=== PATIENT | female | born 1990 | race African-American/Black ===

== ENCOUNTER 2016-12-24 18:33 | Inpatient (IN) | payer MEDICAID ==
[2016-12-24] VITALS (10 sets, daily range): BP systolic 111–162; BP diastolic 65–99; PULSE 52–70; RESP 14–18; TEMP 100.8–101.7; O2SAT 100
[~2016-12-24] VITALS: Ht 167.6 cm; Wt 79.0 kg
[~2016-12-24 18:33] MED LIST: ALBU8I INH; PROM25SU8 PO
[2016-12-24] MEDS ORDERED: SODIUM CHLOR 0.9% 1000 ML INJ 700 ML IV ONE ×2 (19:17→21:18)
[2016-12-24] MEDS ORDERED: cefTRIAXone INJ 2,000 MG in SODIUM CHLORIDE 0.9% INJ 100 ML IV STA (19:17)
[2016-12-24] MEDS ORDERED: SODIUM CHLOR 0.9% 1000 ML INJ 1,000 ML IV ONE ×4 (19:17→21:18)
--- NOTE | 2016-12-24 19:21 | PD ---
HPI Chief Complaint: General Weakness Time Seen by Provider: 19:21 Travel History International Travel<30 days: No Contact w/Intl Traveler<30days: No Traveled to known affect area: No History of Present Illness HPI 26-year-old female with no significant medical history, presents to the emergency department by [facility] for altered mental status. Patient's mother accompanies her. She states that she went over to her house today and the patient was "not acting right." She states she was normal yesterday when she saw her, but her grandsons told her that the patient did fall down last night was holding her throat. Patient is a poor historian. She reports throat pain and a headache. She is uncooperative. Mom states she does not use any illicit drugs that she is aware of. States patient has had a relatively uneventful medical history except for asthma bronchitis and 2 vaginal deliveries. PFSH Past Medical History Asthma: Yes Diminished Hearing: No Immunizations Current: No Pneumonia: Yes (WITH LAST ) ?: Unknown : 1 Para: 2 Miscarriage: 0 : 0 Past Surgical History Section: Yes (X 2) Gynecologic Surgery: Yes ( X 2) Social History Alcohol Use: No Tobacco Use: No Substance Use: No Allergies-Medications (Allergen,Severity, Reaction): Coded Allergies: No Known Allergies (Verified , 05/10/15) Reported Meds & Prescriptions Reported Meds & Active Scripts Active Phenergan (Promethazine HCl) 25 Mg Tab 25 Mg PO Q4-6H FOR NAUSEA/VOMITING Ventolin Hfa (Albuterol Sulfate) 8 Gm Aero 1 Puff INH Q4H PRN * SHAKE WELL BEFORE USE * Review of Systems ROS Limitations: Altered Mental Status Except as stated in HPI: all other systems reviewed are Neg Physical Exam Exam Limitations: Altered Mental Status Narrative GENERAL: Well-nourished female patient, lying in the bed, not following commands or answering questions. SKIN: Focused skin assessment warm/dry. HEAD: Atraumatic. Normocephalic. EYES: Pupils equal and round. No scleral icterus. No injection or drainage. ENT: No nasal bleeding or discharge. Mucous membranes pink and moist. Unable to visualize pharynx due to patient not cooperating.Appears as though patient has bitting the right side of her tongue NECK: Trachea midline. No JVD. CARDIOVASCULAR: Regular rate and rhythm. RESPIRATORY: No accessory muscle use. Clear to auscultation. Breath sounds equal bilaterally. GASTROINTESTINAL: Abdomen soft, non-tender, nondistended. Hepatic and splenic margins not palpable. MUSCULOSKELETAL: No obvious deformities. No clubbing. No cyanosis. No edema. NEUROLOGICAL: Awake and alert. No obvious cranial nerve deficits. Motor grossly within normal limits. Normal speech. PSYCHIATRIC: Appropriate mood and affect; insight and judgment normal. Data Data Last Documented VS Vital Signs Date Time Temp Pulse Resp B/P (MAP) Pulse Ox O2 Delivery O2 Flow Rate FiO2 12/24/16 19:18 Room Air 12/24/16 19:18 101.7 62 14 111/65 (80) 100 Orders Orders Midazolam Inj (Versed Inj) (12/24/16 19:30) Electrocardiogram (12/24/16:17) Complete Blood Count With Diff (12/24/16 19:17) Comprehensive Metabolic Panel (12/24/16 19:17) Prothrombin Time / Inr (Pt) (12/24/16:17) Act Partial Throm Time (Ptt) (12/24/16 19:17) Lactic Acid Sepsis Protocol (12/24/16 19:17) Ckmb (Isoenzyme) Profile (12/24/16 19:17) Urinalysis - C+S If Indicated (12/24/16 19:17) Blood Culture (12/24/16 19:17) Chest, Single Ap (12/24/16 19:17) Blood Glucose (12/24/16 19:17) Ecg Monitoring (12/24/16 19:17) Iv Access Insert/Monitor (12/24/16 19:17) Oximetry (12/24/16 19:17) Oxygen Administration (12/24/16 19:17) Ct Brain W/O Iv Contrast(Rout) (12/24/16 19:17) Ceftriaxone Inj (Rocephin Inj) (12/24/16 19:17) Vancomycin Inj (Vancomycin Inj) (12/24/16 20:30) Acyclovir Inj (Zovirax Inj) (12/24/16 20:30) Sodium Chlor 0.9% 1000 Ml Inj (Ns 1000 M (12/24/16 19:17) Sodium Chlor 0.9% 1000 Ml Inj (Ns 1000 M (12/24/16 19:17) Sodium Chlor 0.9% 1000 Ml Inj (Ns 1000 M (12/24/16 19:17) Ct Soft Tiss Neck W Iv Cont (12/24/16 ) Midazolam Inj (Versed Inj) (12/24/16 20:15) Etomidate Inj (Amidate Inj) (12/24/16 20:18) Succinylcholine Inj (Quelicin Inj) (12/24/16 20:18) CKMB (12/24/16 19:20) CKMB% (12/24/16 19:20) Etomidate Inj (Amidate Inj) (12/24/16 20:43) Propofol 1000 Mg/100 Ml Inj (Diprivan 10 (12/24/16 20:47) Chest, Single Ap (12/24/16 ) Admit Order (Ed Use Only) (12/24/16 21:05) Labs Laboratory Tests Test 12/24/16 19:20 White Blood Count 16.1 TH/MM3 Red Blood Count 4.40 MIL/MM3 Hemoglobin 13.2 GM/DL Hematocrit 41.1 % Mean Corpuscular Volume 93.4 FL Mean Corpuscular Hemoglobin 30.0 PG Mean Corpuscular Hemoglobin Concent 32.1 % Red Cell Distribution Width 14.1 % Platelet Count 237 TH/MM3 Mean Platelet Volume 9.5 FL Neutrophils (%) (Auto) 86.6 % Lymphocytes (%) (Auto) 7.8 % Monocytes (%) (Auto) 5.5 % Eosinophils (%) (Auto) 0.0 % Basophils (%) (Auto) 0.1 % Neutrophils # (Auto) 14.0 TH/MM3 Lymphocytes # (Auto) 1.3 TH/MM3 Monocytes # (Auto) 0.9 TH/MM3 Eosinophils # (Auto) 0.0 TH/MM3 Basophils # (Auto) 0.0 TH/MM3 CBC Comment DIFF FINAL Differential Comment Prothrombin Time 10.9 SEC Prothromb Time International Ratio 1.0 RATIO Activated Partial Thromboplast Time 27.3 SEC Blood Urea Nitrogen 11 MG/DL Creatinine 0.99 MG/DL Random Glucose 88 MG/DL Total Protein 8.4 GM/DL Albumin 4.0 GM/DL Calcium Level 9.3 MG/DL Alkaline Phosphatase 57 U/L Aspartate Amino Transf (AST/SGOT) 19 U/L Alanine Aminotransferase (ALT/SGPT) 15 U/L Total Bilirubin 0.5 MG/DL Sodium Level 137 MEQ/L Potassium Level 3.3 MEQ/L Chloride Level 105 MEQ/L Carbon Dioxide Level 22.3 MEQ/L Anion Gap 10 MEQ/L Estimat Glomerular Filtration Rate 81 ML/MIN Lactic Acid Level 1.0 mmol/L Total Creatine Kinase 976 U/L Creatine Kinase MB 6.8 NG/ML Creatine Kinase MB % 0.7 % MDM Medical Decision Making Medical Screen Exam Complete: Yes Emergency Medical Condition: Yes Medical Record Reviewed: Yes Differential Diagnosis Meningitis versus sepsis versus electrolyte abnormality Narrative Course 26 year-old female presents to emergency department for evaluation of mental status. Patient has fever. She is uncooperative and unable answer questions or provide medical history. Her mother's mother states she was last seen normal yesterday. Patient is febrile. Discussed the patient with my attending physician Dr. Holland who also assessed the patient. Sepsis protocol is initiated. With high concern for meningitis due to patient's altered mental status associated fever, vancomycin, Rocephin, and acyclovir are all ordered in addition to labs and IV normal saline. 1952 CT has not yet been complete. I contacted CT and am told patient is "next. " Patient does return from CT with the exam unable to be completed due to her not holding still. Dr. Holland has discussed in depth alternative options to sedation to best evaluate the patient with the family. Please refer to his documentation. CT is able to be completed, Dr. Holland has discussed patient with motor vehicle or caravan salesperson. Patient is admitted at this time. LP to follow. Please refer to Dr. Holland documentation for further details Sepsis Criteria SIRS Criteria (2 or more): Temp > 100.9 or < 96.8 Diagnosis Primary Impression: Sepsis Qualified Codes: A41.9 - Sepsis, unspecified organism Additional Impression: Altered mental status Qualified Codes: R41.82 - Altered mental status, unspecified Admitting Information Admitting Physician Requests: Admit Condition: Stable Brianna Campbell NATALIA Dec 24, 2016 19:21
[2016-12-24] MEDS ORDERED: MIDAZOLAM HCL 5 MG/5 ML VIAL IV PUSH ONE ×2 (19:30→22:45)
[2016-12-24] MEDS ORDERED: MIDAZOLAM HCL 5 MG/ML VIAL (1 ML) IV ONE (20:15)
[2016-12-24 20:18] LABS: BASOPHIL % 0.1 % (0.0-2.0); HEMATOCRIT 41.1 % (35.0-46.0); HEMO FLAGS DIFF FINAL; LYMPH % 7.8 % (9.0-44.0); LYMPHOCYTE # 1.3 TH/MM3 (1.0-4.8); MEAN CELL VOLUME 93.4 FL (80.0-100.0); MEAN CORPUSCULAR HGB CONC 32.1 % (32.0-36.0); MONO % 5.5 % (0.0-8.0); NEUT % 86.6 % (16.0-70.0); PLATELET COUNT 237 TH/MM3 (150-450); RED CELL DISTRIBUTION WIDTH 14.1 % (11.6-17.2); WHITE BLOOD COUNT 16.1 TH/MM3 (4.0-11.0)
[2016-12-24] MEDS ORDERED: SUCCINYLCHOLINE CHLORIDE 200 MG/10 ML VIAL ONE (20:18)
[2016-12-24] MEDS ORDERED: ETOMIDATE 20 MG/10 ML VIAL ONE ×2 (20:18→20:43)
--- NOTE | 2016-12-24 20:23 | PD ---
Physical Exam Date Seen by Provider: Dec 24, 2016 Time Seen by Provider: 20:20 Narrative The patient is a 26-year-old [place] female who presents to the emergency department with her mother for altered mental status and fever. The patient was initially evaluated by the nurse practitioner, Brianna Uribe. Please refer to initial history, physical, diagnostic evaluation, and treatment modality plan. Data Data Last Documented VS Vital Signs Date Time Temp Pulse Resp B/P (MAP) Pulse Ox O2 Delivery O2 Flow Rate FiO2 12/24/16 19:18 Room Air 12/24/16 19:18 101.7 62 14 111/65 (80) 100 Orders Orders Midazolam Inj (Versed Inj) (12/24/16 19:30) Electrocardiogram (12/24/16:17) Complete Blood Count With Diff (12/24/16:) Comprehensive Metabolic Panel (12/24/16 19:17) Prothrombin Time / Inr (Pt) (12/24/16 19:17) Act Partial Throm Time (Ptt) (12/24/16 19:17) Lactic Acid Sepsis Protocol (12/24/16 19:17) Ckmb (Isoenzyme) Profile (12/24/16 19:17) Urinalysis - C+S If Indicated (12/24/16 19:17) Blood Culture (12/24/16 19:17) Chest, Single Ap (12/24/16 19:17) Blood Glucose (12/24/16 19:17) Ecg Monitoring (12/24/16 19:17) Iv Access Insert/Monitor (12/24/16 19:17) Oximetry (12/24/16 19:17) Oxygen Administration (12/24/16 19:17) Ct Brain W/O Iv Contrast(Rout) (12/24/16 19:17) Ceftriaxone Inj (Rocephin Inj) (12/24/16 19:17) Vancomycin Inj (Vancomycin Inj) (12/24/16 20:30) Acyclovir Inj (Zovirax Inj) (12/24/16 20:30) Sodium Chlor 0.9% 1000 Ml Inj (Ns 1000 M (12/24/16 19:17) Sodium Chlor 0.9% 1000 Ml Inj (Ns 1000 M (12/24/16 19:17) Sodium Chlor 0.9% 1000 Ml Inj (Ns 1000 M (12/24/16 19:17) Ct Soft Tiss Neck W Iv Cont (12/24/16 ) Midazolam Inj (Versed Inj) (12/24/16 20:15) Etomidate Inj (Amidate Inj) (12/24/16 20:18) Succinylcholine Inj (Quelicin Inj) (12/24/16 20:18) CKMB (12/24/16 19:20) CKMB% (12/24/16 19:20) Etomidate Inj (Amidate Inj) (12/24/16 20:43) Propofol 1000 Mg/100 Ml Inj (Diprivan 10 (12/24/16 20:47) Chest, Single Ap (12/24/16 ) Admit Order (Ed Use Only) (12/24/16 21:05) Labs Laboratory Tests Test 12/24/16 19:20 White Blood Count 16.1 TH/MM3 Red Blood Count 4.40 MIL/MM3 Hemoglobin 13.2 GM/DL Hematocrit 41.1 % Mean Corpuscular Volume 93.4 FL Mean Corpuscular Hemoglobin 30.0 PG Mean Corpuscular Hemoglobin Concent 32.1 % Red Cell Distribution Width 14.1 % Platelet Count 237 TH/MM3 Mean Platelet Volume 9.5 FL Neutrophils (%) (Auto) 86.6 % Lymphocytes (%) (Auto) 7.8 % Monocytes (%) (Auto) 5.5 % Eosinophils (%) (Auto) 0.0 % Basophils (%) (Auto) 0.1 % Neutrophils # (Auto) 14.0 TH/MM3 Lymphocytes # (Auto) 1.3 TH/MM3 Monocytes # (Auto) 0.9 TH/MM3 Eosinophils # (Auto) 0.0 TH/MM3 Basophils # (Auto) 0.0 TH/MM3 CBC Comment DIFF FINAL Differential Comment Prothrombin Time 10.9 SEC Prothromb Time International Ratio 1.0 RATIO Activated Partial Thromboplast Time 27.3 SEC Blood Urea Nitrogen 11 MG/DL Creatinine 0.99 MG/DL Random Glucose 88 MG/DL Total Protein 8.4 GM/DL Albumin 4.0 GM/DL Calcium Level 9.3 MG/DL Alkaline Phosphatase 57 U/L Aspartate Amino Transf (AST/SGOT) 19 U/L Alanine Aminotransferase (ALT/SGPT) 15 U/L Total Bilirubin 0.5 MG/DL Sodium Level 137 MEQ/L Potassium Level 3.3 MEQ/L Chloride Level 105 MEQ/L Carbon Dioxide Level 22.3 MEQ/L Anion Gap 10 MEQ/L Estimat Glomerular Filtration Rate 81 ML/MIN Lactic Acid Level 1.0 mmol/L Total Creatine Kinase 976 U/L Creatine Kinase MB 6.8 NG/ML Creatine Kinase MB % 0.7 % [facility] Medical Record Reviewed: Yes Supervised Visit with MEMO: Yes Interpretation(s) CT of the brain reveals questionable bilateral white matter changes Chest x-ray #1 reveals motion artifact Chest x-ray #2 reveals endotracheal tube in place 4.7 cm above boogie, nasogastric tube needs to be advance, mild left midlung consolidation Laboratory Tests Test 12/24/16 19:20 White Blood Count 16.1 TH/MM3 Red Blood Count 4.40 MIL/MM3 Hemoglobin 13.2 GM/DL Hematocrit 41.1 % Mean Corpuscular Volume 93.4 FL Mean Corpuscular Hemoglobin 30.0 PG Mean Corpuscular Hemoglobin Concent 32.1 % Red Cell Distribution Width 14.1 % Platelet Count 237 TH/MM3 Mean Platelet Volume 9.5 FL Neutrophils (%) (Auto) 86.6 % Lymphocytes (%) (Auto) 7.8 % Monocytes (%) (Auto) 5.5 % Eosinophils (%) (Auto) 0.0 % Basophils (%) (Auto) 0.1 % Neutrophils # (Auto) 14.0 TH/MM3 Lymphocytes # (Auto) 1.3 TH/MM3 Monocytes # (Auto) 0.9 TH/MM3 Eosinophils # (Auto) 0.0 TH/MM3 Basophils # (Auto) 0.0 TH/MM3 CBC Comment DIFF FINAL Differential Comment Prothrombin Time 10.9 SEC Prothromb Time International Ratio 1.0 RATIO Activated Partial Thromboplast Time 27.3 SEC Blood Urea Nitrogen 11 MG/DL Creatinine 0.99 MG/DL Random Glucose 88 MG/DL Total Protein 8.4 GM/DL Albumin 4.0 GM/DL Calcium Level 9.3 MG/DL Alkaline Phosphatase 57 U/L Aspartate Amino Transf (AST/SGOT) 19 U/L Alanine Aminotransferase (ALT/SGPT) 15 U/L Total Bilirubin 0.5 MG/DL Sodium Level 137 MEQ/L Potassium Level 3.3 MEQ/L Chloride Level 105 MEQ/L Carbon Dioxide Level 22.3 MEQ/L Anion Gap 10 MEQ/L Estimat Glomerular Filtration Rate 81 ML/MIN Lactic Acid Level 1.0 mmol/L Total Creatine Kinase 976 U/L Creatine Kinase MB 6.8 NG/ML Creatine Kinase MB % 0.7 % Differential Diagnosis Differential diagnoses includes meningitis, encephalitis, subarachnoid hemorrhage, retropharyngeal abscess, sepsis, intracranial hemorrhage, subarachnoid hemorrhage, delirium, drug ingestion. Narrative Course I, Dr. Holland, have reviewed the advance practice practitioner's documentation and am in agreement, met with the patient face to face, made the diagnosis, and the medical decision making was done by me. *My assessment and Findings: The patient is a 26-year-old [place] female who was initially evaluated by the mid-level provider. Please refer to the initial history, physical, diagnostic evaluation, and treatment modality plan. The patient had an altered mental status, was unable to follow commands, but not answer questions in regards to person, place, or time. The patient would not follow commands, would move during physical examination and would pushes away during physical examination. Mother states the patient is normally alert and oriented and following commands without difficulty. Meningitis/ encephalitis was thought to be a possibility as patient has fever with altered mental status. It was noted the patient had a hematoma on the right aspect of the tongue and was also noted to be incontinent of urine, seizure is a possibility, possibly HSV encephalitis/meningitis. We attempted to obtain CT the brain and CT soft tissue of the neck with IV contrast with Versed as sedation, however, the patient would not hold still in the CT suite, we're unable to obtain images. I had a discussion with mother regarding intubation to protect the patient's airway for sedation and paralysis to obtain CT and lumbar puncture. The patient immediately had Rocephin, vancomycin, and acyclovir order for possible meningitis/encephalitis. The patient was intubated by anesthesia as the patient had a difficult airway and was anterior. The patient then went immediately to CT for CT the soft tissue neck with IV contrast. The on-call medicaid analyst was paged for admission. I discussed the patient with Dr. Samuels who agrees with admission. The lumbar puncture was performed bedside by Dr. Samuels and cultures were sent to lab. The patient will be minute to the intensive care unit. Family was updated. Critical Care Narrative Aggregate critical care time was 45 minutes. Time to perform other separately billable procedures was not included in the critical care time. My time did not include minutes spent treating any other patients simultaneously or on activities that did not directly contribute to the patient's treatment. The services I provided to this patient were to treat and/or prevent clinically significant deterioration that could result in: Anoxia, hypoxia, aspiration, sepsis, . I provided critical care services requiring my management, as noted below: Chart data review, documentation time, medication orders and management, vital sign assessments/reviewing monitor data, ordering and reviewing lab tests, ordering and interpreting/reviewing x-rays and diagnostic studies, care of the patient and discussion of the patient with the admitting physicians. Sepsis Criteria SIRS Criteria (2 or more): Temp > 100.9 or < 96.8, Heart rate over 90, WBC > 00890, < 4000 or > 10% bands Criteria Outcome: Meets sepsis criteria Physician Communication Physician Communication The on-call medicaid analyst was paged for admission. I discussed the patient with Dr. Samuels who agrees with admission. Diagnosis Primary Impression: Sepsis Qualified Codes: A41.9 - Sepsis, unspecified organism Additional Impressions: Altered mental status Qualified Codes: R41.82 - Altered mental status, unspecified Leukocytosis Qualified Codes: D72.829 - Elevated white blood cell count, unspecified Admitting Information Admitting Physician Requests: Admit Condition: Serious Luis E Holland MD Dec 24, 2016 20:23
[2016-12-24] MEDS ORDERED: ACYCLOVIR IV ONE (20:30)
[2016-12-24] MEDS ORDERED: SODIUM CHLORIDE 0.9% IV ONE (20:30)
[2016-12-24] MEDS ORDERED: VANCOMYCIN INJ 2,100 MG in SODIUM CHLORID 0.9% 500 ML INJ 500 ML IV ONE (20:30)
--- NOTE | 2016-12-24 20:33 | RADRPT ---
EXAM DATE/TIME: 12/24/2016 19:45 [facility] COMPARISON: CHEST SINGLE AP, May 02, 2014, 15:08. INDICATIONS : Evaluate lung status. Fever for 2 days. MEDICAL HISTORY : None. SURGICAL HISTORY : None. ENCOUNTER: Initial ACUITY: 2 days PAIN SCORE: Non-responsive. LOCATION: Bilateral chest FINDINGS: Portable AP view of the chest is severely degraded secondary to motion artifact. Cardiac silhouette s ize is normal. Lungs demonstrate no definite abnormality. Bones and soft tissues demonstrate no acute finding. Linear metallic densities overlie the breast presumably representing nipple piercings. EKG lines also overlie the patient. CONCLUSION: Examination is severely degraded by motion. No acute finding is identified given this limitation. If clinical symptoms persist consider followup examination when patient is able to cooperate with the [facility]. Jamil Gibson MD on December 24, 2016 at 20:30 Board Certified Radiologist. This report was verified electronically.
[2016-12-24 20:35] LABS: ALT (GPT) 15 U/L (10-53); ANION GAP 10 MEQ/L (5-15); AST (GOT) 19 U/L (15-37); BICARBONATE 22.3 MEQ/L (21.0-32.0); BLOOD UREA NITROGEN 11 MG/DL (7-18); CHLORIDE 105 MEQ/L (98-107); GLOMERULAR FILTRATION RATE 81 ML/MIN (>89); POTASSIUM 3.3 MEQ/L (3.5-5.1); SODIUM (NA) 137 MEQ/L (136-145)
--- NOTE | 2016-12-24 20:37 | RADRPT ---
EXAM DATE/TIME: 12/24/2016 20:06 [facility] COMPARISON: No previous studies available for comparison. INDICATIONS : Altered mental status. RADIATION DOSE: 56.75 CTDIvol (mGy) MEDICAL HISTORY : Non-responsive. SURGICAL HISTORY : Non-responsive. ENCOUNTER: Initial ACUITY: 1 day PAIN SCALE: Non-responsive LOCATION: TECHNIQUE: Multiple contiguous axial images were obtained of the head. Using automated exposure control and adj ustment of the mA and/or kV according to patient size, radiation dose was kept as low as reasonably a chievable to obtain optimal diagnostic quality images. DICOM format image data is available electro nically for review and comparison. FINDINGS: CEREBRUM: The ventricles are normal. The white matter bilaterally appears slightly lower in density than typica lly appreciated. No midline shift, mass lesion, hemorrhage or acute infarction. No extra-axial flui d collections are seen. POSTERIOR FOSSA: The cerebellum and brainstem demonstrate no acute finding. The 4th ventricle is midline. The cerebe llopontine angle is unremarkable. EXTRACRANIAL: Visualized sinuses are clear. SKULL: The calvaria is intact. No evidence of skull fracture. CONCLUSION: 1. Questionable bilateral relatively diffuse white matter low density. This may be related to techniq ue. However, given the clinical history consider followup CT to assess for change or alternatively fu rther evaluate with brain MRI to determine if a true abnormality is present 2. Otherwise, no acute finding is identified. Jamil Gibson MD on December 24, 2016 at 20:32 Board Certified Radiologist. This report was verified electronically.
[2016-12-24 20:38] LABS: ALKALINE PHOSPHATASE 57 U/L (45-117); CREATINE KINASE 976 U/L (26-192); TOTAL BILIRUBIN ADULT 0.5 MG/DL (0.2-1.0)
[2016-12-24 20:44] LABS: APTT (PATIENT) 27.3 SEC (24.3-30.1); PROTHROMBIN TIME - PATIENT 10.9 SEC (9.8-11.6)
[2016-12-24] MEDS ORDERED: PROPOFOL 1000 MG/100 ML INJ 100 ML ONE (20:47)
[2016-12-24 20:55] LABS: CKMB 6.8 NG/ML (0.5-3.6)
[2016-12-24] MEDS: SODIUM CHLOR 0.9% 1000 ML INJ 1,000 ML IV SCH (21:18)
--- NOTE | 2016-12-24 21:23 | RADRPT ---
EXAM DATE/TIME: 12/24/2016 21:06 [facility] COMPARISON: CHEST SINGLE AP, December 24, 2016, 19:45. INDICATIONS : Post intubation. MEDICAL HISTORY : Non-responsive. SURGICAL HISTORY : Non-responsive. ENCOUNTER: Initial ACUITY: 1 day PAIN SCORE: Non-responsive. LOCATION: Bilateral chest FINDINGS: Portable AP view of the chest demonstrates a normal-sized cardiac silhouette. Multiple lines overlie the patient. Endotracheal tube is present with distal tip measuring 4.7 cm from the boogie. Nasogastr ic tube is present and distal tip barely extends beyond the GE junction with sentinel hole in the dis gabby esophagus. There is mild airspace opacity with air bronchograms in the left midlung zone. No pleu ral effusion or pneumothorax is visualized. Bones and soft tissues demonstrate no acute finding. CONCLUSION: 1. Endotracheal tube in appropriate position with tip measuring 4.7 cm from the boogie. 2. Nasogastric tube should be advanced. 3. Mild airspace consolidation in the left midlung zone. Jamil Gibson MD on December 24, 2016 at 21:20 Board Certified Radiologist. This report was verified electronically.
--- NOTE | 2016-12-24 21:25 | HHI.HP ---
[facility] Service Critical Care Medicine Primary Care Physician Jamil Davies MD Admission Diagnosis sepsis with altered mental status rule out meningitis/encephalitis Diagnosis: Travel History International Travel<30 Days: No Contact w/Intl Traveler <30 Da: No Traveled to Known Affected Are: No History of Present Illness 26-year-old female with no significant medical history, presents by [facility] for altered mental status and fevers. Patient's mother states that she went over to her house today and the patient was "not acting right." She states she was normal yesterday when she saw her, but her grandsons told her that the patient did fall down last night was holding her throat. The patient did report throat pain and a headache. She was uncooperative agitated and lethargic and was intubated by ED attending for an airway protection. Review of Systems ROS Unobtainable Past Family Social History Allergies: Coded Allergies: No Known Allergies (Verified , 05/10/15) Past Medical History Bronchial asthma Pneumonia Past Surgical History None Reported Medications Reported Meds & Active Scripts Active Phenergan (Promethazine HCl) 25 Mg Tab 25 Mg PO Q4-6H FOR NAUSEA/VOMITING Ventolin Hfa (Albuterol Sulfate) 8 Gm Aero 1 Puff INH Q4H PRN * SHAKE WELL BEFORE USE * Active Ordered Medications Current Medications Medications (Trade) Dose Ordered Sig/Vanessa Route PRN Reason Start Time Stop Time Status Last Admin Dose Admin Sodium Chloride 1,000 ml @ 75 mls/hr [id number] IV 12/24/16 21:18 12/24/16 21:18 Sodium Chloride (NS Flush) 2 ml UNSCH PRN IV FLUSH FLUSH AFTER USING IV ACCESS 12/24/16 21:30 Sodium Chloride (NS Flush) 2 ml BID IV FLUSH 12/25/16 09:00 Famotidine (Pepcid Inj) 20 mg Q12HR IV PUSH 12/25/16 09:00 Albuterol/ Ipratropium (Duoneb Neb) 1 ampule Q6HR NEB INH 12/24/16 22:00 12/25/16 03:23 Albuterol/ Ipratropium (Duoneb Neb) 1 ampule Q2HR NEB PRN INH WHEEZING 12/24/16 21:30 Heparin Sodium (Porcine) (Heparin Inj) 5,000 units Q8HR SQ 12/24/16 22:00 Ceftriaxone Sodium 2000 mg/ Sodium Chloride 100 ml @ 200 mls/hr Q12H IV 12/25/16 08:00 Pharmacy Profile Note 0 ml @ 0 mls/hr UNSCH OTHER 12/24/16 21:30 Miscellaneous Information 1 [id number] XX 12/24/16 21:30 Chlorhexidine Gluconate (Chlorhexidine 2% Cloth) 3 pack Taper DAILY@04 TOP 12/25/16 04:00 12/21/17 03:59 Chlorhexidine Gluconate (Chlorhexidine 2% Cloth) 3 pack UNSCH PRN TOP HYGIENIC CARE 12/24/16 21:30 Propofol 100 ml @ 2.52 mls/hr TITRATE PRN IV Ordered RASS 12/24/16 21:45 12/24/16 20:55 Vancomycin HCl 1250 mg/Sodium Chloride 262.5 ml @ 250 mls/hr Q12H IV 12/25/16 11:00 Miscellaneous Information SPECIFIC LAB TO BE HEATHER... ONCE ONCE .XX 12/26/16 10:45 12/26/16 10:46 Propofol 100 ml @ 2.52 mls/hr TITRATE PRN IV Ordered RASS 12/25/16 00:00 Fentanyl Citrate 250 ml @ 5 mls/hr TITRATE PRN IV Sedation 12/25/16 00:30 12/25/16 01:03 Midazolam HCl 100 ml @ 2 mls/hr TITRATE PRN IV SEDATION 12/25/16 00:30 12/25/16 01:02 Family History No family history of early coronary artery disease or malignancy Social History No illicit drug abuse smokes medical marijuana occasionally, no tobacco or alcohol abuse Physical Exam Vital Signs Vital Signs Date Time Temp Pulse Resp B/P (MAP) Pulse Ox O2 Delivery O2 Flow Rate FiO2 12/24/16 19:18 Room Air 12/24/16 19:18 101.7 62 14 111/65 (80) 100 Room Air 12/24/16 19:01 101.7 70 18 111/65 (80) 100 Physical Exam GENERAL: Well-nourished, well-developed patient young female sedated and intubated SKIN: Warm and dry. HEAD: Normocephalic. EYES: No scleral icterus. No injection or drainage. NECK: Supple, trachea midline. No JVD or lymphadenopathy. CARDIOVASCULAR: Regular rate and rhythm without murmurs, gallops, or rubs. RESPIRATORY: Breath sounds equal bilaterally. No accessory muscle use. GASTROINTESTINAL: Abdomen soft, non-tender, nondistended. MUSCULOSKELETAL: No cyanosis, or edema. BACK: Nontender without obvious deformity. NEURO EXAM: GCS: M5 Vt E3 Mental Status: The patient is sedated and intubated Cranial Nerves: Pupils are round, reactive to light. Reflexes: Biceps, patellar, and Achilles are 2/4 bilaterally. No clonus. Laboratory Laboratory Tests Test 12/24/16 19:20 White Blood Count 16.1 Red Blood Count 4.40 Hemoglobin 13.2 Hematocrit 41.1 Mean Corpuscular Volume 93.4 Mean Corpuscular Hemoglobin 30.0 Mean Corpuscular Hemoglobin Concent 32.1 Red Cell Distribution Width 14.1 Platelet Count 237 Mean Platelet Volume 9.5 Neutrophils (%) (Auto) 86.6 Lymphocytes (%) (Auto) 7.8 Monocytes (%) (Auto) 5.5 Eosinophils (%) (Auto) 0.0 Basophils (%) (Auto) 0.1 Neutrophils # (Auto) 14.0 Lymphocytes # (Auto) 1.3 Monocytes # (Auto) 0.9 Eosinophils # (Auto) 0.0 Basophils # (Auto) 0.0 CBC Comment DIFF FINAL Differential Comment Prothrombin Time 10.9 Prothromb Time International Ratio 1.0 Activated Partial Thromboplast Time 27.3 Blood Urea Nitrogen 11 Creatinine 0.99 Random Glucose 88 Total Protein 8.4 Albumin 4.0 Calcium Level 9.3 Alkaline Phosphatase 57 Aspartate Amino Transf (AST/SGOT) 19 Alanine Aminotransferase (ALT/SGPT) 15 Total Bilirubin 0.5 Sodium Level 137 Potassium Level 3.3 Chloride Level 105 Carbon Dioxide Level 22.3 Anion Gap 10 Estimat Glomerular Filtration Rate 81 Lactic Acid Level 1.0 Total Creatine Kinase 976 Creatine Kinase MB 6.8 Creatine Kinase MB % 0.7 Date/Time Source Procedure Growth Status 12/24/16 19:25 Blood Peripheral Aerobic Blood Culture Pending Received 12/24/16 19:25 Blood Peripheral Anaerobic Blood Culture Pending Received Result Diagram: 12/24/16191912/24/161919 Imaging Last [address] 12/24/161916 Draft Impressions: Service Date/Time: Saturday, December 24, 2016 20:06 - CONCLUSION: 1. Questionable bilateral relatively diffuse white matter low density. This may be related to technique. However, given the clinical history consider followup CT to assess for change or alternatively further evaluate with brain MRI to determine if a true abnormality is present 2. Otherwise, no acute finding is identified. Jamil Gibson MD Chest X-Ray 12/24/161916 Signed Impressions: Service Date/Time: Saturday, December 24, 2016 19:45 - CONCLUSION: Examination is severely degraded by motion. No acute finding is identified given this limitation. If clinical symptoms persist consider followup examination when patient is able to cooperate with the study. MD Rachna Servin VTE Risk Assessment Rachna VTE Risk Assessment: Mod/High Risk (score >= 2) Caprini Risk Assessment Model Point Value = 1 Point Value = 2 Point Value = 3 Point Value = 5 Age 41-60 Minor surgery BMI > 25 kg/m2 Swollen legs Varicose veins or History of unexplained or recurrent spontaneous Oral contraceptives or hormone replacement Sepsis (< 1 month) Serious lung disease, including pneumonia (< 1 month) Abnormal pulmonary function Acute myocardial infarction Congestive heart failure (< 1 month) History of inflammatory bowel disease Medical patient at bed rest Age 61-74 Arthroscopic surgery Major open surgery (> 45 min) Laparoscopic surgery (> 45 min) Malignancy Confined to bed (> 72 hours) Immobilizing plaster cast Central venous access Age >= 75 History of VTE Family history of VTE Factor V Leiden Prothrombin [id number] Lupus anticoagulant Anticardiolipin antibodies Elevated serum homocysteine Heparin-induced thrombocytopenia Other congenital or acquired thrombophilia Stroke (< 1 month) Elective arthroplasty Hip, pelvis, or leg fracture Acute spinal cord injury (< 1 month) Prophylaxis Regimen Total Risk Factor Score Risk Level Prophylaxis Regimen 0-1 Low Early ambulation 2 Moderate Order ONE of the following: *Sequential Compression Device (SCD) *Heparin 5000 units SQ BID 3-4 Higher Order ONE of the following medications: *Heparin 5000 units SQ TID *Enoxaparin/Lovenox 40 mg SQ daily (WT < 150 kg, CrCl > 30 mL/min) *Enoxaparin/Lovenox 30 mg SQ daily (WT < 150 kg, CrCl > 10-29 mL/min) *Enoxaparin/Lovenox 30 mg SQ BID (WT < 150 kg, CrCl > 30 mL/min) AND/OR *Sequential Compression Device (SCD) 5 or more Highest Order ONE of the following medications: *Heparin 5000 units SQ TID (Preferred with Epidurals) *Enoxaparin/Lovenox 40 mg SQ daily (WT < 150 kg, CrCl > 30 mL/min) *Enoxaparin/Lovenox 30 mg SQ daily (WT < 150 kg, CrCl > 10-29 mL/min) *Enoxaparin/Lovenox 30 mg SQ BID (WT < 150 kg, CrCl > 30 mL/min) AND *Sequential Compression Device (SCD) Assessment and Plan Assessment and Plan Respiratory failure - Intubated for an airway protection - No weaning until neurologically improved - Continue mechanical ventilation - CXR and ABG daily Altered mental status - SIRS - Toxic encephalopathy - Marijuana - LP negative - CT head negative - Neuro checks - Supportive care Sepsis - Unclear source - Broad-spectrum antibiotics - Follow-up cultures and de-escalate per sensitivity - Infectious disease consultation DVT GI prophylaxis - Subcutaneous heparin and Pepcid Critical Care: The total critical care time was 35 minutes. Time to perform other separately billable procedures was not included in the critical care time. Nic Samuels MD Dec 24, 2016 9:24 pm
[2016-12-24] MEDS ORDERED: SODIUM CHLORIDE 0.9% FLUSH 10 ML FLUSH IV FLUSH PRN (21:30)
[2016-12-24] MEDS ORDERED: RESP: ALBUTEROL 2.5 MG/IPRATROPIUM 0.5 MG NEB (PRN) INH (21:30)
[2016-12-24] MEDS ORDERED: MISCELLANEOUS NURSING INFORMATION XX SCH (21:30)
[2016-12-24] MEDS ORDERED: CHLORHEXIDINE GLUCONATE 2 % 1 PACK (2 CLOTHS) TOP PRN (21:30)
[2016-12-24] MEDS ORDERED: Vancomycin Consult Pharmacy 1 EA OTHER SCH (21:30)
[2016-12-24] MEDS ORDERED: IOHEXOL 350 MG/ML 10 ML VIAL (for RAD DIAG) IVCONTRAST ONE (21:31)
--- NOTE | 2016-12-24 21:42 | RADRPT ---
EXAM DATE/TIME: 12/24/2016 20:09 [facility] COMPARISON: No previous studies available for comparison. INDICATIONS : Swollen throat. IV CONTRAST: 70 cc Omnipaque 350 (iohexol) IV RADIATION DOSE: 14.64 CTDIvol (mGy) MEDICAL HISTORY : Non-responsive. SURGICAL HISTORY : Non-responsive. ENCOUNTER: Initial ACUITY: 1 day PAIN SCALE: Non-responsive LOCATION: throat TECHNIQUE: Volumetric scanning of the neck was performed. Using automated exposure control and adjustment of th e mA and/or kV according to patient size, radiation dose was kept as low as reasonably achievable to obtain optimal diagnostic quality images. DICOM format image data is available electronically for r eview and comparison. FINDINGS: NASOPHARYNX: There is fluid filling the nasopharynx. Mucosal services demonstrate no definite abnormality. OROPHARYNX: Patient is intubated nasogastric tube is present. No definite abnormality is present. There is fluid. LARYNX: Endotracheal tube is present along with fluid. No definite abnormality is seen. SALIVARY GLANDS: The parotid and submandibular glands are within normal limits. LYMPH NODES: No enlarged or necrotic-appearing nodes. THYROID: Homogeneous enhancement without evidence of nodule. BONES: No acute osseous abnormality is identified. The visualized surrounding structures demonstrate no acute finding. CONCLUSION: There is fluid in the nasopharynx and oropharynx likely related to the nasogastric tube and endotrach eal tube that is present. Otherwise, no acute finding is appreciated. Jamil Gibson MD on December 24, 2016 at 21:37 Board Certified Radiologist. This report was verified electronically.
[2016-12-24] MEDS ORDERED: VECURONIUM BROMIDE 10 MG VIAL IV PUSH ONE (21:45)
[2016-12-24] MEDS ORDERED: PROPOFOL 1000 MG/100 ML INJ 100 ML IV PRN (21:45)
[2016-12-24] MEDS ORDERED: DEXAMETHASONE SOD PHOS 20 MG/5 ML VIAL IV SCH (22:00)
[2016-12-24] MEDS: RESP: ALBUTEROL 2.5 MG/IPRATROPIUM 0.5 MG NEB (SCH) INH (22:03)
--- NOTE | 2016-12-24 22:43 | PD.PROCEDR ---
Procedure Note Procedure Lumbar puncture A time-out was completed verifying correct patient, procedure, site, positioning , and special equipment if applicable. The patient was placed in the <LEFT/RIGHT > lateral decubitus position in a semi- position with help from the nursing staff. The area was cleansed and draped in usual sterile fashion. 1% lidocaine was used anesthetize the surrounding skin area. A <20-gauge 3.5-inch> spinal needle was placed in the <L3-L4/L4-L5> interspace. Clear cerebral spinal fluid was obtained and the opening pressure was noted to be 22. Four tubes were filled with 4 mL of CSF. These were sent for the usual tests, including 1 tube to be held for further analysis if needed. <Attending/Resident> was present for the entire procedure Estimated Blood Loss: 0ml The patient tolerated the procedure well and there were no complications. Nic Samuels MD Dec 24, 2016 22:43
[2016-12-24 23:30] LABS: LACTIC ACID,CSF 2.3 MMOL/L (0.0-3.0)
[2016-12-24] MEDS ORDERED: ACETAMINOPHEN 650 MG/20.3 ML UDC PO ONE (23:30)
[2016-12-24 23:58] LABS: GROSS BLOOD TUBE #1 1+ (0); GROSS BLOOD TUBE #2 TRACE (0); SUPERNATE COLOR TUBE #1 CLEAR (CLEAR); SUPERNATE COLOR TUBE #2 CLEAR (CLEAR); VOLUME TUBE # 2 2.8 ML; VOLUME TUBE # 3 2.5 ML
[2016-12-24 23:59] LABS: GROSS BLOOD TUBE #3 TRACE (0); GROSS BLOOD TUBE #4 0 (0); SUPERNATE COLOR TUBE #3 CLEAR (CLEAR); SUPERNATE COLOR TUBE #4 CLEAR (CLEAR); VOLUME TUBE # 4 2.8 ML
[2016-12-25] VITALS (43 sets, daily range): BP systolic 110–152; BP diastolic 60–92; PULSE 57–111; RESP 10–36; TEMP 98.7–100.3; O2SAT 77–100
[2016-12-25] LABS: WBC TUBE #4 17 /MM3 (0-10)
[2016-12-25] MEDS ORDERED: ETOMIDATE 20 MG/10 ML VIAL IV PUSH ONE ×2
[2016-12-25] MEDS ORDERED: SUCCINYLCHOLINE CHLORIDE 200 MG/10 ML VIAL IV PUSH ONE ×2
[2016-12-25 00:03] LABS: BACTERIA, URINE RARE /hpf; BLOOD, URINE NEG (NEG); GLUCOSE,URINE NEG (NEG); KETONE, URINE 40 mg/dL (NEG); MUCUS URINE FEW /lpf (OCC); NITRITE,URINE NEG (NEG); URINE COLOR YELLOW (YELLW/STRAW)
[2016-12-25 00:04] LABS: COMMENT (UR) CATH-CULTURE IND; CULTURE IF INDICATED CATH CULTURE IND
[2016-12-25 00:11] LABS: GROSS BLOOD TUBE #1 1+ (0); SUPERNATE COLOR TUBE #1 CLEAR (CLEAR); WBC TUBE #1 14 /MM3 (0-10)
[2016-12-25] MEDS: MIDAZOLAM 100 MG/NS 100 ML DRIP Premix IV PRN ×2 (01:02→10:26)
[2016-12-25] MEDS: fentaNYL 2,500 MCG/NS 250 ML IV PRN ×2 (01:03→15:18)
[2016-12-25 01:20] LABS: CSF LYMPHOCYTES 11 %; CSF NEUTROPHILS 89 %
[2016-12-25 01:23] LABS: CSF LYMPHOCYTES 6 %; CSF MONOCYTES 2 %; CSF NEUTROPHILS 92 %
[2016-12-25] MEDS: RESP: ALBUTEROL 2.5 MG/IPRATROPIUM 0.5 MG NEB (SCH) INH ×4 (03:23→20:14)
[2016-12-25] MEDS: CHLORHEXIDINE GLUCONATE 2 % 1 PACK (2 CLOTHS) TOP SCH (04:28)
[2016-12-25] MEDS: HEPARIN SODIUM - SQ 10,000 UNITS/ML VIAL SQ SCH ×3 (05:10→19:59)
[2016-12-25] MEDS ORDERED: RESP: ALBUTEROL 2.5 MG/3 ML NEB (PRN) NEB (09:00)
[2016-12-25] MEDS ORDERED: POTASSIUM CHLORIDE 20 MEQ PWD PACKET PO ONE (09:00)
[2016-12-25] MEDS: ARTIFICIAL TEARS OPTH SOLN 15 ML BTL EACH EYE SCH ×2 (09:00→17:00)
[2016-12-25] MEDS: SENNOSIDES SYRUP 8.8 MG/5 ML CUP PO SCH (09:00)
--- NOTE | 2016-12-25 09:06 | HHI.CCPN ---
Subjective Remarks/Hospital Course 26-year-old female with no significant medical history, presents by [facility] for altered mental status and fevers. Patient's mother states that she went over to her house today and the patient was "not acting right." She states she was normal yesterday when she saw her, but her grandsons told her that the patient did fall down last night was holding her throat. The patient did report throat pain and a headache. She was uncooperative agitated and lethargic and was intubated by ED attending for an airway protection. Subjective 12/25: Tmax 101.1. Currently 98.3. Arousable on the ventilator on 10 mg an hour of midazolam drip and 200 an hour fentanyl drip. Not falling commands. Positive gag and corneal reflex. Moves all 4 extremities spontaneously. MRI brain pending. Objective Vital Signs Date Time Temp Pulse Resp B/P (MAP) Pulse Ox O2 Delivery O2 Flow Rate FiO2 12/25/16 08:11 100 35 12/25/16 06:00 59 12/25/16 04:00 98.7 17 126/78 (94) 12/25/16 00:06 Ventilator 12/24/16 20:45 15.00 Intake and Output 12/25/16 12/25/16 12/26/16 08:00 16:00 00:00 Intake Total 4073.0 ml Output Total 475 ml Balance 3598.0 ml Result Diagram: 12/24/16191912/24/161919 Other Results Microbiology Date/Time Source Procedure Growth Status 12/24/16 19:25 Blood Peripheral Aerobic Blood Culture Pending Received 12/24/16 19:25 Blood Peripheral Anaerobic Blood Culture Pending Received 12/24/16 22:00 Cerebral Spinal Fluid Lumbar Puncture Gram Stain - Final Resulted 12/24/16 22:00 Cerebral Spinal Fluid Lumbar Puncture CSF Culture Pending Resulted 12/24/16 23:30 Urine Catheterized Urine Urine Culture Pending Received Imaging Last Impressions Head CT 12/24/161916 Signed Impressions: Service Date/Time: Saturday, December 24, 2016 20:06 - CONCLUSION: 1. Questionable bilateral relatively diffuse white matter low density. This may be related to technique. However, given the clinical history consider followup CT to assess for change or alternatively further evaluate with brain MRI to determine if a true abnormality is present 2. Otherwise, no acute finding is identified. Jamil Gibson MD Chest X-Ray 12/24/16 1917 Signed Impressions: Service Date/Time: Saturday, December 24, 2016 19:45 - CONCLUSION: Examination is severely degraded by motion. No acute finding is identified given this limitation. If clinical symptoms persist consider followup examination when patient is able to cooperate with the study. Jamil Gibson MD Neck CT 12/24/16 0000 Signed Impressions: Service Date/Time: Saturday, December 24, 2016 20:09 - CONCLUSION: There is fluid in the nasopharynx and oropharynx likely related to the nasogastric tube and endotracheal tube that is present. Otherwise, no acute finding is appreciated. Jamil Gibson MD Objective Remarks GENERAL: 26-year-old AA female currently orotracheally intubated SKIN: Warm and dry. No rash HEAD: Normocephalic. EYES: Pupils are equally round and react about 3 mm bilaterally. No scleral icterus. No injection or drainage. NECK: Supple, trachea midline. No JVD or lymphadenopathy. CARDIOVASCULAR: Regular rate and rhythm S1, S2 no S4. Without murmurs, gallops , or rubs. RESPIRATORY: Breath sounds equal bilaterally. No accessory muscle use. GASTROINTESTINAL: Abdomen soft, non-tender, nondistended. MUSCULOSKELETAL: No neck and peripheral edema. NEURO EXAM: Cranial nerves II through XII appear grossly intact. Patient moves all 4 extremity spontaneously but not to command. Positive gag. Positive corneal reflex. A/P Assessment and Plan Neuro/Psych: Altered mental status - rule out meningioencephalitis THC use Patient is currently on midazolam drip at 10 mg an hour/fentanyl drip at 200 g for sedation/analgesia while intubated Goal of RASS -[address] brain 12/24 revealed diffuse white matter changes. Recommended MRI follow- up. CT neck shows no occlusive disease. EEG/MRI brain pending Neurology consultation Toxicology screen positive for THC/benzodiazepines CV: Patient is currently normal saline at 75 cc an hour. Currently not requiring vasopressors and/or anti-hypertensives Resp: Acute respiratory failure ACV 15/500/5/35 Ventilator bundle Albuterol/Atrovent aerosols every 6 hours aerosols every 2 hours. Dyspnea Spontaneous breathing trials daily GI: Start on tube feeding with Jevity 1.5 goal 65 cc an hour Famotidine 20 mg IV twice a day for GI prophylaxis Docusate sodium liquid 100 mg twice a day, Senokot liquid 8.6 mg daily for GI bowel regimen : Dior catheter for accurate I's and O's in a critically ill patient Endo: Sliding-scale insulin if indicated. Renal: Monitor urine output Accurate I's and O's Heme: Leukocytosis Monitor CBC daily. Follow trends ID: Currently on acyclovir, vancomycin and Rocephin day #2 Blood cultures 2, UA all pending LP 14 WBC. Neutrophil predominant. Protein 27. Glucose 72. FEN: Hypokalemia Received 30 mEq IV and 40 mEq by tube. Recheck in a.m. MSK: Range of motion PT evaluate and treat Access - Utilize peripheral IV. Central line if indicated Prophylaxis - GI - famotidine - DVT - SCD/heparin subcutaneous Level III follow-up Ten Bagley MD Dec 25, 2016 09:06
[2016-12-25 09:11] LABS: BLOOD GAS BASE EXCESS -5.9 mmol/L (-2-2); BLOOD GAS CARBOXYHEMOGLOBIN 1.1 % (0-4); BLOOD GAS HCO3 18 mmol/L (22-26); BLOOD GAS METHEMOGLOBIN 1.2 % (0-2); BLOOD GAS O2 HGB SATURATION 97 % (90-100); BLOOD GAS OXYGEN CONTENT 15.6 Vol % (12.0-20.0); BLOOD GAS PCO2 26 mmHg (38-42); BLOOD GAS PO2 165 mmHg (61-120); BLOOD GAS TOTAL HGB 11.1 G/DL (12.0-16.0); CRITICAL VALUE NO; OXYGEN DEVICE VENTILATOR; TEMP CORR TO 98.6
[2016-12-25 09:12] LABS: DRAW SITE RT RADIAL; FIO2 35 %; NUMBER OF ARTERIAL PUNCTURES 1; STAT NO; ULNAR PULSE PRESENT; VENT SETTINGS AC/RR15/VT500/PEEP5
--- NOTE | 2016-12-25 09:38 | PD.CONS ---
History of Present Illness Service Infectious disease Consult Requested By Dr Samuels Reason for Consult Evaluate patient with sepsis, unclear source Primary Care Physician Jamil Davies MD Diagnoses: History of Present Illness Patient seen and examined. Records reviewed. Patient is a 26-year-old female, brought into the hospital for altered mental status. Most of the history was obtained from the patient's mother. Patient apparently recently from the partner about 6 months ago, and she has 2 children, ages 6 and 8. Patient was last seen by the mother the day prior to admission, and at that time she was not really complaining of any problem. The following day, the mother tried calling her, and was not getting any answer. She went to her house after she got off work around 5:00, and she found the patient in bed. The grandkid said that the mom had a fall the night prior to admission, and she called into bed. The kids were apparently taken to school by the neighbor. When the mom found the patient, she was somewhat confused, and seemed to have a difficult time speaking. She called 911, and the patient was taken to the hospital for further evaluation and treatment. The mom did not see any vomitus or any fluid on the bed or on the floor. The 2 kids have not been sick. There is no pets in the house. Patient works at [employer]. On presentation, patient has been febrile. She ended up getting intubated. Patient underwent lumbar puncture, and it showed some mild CSF pleocytosis, mostly neutrophils, with normal glucose and protein. CT of the neck did not show any abnormality in the soft tissue, no lymphadenopathy, the salivary glands were normal. She is currently on Vancomycin and Rocephin. Infectious disease consultation has been requested to evaluate the patient. Review of Systems ROS Limitations: Clinical Condition, Intubated (according to mother, she has not been complaining of anything) Past Family Social History Allergies: Coded Allergies: No Known Allergies (Verified , 05/10/15) Past Medical History Bronchitis 2 pregnancies and normal delivery Past Surgical History None Active Ordered Medications Albuterol Rocephin Vancomycin Colace Pepcid Fentanyl Heparin Versed Potassium Diprivan Senna Family History Unremarkable Social History Nonsmoker No alcohol abuse Occasionally smokes weed Has 2 children Works at [email or web address], recently about 6 months ago Physical Exam Vital Signs Vital Signs Date Time Temp Pulse Resp B/P (MAP) Pulse Ox O2 Delivery O2 Flow Rate FiO2 12/25/16 08:11 100 35 12/25/16 06:00 59 12/25/16 04:10 100 35 12/25/16 04:00 35 12/25/16 04:00 67 12/25/16 04:00 98.7 67 17 126/78 (94) 100 12/25/16 02:00 58 12/25/16 01:20 100 35 12/25/16 01:03 68 12/25/16 00:15 69 25 132/76 (94) 100 12/25/16 00:15 69 12/25/16 00:11 75 25 125/70 (88) 100 12/25/16 00:11 75 12/25/16 00:06 100.3 152/90 (110) 100 Ventilator 12/25/16 00:05 100 35 12/24/16 23:50 100 100 12/24/16 22:50 58 18 122/67 (85) 100 Ventilator 12/24/16 22:15 100.8 56 18 162/99 (120) 100 Ventilator 12/24/16 22:03 100 35 12/24/16 21:26 100 35 12/24/16 21:25 100 100 12/24/16 21:00 100 100 12/24/16 20:45 52 18 159/97 (117) 100 15.00 12/24/16 19:18 Room Air 12/24/16 19:18 101.7 62 14 111/65 (80) 100 Room Air 12/24/16 19:01 101.7 70 18 111/65 (80) 100 Physical Exam GENERAL: Patient is a well-nourished, well-developed femal, sedated on the vent, not in respiratory distress. SKIN: Warm and dry. No generalized rash, no ecchymoses and no evidence of embolic lesions. HEAD: Atraumatic. Normocephalic. No temporal wasting, or tenderness. EYES: Hutchinson conjunctiva. No petechia or hemorrhage. Pupils equal, round and reactive to light. No scleral icterus. No injection or drainage. EARS, NOSE AND THROAT: Nose without bleeding or purulent nasal discharge. She is orally intubated. NECK: Trachea midline. Supple and not tender, no meningeal signs CARDIOVASCULAR: Regular rate and rhythm. No murmurs, rubs or gallops heard RESPIRATORY: Clear to auscultation. Breath sounds equal bilaterally. No rales , wheezing or rhonchi ABDOMEN: Soft, nondistended, no reaction to palpation. Bowel sounds present and normoactive. No guarding. No rebound. No organomegaly. EXTREMITIES: No clubbing, cyanosis, or edema. No joint effusion. Well perfused and warm. NEUROLOGICAL: Sedated on the vent. No Babinski, no ankle clonus PSYCHIATRIC: Unable to assess. LINE: No evidence of infection : Dior in place, urine clear Laboratory Laboratory Tests Test 12/24/16 19:20 12/24/16 22:00 12/24/16 23:30 12/24/16 23:33 White Blood Count 16.1 Red Blood Count 4.40 Hemoglobin 13.2 Hematocrit 41.1 Mean Corpuscular Volume 93.4 Mean Corpuscular Hemoglobin 30.0 Mean Corpuscular Hemoglobin Concent 32.1 Red Cell Distribution Width 14.1 Platelet Count 237 Mean Platelet Volume 9.5 Neutrophils (%) (Auto) 86.6 Lymphocytes (%) (Auto) 7.8 Monocytes (%) (Auto) 5.5 Eosinophils (%) (Auto) 0.0 Basophils (%) (Auto) 0.1 Neutrophils # (Auto) 14.0 Lymphocytes # (Auto) 1.3 Monocytes # (Auto) 0.9 Eosinophils # (Auto) 0.0 Basophils # (Auto) 0.0 CBC Comment DIFF FINAL Differential Comment Prothrombin Time 10.9 Prothromb Time International Ratio 1.0 Activated Partial Thromboplast Time 27.3 Blood Urea Nitrogen 11 Creatinine 0.99 Random Glucose 88 Total Protein 8.4 Albumin 4.0 Calcium Level 9.3 Alkaline Phosphatase 57 Aspartate Amino Transf (AST/SGOT) 19 Alanine Aminotransferase (ALT/SGPT) 15 Total Bilirubin 0.5 Sodium Level 137 Potassium Level 3.3 Chloride Level 105 Carbon Dioxide Level 22.3 Anion Gap 10 Estimat Glomerular Filtration Rate 81 Lactic Acid Level 1.0 Total Creatine Kinase 976 Creatine Kinase MB 6.8 Creatine Kinase MB % 0.7 C-Reactive Protein 2.19 CSF Volume (Tube 1) 6.0 CSF Supernatant Color (tube 1) CLEAR CSF Gross Blood (Tube 1) 1+ CSF WBC (Tube 1) 14 CSF RBC (Tube 1) 465 CSF Volume (Tube 2) 2.8 CSF Supernatant Color (tube 2) CLEAR CSF Gross Blood (Tube 2) TRACE CSF Volume (Tube 3) 2.5 CSF Supernatant Color (tube 3) CLEAR CSF Gross Blood (Tube 3) TRACE CSF Volume (Tube 4) 2.8 CSF Supernatant Color (tube 4) CLEAR CSF Gross Blood (Tube 4) 0 CSF WBC (Tube 4) 17 CSF RBC (Tube 4) 69 CSF Neutrophils 89 CSF Lymphocytes 11 CSF Monocytes 2 CSF Glucose 72 CSF Lactate Dehydrogenase 21 CSF Lactic Acid 2.3 CSF Total Protein 27.4 Urine Color YELLOW Urine Turbidity CLEAR Urine pH 6.0 Urine Specific [place] GREATER THAN 1.050 Urine Protein TRACE Urine Glucose (UA) NEG Urine Ketones 40 Urine Occult Blood NEG Urine Nitrite NEG Urine Bilirubin NEG Urine Urobilinogen LESS THAN 2.0 Urine Leukocyte Esterase NEG Urine RBC 1 Urine WBC 1 Urine Bacteria RARE Urine Mucus FEW Microscopic Urinalysis Comment CATH-CULTURE IND Urine Opiates Screen NEG Urine Barbiturates Screen NEG Urine Amphetamines Screen NEG Urine Benzodiazepines Screen POS Urine Cocaine Screen NEG Urine Cannabinoids Screen POS Test 12/25/16 01:03 12/25/16 08:56 Nasal Screen MRSA (PCR) MRSA NOT DETECTED Blood Gas Puncture Site RT RADIAL Blood Gas Patient Temperature 98.6 Blood Gas HCO3 18 Blood Gas Base Excess -5.9 Blood Gas Oxygen Saturation 97 Arterial Blood pH 7.44 Arterial Blood Partial Pressure CO2 26 Arterial Blood Partial Pressure O2 165 Arterial Blood Oxygen Content 15.6 Arterial Blood Carboxyhemoglobin 1.1 Arterial Blood Methemoglobin 1.2 Blood Gas Hemoglobin 11.1 Oxygen Delivery Device VENTILATOR Blood Gas Ventilator Setting AC/RR15/VT500/PEEP5 Blood Gas Inspired Oxygen 35 Date/Time Source Procedure Growth Status 12/24/16 19:25 Blood Peripheral Aerobic Blood Culture Pending Received 12/24/16 19:25 Blood Peripheral Anaerobic Blood Culture Pending Received 12/24/16 22:00 Cerebral Spinal Fluid Lumbar Puncture Gram Stain - Final Resulted 12/24/16 22:00 Cerebral Spinal Fluid Lumbar Puncture CSF Culture - Preliminary NO GROWTH IN 24 HOURS. Resulted 12/24/16 23:30 Urine Catheterized Urine Urine Culture Pending Received Result Diagram: 12/24/16191912/24/161919 Imaging RADIOLOGY STUDIES/FILMS REVIEWED Head CT 12/24/161916 Signed Impressions: Service Date/Time: Saturday, December 24, 2016 20:06 - CONCLUSION: 1. Questionable bilateral relatively diffuse white matter low density. This may be related to technique. However, given the clinical history consider followup CT to assess for change or alternatively further evaluate with brain MRI to determine if a true abnormality is present 2. Otherwise, no acute finding is identified. Jamil Gibson MD Chest X-Ray 12/24/16 1917 Signed Impressions: Service Date/Time: Saturday, December 24, 2016 19:45 - CONCLUSION: Examination is severely degraded by motion. No acute finding is identified given this limitation. If clinical symptoms persist consider followup examination when patient is able to cooperate with the study. Jamil Gibson MD Neck CT 12/24/16 0000 Signed Impressions: Service Date/Time: Saturday, December 24, 2016 20:09 - CONCLUSION: There is fluid in the nasopharynx and oropharynx likely related to the nasogastric tube and endotracheal tube that is present. Otherwise, no acute finding is appreciated. Jamil Gibson MD Assessment and Plan Assessment and Plan IMPRESSION Sepsis on admission, source? - neck CT negative - LP only 45 WBC, mostly neutrophils, glucose/protein normal - salivary glands and LN ok on neck CT - no pulmonary complaints - UA ok - ?seizure Respiratory failure Hx bronchitis RECOMMENDATION Brain MRI has been ordered Continue Vanco Continue Rocephin Follow C/S Check sputum C/S also Monitor progress I will follow along with you Thank you for this consultation Discussed Condition With D/W RN Spoke with mother Charity Cooper MD Dec 25, 2016 09:38
[2016-12-25] MEDS: FAMOTIDINE 20 MG/2 ML VIAL IV PUSH SCH ×2 (10:22→19:57)
[2016-12-25] MEDS: cefTRIAXone INJ 2,000 MG in SODIUM CHLORIDE 0.9% INJ 100 ML IV SCH ×2 (10:22→19:54)
[2016-12-25] MEDS: DOCUSATE SODIUM 100 MG/10 ML UDC PO SCH ×2 (10:22→19:58)
[2016-12-25] MEDS: POTASSIUM CHLOR 10 MEQ PREMIX 100 ML IV SCH ×3 (10:23→15:17)
[2016-12-25] MEDS: SODIUM CHLORIDE 0.9% FLUSH 10 ML FLUSH IV FLUSH SCH ×2 (10:23→19:57)
[2016-12-25] MEDS: PROPOFOL 1000 MG/100 ML INJ 100 ML IV PRN ×3 (10:24→17:47)
[2016-12-25] MEDS: VANCOMYCIN INJ 1,250 MG in SODIUM CHLOR 0.9% 250 ML INJ 250 ML IV SCH (12:08)
[2016-12-25 12:43] LABS: AUTOMATED NEUTROPHIL # 9.6 TH/MM3 (1.8-7.7); BASOPHIL # 0.1 TH/MM3 (0-0.2); BASOPHIL % 0.9 % (0.0-2.0); EOSINOPHIL # 0.1 TH/MM3 (0-0.4); EOSINOPHIL % 0.5 % (0.0-4.0); HEMATOCRIT 36.6 % (35.0-46.0); LYMPH % 19.6 % (9.0-44.0); LYMPHOCYTE # 2.8 TH/MM3 (1.0-4.8); MEAN CORPUSCULAR HEMOGLOBIN 31.3 PG (27.0-34.0); MEAN CORPUSCULAR HGB CONC 33.3 % (32.0-36.0); MONO % 12.2 % (0.0-8.0); NEUT % 66.8 % (16.0-70.0); PLATELET COUNT 188 TH/MM3 (150-450); RED CELL DISTRIBUTION WIDTH 14.2 % (11.6-17.2); WHITE BLOOD COUNT 14.3 TH/MM3 (4.0-11.0)
[2016-12-25 12:46] LABS: HEMO FLAGS AUTO DIFF
[2016-12-25 13:10] LABS: SCAN/DIFF AUTO DIFF CONFIRMED
[2016-12-25] MEDS ORDERED: GADODIAMIDE PF 287 MG/ML 20 ML VIAL (for RAD MRI) IV PUSH ONE (13:35)
--- NOTE | 2016-12-25 14:53 | RADRPT ---
EXAM DATE/TIME: 12/25/2016 13:04 [facility] COMPARISON: CT BRAIN W/O CONTRAST, December 24, 2016, 20:06. INDICATIONS : Altered mental status. CONTRAST: 16 cc Omniscan (gadodiamide) IV MEDICAL HISTORY : None. SURGICAL HISTORY : section. ENCOUNTER: Initial ACUITY: 2 day PAIN SCORE: Nonresponsive. LOCATION: head TECHNIQUE: Multiplanar, multisequence MRI of the brain was performed both prior to and following the administrat ion of paramagnetic contrast. FINDINGS: The ventricles and cisterns are of normal size and configuration. No evidence of acute infarction on diffusion weighted imaging. There are air-fluid levels in the sinuses and mild ethmoid air cell mucos al thickening. No hemorrhage, infarct, or mass. No abnormal enhancing lesions are seen. CONCLUSION: 1. Normal appearance of the brain. 2. Sinus air-fluid levels and mucosal thickening. Javier Arvizu MD on December 25, 2016 at 14:50 Board Certified Radiologist. This report was verified electronically.
[2016-12-25 15:55] LABS: ANION GAP 11 MEQ/L (5-15); AST (GOT) 22 U/L (15-37); BICARBONATE 17.9 MEQ/L (21.0-32.0); BLOOD UREA NITROGEN 7 MG/DL (7-18); CHLORIDE 113 MEQ/L (98-107); GLOMERULAR FILTRATION RATE 98 ML/MIN (>89); MAGNESIUM 2.2 MG/DL (1.5-2.5); POTASSIUM 4.2 MEQ/L (3.5-5.1); SODIUM (NA) 142 MEQ/L (136-145)
[2016-12-25 15:58] LABS: ALKALINE PHOSPHATASE LESS THAN 10 U/L (45-117); ALT (GPT) 14 U/L (10-53); BETA HCG QUANT LESS THAN 1 MIU/ML (0-5); TOTAL BILIRUBIN ADULT 0.5 MG/DL (0.2-1.0)
[2016-12-25] MEDS ORDERED: GLUCAGON 1 MG/ML VIAL OTHER PRN (16:45)
[2016-12-25] MEDS ORDERED: SODIUM PHOSPHATE INJ 30 MMOL in SODIUM CHLOR 0.9% 250 ML INJ 250 ML IV ONE (16:45)
[2016-12-25] MEDS ORDERED: DEXTROSE 50% IN WATER 50 ML VIAL(D50) IV PRN (16:45)
[2016-12-25] MEDS ORDERED: GLUCAGON 1 MG/ML VIAL IM PRN (16:45)
[2016-12-25] MEDS ORDERED: DEXTROSE 50% IN WATER 50 ML SYRINGE ONE (17:13)
[2016-12-25] MEDS: SODIUM CHLOR 0.9% 1000 ML INJ 1,000 ML IV SCH ×2 (17:24→23:58)
--- NOTE | 2016-12-25 19:44 | EKG ---
Date Performed: 12/24/2016 Time Performed: 21:34:31 PTAGE: 26 years EKG: Sinus rhythm WITH SINUS ARRHYTHMIA NORMAL ECG NO PREVIOUS TRACING DOCTOR: Addi Mejia Interpretating Date/Time 12/25/2016 19:43:36
[2016-12-25] MEDS: INSULIN NovoLIN REGULAR SUPPLEMENTAL SCALE SQ SCH (19:55)
[2016-12-25] MEDS: ACETAMINOPHEN 650 MG/20.3 ML UDC NG PRN (20:35)
--- NOTE | 2016-12-25 22:06 | MG ---
cc: TONYA VAIL MD Lab No: Date: 12/25/16 Age: 26 Sex: F Race: DATE OF [address] Bagley MEDICAL HISTORY Asthma, pneumonia, , marijuana use. MEDICATIONS Fentanyl. She was on Versed and Heparin. Intubated. DESCRIPTION There is generalized slowing and a low voltage EEG recording. The background activity is superimposed by excess beta. There is excess muscle artifact during the recording. There is what looks like sharp like activity mainly at C4 and T4 regions intermittently. Hyperventilation was not done. Photic stimulation did not elicit a driving response. There were no electrographic seizures. INTERPRETATION This is an abnormal EEG. The generalized low voltage slow EEG may indicate an encephalopathic pattern. There were sharp like waves that may indicate epileptogenicity emanating mainly from the right hemisphere intermittently. No electrographic seizures were noted. Clinical recommendation is recommended. Tonya Vail MD RGO/EO /4:42 PM /9:54 PM [facility]
--- NOTE | 2016-12-25 22:20 | RADRPT ---
EXAM DATE/TIME: 12/25/2016 21:37 [facility] COMPARISON: CT SOFT TISSUE NECK W CONTRAST, December 24, 2016, 20:09. INDICATIONS : Edema and fever. RADIATION DOSE: 20.94 CTDIvol (mGy) MEDICAL HISTORY : None SURGICAL HISTORY : None. ENCOUNTER: Subsequent ACUITY: 2 days PAIN SCORE: Non-responsive LOCATION: neck TECHNIQUE: Volumetric scanning of the neck was performed. Using automated exposure control and adjustment of th e mA and/or kV according to patient size, radiation dose was kept as low as reasonably achievable to obtain optimal diagnostic quality images. DICOM format image data is available electronically for re view and comparison. FINDINGS: Comparison is December 24. Since the prior exam air fluid levels have developed the sphenoid sinus and there is loculated air and fluid in the posterior nasopharynx. This is probably related to intubation . Endotracheal tube tip is in satisfactory position of the boogie. Oral gastric tube is also present. No other new fluid collections are seen in the neck. No acute bony abnormalities. CONCLUSION: Development of air-fluid levels in the sphenoid sinus since December 24 CT neck. Loculated air and fluid in the posterior nasopharynx probably related to intubation. Simone Quijano MD on December 25, 2016 at 22:11 Board Certified Radiologist. This report was verified electronically.
--- NOTE | 2016-12-25 22:54 | MB ---
cc: KAMILA LIN M.D. DATE OF CONSULTATION 12/25/16 DATE OF 1990 AGE [id number]. REASON FOR CONSULTATION Altered mental status. HISTORY OF PRESENT ILLNESS This is a 26-year-old woman without any significant medical history except for some mild asthma, brought in via [facility] with change in mental status and fever. The mother states that she went over to the house the morning she was brought in. The patient was found on the bed, not acting appropriate, very confused, when she touched her she actually jumped. She has two children that said the night before the mother had fallen down and went to the room. Another family member in the room said that Friday she said she had a headache. She became very uncooperative and lethargic in the ED and was intubated for airway protection. ALLERGIES None reported. PAST MEDICAL HISTORY Asthma. PAST SURGICAL HISTORY None. MEDICATIONS Home medications, she uses an inhaler as needed, Ventolin probably. FAMILY HISTORY Noncontributory. SOCIAL HISTORY No illicit drug abuse. Smokes marijuana occasionally. No tobacco or alcohol. PHYSICAL EXAMINATION VITAL SIGNS: Temperature is 98.7, pulse 59, respiratory rate 17, blood pressure 126/78. NEURO: She is lying in bed, a 26-year-old woman no distress. Intubated, sedated. Pupils are pinpoint. No gaze deviation, does not follow commands. Has basically sedated exam. No withdrawal to pain. LABORATORY DATA Labs are reviewed. Her potassium on admission was 3.3. Her glucose is 52 this afternoon. Calcium 7.5, phosphorus 1.2, albumin 2.9. HCG less than 1. CBC yesterday was 16.1, white count today is 14.3. Coag panel is unremarkable. Toxicology positive for cannabinoids and benzos. Urine grater than 1050 specific gravity, culture was not indicated. LP 1+ gross blood, 14 WBCs, 465 RBCs, 89 neutrophils, 11 lymphocytes, glucose was 72, lactic acid 2.3. Lyme and VD are all pending. MRSA screen was negative. HSV, PCR pending. ___ pending. Microbiology urine is pending. Gram stain no culture, no growth. Blood cultures no growth in 1 day. IMAGING STUDIES MRI of the brain shows normal appearance of the brain, sinus air fluid levels and mucosal thickening. Chest x-ray degraded but no acute findings. IMPRESSION A 26-year-old woman that came in with altered mental status and febrile. She had a temperature of 101.7 when she came in with ongoing change in mental status but now is intubated and sedated. Possible sepsis, source at this point we do not know. Certainly seizure in the differential. MRI fortunately is unremarkable. She is on vanco and rocephin. EEG has been done and will get the results of that. We will follow her cultures. Follow her neuro status. Hopefully, she can be extubated in the next 24 hours. She is currently on vancomycin, ceftriaxone. Further recommendations will be made depending on findings. MD ANAI German/DELVIN /4:00 PM /10:35 PM
[2016-12-26] VITALS (42 sets, daily range): BP systolic 102–162; BP diastolic 58–100; PULSE 56–108; RESP 11–36; TEMP 97.4–99.3; O2SAT 88–100
[2016-12-26] MEDS: VANCOMYCIN INJ 1,250 MG in SODIUM CHLOR 0.9% 250 ML INJ 250 ML IV SCH ×3 (00:10→20:54)
[2016-12-26] MEDS: PROPOFOL 1000 MG/100 ML INJ 100 ML IV PRN ×2 (00:11→06:44)
[2016-12-26] MEDS: ARTIFICIAL TEARS OPTH SOLN 15 ML BTL EACH EYE SCH ×3 (00:11→17:00)
[2016-12-26] MEDS: CHLORHEXIDINE GLUCONATE 2 % 1 PACK (2 CLOTHS) TOP SCH (04:00)
[2016-12-26] MEDS: RESP: ALBUTEROL 2.5 MG/IPRATROPIUM 0.5 MG NEB (SCH) INH ×4 (04:17→20:34)
[2016-12-26 05:22] LABS: AUTOMATED NEUTROPHIL # 6.7 TH/MM3 (1.8-7.7); BASOPHIL % 0.5 % (0.0-2.0); EOSINOPHIL # 0.1 TH/MM3 (0-0.4); EOSINOPHIL % 1.2 % (0.0-4.0); HEMATOCRIT 33.1 % (35.0-46.0); HEMO FLAGS DIFF FINAL; LYMPH % 24.1 % (9.0-44.0); LYMPHOCYTE # 2.5 TH/MM3 (1.0-4.8); MEAN CORPUSCULAR HEMOGLOBIN 31.2 PG (27.0-34.0); MEAN CORPUSCULAR HGB CONC 33.3 % (32.0-36.0); NEUT % 65.2 % (16.0-70.0); PLATELET COUNT 156 TH/MM3 (150-450); RED BLOOD COUNT 3.52 MIL/MM3 (4.00-5.30); RED CELL DISTRIBUTION WIDTH 14.5 % (11.6-17.2); WHITE BLOOD COUNT 10.3 TH/MM3 (4.0-11.0)
[2016-12-26 05:45] LABS: BICARBONATE 21.6 MEQ/L (21.0-32.0); MAGNESIUM 1.9 MG/DL (1.5-2.5)
[2016-12-26 06:00] LABS: POTASSIUM 2.7 MEQ/L (3.5-5.1)
[2016-12-26] MEDS: INSULIN NovoLIN REGULAR SUPPLEMENTAL SCALE SQ SCH ×3 (06:00→18:00)
[2016-12-26 06:12] LABS: CALCIUM-PROTEIN CORRECTED 7.9 MG/DL (8.5-10.1)
[2016-12-26] MEDS: HEPARIN SODIUM - SQ 10,000 UNITS/ML VIAL SQ SCH ×3 (06:31→20:37)
[2016-12-26] MEDS: fentaNYL 2,500 MCG/NS 250 ML IV PRN (06:45)
[2016-12-26] MEDS ORDERED: POTASSIUM CHLORIDE 20 MEQ PWD PACKET NG ONE (07:30)
--- NOTE | 2016-12-26 07:40 | HHI.CCPN ---
Subjective Remarks/Hospital Course 26-year-old female with no significant medical history, presents by [facility] for altered mental status and fevers. Patient's mother states that she went over to her house today and the patient was "not acting right." She states she was normal yesterday when she saw her, but her grandsons told her that the patient did fall down last night was holding her throat. The patient did report throat pain and a headache. She was uncooperative agitated and lethargic and was intubated by ED attending for an airway protection. 12/25: Tmax 101.1. Currently 98.3. Arousable on the ventilator on 10 mg an hour of midazolam drip and 200 an hour fentanyl drip. Not falling commands. Positive gag and corneal reflex. Moves all 4 extremities spontaneously. MRI brain pending. Subjective 12/26: Tmax 99.7. No bowel movement since admission. Patient was awake and was following commands this a.m. on 30 mcG/kg per minute propofol and 200 mcg per hour of fentanyl. MRI brain no acute intracranial findings. EEG revealed encephalopathic features. Possible right hemispheric epileptic activity with clinical correlation recommended. Objective Vital Signs Date Time Temp Pulse Resp B/P (MAP) Pulse Ox O2 Delivery O2 Flow Rate FiO2 12/26/16 06:30 64 16 106/67 (80) 100 12/26/16 04:18 35 12/26/16 04:00 99.0 12/25/16 00:06 Ventilator 12/24/16 20:45 15.00 Intake and Output 12/26/16 12/26/16 12/27/16 08:00 16:00 00:00 Intake Total 1378 ml Output Total 710 ml Balance 668 ml Result Diagram: 12/26/16 0446 12/26/16 0446 Other Results Microbiology Date/Time Source Procedure Growth Status 12/24/16 19:25 Blood Peripheral Aerobic Blood Culture - Preliminary NO GROWTH IN 1 DAY Resulted 12/24/16 19:25 Blood Peripheral Anaerobic Blood Culture - Preliminary NO GROWTH IN 1 DAY Resulted 12/24/16 22:00 Cerebral Spinal Fluid Lumbar Puncture Gram Stain - Final Resulted 12/24/16 22:00 Cerebral Spinal Fluid Lumbar Puncture CSF Culture - Preliminary NO GROWTH IN 24 HOURS. Resulted 12/24/16 23:30 Urine Catheterized Urine Urine Culture - Preliminary RESULTS PENDING Resulted Imaging Last Impressions Neck CT 12/25/16 0000 Signed Impressions: Service Date/Time: Sunday, December 25, 2016 21:37 - CONCLUSION: Development of air-fluid levels in the sphenoid sinus since December 24 CT neck. Loculated air and fluid in the posterior nasopharynx probably related to intubation. Simone Quijano MD Brain MRI 12/25/16 0000 Signed Impressions: Service Date/Time: Sunday, December 25, 2016 13:04 - CONCLUSION: 1. Normal appearance of the brain. 2. Sinus air-fluid levels and mucosal thickening. Javier Arvizu MD Head CT 12/24/161916 Signed Impressions: Service Date/Time: Saturday, December 24, 2016 20:06 - CONCLUSION: 1. Questionable bilateral relatively diffuse white matter low density. This may be related to technique. However, given the clinical history consider followup CT to assess for change or alternatively further evaluate with brain MRI to determine if a true abnormality is present 2. Otherwise, no acute finding is identified. Jamil Gibson MD Chest X-Ray 12/24/161916 Signed Impressions: Service Date/Time: Saturday, December 24, 2016 19:45 - CONCLUSION: Examination is severely degraded by motion. No acute finding is identified given this limitation. If clinical symptoms persist consider followup examination when patient is able to cooperate with the study. Jamil Gibson MD Objective Remarks GENERAL: 26-year-old AA female currently orotracheally intubated SKIN: Warm and dry. No rash HEAD: Normocephalic. EYES: Pupils are equally round and react about 3 mm bilaterally. No scleral icterus. No injection or drainage. NECK: Supple, trachea midline. No JVD or lymphadenopathy. CARDIOVASCULAR: Regular rate and rhythm S1, S2 no S4. Without murmurs, gallops , or rubs. RESPIRATORY: Breath sounds equal bilaterally. No accessory muscle use. GASTROINTESTINAL: Abdomen soft, non-tender, nondistended. MUSCULOSKELETAL: No neck and peripheral edema. NEURO EXAM: Cranial nerves II through XII appear grossly intact. Patient moves all 4 extremity spontaneously but not to command. Positive gag. Positive corneal reflex. A/P Assessment and Plan Neuro/Psych: Altered mental status - rule out meningioencephalitis THC use Patient is currently on propofol drip at 30 mics grams per kilogram per minute/ fentanyl drip at 200 g for sedation/analgesia while intubated Goal of RASS -[address] brain 12/24 revealed diffuse white matter changes. MRI brain intracranial findings.. CT neck shows no signs of airway obstruction EEG revealed encephalopathy. Right hemispheric possible shock place could be seizure activity and Neurology consultation previously with Dr. Shankar Toxicology screen positive for THC/benzodiazepines CV: Patient is currently normal saline at 75 cc an hour. Currently not requiring vasopressors and/or anti-hypertensives Resp: Acute respiratory failure ACV 15/500/5/35 Ventilator bundle Albuterol/Atrovent aerosols every 6 hours aerosols every 2 hours. Dyspnea Spontaneous breathing trials daily GI: Continue tube feeding with Jevity 1.5 goal 65 cc an hour Famotidine 20 mg IV twice a day for GI prophylaxis Docusate sodium liquid 100 mg twice a day, Senokot liquid 8.6 mg daily for GI bowel regimen : Dior catheter for accurate I's and O's in a critically ill patient Endo: Sliding-scale insulin if indicated. Renal: Monitor urine output Accurate I's and O's Heme: Normocytic anemia Monitor CBC daily. Follow trends ID: Currently on vancomycin and Rocephin day #3. Acyclovir discontinued Blood cultures 2, UA no growth to date LP 14 WBC. Neutrophil predominant. Protein 27. Glucose 72. FEN: Hypokalemia Received 60 mEq IV and 60 mEq by tube. Recheck this evening MSK: Range of motion PT evaluate and treat Access - Utilize peripheral IV. Central line if indicated Prophylaxis - GI - famotidine - DVT - SCD/heparin subcutaneous Level III follow-up Ten Bagley MD Dec 26, 2016 07:40
[2016-12-26] MEDS: SENNOSIDES SYRUP 8.8 MG/5 ML CUP PO SCH (08:11)
[2016-12-26] MEDS: DOCUSATE SODIUM 100 MG/10 ML UDC PO SCH ×2 (08:11→20:37)
[2016-12-26] MEDS: FAMOTIDINE 20 MG/2 ML VIAL IV PUSH SCH ×2 (08:12→20:37)
[2016-12-26] MEDS: SODIUM CHLORIDE 0.9% FLUSH 10 ML FLUSH IV FLUSH SCH ×2 (08:12→20:37)
[2016-12-26 10:05] LABS: HSV 1,PCR Negative (Negative)
[2016-12-26] MEDS: MAGNESIUM SULFATE 1 GM PREMIX 100 ML IV SCH ×2 (10:24→11:10)
[2016-12-26] MEDS: POTASSIUM CHLOR 10 MEQ PREMIX 100 ML IV SCH ×6 (10:24→15:58)
[2016-12-26] MEDS: cefTRIAXone INJ 2,000 MG in SODIUM CHLORIDE 0.9% INJ 100 ML IV SCH ×2 (10:25→20:36)
[2016-12-26] MEDS ORDERED: PHARMACY ORDERED LAB ONE (10:45)
[2016-12-26] MEDS: SODIUM CHLOR 0.9% 1000 ML INJ 1,000 ML IV SCH (13:18)
--- NOTE | 2016-12-26 14:47 | HHI.IDPN ---
Subjective Subjective Remarks 26 year old female admitted with altered mental status. Intubated for airway protection. Extubated this morning and doing well. She does not remember events preceding hospitalization Notes reviewed Temps ok Not SOB No SUTTON, no neck pain No abdominal pain EEG report noted C/S negative WBC down to normal Antibiotics Vancomycin Rocephin Past Medical History Bronchitis 2 pregnancies and Allergies: Coded Allergies: No Known Allergies (Verified , 05/10/15) Objective . Vital Signs Date Time Temp Pulse Resp B/P (MAP) Pulse Ox O2 Delivery O2 Flow Rate FiO2 12/26/16 08:55 98 Nasal Cannula 3.00 12/26/16 08:55 98 Nasal Cannula 3 12/26/16 08:01 35 12/26/16 08:01 100 35 12/26/16 08:00 35 12/26/16 07:00 35 12/26/16 06:30 64 16 106/67 (80) 100 12/26/16 06:00 65 17 110/67 (81) 100 12/26/16 06:00 65 12/26/16 05:30 61 16 108/71 (83) 100 12/26/16 05:00 71 16 106/63 (77) 100 12/26/16 04:30 68 16 108/64 (79) 100 12/26/16 04:18 100 35 12/26/16 04:00 35 12/26/16 04:00 99.0 63 15 114/73 (87) 100 12/26/16 04:00 63 12/26/16 03:30 78 17 120/74 (89) 100 12/26/16 03:00 56 15 126/80 (95) 100 12/26/16 02:30 62 15 119/78 (92) 100 12/26/16 02:00 59 12/26/16 02:00 59 15 123/75 (91) 100 12/26/16 01:00 64 15 115/79 (91) 100 12/26/16 00:30 57 15 117/74 (88) 100 12/26/16 00:15 100 35 12/26/16 00:00 64 12/26/16 00:00 35 12/26/16 00:00 99.2 64 15 109/68 (82) 100 12/25/16 23:32 15 12/25/16 23:30 57 15 115/74 (88) 100 12/25/16 23:00 62 15 110/73 (85) 100 12/25/16 22:30 64 15 114/71 (85) 100 12/25/16 22:00 61 12/25/16 22:00 61 15 111/68 (82) 100 12/25/16 21:53 63 16 111/70 (84) 100 12/25/16 21:30 81 14 113/60 (77) 100 12/25/16 21:20 100 100 12/25/16 21:00 73 16 115/72 (86) 100 12/25/16 20:30 69 15 120/75 (90) 100 12/25/16 20:15 100 35 12/25/16 20:00 35 12/25/16 20:00 35 12/25/16 20:00 100.0 65 17 127/79 (95) 100 12/25/16 20:00 65 12/25/16 19:00 75 19 100 12/25/16 18:00 86 17 100 12/25/16 17:31 111 36 149/92 (111) 77 12/25/16 17:00 74 18 100 12/25/16 16:29 100 35 12/25/16 16:00 99.9 74 17 100 12/25/16 16:00 35 12/25/16 16:00 35 12/25/16 15:00 77 19 100 12/26/16 12/26/16 12/27/16 14:59 22:59 06:59 Intake Total 585 ml Balance 585 ml Intake IV Total 585 ml . Laboratory Tests Test 12/24/16 19:20 12/25/16 10:49 12/26/16 04:46 White Blood Count 16.1 TH/MM3 14.3 TH/MM3 10.3 TH/MM3 Red Blood Count 4.40 MIL/MM3 3.90 MIL/MM3 3.52 MIL/MM3 Hemoglobin 13.2 GM/DL 12.2 GM/DL 11.0 GM/DL Hematocrit 41.1 % 36.6 % 33.1 % Mean Corpuscular Volume 93.4 FL 94.0 FL 94.0 FL Mean Corpuscular Hemoglobin 30.0 PG 31.3 PG 31.2 PG Mean Corpuscular Hemoglobin Concent 32.1 % 33.3 % 33.3 % Red Cell Distribution Width 14.1 % 14.2 % 14.5 % Platelet Count 237 TH/MM3 188 TH/MM3 156 TH/MM3 Mean Platelet Volume 9.5 FL 10.7 FL 10.0 FL Neutrophils (%) (Auto) 86.6 % 66.8 % 65.2 % Lymphocytes (%) (Auto) 7.8 % 19.6 % 24.1 % Monocytes (%) (Auto) 5.5 % 12.2 % 9.0 % Eosinophils (%) (Auto) 0.0 % 0.5 % 1.2 % Basophils (%) (Auto) 0.1 % 0.9 % 0.5 % Neutrophils # (Auto) 14.0 TH/MM3 9.6 TH/MM3 6.7 TH/MM3 Lymphocytes # (Auto) 1.3 TH/MM3 2.8 TH/MM3 2.5 TH/MM3 Monocytes # (Auto) 0.9 TH/MM3 1.8 TH/MM3 0.9 TH/MM3 Eosinophils # (Auto) 0.0 TH/MM3 0.1 TH/MM3 0.1 TH/MM3 Basophils # (Auto) 0.0 TH/MM3 0.1 TH/MM3 0.0 TH/MM3 CBC Comment DIFF FINAL AUTO DIFF DIFF FINAL Differential Comment AUTO DIFF CONFIRMED Hematology Comments Laboratory Tests Test 12/24/16 19:20 12/25/16 14:08 12/25/16 17:09 12/26/16 04:46 Blood Urea Nitrogen 11 MG/DL 7 MG/DL 3 MG/DL Creatinine 0.99 MG/DL 0.84 MG/DL 0.85 MG/DL Random Glucose 88 MG/DL 52 MG/DL 60 MG/DL 106 MG/DL Total Protein 8.4 GM/DL 6.2 GM/DL 6.2 GM/DL Albumin 4.0 GM/DL 2.9 GM/DL Calcium Level 9.3 MG/DL 7.5 MG/DL 7.4 MG/DL Alkaline Phosphatase 57 U/L LESS THAN 10 U/L Aspartate Amino Transf (AST/SGOT) 19 U/L 22 U/L Alanine Aminotransferase (ALT/SGPT) 15 U/L 14 U/L Total Bilirubin 0.5 MG/DL 0.5 MG/DL Sodium Level 137 MEQ/L 142 MEQ/L 140 MEQ/L Potassium Level 3.3 MEQ/L 4.2 MEQ/L 2.7 MEQ/L Chloride Level 105 MEQ/L 113 MEQ/L 109 MEQ/L Carbon Dioxide Level 22.3 MEQ/L 17.9 MEQ/L 21.6 MEQ/L Anion Gap 10 MEQ/L 11 MEQ/L 9 MEQ/L Estimat Glomerular Filtration Rate 81 ML/MIN 98 ML/MIN 97 ML/MIN Lactic Acid Level 1.0 mmol/L Total Creatine Kinase 976 U/L Creatine Kinase MB 6.8 NG/ML Creatine Kinase MB % 0.7 % C-Reactive Protein 2.19 MG/DL Phosphorus Level 1.2 MG/DL 2.7 MG/DL Magnesium Level 2.2 MG/DL 1.9 MG/DL Human Chorionic Gonadotropin, Quant LESS THAN 1 MIU/ML Protein Corrected Calcium 7.9 MG/DL Microbiology Date/Time Source Procedure Growth Status 12/24/16 19:25 Blood Peripheral Aerobic Blood Culture - Preliminary NO GROWTH IN 2 DAYS Resulted 12/24/16 19:25 Blood Peripheral Anaerobic Blood Culture - Preliminary NO GROWTH IN 2 DAYS Resulted 12/24/16 19:20 Blood Peripheral Aerobic Blood Culture - Preliminary NO GROWTH IN 2 DAYS Resulted 12/24/16 19:20 Blood Peripheral Anaerobic Blood Culture - Preliminary NO GROWTH IN 2 DAYS Resulted 12/24/16 22:00 Cerebral Spinal Fluid Lumbar Puncture Gram Stain - Final Resulted 12/24/16 22:00 Cerebral Spinal Fluid Lumbar Puncture CSF Culture - Preliminary NO GROWTH IN 48 HOURS. Resulted 12/24/16 23:30 Urine Catheterized Urine Urine Culture - Final NO GROWTH IN 48 HOURS. Complete Imaging Last Impressions Neck CT 12/25/16 0000 Signed Impressions: Service Date/Time: Sunday, December 25, 2016 21:37 - CONCLUSION: Development of air-fluid levels in the sphenoid sinus since December 24 CT neck. Loculated air and fluid in the posterior nasopharynx probably related to intubation. Simone Quijano MD Brain MRI 12/25/16 0000 Signed Impressions: Service Date/Time: Sunday, December 25, 2016 13:04 - CONCLUSION: 1. Normal appearance of the brain. 2. Sinus air-fluid levels and mucosal thickening. Javier Arvizu MD Head CT 12/24/16 1917 Signed Impressions: Service Date/Time: Saturday, December 24, 2016 20:06 - CONCLUSION: 1. Questionable bilateral relatively diffuse white matter low density. This may be related to technique. However, given the clinical history consider followup CT to assess for change or alternatively further evaluate with brain MRI to determine if a true abnormality is present 2. Otherwise, no acute finding is identified. Jamil Gibson MD Chest X-Ray 12/24/161916 Signed Impressions: Service Date/Time: Saturday, December 24, 2016 19:45 - CONCLUSION: Examination is severely degraded by motion. No acute finding is identified given this limitation. If clinical symptoms persist consider followup examination when patient is able to cooperate with the study. Jamil Gibson MD Physical Exam GENERAL: awake and alert, not in respiratory distress. SKIN: Warm and dry. No generalized rash, no ecchymoses and no evidence of embolic lesions. HEAD: Atraumatic. Normocephalic. No temporal wasting, or tenderness. EYES: Sheldon conjunctiva. No petechia or hemorrhage. Pupils equal, round and reactive to light. Extraocular movements full and intact. No scleral icterus. No injection or drainage. EARS, NOSE AND THROAT: Nose without bleeding or purulent nasal discharge. No sinus tenderness. Mucous membranes pink and moist. No oral lesions noted. No exudate. No oral thrush. NECK: Trachea midline. Supple and not tender, no meningeal signs CARDIOVASCULAR: Regular rate and rhythm. No murmurs, rubs or gallops heard RESPIRATORY: Clear to auscultation. Breath sounds equal bilaterally. No rales , wheezing or rhonchi ABDOMEN: Soft, non-tender, nondistended. Bowel sounds present and normoactive. No guarding. No rebound. No organomegaly. EXTREMITIES: No clubbing, cyanosis, or edema.No joint effusion, has good ROM. No calf tenderness. Well perfused and warm. NEUROLOGICAL: Awake and alert. Cranial nerves grossly intact. Motor grossly within normal limits. PSYCHIATRIC: Normal affect, calm and cooperative. LINE: No evidence of infection Assessment & Plan Remarks IMPRESSION Sepsis on admission, source? - neck CT negative - LP only 45 WBC, mostly neutrophils, glucose/protein normal - salivary glands and LN ok on neck CT - no pulmonary complaints - UA ok - ?seizure Respiratory failure, extubated Hx bronchitis RECOMMENDATION Continue Vanco Continue Rocephin Follow C/S - if negative will deescalate Abx Monitor progress Monitor respiratory status Neuro work-up in progress Dr Duong Werner covering 12/27-12/29 Charity Cooper MD Dec 26, 2016 14:47
[2016-12-26] MEDS ORDERED: ONDANSETRON HCL 4 MG/2 ML VIAL IV PUSH PRN (15:30)
[2016-12-26 16:33] LABS: LYME IGG IMMUNOBLOT CSF None Detected bands (None Detected); LYME IGM IMMUNOBLOT CSF None Detected bands (None Detected)
--- NOTE | 2016-12-26 19:46 | HHI.PR ---
Subjective Remarks extubated/better wbc lower,no sz's seen. Objective Vital Signs Date Time Temp Pulse Resp B/P (MAP) Pulse Ox O2 Delivery O2 Flow Rate FiO2 12/26/16 18:00 84 12/26/16 16:01 99.1 65 18 106/67 (80) 12/26/16 16:00 65 19 12/26/16 16:00 65 12/26/16 15:01 81 28 125/60 (81) 12/26/16 15:00 76 22 12/26/16 14:31 68 22 131/83 (99) 12/26/16 14:00 87 12/26/16 14:00 87 33 12/26/16 13:30 68 17 114/75 (88) 12/26/16 13:00 87 19 125/77 (93) 12/26/16 12:00 85 12/26/16 12:00 98.9 85 34 12/26/16 11:38 93 30 135/97 (110) 12/26/16 11:35 84 23 137/100 (112) 12/26/16 11:03 78 21 137/85 (102) 12/26/16 11:00 88 26 88 12/26/16 10:30 69 18 118/73 (88) 96 12/26/16 10:01 84 18 149/76 (100) 12/26/16 10:00 86 12/26/16 10:00 86 31 12/26/16 09:30 78 14 123/74 (90) 100 12/26/16 09:00 108 36 162/98 (119) 100 12/26/16 08:55 98 Nasal Cannula 3.00 12/26/16 08:55 98 Nasal Cannula 3 12/26/16 08:30 79 11 119/72 (88) 100 12/26/16 08:01 35 12/26/16 08:01 100 35 12/26/16 08:00 99.3 74 12 126/79 (95) 100 12/26/16 08:00 74 12/26/16 08:00 35 12/26/16 07:30 63 16 111/74 (86) 100 12/26/16 07:00 63 16 109/70 (83) 100 12/26/16 07:00 35 12/26/16 06:30 64 16 106/67 (80) 100 12/26/16 06:00 65 17 110/67 (81) 100 12/26/16 06:00 65 12/26/16 05:30 61 16 108/71 (83) 100 12/26/16 05:00 71 16 106/63 (77) 100 12/26/16 04:30 68 16 108/64 (79) 100 12/26/16 04:18 100 35 12/26/16 04:00 35 12/26/16 04:00 99.0 63 15 114/73 (87) 100 12/26/16 04:00 63 12/26/16 03:30 78 17 120/74 (89) 100 12/26/16 03:00 56 15 126/80 (95) 100 12/26/16 02:30 62 15 119/78 (92) 100 12/26/16 02:00 59 12/26/16 02:00 59 15 123/75 (91) 100 12/26/16 01:00 64 15 115/79 (91) 100 12/26/16 00:30 57 15 117/74 (88) 100 12/26/16 00:15 100 35 12/26/16 00:00 64 12/26/16 00:00 35 12/26/16 00:00 99.2 64 15 109/68 (82) 100 12/25/16 23:32 15 12/25/16 23:30 57 15 115/74 (88) 100 12/25/16 23:00 62 15 110/73 (85) 100 12/25/16 22:30 64 15 114/71 (85) 100 12/25/16 22:00 61 12/25/16 22:00 61 15 111/68 (82) 100 12/25/16 21:53 63 16 111/70 (84) 100 12/25/16 21:30 81 14 113/60 (77) 100 12/25/16 21:20 100 100 12/25/16 21:00 73 16 115/72 (86) 100 12/25/16 20:30 69 15 120/75 (90) 100 12/25/16 20:15 100 35 12/25/16 20:00 35 12/25/16 20:00 35 12/25/16 20:00 100.0 65 17 127/79 (95) 100 12/25/16 20:00 65 I/O 12/25/16 12/25/16 12/25/16 12/26/16 12/26/16 12/26/16 06:59 14:59 22:59 06:59 14:59 22:59 Intake Total 4073.0 ml 1340 ml 450 ml 1378 ml 935 ml 1872 ml Output Total 475 ml 1050 ml 710 ml 2900 ml Balance 3598.0 ml 290 ml 450 ml 668 ml 935 ml -1028 ml Intake IV Total 4073.0 ml 1340 ml 450 ml 890 ml 935 ml 1800 ml Tube Feeding 488 ml 72 ml Output Urine Total 475 ml 1050 ml 710 ml 2900 ml # Bowel Movements 0 0 0 Result Diagram: 12/26/1644512/26/16445 Objective Remarks sleepy awakens follows commands normal speech oriented moves all 4 extremities Assessment and Plan Assessment and Plan sepsis ?sz -eeg sharps noted on the right -repeat eeg in am if still sharps will add AED rx -?benzo + on uds may be due to chronic use or w/d-pt denies using any meds daily /chronically?? -cont abx -oob ,PT -d/c planning. Chana Shankar MD Dec 26, 2016 19:46
[2016-12-26] MEDS: ACETAMINOPHEN 650 MG/20.3 ML UDC NG PRN (20:52)
[2016-12-27] VITALS (19 sets, daily range): BP systolic 114–167; BP diastolic 62–101; PULSE 53–91; RESP 18–65; TEMP 97.1–99.5; O2SAT 95–100
[2016-12-27] MEDS: ARTIFICIAL TEARS OPTH SOLN 15 ML BTL EACH EYE SCH ×3 (01:00→17:00)
[2016-12-27] MEDS: RESP: ALBUTEROL 2.5 MG/IPRATROPIUM 0.5 MG NEB (SCH) INH ×4 (02:51→19:51)
[2016-12-27] MEDS: CHLORHEXIDINE GLUCONATE 2 % 1 PACK (2 CLOTHS) TOP SCH (03:48)
[2016-12-27] MEDS: SODIUM CHLOR 0.9% 1000 ML INJ 1,000 ML IV SCH (03:48)
[2016-12-27] MEDS: VANCOMYCIN INJ 1,250 MG in SODIUM CHLOR 0.9% 250 ML INJ 250 ML IV SCH (03:51)
[2016-12-27] MEDS: INSULIN NovoLIN REGULAR SUPPLEMENTAL SCALE SQ SCH ×4 (05:47→18:00)
[2016-12-27] MEDS: HEPARIN SODIUM - SQ 10,000 UNITS/ML VIAL SQ SCH ×3 (06:12→21:51)
[2016-12-27 07:04] LABS: AUTOMATED NEUTROPHIL # 6.7 TH/MM3 (1.8-7.7); BASOPHIL # 0.1 TH/MM3 (0-0.2); BASOPHIL % 0.6 % (0.0-2.0); EOSINOPHIL # 0.1 TH/MM3 (0-0.4); EOSINOPHIL % 1.4 % (0.0-4.0); HEMATOCRIT 34.8 % (35.0-46.0); HEMO FLAGS DIFF FINAL; LYMPH % 20.9 % (9.0-44.0); MEAN CELL VOLUME 93.5 FL (80.0-100.0); MEAN CORPUSCULAR HEMOGLOBIN 31.2 PG (27.0-34.0); MEAN CORPUSCULAR HGB CONC 33.4 % (32.0-36.0); NEUT % 69.1 % (16.0-70.0); PLATELET COUNT 194 TH/MM3 (150-450); RED BLOOD COUNT 3.73 MIL/MM3 (4.00-5.30); RED CELL DISTRIBUTION WIDTH 14.2 % (11.6-17.2); WHITE BLOOD COUNT 9.7 TH/MM3 (4.0-11.0)
[2016-12-27 07:18] LABS: MAGNESIUM 2.4 MG/DL (1.5-2.5); POTASSIUM 3.6 MEQ/L (3.5-5.1)
--- NOTE | 2016-12-27 07:18 | HHI.CCPN ---
Subjective Remarks/Hospital Course 26-year-old female with no significant medical history, presents by [facility] for altered mental status and fevers. Patient's mother states that she went over to her house today and the patient was "not acting right." She states she was normal yesterday when she saw her, but her grandsons told her that the patient did fall down last night was holding her throat. The patient did report throat pain and a headache. She was uncooperative agitated and lethargic and was intubated by ED attending for an airway protection. 12/25: Tmax 101.1. Currently 98.3. Arousable on the ventilator on 10 mg an hour of midazolam drip and 200 an hour fentanyl drip. Not falling commands. Positive gag and corneal reflex. Moves all 4 extremities spontaneously. MRI brain pending. Subjective 12/26: Tmax 99.7. No bowel movement since admission. Patient was awake and was following commands this a.m. on 30 mcG/kg per minute propofol and 200 mcg per hour of fentanyl. MRI brain no acute intracranial findings. EEG revealed encephalopathic features. Possible right hemispheric epileptic activity with clinical correlation recommended. 12/27 No events overnight. s/p extubation yesterday. For EEG today. Afebrile. Objective Vital Signs Date Time Temp Pulse Resp B/P (MAP) Pulse Ox O2 Delivery O2 Flow Rate FiO2 12/27/16 06:00 91 12/27/16 04:00 23 138/94 (109) 12/27/16 00:00 97.1 12/26/16 20:34 21 12/26/16 11:00 88 12/26/16 08:55 Nasal Cannula 3.00 Intake and Output 12/27/16 12/27/16 12/28/16 08:00 16:00 00:00 Intake Total 1386 ml Output Total 1200 ml Balance 186 ml Result Diagram: 12/27/16 0600 12/26/16 0446 Other Results Laboratory Tests Test 12/26/16 11:00 12/27/16 06:00 Vancomycin Level Trough 4.8 MCG/ML White Blood Count 9.7 TH/MM3 Red Blood Count 3.73 MIL/MM3 Hemoglobin 11.6 GM/DL Hematocrit 34.8 % Mean Corpuscular Volume 93.5 FL Mean Corpuscular Hemoglobin 31.2 PG Mean Corpuscular Hemoglobin Concent 33.4 % Red Cell Distribution Width 14.2 % Platelet Count 194 TH/MM3 Mean Platelet Volume 9.6 FL Neutrophils (%) (Auto) 69.1 % Lymphocytes (%) (Auto) 20.9 % Monocytes (%) (Auto) 8.0 % Eosinophils (%) (Auto) 1.4 % Basophils (%) (Auto) 0.6 % Neutrophils # (Auto) 6.7 TH/MM3 Lymphocytes # (Auto) 2.0 TH/MM3 Monocytes # (Auto) 0.8 TH/MM3 Eosinophils # (Auto) 0.1 TH/MM3 Basophils # (Auto) 0.1 TH/MM3 CBC Comment DIFF FINAL Differential Comment Imaging Last Impressions Neck CT 12/25/16 0000 Signed Impressions: Service Date/Time: Sunday, December 25, 2016 21:37 - CONCLUSION: Development of air-fluid levels in the sphenoid sinus since December 24 CT neck. Loculated air and fluid in the posterior nasopharynx probably related to intubation. Simone Quijano MD Brain MRI 12/25/16 0000 Signed Impressions: Service Date/Time: Sunday, December 25, 2016 13:04 - CONCLUSION: 1. Normal appearance of the brain. 2. Sinus air-fluid levels and mucosal thickening. Javier Arvizu MD Head CT 12/24/161916 Signed Impressions: Service Date/Time: Saturday, December 24, 2016 20:06 - CONCLUSION: 1. Questionable bilateral relatively diffuse white matter low density. This may be related to technique. However, given the clinical history consider followup CT to assess for change or alternatively further evaluate with brain MRI to determine if a true abnormality is present 2. Otherwise, no acute finding is identified. Jamil Gibson MD Chest X-Ray 12/24/161916 Signed Impressions: Service Date/Time: Saturday, December 24, 2016 19:45 - CONCLUSION: Examination is severely degraded by motion. No acute finding is identified given this limitation. If clinical symptoms persist consider followup examination when patient is able to cooperate with the study. Jamil Gibson MD Objective Remarks GENERAL: 26-year-old AA female lying in bed in NAD SKIN: Warm and dry. No rash HEAD: Normocephalic. EYES: Pupils are equally round and react about 3 mm bilaterally. No scleral icterus. No injection or drainage. NECK: Supple, trachea midline. No JVD or lymphadenopathy. CARDIOVASCULAR: Regular rate and rhythm S1, S2 no S4. Without murmurs, gallops , or rubs. RESPIRATORY: Breath sounds equal bilaterally. No accessory muscle use. GASTROINTESTINAL: Abdomen soft, non-tender, nondistended. MUSCULOSKELETAL: No neck and peripheral edema. NEURO EXAM: Cranial nerves II through XII appear grossly intact. A/P Assessment and Plan Neuro/Psych: Altered mental status - rule out meningioencephalitis THC use Monitor neuro status and avoid sedatives CT brain 12/24 revealed diffuse white matter changes. MRI brain intracranial findings.. CT neck shows no signs of airway obstruction EEG 12/25 revealed encephalopathy. Right hemispheric possible shock place could be seizure activity For repeat EEG today Neurology is following - Dr. Shankar Toxicology screen positive for THC/benzodiazepines CV: Monitor HR and BP keep MAP>65mmHg Resp: Acute respiratory failure- Extubated 12/26 Continue with oxygen keep sat >92% Albuterol/Atrovent aerosols every 6 hours aerosols every 2 hours. GI: Speech eval, diet per speech Famotidine 20 mg IV twice a day for GI prophylaxis Docusate sodium liquid 100 mg twice a day, Senokot liquid 8.6 mg daily for GI bowel regimen : Monitor renal function, I/O's, electrolytes replacement per protocol. d/c IVF Endo: Sliding-scale insulin if indicated. Heme: Normocytic anemia Monitor CBC daily. Follow trends ID: Currently on vancomycin and Rocephin day #3. Acyclovir discontinued. ID is following Blood cultures 2, Urine and CSF cultures 12/24: NGTD LP 12/24 14 WBC. Neutrophil predominant. Protein 27. Glucose 72. MSK: Range of motion PT evaluate and treat Access - Utilize peripheral IV. Prophylaxis - GI - famotidine - DVT - SCD/heparin subcutaneous Will sign off and transfer care to [facility] Level II Mikki Sheth MD Dec 27, 2016 07:18
[2016-12-27] MEDS: SENNOSIDES SYRUP 8.8 MG/5 ML CUP PO SCH (08:29)
[2016-12-27] MEDS: cefTRIAXone INJ 2,000 MG in SODIUM CHLORIDE 0.9% INJ 100 ML IV SCH (08:29)
[2016-12-27] MEDS: SODIUM CHLORIDE 0.9% FLUSH 10 ML FLUSH IV FLUSH SCH ×2 (08:29→21:50)
[2016-12-27] MEDS: DOCUSATE SODIUM 100 MG/10 ML UDC PO SCH ×2 (08:29→21:00)
[2016-12-27] MEDS: FAMOTIDINE 20 MG/2 ML VIAL IV PUSH SCH ×2 (08:29→21:50)
--- NOTE | 2016-12-27 10:42 | HHI.IDPN ---
Subjective Subjective Remarks ID Xcover for . Chart reviewed. History was reviewed with patient and family. is a 26 y.o CF admitted with altered mental status, ? h/o falls. Intubated for airway protection. Extubated this morning and doing well. She does not remember events preceding hospitalization. She reports h/o recurrent episodes of passing out and falling spontaneously. She denies any IVDA. She is ok with being tested for HIV. She is sexually active. She reports recurrent sinus issues. Afebrile. Not SOB No SUTTON, no neck pain No abdominal pain Alert and responsive. Mom reports back to baseline. EEG report noted, repeat EEG today report pending. C/S negative WBC down to normal CSF results noted with normal protein, glucose and few PMNs. CSF HSV negative 05/06. CSF cultures negative at 72 hours. Antibiotics Vancomycin Rocephin q12hrs Lines Line sites with no e.o infection. Past Medical History Bronchitis 2 pregnancies and Allergies: Coded Allergies: No Known Allergies (Verified , 05/10/15) Objective . Vital Signs Date Time Temp Pulse Resp B/P (MAP) Pulse Ox O2 Delivery O2 Flow Rate FiO2 12/27/16 06:00 91 12/27/16 04:00 63 23 138/94 (109) 12/27/16 04:00 63 12/27/16 02:00 65 12/27/16 00:00 62 12/27/16 00:00 97.1 62 18 121/70 (87) 12/26/16 22:00 76 12/26/16 21:52 25 12/26/16 20:34 21 12/26/16 20:00 97.4 71 23 102/58 (73) 12/26/16 20:00 71 12/26/16 18:00 84 12/26/16 16:01 99.1 65 18 106/67 (80) 12/26/16 16:00 65 19 12/26/16 16:00 65 12/26/16 15:01 81 28 125/60 (81) 12/26/16 15:00 76 22 12/26/16 14:31 68 22 131/83 (99) 12/26/16 14:00 87 12/26/16 14:00 87 33 12/26/16 13:30 68 17 114/75 (88) 12/26/16 13:00 87 19 125/77 (93) 12/26/16 12:00 85 12/26/16 12:00 98.9 85 34 12/26/16 11:38 93 30 135/97 (110) 12/26/16 11:35 84 23 137/100 (112) 12/26/16 11:03 78 21 137/85 (102) 12/26/16 11:00 88 26 88 12/27/16 12/27/16 12/28/16 15:00 23:00 07:00 Intake Total 145 ml Balance 145 ml IV Total 145 ml . Laboratory Tests Test 12/25/16 10:49 12/26/16 04:46 12/27/16 06:00 White Blood Count 14.3 TH/MM3 10.3 TH/MM3 9.7 TH/MM3 Red Blood Count 3.90 MIL/MM3 3.52 MIL/MM3 3.73 MIL/MM3 Hemoglobin 12.2 GM/DL 11.0 GM/DL 11.6 GM/DL Hematocrit 36.6 % 33.1 % 34.8 % Mean Corpuscular Volume 94.0 FL 94.0 FL 93.5 FL Mean Corpuscular Hemoglobin 31.3 PG 31.2 PG 31.2 PG Mean Corpuscular Hemoglobin Concent 33.3 % 33.3 % 33.4 % Red Cell Distribution Width 14.2 % 14.5 % 14.2 % Platelet Count 188 TH/MM3 156 TH/MM3 194 TH/MM3 Mean Platelet Volume 10.7 FL 10.0 FL 9.6 FL Neutrophils (%) (Auto) 66.8 % 65.2 % 69.1 % Lymphocytes (%) (Auto) 19.6 % 24.1 % 20.9 % Monocytes (%) (Auto) 12.2 % 9.0 % 8.0 % Eosinophils (%) (Auto) 0.5 % 1.2 % 1.4 % Basophils (%) (Auto) 0.9 % 0.5 % 0.6 % Neutrophils # (Auto) 9.6 TH/MM3 6.7 TH/MM3 6.7 TH/MM3 Lymphocytes # (Auto) 2.8 TH/MM3 2.5 TH/MM3 2.0 TH/MM3 Monocytes # (Auto) 1.8 TH/MM3 0.9 TH/MM3 0.8 TH/MM3 Eosinophils # (Auto) 0.1 TH/MM3 0.1 TH/MM3 0.1 TH/MM3 Basophils # (Auto) 0.1 TH/MM3 0.0 TH/MM3 0.1 TH/MM3 CBC Comment AUTO DIFF DIFF FINAL DIFF FINAL Differential Comment AUTO DIFF CONFIRMED Hematology Comments Laboratory Tests Test 12/25/16 14:08 12/25/16 17:09 12/26/16 04:46 12/27/16 06:00 Blood Urea Nitrogen 7 MG/DL 3 MG/DL 2 MG/DL Creatinine 0.84 MG/DL 0.85 MG/DL 0.65 MG/DL Random Glucose 52 MG/DL 60 MG/DL 106 MG/DL 88 MG/DL Total Protein 6.2 GM/DL 6.2 GM/DL Albumin 2.9 GM/DL Calcium Level 7.5 MG/DL 7.4 MG/DL 8.6 MG/DL Phosphorus Level 1.2 MG/DL 2.7 MG/DL 2.9 MG/DL Magnesium Level 2.2 MG/DL 1.9 MG/DL 2.4 MG/DL Alkaline Phosphatase LESS THAN 10 U/L Aspartate Amino Transf (AST/SGOT) 22 U/L Alanine Aminotransferase (ALT/SGPT) 14 U/L Total Bilirubin 0.5 MG/DL Sodium Level 142 MEQ/L 140 MEQ/L 140 MEQ/L Potassium Level 4.2 MEQ/L 2.7 MEQ/L 3.6 MEQ/L Chloride Level 113 MEQ/L 109 MEQ/L 106 MEQ/L Carbon Dioxide Level 17.9 MEQ/L 21.6 MEQ/L 26.0 MEQ/L Anion Gap 11 MEQ/L 9 MEQ/L 8 MEQ/L Estimat Glomerular Filtration Rate 98 ML/MIN 97 ML/MIN 132 ML/MIN Human Chorionic Gonadotropin, Quant LESS THAN 1 MIU/ML Protein Corrected Calcium 7.9 MG/DL Microbiology Date/Time Source Procedure Growth Status 12/24/16 19:25 Blood Peripheral Aerobic Blood Culture - Preliminary NO GROWTH IN 2 DAYS Resulted 12/24/16 19:25 Blood Peripheral Anaerobic Blood Culture - Preliminary NO GROWTH IN 2 DAYS Resulted 12/24/16 19:20 Blood Peripheral Aerobic Blood Culture - Preliminary NO GROWTH IN 2 DAYS Resulted 12/24/16 19:20 Blood Peripheral Anaerobic Blood Culture - Preliminary NO GROWTH IN 2 DAYS Resulted 12/24/16 22:00 Cerebral Spinal Fluid Lumbar Puncture Gram Stain - Final Complete 12/24/16 22:00 Cerebral Spinal Fluid Lumbar Puncture CSF Culture - Final NO GROWTH IN 72 HOURS Complete 12/24/16 23:30 Urine Catheterized Urine Urine Culture - Final NO GROWTH IN 48 HOURS. Complete Imaging Last Impressions Neck CT 12/25/16 0000 Signed Impressions: Service Date/Time: Sunday, December 25, 2016 21:37 - CONCLUSION: Development of air-fluid levels in the sphenoid sinus since December 24 CT neck. Loculated air and fluid in the posterior nasopharynx probably related to intubation. Simone Quijano MD Brain MRI 12/25/16 0000 Signed Impressions: Service Date/Time: Sunday, December 25, 2016 13:04 - CONCLUSION: 1. Normal appearance of the brain. 2. Sinus air-fluid levels and mucosal thickening. Javier Arvizu MD Head CT 12/24/161916 Signed Impressions: Service Date/Time: Saturday, December 24, 2016 20:06 - CONCLUSION: 1. Questionable bilateral relatively diffuse white matter low density. This may be related to technique. However, given the clinical history consider followup CT to assess for change or alternatively further evaluate with brain MRI to determine if a true abnormality is present 2. Otherwise, no acute finding is identified. Jamil Gibson MD Chest X-Ray 12/24/161916 Signed Impressions: Service Date/Time: Saturday, December 24, 2016 19:45 - CONCLUSION: Examination is severely degraded by motion. No acute finding is identified given this limitation. If clinical symptoms persist consider followup examination when patient is able to cooperate with the study. Jamil Gibson MD Physical Exam GENERAL: awake and alert, not in respiratory distress. SKIN: Warm and dry. No generalized rash, no ecchymoses and no evidence of embolic lesions. HEAD: Atraumatic. Normocephalic. No temporal wasting, or tenderness. EYES: [place] conjunctiva. No petechia or hemorrhage. Pupils equal, round and reactive to light. Extraocular movements full and intact. No scleral icterus. No injection or drainage. EARS, NOSE AND THROAT: Nose without bleeding or purulent nasal discharge. No sinus tenderness. Mucous membranes pink and moist. No oral lesions noted. No exudate. No oral thrush. NECK: Trachea midline. Supple and not tender, no meningeal signs CARDIOVASCULAR: Regular rate and rhythm. No murmurs, rubs or gallops heard RESPIRATORY: Clear to auscultation. Breath sounds equal bilaterally. No rales , wheezing or rhonchi ABDOMEN: Soft, non-tender, nondistended. Bowel sounds present and normoactive. No guarding. No rebound. No organomegaly. EXTREMITIES: No clubbing, cyanosis, or edema.No joint effusion, has good ROM. No calf tenderness. Well perfused and warm. NEUROLOGICAL: Awake and alert. Cranial nerves grossly intact. Motor grossly within normal limits. PSYCHIATRIC: Normal affect, calm and cooperative. LINE: No evidence of infection Assessment & Plan Remarks IMPRESSION Sepsis on admission, source? - neck CT negative - LP only 45 WBC, mostly neutrophils, glucose/protein normal - salivary glands and LN ok on neck CT - no pulmonary complaints - UA ok - ?seizure Respiratory failure, extubated Sinusitis on Imaging. History c/w sinusitis with recurrent stuffy nose, deviated nasal septum(DNS) and recurrent headaches. History of syncope with falls and passing out: needs evaluation. Eval per Neuro and primary. Hx bronchitis RECOMMENDATION DC Vanco IV DC Rocephin Start Unasyn IV (Re: Possible sinusitis) Follow C/S - if negative will deescalate Abx Monitor progress Monitor respiratory status Neuro work-up in progress I will follow prn over the weekend. If any change in clinical condition or questions please call sooner. to resume care on Friday12/30/16. Margaux Werner MD Dec 27, 2016 10:42
[2016-12-27] MEDS: AMPICILLIN-SULBACTAM INJ 1,500 MG in SODIUM CHLORIDE 0.9% INJ 100 ML IV SCH ×3 (11:53→21:51)
[2016-12-27] MEDS: ACETAMINOPHEN 650 MG/20.3 ML UDC NG PRN (13:04)
--- NOTE | 2016-12-27 16:01 | MG ---
cc: TONYA VAIL MD Lab No: Date: Age: Sex: F Race: REFERRING PHYSICIAN: Dr. Shankar. HISTORY: History of asthma, pneumonia, , marijuana, altered mental status and not acting right. MEDICATIONS: 1. Vancomycin. 2. Senna. 3. Ceftriaxone. DESCRIPTION OF THE RECORDING: At the beginning of the EEG, the patient was asleep with K complexes and slowing of the background. In the brief time where the patient was awake, the background rhythm was 8-9 Hz alpha superimposed by beta activity. The EEG is contaminated by movement artifact. There were no electrographic seizures or epileptiform discharges seen during the recording. INTERPRETATION: This is a normal awake and mostly sleep EEG. There was no ictal activity or epileptiform discharges seen during the recording. Clinical correlation is recommended. Tonya Vail MD [facility] /2:21 PM /3:55 PM [facility]
[2016-12-27 23:55] LABS: VDRL CSF NON-REACTIVE (NON-REACTVE)
[2016-12-28] VITALS (12 sets, daily range): BP systolic 124–139; BP diastolic 73–90; PULSE 51–66; RESP 12–28; TEMP 97.4–99.8; O2SAT 98–100
[2016-12-28] MEDS: ARTIFICIAL TEARS OPTH SOLN 15 ML BTL EACH EYE SCH ×2 (01:00→09:00)
[2016-12-28] MEDS: RESP: ALBUTEROL 2.5 MG/IPRATROPIUM 0.5 MG NEB (SCH) INH ×4 (02:53→20:30)
[2016-12-28] MEDS: CHLORHEXIDINE GLUCONATE 2 % 1 PACK (2 CLOTHS) TOP SCH ×2 (04:00→22:10)
[2016-12-28] MEDS ORDERED: PHARMACY ORDERED LAB ONE (05:45)
[2016-12-28 05:52] LABS: BASOPHIL % 0.7 % (0.0-2.0); EOSINOPHIL # 0.1 TH/MM3 (0-0.4); EOSINOPHIL % 2.2 % (0.0-4.0); HEMATOCRIT 34.9 % (35.0-46.0); HEMO FLAGS DIFF FINAL; LYMPH % 30.3 % (9.0-44.0); LYMPHOCYTE # 2.1 TH/MM3 (1.0-4.8); MEAN CELL VOLUME 92.6 FL (80.0-100.0); MEAN CORPUSCULAR HEMOGLOBIN 31.3 PG (27.0-34.0); MEAN CORPUSCULAR HGB CONC 33.8 % (32.0-36.0); MONO % 8.5 % (0.0-8.0); NEUT % 58.3 % (16.0-70.0); PLATELET COUNT 204 TH/MM3 (150-450); RED BLOOD COUNT 3.77 MIL/MM3 (4.00-5.30); WHITE BLOOD COUNT 6.8 TH/MM3 (4.0-11.0)
[2016-12-28 05:57] LABS: MAGNESIUM 2.2 MG/DL (1.5-2.5); POTASSIUM 3.6 MEQ/L (3.5-5.1)
[2016-12-28] MEDS: INSULIN NovoLIN REGULAR SUPPLEMENTAL SCALE SQ SCH ×5 (06:00→20:09)
[2016-12-28] MEDS: AMPICILLIN-SULBACTAM INJ 1,500 MG in SODIUM CHLORIDE 0.9% INJ 100 ML IV SCH ×4 (06:16→22:49)
[2016-12-28] MEDS: HEPARIN SODIUM - SQ 10,000 UNITS/ML VIAL SQ SCH ×3 (06:16→21:02)
--- NOTE | 2016-12-28 08:31 | HHI.PR ---
Subjective Remarks Follow up altered mental status, respiratory failure, sinusitis. Patient has no complaints at this time. Denies chest pain, dyspnea, cough. Objective Vitals Vital Signs Date Time Temp Pulse Resp B/P (MAP) Pulse Ox O2 Delivery O2 Flow Rate FiO2 12/28/16 06:00 51 12/28/16 04:00 54 12/28/16 04:00 97.4 54 28 139/84 (102) 100 12/28/16 02:00 56 12/28/16 00:00 58 12/28/16 00:00 99.1 58 12 138/77 (97) 12/27/16 22:00 63 12/27/16 20:00 60 12/27/16 20:00 97.4 60 18 114/62 (79) 100 12/27/16 19:40 95 21 12/27/16 18:00 71 12/27/16 18:00 71 40 133/75 (94) 12/27/16 17:00 64 24 133/87 (102) 12/27/16 17:00 64 12/27/16 16:00 68 12/27/16 16:00 99.5 68 34 136/78 (97) 12/27/16 15:00 53 12/27/16 14:00 60 20 118/81 (93) 12/27/16 14:00 60 12/27/16 13:00 63 12/27/16 13:00 63 34 12/27/16 12:00 67 12/27/16 12:00 97.8 69 31 138/81 (100) 12/27/16 11:41 97 12/27/16 11:00 72 65 167/101 (123) 12/27/16 11:00 76 12/27/16 10:00 63 12/27/16 10:00 63 37 158/85 (109) 12/27/16 09:00 68 12/27/16 09:00 67 25 155/96 (115) I/O 12/27/16 12/27/16 12/27/16 12/28/16 12/28/16 12/28/16 06:59 14:59 22:59 06:59 14:59 22:59 Intake Total 1386 ml 345 ml 903 ml 307 ml Output Total 1200 ml 900 ml 400 ml Balance 186 ml 345 ml 3 ml -93 ml Intake Oral 240 ml 480 ml 0 ml IV Total 1146 ml 345 ml 423 ml 307 ml Output Urine Total 1200 ml 900 ml 400 ml # Voids 2 # Bowel Movements 0 0 0 Result Diagram: 12/28/16 0533 12/28/1633 Imaging Last Impressions Neck CT 12/25/16 0000 Signed Impressions: Service Date/Time: Sunday, December 25, 2016 21:37 - CONCLUSION: Development of air-fluid levels in the sphenoid sinus since December 24 CT neck. Loculated air and fluid in the posterior nasopharynx probably related to intubation. Simone Quijano MD Brain MRI 12/25/16 0000 Signed Impressions: Service Date/Time: Sunday, December 25, 2016 13:04 - CONCLUSION: 1. Normal appearance of the brain. 2. Sinus air-fluid levels and mucosal thickening. Javier Arvizu MD Head CT 12/24/161916 Signed Impressions: Service Date/Time: Saturday, December 24, 2016 20:06 - CONCLUSION: 1. Questionable bilateral relatively diffuse white matter low density. This may be related to technique. However, given the clinical history consider followup CT to assess for change or alternatively further evaluate with brain MRI to determine if a true abnormality is present 2. Otherwise, no acute finding is identified. Jamil Gibson MD Chest X-Ray 12/24/161916 Signed Impressions: Service Date/Time: Saturday, December 24, 2016 19:45 - CONCLUSION: Examination is severely degraded by motion. No acute finding is identified given this limitation. If clinical symptoms persist consider followup examination when patient is able to cooperate with the study. Jamil Gibson MD Objective Remarks Patient examined in the presence of the nurse. General: No acute distress. Heart: Regular rate and rhythm. No murmur. Lungs: Clear to auscultation bilaterally. No wheezes, rales, or rhonchi. Breathing is nonlabored. Abdomen: Soft, nontender, nondistended. Extremities: No lower extremity edema. Psych: Alert and oriented. Procedures 12/24/16 Intubation 12/24/16 lumbar puncture Urinary Catheter: No Vascular Central Line Catheter: No A/P Problem List: (1) Encephalopathy ICD Code: G93.40 - Encephalopathy, unspecified (2) Hypokalemia ICD Code: E87.6 - Hypokalemia (3) Sinusitis ICD Code: J32.9 - Chronic sinusitis, unspecified (4) Sepsis ICD Code: A41.9 - Sepsis, unspecified organism Status: Acute (5) Leukocytosis ICD Code: D72.829 - Elevated white blood cell count, unspecified Status: Acute Assessment and Plan 1. Encephalopathy: Patient presented with altered mental status. Likely secondary to infection. Appreciate neurology recommendations. Mental status is improved. S/P lumbar puncture. 2. Acute respiratory failure: Required intubation. Extubated on 12/26/16. Supplemental oxygen as needed. Bronchodilators. 3. Anemia: Monitor H/H. 4. Sepsis on admission: Source likely respiratory/sinusitis. Appreciate infectious disease recommendations. Continue Unasyn. Vancomycin and Rocephin discontinued. Follow cultures. 5. DVT prophylaxis: SCDs, heparin. 6. ?seizures: Repeat EEG is normal. Appreciate neurology recommendations. Discharge Planning Transfer to med/surg floor. Possible discharge home next 1-2 days. Problem Qualifiers (1) Sepsis: Qualified Codes: A41.9 - Sepsis, unspecified organism (2) Leukocytosis: Qualified Codes: D72.829 - Elevated white blood cell count, unspecified Harjit Bai MD Dec 28, 2016 08:31
[2016-12-28] MEDS: DOCUSATE SODIUM 100 MG/10 ML UDC PO SCH (10:00)
[2016-12-28] MEDS: SENNOSIDES SYRUP 8.8 MG/5 ML CUP PO SCH (10:00)
[2016-12-28] MEDS: FAMOTIDINE 20 MG/2 ML VIAL IV PUSH SCH (10:01)
[2016-12-28] MEDS: SODIUM CHLORIDE 0.9% FLUSH 10 ML FLUSH IV FLUSH SCH ×2 (10:01→20:08)
[2016-12-28] MEDS: NYSTATIN SUSP 500,000 U/5 ML CUP SWISH-SWAL SCH ×3 (13:04→20:08)
[2016-12-28] MEDS: ACETAMINOPHEN 325 MG TAB PO PRN (17:06)
[2016-12-28] MEDS ORDERED: IBUPROFEN 600 MG TAB PO ONE (19:30)
[2016-12-28] MEDS: DOCUSATE SODIUM 100 MG CAP PO SCH (20:08)
[2016-12-28] MEDS: FAMOTIDINE 20 MG TAB PO SCH (20:08)
[2016-12-29 04:45] VITALS: BP 146/83; PULSE 58; RESP 16; TEMP 97.5; O2SAT 100
[2016-12-29] MEDS: AMPICILLIN-SULBACTAM INJ 1,500 MG in SODIUM CHLORIDE 0.9% INJ 100 ML IV SCH ×2 (05:14→11:16)
[2016-12-29] MEDS: INSULIN NovoLIN REGULAR SUPPLEMENTAL SCALE SQ SCH ×2 (06:14→11:00)
[2016-12-29] MEDS: HEPARIN SODIUM - SQ 10,000 UNITS/ML VIAL SQ SCH (06:14)
[2016-12-29 07:38] VITALS: BP 143/80; PULSE 57; RESP 18; TEMP 97.8; O2SAT 100
[2016-12-29] MEDS: NYSTATIN SUSP 500,000 U/5 ML CUP SWISH-SWAL SCH ×2 (08:33→12:18)
[2016-12-29] MEDS: SODIUM CHLORIDE 0.9% FLUSH 10 ML FLUSH IV FLUSH SCH (08:33)
[2016-12-29] MEDS: FAMOTIDINE 20 MG TAB PO SCH (08:33)
[2016-12-29] MEDS: DOCUSATE SODIUM 100 MG CAP PO SCH (08:37)
[2016-12-29] MEDS ORDERED: SENNOSIDES 8.6 MG TAB PO SCH (09:00)
[2016-12-29 11:36] VITALS: BP 142/83; PULSE 58; RESP 18; TEMP 98.6; O2SAT 100
[2016-12-29] MEDS: ACETAMINOPHEN 325 MG TAB PO PRN (12:21)
[2016-12-29 13:21] VITALS: RESP 18
[2016-12-29] MEDS ORDERED: ALBU0.08 NEB (14:00)
[2016-12-29] MEDS ORDERED: AMOX875T2 PO (14:00)
--- NOTE | 2016-12-29 14:01 | HHI.DCPOC ---
Discharge Care Plan Diagnosis: (1) Leukocytosis (2) Sepsis (3) Altered mental status (4) Hypokalemia (5) Sinusitis (6) Encephalopathy Goals to Promote Your Health * To prevent worsening of your condition and complications * To maintain your health at the optimal level Directions to Meet Your Goals Take your medications as prescribed Follow your dietary instruction Follow activity as directed Keep your appointments as scheduled Take your immunizations and boosters as scheduled If your symptoms worsen call your PCP, if no PCP go to Urgent Care Center or Emergency Room Smoking is Dangerous to Your Health. Avoid second hand smoke Call the 24-hour hour crisis hotline for domestic abuse at Harjit Bai MD Dec 29, 2016 14:01
--- NOTE | 2016-12-29 14:08 | HHI.DS ---
Discharge Summary Admission Date Dec 24, 2016 at 21:06 Discharge Date: Dec 29, 2016 Admitting Diagnosis sepsis with altered mental status rule out meningitis/encephalitis (1) Encephalopathy ICD Code: G93.40 - Encephalopathy, unspecified (2) Hypokalemia ICD Code: E87.6 - Hypokalemia (3) Sinusitis ICD Code: J32.9 - Chronic sinusitis, unspecified (4) Sepsis ICD Code: A41.9 - Sepsis, unspecified organism Status: Acute (5) Leukocytosis ICD Code: D72.829 - Elevated white blood cell count, unspecified Status: Acute Procedures 12/24/16 Intubation 12/24/16 lumbar puncture Brief History - From Admission 26-year-old female with no significant medical history, presents by [facility] for altered mental status and fevers. Patient's mother states that she went over to her house today and the patient was "not acting right." She states she was normal yesterday when she saw her, but her grandsons told her that the patient did fall down last night was holding her throat. The patient did report throat pain and a headache. She was uncooperative agitated and lethargic and was intubated by ED attending for an airway protection. CBC/BMP: 12/28/16 0533 12/28/16 0533 Significant Findings Laboratory Tests Test 12/27/16 06:00 12/28/16 05:33 Red Blood Count 3.73 MIL/MM3 (4.00-5.30) 3.77 MIL/MM3 (4.00-5.30) Hematocrit 34.8 % (35.0-46.0) 34.9 % (35.0-46.0) Blood Urea Nitrogen 2 MG/DL (7-18) 3 MG/DL (7-18) Monocytes (%) (Auto) 8.5 % (0.0-8.0) Calcium Level 8.4 MG/DL (8.5-10.1) Imaging Last Impressions Neck CT 12/25/16 0000 Signed Impressions: Service Date/Time: Sunday, December 25, 2016 21:37 - CONCLUSION: Development of air-fluid levels in the sphenoid sinus since December 24 CT neck. Loculated air and fluid in the posterior nasopharynx probably related to intubation. Simone Quijano MD Brain MRI 12/25/16 0000 Signed Impressions: Service Date/Time: Sunday, December 25, 2016 13:04 - CONCLUSION: 1. Normal appearance of the brain. 2. Sinus air-fluid levels and mucosal thickening. Javier Arvizu MD Head CT 12/24/161916 Signed Impressions: Service Date/Time: Saturday, December 24, 2016 20:06 - CONCLUSION: 1. Questionable bilateral relatively diffuse white matter low density. This may be related to technique. However, given the clinical history consider followup CT to assess for change or alternatively further evaluate with brain MRI to determine if a true abnormality is present 2. Otherwise, no acute finding is identified. Jamil Gibson MD Chest X-Ray 12/24/161916 Signed Impressions: Service Date/Time: Saturday, December 24, 2016 19:45 - CONCLUSION: Examination is severely degraded by motion. No acute finding is identified given this limitation. If clinical symptoms persist consider followup examination when patient is able to cooperate with the study. Jamil Gibson MD PE at Discharge Patient examined in the presence of the nurse. General: No acute distress. Heart: Regular rate and rhythm. No murmur. Lungs: Clear to auscultation bilaterally. No wheezes, rales, or rhonchi. Breathing is nonlabored. Abdomen: Soft, nontender, nondistended. Extremities: No lower extremity edema. Psych: Alert and oriented. Pt update on day of discharge The patient has no complaints at this time. She wants to go home. She has been ambulating in the halls without dizziness, lightheadedness, chest pain. She does have headache, but it responds to Tylenol. Occasional dyspnea, which improves with bronchodilator. Discussed with infectious disease; will change to Augmentin and discharge home. Hospital Course The patient was admitted for further management of respiratory failure. She was intubated for airway protection. She is weaned off of mechanical ventilation and extubated. Infectious disease was consulted. Workup showed only sinusitis. Lumbar puncture was unremarkable. CSF cultures were negative. The patient's antibiotics were adjusted. EEG was abnormal. Repeat EEG was within normal limits and showed no evidence of seizure activity. Patient was cleared for discharge by infectious disease. Her symptoms continued to improve throughout the hospitalization. She requested discharge home and was having no difficulty ambulating in the hallways. She was advised to follow-up with her PCP and ENT regarding the sinusitis. She was advised to follow-up with neurology and cardiology regarding possible syncopal episodes that reportedly occurred prior to this hospitalization. Pt Condition on Discharge: Stable Discharge Disposition: Discharge Home Discharge Time: > 30 minutes Discharge Instructions DIET: Follow Instructions for: As Tolerated, No Restrictions Activities you can perform: Regular-No Restrictions Activities to Avoid: Driving Follow up Referrals: Cardiology - 1 Week Ear Nose Throat - 1 Week Neurology - 1 Week with Chana Shankar MD PCP Follow-up - 1 Week New Medications: Amoxicillin-Clavulanate (Amoxicillin-Clavulanate) 875-125 mg Tab 875 MG PO BID for Infection, #20 TAB 0 Refills not for use in CrCl <30 mL/minute Albuterol Neb (Albuterol Neb) 2.5 Mg/3 Ml Neb 2.5 MG NEB Q2HR NEB PRN for DYSPNEA, #30 NEBULE 0 Refills Continued Medications: Albuterol Sulfate 8 GM Inhaler (Ventolin Hfa) 8 Gm Aero 1 PUFF INH Q4H PRN for WHEEZING, #1 BOX * SHAKE WELL BEFORE USE * Promethazine Hcl (Promethazine Hcl) 25 Mg Tab 25 MG PO Q4-6H, #12 TAB FOR NAUSEA/VOMITING Harjit Bai MD Dec 29, 2016 14:07
== END 2016-12-29 15:03 | disposition home or self-care (01) | DRG 871 ==
LOC: NEPE 18:33 → NEDA 21:06 → HIMW 12-25 → N06A 12-28 21:51
PROVIDERS: ADMIT Family Medicine; ATTEND Family Medicine
PROC: 5A1945Z Respiratory Ventilation, 24-96 Consecutive Hours (ICD-10-PCS; principal; 2016-12-24)
PROC: 0BH17EZ Insertion of Endotracheal Airway into Trachea, Via Natural or Artificial Opening (ICD-10-PCS; 2016-12-24)
PROC: 009U3ZX Drainage of Spinal Canal, Percutaneous Approach, Diagnostic (ICD-10-PCS; 2016-12-24)
DX: A41.9 Sepsis, unspecified organism (principal); J96.00 Acute respiratory failure, unspecified whether with hypoxia or hypercapnia; G92 Toxic encephalopathy; E87.6 Hypokalemia; J32.9 Chronic sinusitis, unspecified; J45.909 Unspecified asthma, uncomplicated; F12.90 Cannabis use, unspecified, uncomplicated; D64.9 Anemia, unspecified
CPT/HCPCS: 31500; 36600; 70450; 70490; 70491; 70553; 71010; 76937; 80048; 80053; 80202; 80307; 81001; 82550; 82552; 82805; 82945; 82947; 82948; 83605; 83615; 83735; 84100; 84155; 84157; 84702; 85025; 85610; 85730; 86140; 86403; 86592; 86618; 87040; 87070; 87086; 87205; 87529; 87641; 89051; 93005; 94002; 94003; 94150; 94640; 94664; 95819; 96365; 96375; A9579; J0133; J0295; J0330; J0696; J1644; J2250; J3010; J3370; J3475; J3480; J7030; J7040; J7050; J7613; Q9967

== ENCOUNTER 2017-03-11 07:23 | Emergency (ER) | payer MEDICAID ==
[~2017-03-11] VITALS: Ht 165.1 cm; Wt 89.0 kg
[~2017-03-11 07:23] MED LIST changes: +ALBU0.08 NEB; +AMOX875T2 PO
[2017-03-11 07:40] VITALS: BP 138/87; PULSE 86; RESP 18; TEMP 98.2; O2SAT 98
[2017-03-11] MEDS ORDERED: TETRACAINE 0.5% OPTH SOLN 4 ML BTL LEFT EYE ONE (08:00)
[2017-03-11] MEDS ORDERED: FLUORESCEIN SOD 1 MG STRIP LEFT EYE ONE (08:00)
--- NOTE | 2017-03-11 08:03 | PD ---
HPI . Foreign body Chief Complaint: Altered Mental Status Time Seen by Provider: 07:57 Travel History International Travel<30 days: No Contact w/Intl Traveler<30days: No Traveled to known affect area: No History of Present Illness HPI This patient presented to us via [facility] because of an apparent altered mental status. [facility] was called by her boyfriend because she wasn't acting right this morning. The patient eventually told us that she feels like she has something in her left eye. Her eye felt fine when she went to bed tonight that she awakened with a foreign body sensation. She states that it feels like there is something scratching her eye. Her eye is tearing. She has photophobia. No modifying factors. PFSH Past Medical History Asthma: Yes Diminished Hearing: No Psychiatric: No Respiratory: Yes (ASTHMA) Immunizations Current: No Pneumonia: Yes (WITH LAST ) Tetanus Vaccination: > 5 Years Influenza Vaccination: No ?: Not : 1 Para: 2 Miscarriage: 0 : 0 Past Surgical History Section: Yes (X 2) Gynecologic Surgery: Yes ( X 2) Social History Alcohol Use: No Tobacco Use: No Substance Use: Yes (marijuana) Allergies-Medications (Allergen,Severity, Reaction): Coded Allergies: No Known Allergies (Verified Adverse Reaction, Unknown, 03/11/17) Reported Meds & Prescriptions Reported Meds & Active Scripts Active Albuterol Neb (Albuterol Sulfate) 2.5 Mg/3 Ml Neb 2.5 Mg NEB Q2HR NEB PRN Review of Systems Except as stated in HPI: all other systems reviewed are Neg Eyes: Positive: Photophobia, Foreign Body Sensation, Pain, Tearing Physical Exam Narrative GENERAL: The patient is lying on the stretcher with her arm across her eyes. Her right leg is voluntarily shaking. She was initially reluctant to answer questions. SKIN: Warm and dry with no rash or lesions. HEAD: Normocephalic/atraumatic. EYES: Pupils are equal. Extraocular movements are intact. The left eye is injected and is tearing. NECK: Supple. CARDIOVASCULAR: RESPIRATORY: Nonlabored respirations. MUSCULOSKELETAL: Atraumatic. NEUROLOGICAL: She walks with a normal gait. PSYCHIATRIC: Appropriate mood and affect. Data Data Last Documented VS Vital Signs Date Time Temp Pulse Resp B/P (MAP) Pulse Ox O2 Delivery O2 Flow Rate FiO2 03/11/17 07:40 98.2 86 18 138/87 (104) 98 Orders Orders Tetracaine 0.5% Opth Soln (Tetracaine 0. (03/11/17 08:00) Fluorescein Strip (Tgvod-D-Eefbaf A.T.) (03/11/17 08:00) Drug Screen, Random Urine (03/11/17 07:57) MDM Medical Decision Making Medical Screen Exam Complete: Yes Emergency Medical Condition: Yes Differential Diagnosis Differential diagnosis of eye pain includes but is not limited to conjunctivitis , chemical irritation, corneal abrasion, acute angle-closure glaucoma. Narrative Course This patient presents to us by [facility] for altered mental status. However, she is not really altered. She is just uncooperative with her initial H&P. She is now awake and alert and is stating that she has something in her left eye. The eye was anesthetized with tetracaine with marked relief of her symptoms. I was sustained. I do not see any uptake. Diagnosis Primary Impression: Irritation of left eye Patient Instructions: General Instructions Additional Instructions: Use the erythromycin ointment 3 times a day for the next 5 days. Acular 4 times a day for pain. Med/Other Pt SpecificInfo: Prescription(s) given Scripts Ketorolac Opth Drops (Acular Opth Drops) 0.5% Drops 1 DROP LEFT EYE QID for Pain/Inflammation, #5 ML 0 Refills Prov: Flory Santoyo MD 03/11/17 Erythromycin Opth Oint (Erythromycin Opth Oint) 5 Mg/Gm Oint 1 APPLIC LEFT EYE QID for Infection, #1 TUBE 0 Refills Prov: Flory Santoyo MD 03/11/17 Disposition: 01 DISCHARGE HOME Condition: Stable Flory Santoyo MD Mar 11, 2017 08:03
[2017-03-11] MEDS ORDERED: KETO1SOL3 LEFT EYE (08:42)
[2017-03-11] MEDS ORDERED: ERYTOIN10 LEFT EYE (08:42)
[2017-03-13] MEDS ORDERED: ERYTOIN10 LEFT EYE (10:15)
[2017-03-13] MEDS ORDERED: LEVE500 PO (10:15)
[2017-03-13] MEDS ORDERED: ALBU0.08 NEB (10:15)
[2017-03-13] MEDS ORDERED: KETO1SOL3 LEFT EYE (10:15)
== END 2017-03-11 08:57 | disposition home or self-care (01) ==
LOC: NEDAMB 07:23 → NEPE 08:57
DX: H57.12 Ocular pain, left eye (principal); R41.82 Altered mental status, unspecified; J45.909 Unspecified asthma, uncomplicated
CPT/HCPCS: 99284

== ENCOUNTER 2017-04-29 10:09 | Emergency (ER) | payer MEDICAID ==
[~2017-04-29] VITALS: Ht 160 cm; Wt 80.0 kg
[~2017-04-29 10:09] MED LIST changes: -ALBU8I INH; -AMOX875T2 PO; +ERYTOIN10 LEFT EYE; +KETO1SOL3 LEFT EYE; +LEVE500 PO; -PROM25SU8 PO
[2017-04-29 10:19] VITALS: BP 114/76; PULSE 81; RESP 18; TEMP 98.3; O2SAT 99
[2017-04-29] MEDS ORDERED: MORPHINE SULFATE 4 MG/ML INJ IV PUSH ONE (11:00)
[2017-04-29] MEDS ORDERED: levETIRAcetam INJ 100 ML IV ONE (11:00)
[2017-04-29] MEDS ORDERED: ONDANSETRON HCL 4 MG/2 ML VIAL IV ONE (11:00)
--- NOTE | 2017-04-29 11:12 | PD ---
HPI Chief Complaint: Seizure Time Seen by Provider: 10:33 Travel History International Travel<30 days: No Contact w/Intl Traveler<30days: No Traveled to known affect area: No History of Present Illness HPI This patient reports that she had a seizure. It caused her to fall and she struck her forehead. She complains of frontal headache. Denies any neck pain. Symptoms severity is moderate. Duration 1 hour. No alleviating factors. Symptoms are exacerbated by her noncompliance of Keppra. She says he took a dose this morning but has missed several over the last few days. PFSH Past Medical History Asthma: Yes Cancer: No Cardiovascular Problems: No Diabetes: No Diminished Hearing: No Endocrine: No Genitourinary: No Immune Disorder: No Psychiatric: No Reproductive: No Respiratory: Yes (ASTHMA) Immunizations Current: No Pneumonia: Yes (WITH LAST ) Seizures: Yes Tetanus Vaccination: > 5 Years Influenza Vaccination: No ?: Not LMP: 04/13/17 : 1 Para: 2 Miscarriage: 0 : 0 Past Surgical History Section: Yes (X 2) Gynecologic Surgery: Yes ( X 2) Social History Alcohol Use: Yes (OCCAS) Tobacco Use: No Substance Use: Yes (marijuana daily) Allergies-Medications (Allergen,Severity, Reaction): Coded Allergies: No Known Allergies (Verified Adverse Reaction, Unknown, 04/29/17) Reported Meds & Prescriptions Reported Meds & Active Scripts Active Keppra (Levetiracetam) 500 Mg Tab 500 Mg PO Q12HR 30 Days Take one pill every 12 hours. Albuterol Neb (Albuterol Sulfate) 2.5 Mg/3 Ml Neb 2.5 Mg NEB Q2HR NEB PRN Review of Systems General / Constitutional: No: Fever Eyes: No: Visual changes HENT: Positive: Headaches Cardiovascular: No: Chest Pain or Discomfort Respiratory: No: Shortness of Breath Gastrointestinal: No: Abdominal Pain Genitourinary: No: Dysuria Musculoskeletal: No: Pain Skin: No Rash Neurologic: Positive: Headache, Seizures, No: Weakness Psychiatric: No: Depression Endocrine: No: Polydipsia Hematologic/Lymphatic: No: Easy Bruising Physical Exam Narrative GENERAL: Well-nourished, well-developed patient with headache . SKIN: Focused skin assessment reveals no rash and nodules. Skin is Warm and dry. HEAD: Atraumatic. Normocephalic. EYES: Pupils equal and round. No scleral icterus. No injection or drainage. ENT: No nasal bleeding or discharge. Mucous membranes pink and moist. No tongue injury NECK: Trachea midline. No JVD. No midline tenderness CARDIOVASCULAR: Regular rate and rhythm. No murmur appreciated. RESPIRATORY: No accessory muscle use. Clear to auscultation. Breath sounds equal bilaterally. GASTROINTESTINAL: Abdomen soft, non-tender, nondistended. Hepatic and splenic margins not palpable. MUSCULOSKELETAL: No obvious deformities. No clubbing. No cyanosis. No edema. NEUROLOGICAL: Awake and alert. No obvious cranial nerve deficits. Motor grossly within normal limits. Normal speech. PSYCHIATRIC: Appropriate mood and affect; insight and judgment seems a bit weak given her noncompliance Data Data Last Documented VS Vital Signs Date Time Temp Pulse Resp B/P (MAP) Pulse Ox O2 Delivery O2 Flow Rate FiO2 04/29/17 10:23 80 16 99 Room Air 04/29/17 10:19 98.3 114/76 (89) Orders Orders Ct Brain W/O Iv Contrast(Rout) (04/29/17 ) Iv Access Insert/Monitor (04/29/17 10:55) Complete Blood Count With Diff (04/29/17 10:55) Basic Metabolic Panel (Bmp) (04/29/17 10:55) Ondansetron Inj (Zofran Inj) (04/29/17 11:00) Morphine Inj (Morphine Inj) (04/29/17 11:00) Levetiracetam Inj (Keppra Inj) (04/29/17 11:00) Morphine Inj (Morphine Inj) (04/29/17 12:00) Morphine Inj (Morphine Inj) (04/29/17 12:00) Labs Laboratory Tests Test 04/29/17 10:30 White Blood Count 5.2 TH/MM3 Red Blood Count 3.99 MIL/MM3 Hemoglobin 12.5 GM/DL Hematocrit 37.3 % Mean Corpuscular Volume 93.4 FL Mean Corpuscular Hemoglobin 31.3 PG Mean Corpuscular Hemoglobin Concent 33.5 % Red Cell Distribution Width 13.8 % Platelet Count 198 TH/MM3 Mean Platelet Volume 9.5 FL Neutrophils (%) (Auto) 63.3 % Lymphocytes (%) (Auto) 27.5 % Monocytes (%) (Auto) 7.1 % Eosinophils (%) (Auto) 1.4 % Basophils (%) (Auto) 0.7 % Neutrophils # (Auto) 3.3 TH/MM3 Lymphocytes # (Auto) 1.4 TH/MM3 Monocytes # (Auto) 0.4 TH/MM3 Eosinophils # (Auto) 0.1 TH/MM3 Basophils # (Auto) 0.0 TH/MM3 CBC Comment DIFF FINAL Differential Comment Blood Urea Nitrogen 15 MG/DL Creatinine 0.87 MG/DL Random Glucose 88 MG/DL Calcium Level 8.8 MG/DL Sodium Level 141 MEQ/L Potassium Level 4.0 MEQ/L Chloride Level 110 MEQ/L Carbon Dioxide Level 24.5 MEQ/L Anion Gap 7 MEQ/L Estimat Glomerular Filtration Rate 95 ML/MIN MDM Medical Decision Making Medical Screen Exam Complete: Yes Emergency Medical Condition: Yes Medical Record Reviewed: Yes Differential Diagnosis Break through seizure, noncompliance, anxiety, pseudoseizure Narrative Course I have reviewed the patient's electronic medical record. Patient is neurologically intact. Unclear if she had a true seizure. There is no eyewitnesses to her event available. She did not have urinary incontinence or tongue injury. She complains of headache from striking her head but I don't see any evidence of bruising or swelling etc. I gave her injection of pain and nausea medication for symptom relief Gave her dose of IV Keppra Brain CT is normal CBC is normal Metabolic profile is normal I observe the patient for almost 3 hours with no seizure activity. She is stable for outpatient follow-up and we discussed her noncompliance. There is no evidence that she actually had a true seizure. Diagnosis Primary Impression: Seizure Additional Impression: Head injury Qualified Codes: S09.90XA - Unspecified injury of head, initial encounter Additional Instructions: Follow-up with neurologist Med/Other Pt SpecificInfo: Other Disposition: 01 DISCHARGE HOME Condition: Stable Harjit Castillo MD Apr 29, 2017 11:12
[2017-04-29 11:46] LABS: AUTOMATED NEUTROPHIL # 3.3 TH/MM3 (1.8-7.7); BASOPHIL % 0.7 % (0.0-2.0); EOSINOPHIL # 0.1 TH/MM3 (0-0.4); EOSINOPHIL % 1.4 % (0.0-4.0); HEMATOCRIT 37.3 % (35.0-46.0); HEMOGLOBIN 12.5 GM/DL (11.6-15.3); LYMPH % 27.5 % (9.0-44.0); LYMPHOCYTE # 1.4 TH/MM3 (1.0-4.8); MEAN CELL VOLUME 93.4 FL (80.0-100.0); MEAN CORPUSCULAR HEMOGLOBIN 31.3 PG (27.0-34.0); MEAN CORPUSCULAR HGB CONC 33.5 % (32.0-36.0); MEAN PLATELET VOLUME 9.5 FL (7.0-11.0); MONO % 7.1 % (0.0-8.0); MONOCYTE # 0.4 TH/MM3 (0-0.9); NEUT % 63.3 % (16.0-70.0); PLATELET COUNT 198 TH/MM3 (150-450); RED BLOOD COUNT 3.99 MIL/MM3 (4.00-5.30); RED CELL DISTRIBUTION WIDTH 13.8 % (11.6-17.2); WHITE BLOOD COUNT 5.2 TH/MM3 (4.0-11.0)
[2017-04-29] MEDS ORDERED: MORPHINE SULFATE 2 MG/ML INJ IV PUSH ONE ×2 (12:00)
[2017-04-29 12:01] LABS: BICARBONATE 24.5 MEQ/L (21.0-32.0); CALCIUM 8.8 MG/DL (8.5-10.1); CREATININE 0.87 MG/DL (0.50-1.00)
--- NOTE | 2017-04-29 12:35 | RADRPT ---
EXAM DATE/TIME: 04/29/2017 12:21 [facility] COMPARISON: CT BRAIN W/O CONTRAST, March 11, 2017, 16:54. INDICATIONS : Seizure today RADIATION DOSE: 32.63 CTDIvol (mGy) MEDICAL HISTORY : Seizures. Asthma SURGICAL HISTORY : None. ENCOUNTER: Initial ACUITY: 1 day PAIN SCALE: 10/10 LOCATION: cranial TECHNIQUE: Multiple contiguous axial images were obtained of the head. Using automated exposure control and adj ustment of the mA and/or kV according to patient size, radiation dose was kept as low as reasonably a chievable to obtain optimal diagnostic quality images. DICOM format image data is available electro nically for review and comparison. FINDINGS: CEREBRUM: The ventricles are normal for age. No evidence of midline shift, mass lesion, hemorrhage or acute in farction. No extra-axial fluid collections are seen. POSTERIOR FOSSA: The cerebellum and brainstem are intact. The 4th ventricle is midline. The cerebellopontine angle i s unremarkable. EXTRACRANIAL: The visualized portion of the orbits is intact. SKULL: The calvaria is intact. No evidence of skull fracture. CONCLUSION: Normal examination for a patient of this age. No significant change has occurred. Que Parker MD on April 29, 2017 at 12:32 Board Certified Radiologist. This report was verified electronically.
[2017-04-29 13:00] VITALS: BP 118/69; PULSE 76; RESP 18; O2SAT 100
== END 2017-04-29 13:24 | disposition home or self-care (01) ==
LOC: NEPD 10:09
DX: R56.9 Unspecified convulsions (principal); J45.909 Unspecified asthma, uncomplicated; T42.6X6A Underdosing of other antiepileptic and sedative-hypnotic drugs, initial encounter; S09.90XA Unspecified injury of head, initial encounter; W19.XXXA Unspecified fall, initial encounter
CPT/HCPCS: 70450; 80048; 85025; 96365; 96375; 99285; J1953; J2270; J2405

== ENCOUNTER 2017-06-11 12:12 | Emergency (ER) | payer MEDICAID ==
[~2017-06-11] VITALS: Ht 167.6 cm; Wt 81.5 kg
[2017-06-11 12:12] VITALS: BP 144/71; PULSE 62; RESP 18; TEMP 98.5; O2SAT 100
[~2017-06-11 12:12] MED LIST changes: -ERYTOIN10 LEFT EYE; -KETO1SOL3 LEFT EYE
--- NOTE | 2017-06-11 14:09 | PD ---
HPI Chief Complaint: Eye Problems/Injury Time Seen by Provider: 13:57 Travel History International Travel<30 days: No Contact w/Intl Traveler<30days: No Traveled to known affect area: No History of Present Illness HPI 26-year-old female presents to emergency department with complaint of a foreign body sensation to her left eye since yesterday after waking up. Unknown trauma. Unknown foreign body. Reports photophobia and clear drainage. Reports blurry vision. Denies fever, vomiting. Denies contact lens. Rates pain 10/10. Feels like a scratching sensation. Has tried eyedrops for symptom management. No known relieving factors. Primary care provider is Dr. Davies. Has history of epilepsy and saw her neurologist today and was told to come to the emergency department for evaluation of her eye. Takes Keppra. History of asthma also. No known allergies. Has no other medical complaints. No modifying factors or associated signs and symptoms. PFSH Past Medical History Asthma: Yes Cancer: No Cardiovascular Problems: No Diabetes: No Diminished Hearing: No Endocrine: No Genitourinary: No Immune Disorder: No Psychiatric: No Reproductive: No Respiratory: Yes (ASTHMA) Immunizations Current: No Pneumonia: Yes (WITH LAST ) Seizures: Yes ?: Not : 1 Para: 2 Miscarriage: 0 : 0 Past Surgical History Section: Yes (X 2) Gynecologic Surgery: Yes ( X 2) Social History Alcohol Use: Yes (OCCAS) Tobacco Use: No Substance Use: Yes (marijuana daily) Allergies-Medications (Allergen,Severity, Reaction): Coded Allergies: No Known Allergies (Verified Adverse Reaction, Unknown, 06/11/17) Reported Meds & Prescriptions Reported Meds & Active Scripts Active Tramadol (Tramadol HCl) 50 Mg Tab 50 Mg PO Q4H PRN Ibuprofen 800 Mg Tab 800 Mg PO Q6HR PRN Erythromycin Opth Oint 5 Mg/Gm Oint 1 Applic LEFT EYE QID 7 Days Keppra (Levetiracetam) 500 Mg Tab 500 Mg PO Q12HR 30 Days Take one pill every 12 hours. Albuterol Neb (Albuterol Sulfate) 2.5 Mg/3 Ml Neb 2.5 Mg NEB Q2HR NEB PRN Review of Systems Except as stated in HPI: all other systems reviewed are Neg Physical Exam Narrative GENERAL: Well-nourished, well-developed patient, in no acute distress SKIN: Warm and dry. HEAD: Atraumatic. Normocephalic. EYES: Pupils equal and round at 3 mm with brisk reaction. PERRLA. EOMI. Left lid eversion with no foreign body noted. Left eye with scleral erythema and without lid edema. No orbital tenderness, erythema or cellulitis. Left eye with photophobia. No consensual photophobia. No scleral icterus. Clear drainage. Edmonds lamp exam reveals corneal abrasion at the 6 o'clock position over the iris and lower part of the pupil. ENT: Mucosa pink and moist. Airway patent. NECK: Trachea midline. CARDIOVASCULAR: Regular rate. RESPIRATORY: No accessory muscle use. GASTROINTESTINAL: Flat. NEUROLOGICAL: Awake and alert. Oriented 3. No obvious cranial nerve deficits. Motor grossly within normal limits. Normal speech. PSYCHIATRIC: Appropriate mood and affect; insight and judgment normal. Data Data Last Documented VS Vital Signs Date Time Temp Pulse Resp B/P (MAP) Pulse Ox O2 Delivery O2 Flow Rate FiO2 06/11/17 14:56 65 18 129/78 (95) 100 06/11/17 12:12 98.5 Room Air Orders Orders Proparacaine 0.5% Opth Soln (Alcaine 0.5 (06/11/17 14:15) Ibuprofen (Motrin) (06/11/17 14:15) Ed Discharge Order (06/11/17 14:44) [facility] Medical Decision Making Medical Screen Exam Complete: Yes Emergency Medical Condition: Yes Medical Record Reviewed: Yes Differential Diagnosis Corneal abrasion, foreign body, corneal ulceration Narrative Course 26-year-old female with left corneal abrasion. Erythromycin, tramadol, ibuprofen prescribed for home. Instructed patient to follow up with pinsetter mechanic helper in one day. Instructed patient to follow up with primary care provider. Patient verbalizes understanding and agreement with treatment plan. Patient is medically cleared and stable for discharge. Discussed reasons to return to the emergency department. Patient agrees with treatment plan. The patients vital signs are stable and the patient is stable for outpatient follow- up and treatment. Patient discharged home, stable and in no acute distress. Diagnosis Primary Impression: Left corneal abrasion Qualified Codes: S05.02XA - Injury of conjunctiva and corneal abrasion without foreign body, left eye, initial encounter Referrals: Casino Accountant Primary Care Physician Patient Instructions: Corneal Abrasion (ED), General Instructions Additional Instructions: Ibuprofen or Tylenol as directed and as needed to reduce pain Do not patch the eye Do not rub the eye Refrigerated eye drops as needed to reduce pain Cool compresses to the eye as needed to reduce pain Follow-up with ophthalmology in 1 day Primary care provider Return to the emergency department immediately with worsening of symptoms Med/Other Pt SpecificInfo: Prescription(s) given Scripts Tramadol (Tramadol) 50 Mg Tab 50 MG PO Q4H Y for PAIN, #10 TAB 0 Refills Prov: Eda Haney 06/11/17 Ibuprofen (Ibuprofen) 800 Mg Tab 800 MG PO Q6HR Y for PAIN, #30 TAB 0 Refills Prov: Eda Haney 06/11/17 Erythromycin Opth Oint (Erythromycin Opth Oint) 5 Mg/Gm Oint 1 APPLIC LEFT EYE QID for Infection for 7 Days, #1 TUBE 0 Refills Prov: Eda Haney 06/11/17 Disposition: 01 DISCHARGE HOME Condition: Stable Eda Haney Jun 11, 2017 14:09
[2017-06-11] MEDS ORDERED: PROPARACAINE HCL 0.5% OPHT SOLN 15 ML BTL RIGHT EYE ONE (14:15)
[2017-06-11] MEDS ORDERED: IBUPROFEN 800 MG TAB PO ONE (14:15)
[2017-06-11] MEDS ORDERED: IBUP1TAB7 PO (14:43)
[2017-06-11] MEDS ORDERED: ERYTOIN10 LEFT EYE (14:43)
[2017-06-11] MEDS ORDERED: TRAM50TA PO (14:43)
[2017-06-11 14:56] VITALS: BP 129/78
== END 2017-06-11 14:57 | disposition home or self-care (01) ==
LOC: NEPD 12:12
DX: S05.02XA Injury of conjunctiva and corneal abrasion without foreign body, left eye, initial encounter (principal); J45.909 Unspecified asthma, uncomplicated; G40.909 Epilepsy, unspecified, not intractable, without status epilepticus
CPT/HCPCS: 99283

== ENCOUNTER 2017-08-07 19:00 | Emergency (ER) | payer MEDICAID ==
[~2017-08-07] VITALS: Ht 167.6 cm; Wt 80.0 kg
[~2017-08-07 19:00] MED LIST changes: +ERYTOIN10 LEFT EYE; +IBUP1TAB7 PO; +TRAM50TA PO
[2017-08-07 19:08] VITALS: BP 129/68; PULSE 78; RESP 20; TEMP 98.6; O2SAT 100
--- NOTE | 2017-08-07 19:28 | PD ---
HPI Chief Complaint: Seizure Time Seen by Provider: 19:23 Travel History International Travel<30 days: No Contact w/Intl Traveler<30days: No Traveled to known affect area: No History of Present Illness HPI 26-year-old female with history of seizure disorder asthma presents via EMS for evaluation of a seizure. She reports that after school today at 3:30 PM she took a nap. When she woke up she felt a pain in the left side of her tongue a new that she bit her tongue anesthesia. Paramedics received report that she had a 1-2 minute witnessed generalized tonic-clonic seizure. Her boyfriend called EMS. The patient has a history of seizure disorder, she is prescribed Keppra 500 mg twice a day. She reports that she has also been prescribed to other antiseizure medication but she does not know the name of them and she has never taken them. She reports that she follows with a neurologist in [place] but she does not recall the name of the neurologist. She reports that typically she is compliant with her Keppra but she did not take it this morning because she was in a melo. She is complaining of a headache. She denies any blurred vision, nausea or vomiting, abdominal pain, chest pain or shortness of breath, incontinence of urine or stool. Endorses marijuana use. No other complaints. PFSH Past Medical History Asthma: Yes Cancer: No Cardiovascular Problems: No Diminished Hearing: No Endocrine: No Genitourinary: No Immune Disorder: No Psychiatric: No Reproductive: No Respiratory: Yes (ASTHMA) Immunizations Current: No Pneumonia: Yes (WITH LAST ) Seizures: Yes ?: Not LMP: 07/28/17 : 1 Para: 2 Miscarriage: 0 : 0 Past Surgical History Section: Yes (X 2) Gynecologic Surgery: Yes ( X 2) Social History Alcohol Use: Yes (OCCAS) Tobacco Use: No Substance Use: Yes (marijuana daily) Allergies-Medications (Allergen,Severity, Reaction): Coded Allergies: No Known Allergies (Verified Adverse Reaction, Unknown, 08/07/17) Reported Meds & Prescriptions Reported Meds & Active Scripts Active Tramadol (Tramadol HCl) 50 Mg Tab 50 Mg PO Q4H PRN Ibuprofen 800 Mg Tab 800 Mg PO Q6HR PRN Erythromycin Opth Oint 5 Mg/Gm Oint 1 Applic LEFT EYE QID 7 Days Keppra (Levetiracetam) 500 Mg Tab 500 Mg PO Q12HR 30 Days Take one pill every 12 hours. Albuterol Neb (Albuterol Sulfate) 2.5 Mg/3 Ml Neb 2.5 Mg NEB Q2HR NEB PRN Review of Systems Except as stated in HPI: all other systems reviewed are Neg Physical Exam Narrative GENERAL: Well-developed well-nourished female no acute distress SKIN: Warm and dry. HEAD: Atraumatic. Normocephalic. EYES: Pupils equal and round. No scleral icterus. No injection or drainage. ENT: No nasal bleeding or discharge. Mucous membranes pink and moist. Puncture wound left tongue. NECK: Trachea midline. No JVD. CARDIOVASCULAR: Regular rate and rhythm. No murmur appreciated. RESPIRATORY: No accessory muscle use. Clear to auscultation. Breath sounds equal bilaterally. GASTROINTESTINAL: Abdomen soft, non-tender, nondistended. Hepatic and splenic margins not palpable. MUSCULOSKELETAL: No obvious deformities. No clubbing. No cyanosis. No edema. NEUROLOGICAL: Awake and alert. No obvious cranial nerve deficits. Motor grossly within normal limits. Normal speech. PSYCHIATRIC: Appropriate mood and affect; insight and judgment normal. Data Data Last Documented VS Vital Signs Date Time Temp Pulse Resp B/P (MAP) Pulse Ox O2 Delivery O2 Flow Rate FiO2 08/07/17 19:08 98.6 78 20 129/68 (88) 100 Orders Orders Complete Blood Count With Diff (08/07/17 19:25) Basic Metabolic Panel (Bmp) (08/07/17 19:25) Blood Glucose (08/07/17 19:25) Ecg Monitoring (08/07/17 19:25) Iv Access Insert/Monitor (08/07/17 19:25) Oximetry (08/07/17 19:25) Sodium Chloride 0.9% Flush (Ns Flush) (08/07/17 19:30) Ed Urine Pregnancytest Poc (08/07/17 19:25) Magnesium (Mg) (08/07/17 19:25) Levetiracetam Inj (Keppra Inj) (08/07/17 19:30) Acetaminophen (Tylenol) (08/07/17 21:00) Labs Laboratory Tests Test 08/07/17 19:30 White Blood Count 7.8 TH/MM3 Red Blood Count 4.04 MIL/MM3 Hemoglobin 12.6 GM/DL Hematocrit 37.7 % Mean Corpuscular Volume 93.2 FL Mean Corpuscular Hemoglobin 31.1 PG Mean Corpuscular Hemoglobin Concent 33.4 % Red Cell Distribution Width 14.2 % Platelet Count 230 TH/MM3 Mean Platelet Volume 9.7 FL Neutrophils (%) (Auto) 61.9 % Lymphocytes (%) (Auto) 30.1 % Monocytes (%) (Auto) 5.9 % Eosinophils (%) (Auto) 1.4 % Basophils (%) (Auto) 0.7 % Neutrophils # (Auto) 4.8 TH/MM3 Lymphocytes # (Auto) 2.4 TH/MM3 Monocytes # (Auto) 0.5 TH/MM3 Eosinophils # (Auto) 0.1 TH/MM3 Basophils # (Auto) 0.1 TH/MM3 CBC Comment DIFF FINAL Differential Comment Blood Urea Nitrogen 17 MG/DL Creatinine 0.96 MG/DL Random Glucose 86 MG/DL Calcium Level 8.2 MG/DL Magnesium Level 1.8 MG/DL Sodium Level 138 MEQ/L Potassium Level 4.1 MEQ/L Chloride Level 106 MEQ/L Carbon Dioxide Level 19.0 MEQ/L Anion Gap 13 MEQ/L Estimat Glomerular Filtration Rate 84 ML/MIN MDM Medical Decision Making Medical Screen Exam Complete: Yes Emergency Medical Condition: Yes Medical Record Reviewed: Yes Differential Diagnosis Medication noncompliance, breakthrough seizure, electrolyte normality, hypoglycemia Narrative Course Basic lab work has been ordered. The patient will be placed on monitoring. She will be given an IV bolus of Keppra. The patient was monitored here for some time with no additional seizure activity. Her lab work is unremarkable. At this point in time the plan is to discharge her and have her follow-up with her neurologist. Diagnosis Primary Impression: Seizure Referrals: Neurologist Additional Instructions: No driving, operating heavy machinery, climbing ladders, for 6 months since the date of your most recent seizure which is today. Take your antiseizure medication as prescribed every single day. Follow-up with your neurologist. Return for any emergent medical conditions. Med/Other Pt SpecificInfo: No Change to Meds Disposition: 01 DISCHARGE HOME Condition: Stable Saud Geronimo Aug 07, 2017 19:28
[2017-08-07] MEDS ORDERED: levETIRAcetam INJ 100 ML IV ONE (19:30)
[2017-08-07] MEDS ORDERED: SODIUM CHLORIDE 0.9% FLUSH 10 ML FLUSH IVF PRN (19:30)
[2017-08-07 19:42] LABS: AUTOMATED NEUTROPHIL # 4.8 TH/MM3 (1.8-7.7); BASOPHIL # 0.1 TH/MM3 (0-0.2); BASOPHIL % 0.7 % (0.0-2.0); EOSINOPHIL # 0.1 TH/MM3 (0-0.4); EOSINOPHIL % 1.4 % (0.0-4.0); HEMATOCRIT 37.7 % (35.0-46.0); HEMOGLOBIN 12.6 GM/DL (11.6-15.3); LYMPH % 30.1 % (9.0-44.0); LYMPHOCYTE # 2.4 TH/MM3 (1.0-4.8); MEAN CELL VOLUME 93.2 FL (80.0-100.0); MEAN CORPUSCULAR HEMOGLOBIN 31.1 PG (27.0-34.0); MEAN CORPUSCULAR HGB CONC 33.4 % (32.0-36.0); MEAN PLATELET VOLUME 9.7 FL (7.0-11.0); MONO % 5.9 % (0.0-8.0); MONOCYTE # 0.5 TH/MM3 (0-0.9); NEUT % 61.9 % (16.0-70.0); PLATELET COUNT 230 TH/MM3 (150-450); RED BLOOD COUNT 4.04 MIL/MM3 (4.00-5.30); RED CELL DISTRIBUTION WIDTH 14.2 % (11.6-17.2); WHITE BLOOD COUNT 7.8 TH/MM3 (4.0-11.0)
[2017-08-07 20:09] LABS: CALCIUM 8.2 MG/DL (8.5-10.1); CREATININE 0.96 MG/DL (0.50-1.00); MAGNESIUM 1.8 MG/DL (1.5-2.5)
[2017-08-07] MEDS ORDERED: ACETAMINOPHEN 325 MG TAB PO ONE (21:00)
[2017-08-07 21:10] VITALS: RESP 17; O2SAT 99
[2017-08-08] MEDS ORDERED: LEVE500 PO (07:00)
== END 2017-08-07 22:54 | disposition home or self-care (01) ==
LOC: NEPC 19:00
DX: G40.409 Other generalized epilepsy and epileptic syndromes, not intractable, without status epilepticus (principal); J45.909 Unspecified asthma, uncomplicated; Z79.899 Other long term (current) drug therapy
CPT/HCPCS: 80048; 83735; 84703; 85025; 96365; 99284; J1953

== ENCOUNTER 2017-08-08 02:48 | Emergency (ER) | payer MEDICAID ==
[~2017-08-08] VITALS: Ht 162.6 cm; Wt 80.0 kg
[2017-08-08 02:55] VITALS: BP 144/73; PULSE 80; RESP 16; O2SAT 100
--- NOTE | 2017-08-08 03:24 | PD ---
HPI Chief Complaint: Seizure Time Seen by Provider: 02:56 Travel History International Travel<30 days: No Contact w/Intl Traveler<30days: No Traveled to known affect area: No History of Present Illness HPI pt has history of seizures and was in the ER earlier today for seizure as well and now returns to ER wit another seizure tonight . pt was loaded with keppra and discharged but then tonight apparently in her bed had another tonic clonic seizure , compliance engineer products report post ictal period and combative , now in ER she is poor History due to mental state and refusing labs , and I can not get HPI no ORS due to post ictal state. Mother arrives and reports that she fell from the couch and hit her face on the cement floor and that then she became more combative paramedics had difficulty restraining her and then when she arrived she was sleepy and not let her sleep until re-eval when her mother arrived. Patient is supposed be on Keppra 500 twice daily and she is not sure she has been taking it according to the mother PFS Past Medical History Asthma: Yes Cancer: No Cardiovascular Problems: No Diminished Hearing: No Endocrine: No Genitourinary: No Immune Disorder: No Psychiatric: No Reproductive: No Respiratory: Yes (ASTHMA) Immunizations Current: No Pneumonia: Yes (WITH LAST ) Seizures: Yes ?: Not : 1 Para: 2 Miscarriage: 0 : 0 Past Surgical History Section: Yes (X 2) Gynecologic Surgery: Yes ( X 2) Social History Alcohol Use: Yes (OCCAS) Tobacco Use: No Substance Use: Yes (marijuana daily) Allergies-Medications (Allergen,Severity, Reaction): Coded Allergies: No Known Allergies (Verified Adverse Reaction, Unknown, 08/08/17) Reported Meds & Prescriptions Reported Meds & Active Scripts Active Keppra (Levetiracetam) 500 Mg Tab 500 Mg PO BID Tramadol (Tramadol HCl) 50 Mg Tab 50 Mg PO Q4H PRN Ibuprofen 800 Mg Tab 800 Mg PO Q6HR PRN Erythromycin Opth Oint 5 Mg/Gm Oint 1 Applic LEFT EYE QID 7 Days Keppra (Levetiracetam) 500 Mg Tab 500 Mg PO Q12HR 30 Days Take one pill every 12 hours. Albuterol Neb (Albuterol Sulfate) 2.5 Mg/3 Ml Neb 2.5 Mg NEB Q2HR NEB PRN Review of Systems ROS Limitations: Altered Mental Status, Poor Historian, Other: (post ictal ) Except as stated in HPI: all other systems reviewed are Neg Physical Exam Narrative GENERAL: sleeping and refusing labs ( apparently she was struggling with EMS entire transport) SKIN: Warm and dry. HEAD: Atraumatic. Normocephalic. EYES: Pupils equal and round. No scleral icterus. No injection or drainage. ENT: No nasal bleeding or discharge. Mucous membranes pink and moist. NECK: Trachea midline. No JVD. CARDIOVASCULAR: Regular rate and rhythm. RESPIRATORY: No accessory muscle use. Clear to auscultation. Breath sounds equal bilaterally. GASTROINTESTINAL: Abdomen soft, non-tender, nondistended. Hepatic and splenic margins not palpable. MUSCULOSKELETAL: Extremities without clubbing, cyanosis, or edema. No obvious deformities. NEUROLOGICAL: awake but not talking possible post ictal behavior . PSYCHIATRIC: childlike affect and sleeping minimal answering of question finally allow us to draw labs and CT head from fall she had tonight Data Data Last Documented VS Vital Signs Date Time Temp Pulse Resp B/P (MAP) Pulse Ox O2 Delivery O2 Flow Rate FiO2 08/08/17 02:55 80 16 144/73 (96) [address] Brain W/O Iv Contrast(Rout) (08/08/17 ) Acetaminophen (Tylenol) (08/08/17 05:30) Ed Discharge Order (08/08/17 05:57) MDM Medical Decision Making Medical Screen Exam Complete: Yes Emergency Medical Condition: Yes Differential Diagnosis pt was in ER earlier with same seiazure , now again DDX is med non complainace seizure vs recurrent seizure vs head trauma post seizure Narrative Course CT negative for intracranial injury nad mother arrives and pt now more cooperative with treatment and CT , observed in ER 4 hrs and RX fro keppra given and pt has neurology appointment d/c home follow up outp Diagnosis Primary Impression: Seizure Patient Instructions: General Instructions, Generalized Tonic Clonic Seizures ( ED) Scripts Levetiracetam (Keppra) 500 Mg Tab 500 MG PO BID for Control Seizures, #60 TAB 0 Refills Prov: Nolan Addison MD 08/08/17 Disposition: 01 DISCHARGE HOME Condition: Good Nolan Addison MD Aug 08, 2017 03:24
[2017-08-08] MEDS ORDERED: ACETAMINOPHEN 325 MG TAB PO ONE (05:30)
--- NOTE | 2017-08-08 05:48 | RADRPT ---
EXAM DATE/TIME: 08/08/2017 05:31 [facility] COMPARISON: CT BRAIN W/O CONTRAST, April 29, 2017, 12:21. INDICATIONS : Seizure. RADIATION DOSE: 56.35 CTDIvol (mGy) MEDICAL HISTORY : Seizures. SURGICAL HISTORY : None. ENCOUNTER: Initial ACUITY: 1 day PAIN SCALE: 0/10 LOCATION: cranial TECHNIQUE: Multiple contiguous axial images were obtained of the head. Using automated exposure control and adj ustment of the mA and/or kV according to patient size, radiation dose was kept as low as reasonably a chievable to obtain optimal diagnostic quality images. DICOM format image data is available electro nically for review and comparison. FINDINGS: CEREBRUM: The ventricles are normal for age. No evidence of midline shift, mass lesion, hemorrhage or acute in farction. No extra-axial fluid collections are seen. POSTERIOR FOSSA: The cerebellum and brainstem are intact. The 4th ventricle is midline. The cerebellopontine angle i s unremarkable. EXTRACRANIAL: The visualized portion of the orbits is intact. SKULL: The calvaria is intact. No evidence of skull fracture. CONCLUSION: No acute intracranial findings. Frankie Pugh MD on August 08, 2017 at 5:42 Board Certified Radiologist. This report was verified electronically.
[2017-08-08] MEDS ORDERED: LEVE500 PO (07:00)
== END 2017-08-08 06:38 | disposition home or self-care (01) ==
LOC: NEPE 02:48
DX: R56.9 Unspecified convulsions (principal); J45.909 Unspecified asthma, uncomplicated; Z79.51 Long term (current) use of inhaled steroids; Z79.899 Other long term (current) drug therapy
CPT/HCPCS: 70450; 99283

== ENCOUNTER 2017-09-13 07:28 | Emergency (ER) | payer MEDICAID ==
[~2017-09-13] VITALS: Ht 170.2 cm; Wt 75.0 kg
[2017-09-13 07:45] VITALS: BP 105/61; PULSE 71; RESP 18; TEMP 98.4
[2017-09-13] MEDS ORDERED: ACETAMINOPHEN 325 MG TAB PO ONE (08:00)
[2017-09-13] MEDS ORDERED: levETIRAcetam INJ 100 ML IV ONE (08:45)
[2017-09-13] MEDS ORDERED: SODIUM CHLORIDE 0.9% FLUSH 10 ML FLUSH IVF PRN (08:45)
[2017-09-13 08:52] LABS: AUTOMATED NEUTROPHIL # 6.4 TH/MM3 (1.8-7.7); BASOPHIL # 0.1 TH/MM3 (0-0.2); BASOPHIL % 0.7 % (0.0-2.0); EOSINOPHIL # 0.1 TH/MM3 (0-0.4); EOSINOPHIL % 0.6 % (0.0-4.0); HEMOGLOBIN 13.3 GM/DL (11.6-15.3); LYMPH % 22.2 % (9.0-44.0); MEAN CELL VOLUME 92.9 FL (80.0-100.0); MEAN CORPUSCULAR HGB CONC 33.4 % (32.0-36.0); MEAN PLATELET VOLUME 9.4 FL (7.0-11.0); MONO % 7.1 % (0.0-8.0); MONOCYTE # 0.7 TH/MM3 (0-0.9); NEUT % 69.4 % (16.0-70.0); PLATELET COUNT 220 TH/MM3 (150-450); RED CELL DISTRIBUTION WIDTH 13.8 % (11.6-17.2); WHITE BLOOD COUNT 9.2 TH/MM3 (4.0-11.0)
--- NOTE | 2017-09-13 08:54 | PD ---
HPI . Seizure Chief Complaint: Seizure Time Seen by Provider: 07:54 Travel History International Travel<30 days: No Contact w/Intl Traveler<30days: No Traveled to known affect area: No History of Present Illness HPI This patient was brought to us by [facility] with a chief complaint of 6 or 7 seizures during the night. There is no family here. The patient is unable to give us any meaningful history. Review of her record does reveal a history of a seizure disorder as well as a history of possible compliance issues. Her seizures are treated with Keppra. Furthermore, she smokes marijuana regularly. PFSH Past Medical History Asthma: Yes Cancer: No Cardiovascular Problems: No Diabetes: No Diminished Hearing: No Endocrine: No Genitourinary: No Immune Disorder: No Implanted Vascular Access Dvce: No Psychiatric: No Reproductive: No Respiratory: Yes (ASTHMA) Immunizations Current: No Pneumonia: Yes (WITH LAST ) Seizures: Yes ?: Unknown : 1 Para: 2 Miscarriage: 0 : 0 Past Surgical History Section: Yes (X 2) Gynecologic Surgery: Yes ( X 2) Social History Alcohol Use: Yes (OCCAS) Tobacco Use: No Substance Use: Yes (marijuana daily) Allergies-Medications (Allergen,Severity, Reaction): Coded Allergies: No Known Allergies (Verified Adverse Reaction, Unknown, 08/08/17) Reported Meds & Prescriptions Reported Meds & Active Scripts Active Keppra (Levetiracetam) 500 Mg Tab 500 Mg PO BID Tramadol (Tramadol HCl) 50 Mg Tab 50 Mg PO Q4H PRN Ibuprofen 800 Mg Tab 800 Mg PO Q6HR PRN Erythromycin Opth Oint 5 Mg/Gm Oint 1 Applic LEFT EYE QID 7 Days Keppra (Levetiracetam) 500 Mg Tab 500 Mg PO Q12HR 30 Days Take one pill every 12 hours. Albuterol Neb (Albuterol Sulfate) 2.5 Mg/3 Ml Neb 2.5 Mg NEB Q2HR NEB PRN Review of Systems ROS Limitations: Altered Mental Status Physical Exam Narrative GENERAL: The patient is initially awake and alert but is not giving any history. She is not cooperative. After she got settled into the emergency department, she fell asleep. SKIN: Warm and dry. Multiple tattoos. HEAD: Normocephalic/atraumatic. EYES: Pupils are equal. Extraocular movements are intact. NECK: Normal range of motion. CARDIOVASCULAR: Regular rate and rhythm. RESPIRATORY: Nonlabored respirations. MUSCULOSKELETAL: Atraumatic. NEUROLOGICAL: Nonfocal. Further neurological exam is not possible at this time. I can say that she is alert with no obvious focal deficits. PSYCHIATRIC: Unable to assess. Data Data Last Documented VS Vital Signs Date Time Temp Pulse Resp B/P (MAP) Pulse Ox O2 Delivery O2 Flow Rate FiO2 09/13/17 07:57 18 100 Room Air 09/13/17 07:45 98.4 Orders Orders Acetaminophen (Tylenol) (09/13/17 08:00) Complete Blood Count With Diff (09/13/17 08:31) Basic Metabolic Panel (Bmp) (09/13/17 08:31) Iv Access Insert/Monitor (09/13/17 08:31) Sodium Chloride 0.9% Flush (Ns Flush) (09/13/17 08:45) Levetiracetam Inj (Keppra Inj) (09/13/17 08:45) Labs Laboratory Tests Test 09/13/17 08:38 White Blood Count 9.2 TH/MM3 Red Blood Count 4.30 MIL/MM3 Hemoglobin 13.3 GM/DL Hematocrit 40.0 % Mean Corpuscular Volume 92.9 FL Mean Corpuscular Hemoglobin 31.0 PG Mean Corpuscular Hemoglobin Concent 33.4 % Red Cell Distribution Width 13.8 % Platelet Count 220 TH/MM3 Mean Platelet Volume 9.4 FL Neutrophils (%) (Auto) 69.4 % Lymphocytes (%) (Auto) 22.2 % Monocytes (%) (Auto) 7.1 % Eosinophils (%) (Auto) 0.6 % Basophils (%) (Auto) 0.7 % Neutrophils # (Auto) 6.4 TH/MM3 Lymphocytes # (Auto) 2.0 TH/MM3 Monocytes # (Auto) 0.7 TH/MM3 Eosinophils # (Auto) 0.1 TH/MM3 Basophils # (Auto) 0.1 TH/MM3 CBC Comment DIFF FINAL Differential Comment Blood Urea Nitrogen 13 MG/DL Creatinine 0.93 MG/DL Random Glucose 105 MG/DL Calcium Level 8.5 MG/DL Sodium Level 139 MEQ/L Potassium Level 3.9 MEQ/L Chloride Level 110 MEQ/L Carbon Dioxide Level 21.3 MEQ/L Anion Gap 8 MEQ/L Estimat Glomerular Filtration Rate 88 ML/MIN MDM Medical Decision Making Medical Screen Exam Complete: Yes Emergency Medical Condition: Yes Medical Record Reviewed: Yes (History of seizure disorder. On Keppra.) Differential Diagnosis Differential diagnosis of seizure includes but is not limited to epilepsy, electrolyte abnormality, previous stroke, closed head injury Narrative Course This patient presents to us via [facility] after reportedly having 6 or 7 seizures at home. There is no one here yet to corroborate the history. The patient is unable to give us any meaningful history. Because of the numerous seizures during the night, I will presume a subtherapeutic Keppra level and give her a loading dose of 1 g. Routine labs are pending. She will be observed for further seizure activity. CBC & BMP Diagram 09/13/17 08:38 Calcium Level 8.5 The patient has been resting comfortably since shortly after arrival. The patient's mother is now here. She reports that the patient is probably not compliant with her medication because she does not like the way that it makes her feel. Mom reports that the patient has been given some samples of Vimpat which worked well for her. However, at the time that it was prescribed, she did not have Medicaid and they could not afford to have the prescription filled. Mother reports that the Medicaid is now back in force and would like to have another prescription for Vimpat. The mother will work on getting the patient to a neurologist as an outpatient. Mom reports that she was supposed to have had an appointment 2 days ago but, for what ever reason, that appointment did not take place. The mom reports that she is not exactly sure what happened. Nonetheless, the patient has had no further seizure activity here. I will write her a prescription for Vimpat. She will be discharged home. Diagnosis Primary Impression: Seizure Med/Other Pt SpecificInfo: Prescription(s) given Scripts Lacosamide (Vimpat) 100 Mg Tab 100 MG PO BID for Control Seizures, #60 TAB 0 Refills Prov: Flory Santoyo MD 09/13/17 Disposition: 01 DISCHARGE HOME Condition: Stable Flory Santoyo MD September 13, 2017 08:54
[2017-09-13 09:05] LABS: BICARBONATE 21.3 MEQ/L (21.0-32.0); CALCIUM 8.5 MG/DL (8.5-10.1); CREATININE 0.93 MG/DL (0.50-1.00)
[2017-09-13] MEDS ORDERED: LACO100 PO (10:00)
== END 2017-09-13 10:29 | disposition home or self-care (01) ==
LOC: NEPC 07:28
DX: G40.909 Epilepsy, unspecified, not intractable, without status epilepticus (principal); F12.90 Cannabis use, unspecified, uncomplicated; J45.909 Unspecified asthma, uncomplicated
CPT/HCPCS: 80048; 85025; 96365; 99284; J1953

== ENCOUNTER 2017-11-12 15:41 | Inpatient (IN) ==
[2017-11-12] MEDS ORDERED: levETIRAcetam 1000mg/100mL Inj 100 ML IV.SIG ONE (15:52)
[2017-11-12] MEDS ORDERED: Sod Chloride 0.9% Inj 1,000 ML IV.SIG ONE (15:52)
--- NOTE | 2017-11-12 16:19 | ED ---
HPI General Chief Complaint: Seizure Stated Complaint: Seziure/[facility] Time Seen by Provider: 11/12/17 15:49 Source: EMS Mode of arrival: EMS Limitations: altered mental status History of Present Illness HPI Narrative: Is a 27-year-old woman with reported history of seizures. Review of records shows both some normal and abnormal EEGs in the past over the past several months but the general thought that she probably has seizure disorder. She was most recently prescribed Keppra while in the hospital however recently the note shows that she was taking Vimpat. There is some question of noncompliance. She does use marijuana regularly. EMS responded to home for reported seizure in bed. Boyfriend states that he believes she is taking her medicine. In route she was improving from her postictal state but then had a second seizure. EMS reports that the history from the boyfriend that she has seizures about once a month or so. Related Data Allergies Allergy/AdvReac Type Severity Reaction Status Date / Time No Known Allergies Allergy Unverified 11/12/17 16:03 Review of Systems ROS Unobtainable All other systems reviewed negative except as stated in HPI [facility] Medical History Medical History Seizure (Acute) Social History Social History Substance History: Active Abuse Second Hand Smoke Exposure: Yes Smoking Status: Never smoker How Often Do You Have a Drink Containing Alcohol: Monthly or less Recent Travel in [facility] within the Last 8 Weeks: No Recent Out of Country Travel within the Last 8 Weeks: No Exam Narrative Exam Narrative: GENERAL: 27-year-old woman, postictal confusion with some agitation, nontoxic. SKIN: Focused skin assessment warm/dry. HEAD: Atraumatic. Normocephalic. EYES: Pupils equal and round. No scleral icterus. No injection or drainage. ENT: No nasal bleeding or discharge. Mucous membranes pink and moist. NECK: Trachea midline. No JVD. CARDIOVASCULAR: Regular rate and rhythm. No murmur appreciated. RESPIRATORY: No accessory muscle use. Clear to auscultation. Breath sounds equal bilaterally. GASTROINTESTINAL: Abdomen soft, non-tender, nondistended. Hepatic and splenic margins not palpable. MUSCULOSKELETAL: No obvious deformities. No clubbing. No cyanosis. No edema. NEUROLOGICAL: Confused, not speaking yet. Moves all extremities but restless and anxious. Course Initial Documented Vital Signs Pulse Rate 98 H 11/12/17 16:00 Respiratory Rate 24 11/12/17 16:00 Blood Pressure 146/84 H 11/12/17 16:00 Pulse Oximetry 96 11/12/17 16:00 Last Documented Vital Signs Pulse Rate 95 H 11/12/17 16:42 Respiratory Rate 21 11/12/17 16:42 Blood Pressure 148/58 H 11/12/17 16:42 Pulse Oximetry 100 11/12/17 16:42 Medical Decision Making MDM Narrative Medical decision making narrative: 19-year-old woman history of seizure disorder presents to the emergency department with 2 seizures. Postictal now. Looks otherwise well. Unclear she has been compliant medications or not. History of noncompliance in the chart, boyfriend thinks that she is taking it however. Will check labs, we will give her a dose of Keppra. Unclear if she supposed be on Keppra and Vimpat. EMS did not find any pill bottles in the house. Reassess. Another seizure in the emergency department. Workups negative. Given Her here. We will plan on admission. Lab Data Lab results reviewed: Yes I reviewed the patient's lab results. Result diagrams: 11/12/17 16:15 11/12/17 16:15 Lab Results 11/12/17 11/12/17 11/12/17 Range/Units 16:15 16:15 16:26 WBC 14.5 H (4.0-11.0) th/mm3 RBC 4.65 (4.00-5.30) mil/mm3 Hgb 14.5 (11.6-15.3) gm/dL Hct 44.3 (35.0-46.0) % MCV 95.2 (80.0-100.0) fL MCH 31.1 (27.0-34.0) pg MCHC 32.6 (32.0-36.0) % RDW 14.1 (11.6-17.2) % Plt Count 255 (150-450) th/mm3 MPV 9.3 (7.0-11.0) fL Neut % (Auto) 78.4 H (16.0-70.0) % Lymph % (Auto) 15.0 (9.0-44.0) % Will % (Auto) 6.1 (0.0-8.0) % Eos % (Auto) 0.1 (0.0-4.0) % Baso % (Auto) 0.4 (0.0-2.0) % Neut # (Auto) 11.4 H (1.8-7.7) th/mm3 Lymph # (Auto) 2.2 (1.0-4.8) th/mm3 Will # (Auto) 0.9 (0.0-0.9) th/mm3 Eos # (Auto) 0.0 (0.0-0.4) th/mm3 Baso # (Auto) 0.1 (0.0-0.2) th/mm3 WBC Differential . Differential Comment Auto diff final Sodium 141 (136-145) meq/L Potassium 3.4 L (3.5-5.1) meq/L Chloride 108 H (98-107) meq/L Carbon Dioxide 14.4 L (21.0-32.0) meq/L Anion Gap 19 H (5-15) meq/L BUN 13 (7-18) mg/dL Creatinine 1.26 H (0.50-1.00) mg/dL Estimated GFR 61 L (>89) mL/min POC Glucose 126 H (68-110) mg/dl Random Glucose 112 H (74-106) mg/dL Calcium 9.3 (8.5-10.1) mg/dL Magnesium 2.3 (1.5-2.5) mg/dL Total Bilirubin 0.3 (0.2-1.0) mg/dL AST 15 (15-37) U/L ALT 14 (10-53) U/L Alkaline Phosphatase 63 (45-117) U/L Total Protein 8.6 H (6.4-8.2) g/dL Albumin 4.0 (3.4-5.0) g/dL Beta HCG, Quant Less than 1 (0-5) mIU/mL Discharge Plan Discharge Disposition Patient Disposition: 30 Still Patient Discharge Condition Condition: Stable Physicians Team ED Provider: Kendall Patel Primary Care Provider: UNKNOWN, Discharge Interventions Interventions: Vital Signs Last Done: 11/12/17 16:42 Status ED Status: Pending Admission
[2017-11-12 17:42] LABS: Baso # (Auto) 0.1 th/mm3 (0.0-0.2); Baso % (Auto) 0.4 % (0.0-2.0); Eos % (Auto) 0.1 % (0.0-4.0); Hematocrit 44.3 % (35.0-46.0); Hemoglobin 14.5 gm/dL (11.6-15.3); Lymph # (Auto) 2.2 th/mm3 (1.0-4.8); Mean Corpuscular HGB Conc 32.6 % (32.0-36.0); Mean Corpuscular Hemoglobin 31.1 pg (27.0-34.0); Mean Corpuscular Volume 95.2 fL (80.0-100.0); Mean Platelet Volume 9.3 fL (7.0-11.0); Mono # (Auto) 0.9 th/mm3 (0.0-0.9); Mono % (Auto) 6.1 % (0.0-8.0); Neut # (Auto) 11.4 th/mm3 (1.8-7.7); Neut % (Auto) 78.4 % (16.0-70.0); Platelet Count 255 th/mm3 (150-450); Red Blood Count 4.65 mil/mm3 (4.00-5.30); Red Cell Distribution Width 14.1 % (11.6-17.2); White Blood Count 14.5 th/mm3 (4.0-11.0)
[2017-11-12 18:11] LABS: Alanine Aminotransferase 14 U/L (10-53); Anion Gap 19 meq/L (5-15); Aspartate Aminotransferase 15 U/L (15-37); Blood Urea Nitrogen 13 mg/dL (7-18); Calcium 9.3 mg/dL (8.5-10.1); Carbon Dioxide 14.4 meq/L (21.0-32.0); Chloride 108 meq/L (98-107); Glomerular Filtration Rate 61 mL/min (>89); Glucose,Random 112 mg/dL (74-106); Magnesium 2.3 mg/dL (1.5-2.5); Potassium 3.4 meq/L (3.5-5.1); Sodium 141 meq/L (136-145)
[2017-11-12 18:15] LABS: Alkaline Phosphatase 63 U/L (45-117); Total Protein 8.6 g/dL (6.4-8.2)
[2017-11-12] MEDS ORDERED: Ibuprofen 600 MG Tablet PO PRN (20:29)
[2017-11-12] MEDS ORDERED: Acetaminophen 325 MG Tablet PO PRN (20:29)
[2017-11-12] MEDS ORDERED: Sod Chloride 0.9% Inj 1,000 ML IV.CONT SCH (20:30)
--- NOTE | 2017-11-12 20:47 | P.HP ---
History of Present Illness Service: [facility] Primary Care Physician: UNKNOWN Chief Complaint: Seizure History of Present Illness: 27-year-old female with past medical history significant for recently diagnosed seizure disorder on Vimpat presents to the emergency department after having a seizure in bed. The patient is postictal and does not answer my questions. HPI obtained from ED documentation. EMS was called to the patient's home because her boyfriend witnessed her having a seizure in bed. Her boyfriend stated that she believes she is taking her medication although there is some question in the notes about noncompliance. The patient had a second seizure while in the emergency department and was given Ativan. Inpatient Certification: I certify that the inpatient services were ordered in accordance with Medicare regulations governing the order. This includes certification that hospital inpatient services are reasonable and necessary and in the case of services not specified as inpatient-only under 42 CFR 419.22(n), that they are appropriately provided as inpatient services in accordance to with the 2-midnight benchmark under 43 CFR 412.3(e) Estimated Total Length of Stay (Days): 2 Plans for Post Hospital Care: Home Review of Systems Unable to obtain secondary to clinical condition PMFSH - History History Provided By: Family Member, Tube Sorter / EMT - Medical History Medical History: Medical History (Last Updated 11/12/17 @ 16:11 by Shelbi Dawkins) Seizure - Tobacco History Second Hand Smoke Exposure: Yes Tobacco Use In Past 30 Days: No Smoking Status: Never smoker - Alcohol History How Often Do You Have a Drink Containing Alcohol: Monthly or less - Substance Use History Substance History: Active Abuse - Substance Use Type Marijuana Status: Active Route Used: Inhalation Reason for Use: Calm Down - Travel History Recent Travel in the [place] Within the Last 8 Weeks: No Recent Travel Out of the Country Within the Last 8 Weeks: No - Immunization History Tetanus Immunization: Unsure Hx Influenza Vaccine This Season: No Medications and Allergies Active Medications: Active Medications Acetaminophen (Tylenol) 650 mg PO Q4H PRN PRN Reason: PAIN SCALE 1 TO 10 Sodium Chloride (Ns Inj) 1,000 mls @ 75 mls/hr IV.CONT .[id number] ELSA Levetiracetam (Keppra 500 Mg/100 Ml Premix) 100 mls @ 400 mls/hr IV.SIG Q12H ELSA Lorazepam (Ativan Inj) 2 mg IV.PUSH Q10M PRN PRN Reason: SEE LABEL COMMENTS Sodium Chloride (Ns Flush) 2 ml IV.FLUSH PRN PRN PRN Reason: FLUSH AFTER USING IV ACCESS Last Admin: 11/12/17 16:21 Dose: 2 ml Allergies Allergy/AdvReac Type Severity Reaction Status Date / Time No Known Allergies Allergy Unverified 11/12/17 16:03 Exam Vital signs: Vital Signs 11/12/17 16:00 11/12/17 16:42 11/12/17 19:05 Pulse Rate 98 H 95 H 82 Respiratory Rate 24 21 16 Blood Pressure 146/84 H 148/58 H 112/57 L Pulse Oximetry 96 100 96 Intake & Output 11/12/17 11/12/17 11/13/17 06:59 18:59 06:59 Weight 86.183 kg Narrative: Gen.: Lethargic and drowsy, in no distress Head: Normocephalic. Atraumatic. EENT: Nose without drainage. Airway intact. Cardiovascular: Regular rate and rhythm. No murmurs, rubs or gallops. Respiratory: Lungs clear to auscultation bilaterally. No wheezes or rhonchi. Abdomen: Soft, nontender, nondistended. No peritoneal signs. Musculoskeletal: No gross deformities. No edema. Skin: No obvious rashes or erythema. Neuro: Sensory and motor grossly intact. Moves all 4 extremities spontaneously. Results - Labs CBC & Chem 7: 11/12/17 16:15 11/12/17 16:15 Labs: Laboratory Results - last 24 hr 11/12/17 11/12/17 11/12/17 16:15 16:15 16:26 WBC 14.5 H RBC 4.65 Hgb 14.5 Hct 44.3 MCV 95.2 MCH 31.1 MCHC 32.6 RDW 14.1 Plt Count 255 MPV 9.3 Neut % (Auto) 78.4 H Lymph % (Auto) 15.0 [place] % (Auto) 6.1 Eos % (Auto) 0.1 Baso % (Auto) 0.4 Neut # (Auto) 11.4 H Lymph # (Auto) 2.2 [place] # (Auto) 0.9 Eos # (Auto) 0.0 Baso # (Auto) 0.1 WBC Differential . Differential Comment Auto diff final Sodium 141 Potassium 3.4 L Chloride 108 H Carbon Dioxide 14.4 L Anion Gap 19 H BUN 13 Creatinine 1.26 H Estimated GFR 61 L POC Glucose 126 H Random Glucose 112 H Calcium 9.3 Magnesium 2.3 Total Bilirubin 0.3 AST 15 ALT 14 Alkaline Phosphatase 63 Total Protein 8.6 H Albumin 4.0 Beta HCG, Quant Less than 1 Caprini VTE Risk Assessment Caprini VTE Risk Assessment: No/Low Risk (score <= 1) Caprini Risk Assessment Model: Point Value = 1 Point Value = 2 Point Value = 3 Point Value = 5 Age 41-60 Minor surgery BMI > 25 kg/m2 Swollen legs Varicose veins or History of unexplained or recurrent spontaneous Oral contraceptives or hormone replacement Sepsis (< 1 month) Serious lung disease, including pneumonia (< 1 month) Abnormal pulmonary function Acute myocardial infarction Congestive heart failure (< 1 month) History of inflammatory bowel disease Medical patient at bed rest Age 61-74 Arthroscopic surgery Major open surgery (> 45 min) Laparoscopic surgery (> 45 min) Malignancy Confined to bed (> 72 hours) Immobilizing plaster cast Central venous access Age >= 75 History of VTE Family history of VTE Factor V Leiden Prothrombin [id number] Lupus anticoagulant Anticardiolipin antibodies Elevated serum homocysteine Heparin-induced thrombocytopenia Other congenital or acquired thrombophilia Stroke (< 1 month) Elective arthroplasty Hip, pelvis, or leg fracture Acute spinal cord injury (< 1 month) Prophylaxis Regimen: Total Risk Factor Score Risk Level Prophylaxis Regimen 0-1 Low Early ambulation 2 Moderate Order ONE of the following: *Sequential Compression Device (SCD) *Heparin 5000 units SQ BID 3-4 Higher Order ONE of the following medications: *Heparin 5000 units SQ TID *Enoxaparin/Lovenox 40 mg SQ daily (WT < 150 kg, CrCl > 30 mL/min) *Enoxaparin/Lovenox 30 mg SQ daily (WT < 150 kg, CrCl > 10-29 mL/min) *Enoxaparin/Lovenox 30 mg SQ BID (WT < 150 kg, CrCl > 30 mL/min) AND/OR *Sequential Compression Device (SCD) 5 or more Highest Order ONE of the following medications: *Heparin 5000 units SQ TID (Preferred with Epidurals) *Enoxaparin/Lovenox 40 mg SQ daily (WT < 150 kg, CrCl > 30 mL/min) *Enoxaparin/Lovenox 30 mg SQ daily (WT < 150 kg, CrCl > 10-29 mL/min) *Enoxaparin/Lovenox 30 mg SQ BID (WT < 150 kg, CrCl > 30 mL/min) AND *Sequential Compression Device (SCD) Assessment and Plan - Plan Assessment/plan: 1. Seizure disorder with breakthrough seizure ? Medication compliance -unable to address the issue with the patient and she is currently postictal Loaded with Keppra in the ED, continue Keppra as patient is presently on Vimpat at this time and having breakthrough seizures Neurology consulted, appreciate recommendations Seizure precautions Ativan as needed FEN Regular diet NS at 75 cc/hour Electrolytes: Monitor and replete as needed
[2017-11-13] MEDS ORDERED: levETIRAcetam 500mg/100mL Inj 100 ML IV.SIG SCH (04:00)
[2017-11-13] MEDS ORDERED: carBAMazepine 200 MG Tablet PO SCH (09:30)
--- NOTE | 2017-11-13 09:52 | MB ---
cc: Dominguez Liu MD DATE: 11/13/2017 HISTORY OF PRESENT ILLNESS: A 27-year-old woman with a history of seizures. She was taken off of Keppra because it did not seem to work. She has been on Vimpat 200 b.i.d. she tells me and had about 4 seizures yesterday two at home, one in the ER and one en route. She drives. She says not much and I told her she not to drive until further notice and also not to take a bath alone or swim alone, she could drown, ride a motorcycle, ride on a bike or any other dangerous activities. She is a little bit lethargic after Ativan. Not a great historian. She has not been on seizure medication. She has been seen by Dr. Shankar several times here. The first time was in 12/2016 probably with a seizure at that time with change in mental status. MRI was negative. She was given some antibiotics. She had a temperature of 101.7. She was then seen 3 months later and a definite seizure. She was not on any seizure medication at that time. She was put on Keppra 500 q. 12 and sees a neurologist up in [place], although she is not sure which one. In the past, she has had several head CTs. She had an MRI of the brain done in 12/2016 with and without contrast that was read as normal. She had a normal EEG in 03/2017 and a normal EEG in 12/2016 and also in 12/19, there were some sharp-like waves on the right side around C4-T4 intermittently. She has had a negative, RPR, hepatitis screen, HIV. She had an LP done, which showed 14 white cells in 12/2016 with a normal protein and glucose. She has had urine drug screens in the past positive for marijuana only. She had a negative UA in the past. CRP has been essentially normal in the past as were LFTs, BMP, CBC, sedimentation rate, and ABG. MEDICATIONS: Vimpat 200 b.i.d. SOCIAL HISTORY: She goes to school. Denies any recreational drug use. She is not a smoker and is not a drinker. PHYSICAL EXAMINATION: VITAL SIGNS: On exam, she has been afebrile, 81, 16, 138/81. NECK: There were no carotid bruits. HEART: Regular rate and rhythm. I did not detect a murmur. NEUROLOGIC: Pupils are equal. Visual mireles are full. Extraocular movements intact without nystagmus. Her face is symmetric. Tongue was midline. She had normal strength in the upper and lower extremities bilaterally. Toes downgoing bilaterally. DTRs trace throughout. No ankle clonus. Pinprick was intact. Speech is fluent. She is not aphasic. LABORATORY DATA: White count is 14.5, otherwise normal. Basic metabolic profile, creatinine 1.26, otherwise unremarkable. LFTs normal. IMPRESSION: History of seizures. She says she had some few months ago, none since then. PLAN: I would continue her on the Vimpat 200 b.i.d. and add on Tegretol 200 b.i.d. and she will need a level checked in 5 days. She can get that done as an outpatient. Otherwise if she has no more seizures this afternoon, she could be discharged. We will just check a B12 and thyroid on her and antinuclear antibody. She should followup with her neurologist up in [place] this week or next. MD LENNOX Duran/HUSSAIN , 09:27 AM , 09:51 AM
[2017-11-13 10:00] LABS: Baso % (Auto) 0.2 % (0.0-2.0); Hematocrit 38.9 % (35.0-46.0); Hemoglobin 12.7 gm/dL (11.6-15.3); Lymph # (Auto) 1.9 th/mm3 (1.0-4.8); Lymph % (Auto) 11.1 % (9.0-44.0); Mean Corpuscular HGB Conc 32.7 % (32.0-36.0); Mean Corpuscular Hemoglobin 30.5 pg (27.0-34.0); Mean Corpuscular Volume 93.2 fL (80.0-100.0); Mean Platelet Volume 9.5 fL (7.0-11.0); Mono % (Auto) 5.7 % (0.0-8.0); Neut # (Auto) 14.3 th/mm3 (1.8-7.7); Platelet Count 215 th/mm3 (150-450); Red Blood Count 4.17 mil/mm3 (4.00-5.30); Red Cell Distribution Width 14.3 % (11.6-17.2); White Blood Count 17.3 th/mm3 (4.0-11.0)
[2017-11-13 10:07] LABS: Anion Gap 13 meq/L (5-15); Carbon Dioxide 18.2 meq/L (21.0-32.0); Chloride 109 meq/L (98-107); Glomerular Filtration Rate Greater Than 89 mL/min (>89); Glucose,Random 57 mg/dL (74-106); Potassium 3.3 meq/L (3.5-5.1); Sodium 140 meq/L (136-145)
[2017-11-13 10:13] LABS: Blood Urea Nitrogen 13 mg/dL (7-18)
[2017-11-13 10:55] LABS: T4 (Thyroxine) 9.8 mcg/dL (4.8-13.9); Thyroid Stimulating Hormone 0.356 uIU/mL (0.358-3.740)
--- NOTE | 2017-11-13 12:54 | P.PNIM ---
Subjective Interval history: in no acute distress. has slight headache- otherwise no other complaints. no further seizures over night. Physical Exam Vital signs: Vital Signs 11/12/17 16:00 11/12/17 16:42 11/12/17 19:05 Temperature Pulse Rate 98 H 95 H 82 Respiratory Rate 24 21 16 Blood Pressure 146/84 H 148/58 H 112/57 L Pulse Oximetry 96 100 96 11/12/17 20:00 11/12/17 21:10 11/13/17 00:06 Temperature Pulse Rate 83 82 Respiratory Rate 16 16 Blood Pressure 114/66 119/62 Pulse Oximetry 96 94 L 97 11/13/17 02:46 11/13/17 05:27 11/13/17 09:23 Temperature 98.2 F Pulse Rate 84 81 89 Respiratory Rate 16 16 15 Blood Pressure 121/74 138/81 114/67 Pulse Oximetry 100 99 Intake & Output 11/12/17 11/13/17 11/13/17 18:59 06:59 18:59 Intake Total 1200 / 1200 Balance 1200 / 1200 Weight 86.183 kg Intake: IV 1200 / 1200 Keppra 500 mg/100 mL Premix 100 100 / 100 ML @ 400 mls/hr IV.SIG Q12H ELSA Rx#:[id number] - Constitutional no acute distress - Routine Respiratory Exam Present: CTA bilaterally - Routine Cardiovascular Exam Present: RRR - Routine Abdominal Exam Present: soft - Routine Extremities Exam Comments: no pedal edema. - Routine Neurological Exam Present: alert, oriented X3 Results - Labs CBC & Chem 7: 11/13/17 06:59 11/13/17 06:59 Laboratory Results - last 24 hr 11/12/17 11/12/17 11/12/17 16:15 16:15 16:26 WBC 14.5 H RBC 4.65 Hgb 14.5 Hct 44.3 MCV 95.2 MCH 31.1 MCHC 32.6 RDW 14.1 Plt Count 255 MPV 9.3 Neut % (Auto) 78.4 H Lymph % (Auto) 15.0 Frontier % (Auto) 6.1 Eos % (Auto) 0.1 Baso % (Auto) 0.4 Neut # (Auto) 11.4 H Lymph # (Auto) 2.2 Frontier # (Auto) 0.9 Eos # (Auto) 0.0 Baso # (Auto) 0.1 WBC Differential . Differential Comment Auto diff final Sodium 141 Potassium 3.4 L Chloride 108 H Carbon Dioxide 14.4 L Anion Gap 19 H BUN 13 Creatinine 1.26 H Estimated GFR 61 L POC Glucose 126 H Random Glucose 112 H Calcium 9.3 Magnesium 2.3 Total Bilirubin 0.3 AST 15 ALT 14 Alkaline Phosphatase 63 Total Protein 8.6 H Albumin 4.0 Vitamin B12 TSH Thyroxine (T4) Beta HCG, Quant Less than 1 11/13/17 11/13/17 11/13/17 06:59 06:59 06:59 WBC 17.3 H RBC 4.17 Hgb 12.7 Hct 38.9 MCV 93.2 MCH 30.5 MCHC 32.7 RDW 14.3 Plt Count 215 MPV 9.5 Neut % (Auto) 83.0 H Lymph % (Auto) 11.1 Frontier % (Auto) 5.7 Eos % (Auto) 0.0 Baso % (Auto) 0.2 Neut # (Auto) 14.3 H Lymph # (Auto) 1.9 Frontier # (Auto) 1.0 H Eos # (Auto) 0.0 Baso # (Auto) 0.0 WBC Differential . Differential Comment Auto diff final Sodium 140 Potassium 3.3 L Chloride 109 H Carbon Dioxide 18.2 L Anion Gap 13 BUN 13 Creatinine 0.88 Estimated GFR Greater than 89 POC Glucose Random Glucose 57 L Calcium 9.0 Magnesium Total Bilirubin AST ALT Alkaline Phosphatase Total Protein Albumin Vitamin B12 835 TSH 0.356 L Thyroxine (T4) 9.8 Beta HCG, Quant Assessment and Plan - Plan 1. Seizure disorder with breakthrough seizure ? Medication compliance - neurology consult appreciated; Vimpat will be discontinued and Tegretol was added; level will be checked in five days. otherwise f/u with neurology as outpatient. 2- leukocytosis- likely reactive- no fever or specific symptoms. Discharge Planning: dc home within the next 24 hrs if no further seizures. see med list. f/u; pcp and neurology. d/w the patient.
[2017-11-13 19:36] LABS: Amphetamine Screen,Urine Neg (Neg); Barbiturate Screen,Urine Neg (Neg); Cannabinoid Screen,Urine Pos (Neg); Cocaine Screen,Urine Pos (Neg)
[2017-11-13 19:38] LABS: Amorphous Sediment,Urine Rare /hpf; Bacteria,Urine Moderate /hpf; Bilirubin,Urine Negative (Negative); Clarity,Urine Cloudy (Clear); Color,Urine Yellow (Yellw/Straw); Glucose,Urine (UA) Negative (Negative); Leukocyte Esterase,Urine Trace (Negative); Mucus,Urine Many /lpf (Occasional); Nitrite,Urine Negative (Negative); Specific Gravity,Urine 1.028 (1.002-1.035); Squamous Epithelial Cell,Urine 5 /hpf (0-5)
[2017-11-13 19:39] LABS: Opiate Screen,Urine Neg (Neg)
[2017-11-13 21:31] LABS: Hematocrit 41.1 % (35.0-46.0); Hemoglobin 13.7 gm/dL (11.6-15.3); Mean Corpuscular HGB Conc 33.3 % (32.0-36.0); Mean Corpuscular Hemoglobin 30.9 pg (27.0-34.0); Mean Corpuscular Volume 92.8 fL (80.0-100.0); Mean Platelet Volume 9.4 fL (7.0-11.0); Platelet Count 227 th/mm3 (150-450); Red Blood Count 4.42 mil/mm3 (4.00-5.30); Red Cell Distribution Width 14.2 % (11.6-17.2)
[2017-11-13 21:56] LABS: Calcium 9.2 mg/dL (8.5-10.1); Carbon Dioxide 23.3 meq/L (21.0-32.0)
[2017-11-13 21:58] LABS: Potassium 3.9 meq/L (3.5-5.1)
== END 2017-11-13 22:28 | disposition home or self-care (01) ==
LOC: NEPC 15:41 → NEDA 19:23 → NEDH 11-13 01:19
PROVIDERS: ADMIT Internal Medicine; ATTEND Internal Medicine
DX: Z91.14 Patient's other noncompliance with medication regimen; G40.909 Epilepsy, unspecified, not intractable, without status epilepticus; D72.829 Elevated white blood cell count, unspecified; Z77.22 Contact with and (suspected) exposure to environmental tobacco smoke (acute) (chronic); F12.90 Cannabis use, unspecified, uncomplicated; F05 Delirium due to known physiological condition

== ENCOUNTER 2018-01-08 07:24 | Inpatient (IN) ==
--- NOTE | 2018-01-08 07:42 | ED ---
HPI General Chief Complaint: Seizure Stated Complaint: Poss Seizure Time Seen by Provider: 01/08/18 07:29 Source: EMS and old records reviewed Mode of arrival: EMS Limitations: altered mental status History of Present Illness HPI Narrative: The patient is a 27 the patient is a 27-year-old female with history of seizures that had an admission on 712 and was seen again on 807 with recurrent seizures. She was initially on Keppra but was unknown whether she was compliant or not and because she was having recurrent seizures she was switched to Vimpat 200 mg twice daily. On her visit in 11/13/2017 it seemed like the added Tegretol to her regimen but it is unknown if the patient is compliant with medications. She is not cooperative she is not answering questions she is not following commands she is awake and alert she is not postictal she is just not responding to questions. As per EMS report she had one seizure earlier this morning for which EMS arrived on the scene but she refused to come to the hospital and then she had a second seizure that was witnessed by her boyfriend who called EMS. complaint: seizure Onset (ago): unknown Witnessed: yes - by other (boyfriend) Trauma: No Seizure History: known seizure disorder and history of non-compliance with treatment Place: home Treatments prior to arrival: none Related Data Home Medications Medication Instructions Recorded Confirmed lacosamide [Vimpat] 200 mg PO BID 11/12/17 01/08/18 Previous Rx's Medication Instructions Recorded carbamazepine 200 mg PO BID #30 tab 11/13/17 hydrocodone-acetaminophen 1 tab PO QID PRN #12 tab 12/09/17 Allergies Allergy/AdvReac Type Severity Reaction Status Date / Time No Known Allergies Allergy Verified 12/09/17 10:13 Review of Systems ROS Unobtainable ROS Unobtainable: other (uncooperative) [facility] Medical History Medical History Hypertension (Acute) Seizure (Acute) Surgical History Surgical History No history of previous surgery (Acute) Social History Social History Substance History: Active Abuse Second Hand Smoke Exposure: Yes Smoking Status: Never smoker How Often Do You Have a Drink Containing Alcohol: 4 or more times a week Recent Travel in [facility] within the Last 8 Weeks: No Recent Out of Country Travel within the Last 8 Weeks: No Exam Narrative Exam Narrative: GENERAL: Awake but is not responding to questions alert. SKIN: Focused skin assessment warm/dry. No signs of injury HEAD: Atraumatic. Normocephalic. EYES: Pupils equal and round. No scleral icterus. No injection or drainage. ENT: No nasal bleeding or discharge. Mucous membranes pink and moist. NECK: Trachea midline. No JVD. CARDIOVASCULAR: Regular rate and rhythm. No murmur appreciated. RESPIRATORY: No accessory muscle use. Clear to auscultation. Breath sounds equal bilaterally. GASTROINTESTINAL: Abdomen soft, non-tender, nondistended. Hepatic and splenic margins not palpable. MUSCULOSKELETAL: No obvious deformities. No clubbing. No cyanosis. No edema. NEUROLOGICAL: Awake and alert without any obvious neurologic deficits. Patient is moving all extremities suggest refuses to answer questions. PSYCHIATRIC: Unable to assess patient does not respond to questions purposely Course Hospital Course: Patient was given Ativan 2 mg IV. Reevaluation(s) Reevaluation #1: Patient is sleeping comfortably no distress stable vitals. Time: 08:34 Reevaluation #2: Patient is more awake and alert states that her neck hurts. Will obtain a CT of her cervical spine she stated since she had an unwitnessed seizure. Tenderness to palpation over the left lateral para spinal area. Time: 09:46 Reevaluation #3: The patient scored to the edge off the bed and urinated on the bootm partr of the bed because she stated she wanted to go to the bathroom. She did not have an additional seizure. Time: 10:20 Additional Reevaluation(s): pt had a SZ that lasted about 30 seconds resolved with IV Ativan. Appears that she bit her tongue. Her boyfriend is in the room and there is a strong smell that is likely secondary to marijuana. at 13:00 Initial Documented Vital Signs Temperature 99.1 F 01/08/18 07:31 Pulse Rate 97 H 01/08/18 07:31 Respiratory Rate 17 01/08/18 07:31 Blood Pressure 125/76 01/08/18 07:31 Pulse Oximetry 100 01/08/18 07:31 Last Documented Vital Signs Temperature 99.1 F 01/08/18 07:31 Pulse Rate 106 H 01/08/18 13:10 Respiratory Rate 18 01/08/18 13:10 Blood Pressure 141/79 H 01/08/18 13:10 Pulse Oximetry 100 01/08/18 13:10 Critical Care Time Critical Care Time: Yes Total Critical Care Time: 30 Attestation: Aggregate critical care time was 30 minutes. Time to perform other separately billable procedures was not included in the critical care time. My time did not include minutes spent treating any other patients simultaneously or on activities that did not directly contribute to the patient's treatment. The services I provided to this patient were to treat and/or prevent clinically significant deterioration that could result in: Permanent disability and/or I provided critical care services requiring my management, as noted below: Chart data review, documentation time, medication orders and management, vital sign assessments/reviewing monitor data, ordering and reviewing lab tests, ordering and interpreting/reviewing x-rays and diagnostic studies, care of the patient and discussion of the patient with the admitting physicians. Medical Decision Making MDM Narrative Medical decision making narrative: Patient with repeated seizures to at home and one again here in the emergency department. She is noncompliant with medications he abuses drugs. She was just postictal initially however after she became more alert stated that she would rather stay here in the hospital. She denied any drugs. Her boyfriend came around 1 PM with strong odor coming off his clothes suggestive of marijuana and when I said that it smells like weed in here he looked at me and smiled. 5 minutes later the patient had a grand-mal seizure in the emergency department. Medical Screen Exam Complete: Yes Emergency Medical Condition: Yes Medical Records Medical records reviewed: Yes I reviewed the patient's medical records. Lab Data Lab results reviewed: Yes I reviewed the patient's lab results. Result diagrams: 01/08/18 07:45 01/08/18 07:45 POC Results POC Urine Results Negative Lab Results 01/08/18 01/08/18 01/08/18 Range/Units 07:43 07:45 07:45 WBC 13.2 H (4.0-11.0) th/mm3 RBC 4.46 (4.00-5.30) mil/mm3 Hgb 14.1 (11.6-15.3) gm/dL Hct 42.3 (35.0-46.0) % MCV 94.9 (80.0-100.0) fL MCH 31.7 (27.0-34.0) pg MCHC 33.4 (32.0-36.0) % RDW 14.0 (11.6-17.2) % Plt Count 190 (150-450) th/mm3 MPV 9.1 (7.0-11.0) fL Neut % (Auto) 90.1 H (16.0-70.0) % Lymph % (Auto) 5.1 L (9.0-44.0) % Clayton % (Auto) 4.3 (0.0-8.0) % Eos % (Auto) 0.3 (0.0-4.0) % Baso % (Auto) 0.2 (0.0-2.0) % Neut # (Auto) 11.9 H (1.8-7.7) th/mm3 Lymph # (Auto) 0.7 L (1.0-4.8) th/mm3 Clayton # (Auto) 0.6 (0.0-0.9) th/mm3 Eos # (Auto) 0.0 (0.0-0.4) th/mm3 Baso # (Auto) 0.0 (0.0-0.2) th/mm3 WBC Differential . Differential Comment Auto diff final Sodium 140 (136-145) meq/L Potassium 4.0 (3.5-5.1) meq/L Chloride 108 H (98-107) meq/L Carbon Dioxide 18.2 L (21.0-32.0) meq/L Anion Gap 14 (5-15) meq/L BUN 12 (7-18) mg/dL Creatinine 1.18 H (0.50-1.00) mg/dL Estimated GFR 66 L (>89) mL/min POC Glucose 109 (68-110) mg/dl Random Glucose 112 H (74-106) mg/dL Calcium 8.8 (8.5-10.1) mg/dL Total Bilirubin 0.2 (0.2-1.0) mg/dL AST 8 L (15-37) U/L ALT 15 (10-53) U/L Alkaline Phosphatase 60 (45-117) U/L Total Creatine Kinase 108 (26-192) U/L Total Protein 8.1 (6.4-8.2) g/dL Albumin 4.0 (3.4-5.0) g/dL Imaging Data Radiologist's impression: Chest X-Ray 01/08/18 07:34 CONCLUSION: Nasogastric tube should be advanced. ET tube in good position. No focal lung disease. Head CT 01/08/18 07:34 CONCLUSION: Negative CT Head non contrast. Cervical Spine CT 01/08/18 09:45 CONCLUSION: No acute bony injury in the cervical spine. ECG Data Attestation: I personally reviewed and interpreted this ECG as follows: Interpretation: Normal sinus rhythm 88 bpm NH interval 150 QTc 398. Normal sinus rhythm. Discharge Plan Discharge Disposition Patient Disposition: 30 Still Patient Discharge Condition Condition: Good Discharge Details Diagnosis: Epileptic seizure, Intractable seizure disorder, Cannabis abuse Physicians Team ED Provider: Kevin Funk Primary Care Provider: Sreedhar Oneill Attending Provider: Lachelle Mcclain Discharge Interventions Interventions: Vital Signs Last Done: 01/08/18 12:12 Status ED Status: Admitted Observation Patient
--- NOTE | 2018-01-08 08:16 | CT ---
EXAM DATE: 01/08/2018 8:07 AM EDT AGE/SEX: 27 years / Female INDICATIONS: Seizure. CLINICAL DATA: This is the patient's initial encounter. Patient reports that signs and symptoms have been present for 1 day and indicates a pain score of 0/10. MEDICAL/SURGICAL HISTORY: Seizures. None. RADIATION DOSE: 56.35 CTDI (mGy) COMPARISON: . TECHNIQUE: CT of the head without contrast. Using automated exposure control and adjustment of the mA and/or kV according to patient size, radiation dose was kept as low as reasonably achievable to ob tain optimal diagnostic quality images. DICOM format image data is available electronically for revi ew and comparison. FINDINGS: Cerebrum: The ventricles are normal for age. No evidence of midline shift, mass lesion, hemorrhage or acute infarction. No extraaxial fluid collections are seen. Posterior Fossa: The cerebellum and brainstem are intact. The 4th ventricle is midline. The cerebe llopontine angle is unremarkable. Extracranial: The visualized portion of the orbits is intact. Skull: The calvaria is intact. No evidence of skull fracture. CONCLUSION: Negative CT Head non contrast. Electronically signed by: Jamil Segura MD 01/08/2018 8:15 AM EDT
[2018-01-08 08:20] LABS: Baso % (Auto) 0.2 % (0.0-2.0); Eos % (Auto) 0.3 % (0.0-4.0); Hematocrit 42.3 % (35.0-46.0); Hemoglobin 14.1 gm/dL (11.6-15.3); Lymph # (Auto) 0.7 th/mm3 (1.0-4.8); Lymph % (Auto) 5.1 % (9.0-44.0); Mean Corpuscular HGB Conc 33.4 % (32.0-36.0); Mean Corpuscular Hemoglobin 31.7 pg (27.0-34.0); Mean Corpuscular Volume 94.9 fL (80.0-100.0); Mean Platelet Volume 9.1 fL (7.0-11.0); Mono # (Auto) 0.6 th/mm3 (0.0-0.9); Mono % (Auto) 4.3 % (0.0-8.0); Neut # (Auto) 11.9 th/mm3 (1.8-7.7); Neut % (Auto) 90.1 % (16.0-70.0); Platelet Count 190 th/mm3 (150-450); Red Blood Count 4.46 mil/mm3 (4.00-5.30); White Blood Count 13.2 th/mm3 (4.0-11.0)
--- NOTE | 2018-01-08 08:20 | XR ---
EXAM DATE: 01/08/2018 8:00 AM EDT AGE/SEX: 27 years / Female INDICATIONS: Seizure and short of breath. CLINICAL DATA: This is the patient's initial encounter. Patient reports that signs and symptoms have been present for 1 day and indicates a pain score of 0/10. MEDICAL/SURGICAL HISTORY: Seizures. None. COMPARISON: . FINDINGS: Endotracheal tube is present with tip several centimeters above the boogie. A nasogastric tube descen ds into the distal esophagus, not quite reaching the stomach. The lungs are symmetrically aerated and grossly clear. Cardiac contours are satisfactory. CONCLUSION: Nasogastric tube should be advanced. ET tube in good position. No focal lung disease. Electronically signed by: Jamil Segura MD 01/08/2018 8:19 AM EDT
[2018-01-08 08:23] LABS: Alanine Aminotransferase 15 U/L (10-53); Anion Gap 14 meq/L (5-15); Aspartate Aminotransferase 8 U/L (15-37); Blood Urea Nitrogen 12 mg/dL (7-18); Calcium 8.8 mg/dL (8.5-10.1); Carbon Dioxide 18.2 meq/L (21.0-32.0); Chloride 108 meq/L (98-107); Glomerular Filtration Rate 66 mL/min (>89); Glucose,Random 112 mg/dL (74-106); Sodium 140 meq/L (136-145)
[2018-01-08 08:25] LABS: Alkaline Phosphatase 60 U/L (45-117); Creatine Kinase 108 U/L (26-192); Total Protein 8.1 g/dL (6.4-8.2)
[2018-01-08] MEDS ORDERED: Sod Chloride 0.9% Inj 1,000 ML IV.SIG ONE (10:43)
--- NOTE | 2018-01-08 11:32 | CT ---
EXAM DATE: 01/08/2018 11:24 AM EDT AGE/SEX: 27 years / Female INDICATIONS: Seizure today. CLINICAL DATA: This is the patient's initial encounter. Patient reports that signs and symptoms have been present for 1 day and indicates a pain score of 0/10. MEDICAL/SURGICAL HISTORY: Hypertension. Seizures. None. RADIATION DOSE: 24.48 CTDI (mGy) COMPARISON: [facility], CT SOFT TISSUE NECK W/O CONTRAST, 12/25/2016. . TECHNIQUE: Contiguous axial images were obtained using helical multirow detector technique. The vol umetric data was post-processed with multiplanar reconstruction in oblique axial, sagittal, and coron al planes. Using automated exposure control and adjustment of the mA and/or kV according to patient s ize, radiation dose was kept as low as reasonably achievable to obtain optimal diagnostic quality armando ges. DICOM format image data is available electronically for review and comparison. FINDINGS: Spinal alignment is satisfactory. There is no evidence of fracture. No bony canal or ahsan inal stenosis is identified. There is no evidence of paraspinal hematoma. CONCLUSION: No acute bony injury in the cervical spine. Electronically signed by: Jamil Segura MD 01/08/2018 11:31 AM EDT
[2018-01-08] MEDS ORDERED: carBAMazepine 200 MG Tablet PO SCH (13:00)
[2018-01-08] MEDS ORDERED: Lacosamide 100 MG Tablet PO SCH (13:15)
--- NOTE | 2018-01-08 13:26 | P.HPFP ---
History of Present Illness Primary Care Physician: Sreedhar Oneill MD <SarahiJuanLachelle Anastasia - 01/09/18 11:42> Sreedhar Oneill MD <Claudiasage Jarocho LANDERS 01/08/18 13:26> Chief Complaint: seizures <Jarocho Mcgowan III 01/08/18 13:26> History of Present Illness: Ms Pugh is a 27 YO female with PMHx of epileptic seizure disorder with last known seizure approx 6 weeks ago who presents with 2 seizures this morning. Pt was brought from [place] to the ED and was unresponsive with NG tube in place upon arrival. During the interview pt is somnolent but conversant and complains of neck pain, a headache, and chills. She tells us she walked her 7 and 4 year olds to school and when she came back to the house had the seizures which were witnessed by her boyfriend. She denies LOC, tongue biting and urinary or bowel incontinence. Pt states she only takes Vimpat at home for seizure prevention. Records from her previous hospitalization indicate she was discharged on Tegretol 200 mg BID and Vimpat 200 mg BID. Pt has been non- complaint with medications in the past. She denies previous surgery, family hx, tobacco use, EtOH, but states she smokes marijuana often. Denies CP, SOB, N/V/D , vaginal discharge or bleeding, but does state she has lower abdominal pain; denies leg pain. Shortly after admission nursing reports pt had another seizure of approx 40 seconds with myoclonic shaking. Ativan IV was administered. Pt had some blood around her mouth and had bitten her tongue and had an episode of urinary incontinence. <Juan M LANDERSJarocho - 01/08/18 17:20> - Diagnosis (1) SIRS (systemic inflammatory response syndrome) (2) Epileptic seizure (3) Cannabis abuse (4) PAUL (acute kidney injury) <SarahiLachelle Anastasia 01/09/18 11:42> (1) SIRS (systemic inflammatory response syndrome) (2) Epileptic seizure (3) Cannabis abuse (4) PAUL (acute kidney injury) <Juan M LANDERSJarocho 01/08/18 17:16> Inpatient Certification: I certify that the inpatient services were ordered in accordance with Medicare regulations governing the order. This includes certification that hospital inpatient services are reasonable and necessary and in the case of services not specified as inpatient-only under 42 CFR 419.22(n), that they are appropriately provided as inpatient services in accordance to with the 2-midnight benchmark under 43 CFR 412.3(e) <SarahiLachelle Anastasia 01/09/18 11:42> Review of Systems Constitutional: Reports body ache(s), Reports chills, Reports headache(s) < [facility]/08/[facility] 14:20> Eyes: Denies change in vision <[facility] 01/08/18 14:20> Cardiovascular: Denies chest pain <[facility] 01/08/18 14:20> Respiratory: Denies shortness of breath <[facility] 01/08/18 14:20> Gastrointestinal: Reports abdominal pain (lower abdominal pain), Denies constipation, Denies loose stools, Denies nausea, Denies vomiting <[facility] 01/08/18 14:20> Genitourinary: Reports pelvic pain, Denies abnormal vaginal bleeding, Denies difficulty urinating, Denies urinary incontinence, Denies vaginal discharge < [facility] 01/08/18 14:20> Musculoskeletal: Reports neck pain <[facility] 01/08/18 14:20> Neurologic: Reports headache(s), Reports seizure-like activity <[facility] 01/08/18 14:20> PMFSH - History History Provided By: Patient <Juan M LANDERSJarocho 01/08/18 13:26> - Medical History Medical History: Medical History (Last Updated 12/08/17 @ 23:00 by Starla Rodriguez, YASEMIN) Hypertension Seizure <Lachelle Mcclain Anastasia 01/09/18 11:42> Medical History (Last Updated 12/08/17 @ 23:00 by Starla Rodriguez, YASEMIN) Hypertension Seizure <Jarocho Mcgowan III 01/08/18 13:26> - Surgical History Surgical History: Surgical History (Last Updated 12/08/17 @ 23:00 by Starla Rodriguez, YASEMIN) No history of previous surgery <Lachelle Mcclain Anastasia 01/09/18 11:42> Surgical History (Last Updated 12/08/17 @ 23:00 by Starla Rodriguez RN) No history of previous surgery <Jarocho Mcgowan III 01/08/18 13:26> - Social History I have reviewed the patient's Social History: Yes <Jarocho Mcgowan III 14:20> - Tobacco History Second Hand Smoke Exposure: Yes <Jarocho Mcgowan III 01/08/18 13:26> Smoking Status: Never smoker <Jarocho Mcgowan III 01/08/18 13:26> - Alcohol History How Often Do You Have a Drink Containing Alcohol: 4 or more times a week < Jarocho Mcgowan III 01/08/18 13:26> - Substance Use History Substance History: Active Abuse <Jarocho Mcgowan III 01/08/18 13:26> - Substance Use Type Marijuana Status: Active <Jarocho Mcgowan III 01/08/18 13:26> Route Used: Inhalation <Jarocho Mcgowan III 01/08/18 13:26> Reason for Use: Calm Down, Feels Good <Jarocho Mcgowan III [facility] 01/08/18 13:26> - Travel History Recent Travel in the [facility] Within the Last 8 Weeks: No <Jarocho Mcgowan III 10/20 13:26> Recent Travel Out of the Country Within the Last 8 Weeks: No <Jarocho Mcgowan III 01/08/18 13:26> - Immunization History Tetanus Immunization: Unsure <Jarocho Mcgowan III 01/08/18 13:26> Medications and Allergies Allergies Allergy/AdvReac Type Severity Reaction Status Date / Time No Known Allergies Allergy Verified 12/09/17 10:13 <Lachelle Mcclain 01/09/18 11:42> Home Medications Medication Instructions Recorded Confirmed Type lacosamide [Vimpat] 200 mg PO BID 11/12/17 01/08/18 History <Lachelle Mcclain 01/09/18 11:42> Active Medications: Active Medications Acetaminophen (Tylenol) 325 mg PO Q4H PRN PRN Reason: PAIN 1-10 OR TEMP > 100.4 F Last Admin: 01/08/18 21:37 Dose: 325 mg Al Hydroxide/Mg Hydroxide (Milk Of Magnesia Liq) 30 ml PO Q12H PRN PRN Reason: Mild Constipation Carbamazepine (Tegretol Chewable) 200 mg PO BID [facility] Last Admin: 01/09/18 08:32 Dose: 200 mg Sodium Chloride (Ns Inj) 1,000 mls @ 100 mls/hr IV.CONT .Q10H [facility] Last Admin: 01/09/18 03:00 Dose: 100 mls/hr Magnesium Sulfate Inj 4 gm/ (Sodium Chloride) 100 mls @ 50 mls/hr IV.SIG UNSCH PRN PRN Reason: For Magnesium 0.9 - 1.1 mg/dL Magnesium Sulfate Inj 2 gm/ (Sodium Chloride) 100 mls @ 50 mls/hr IV.SIG UNSCH PRN PRN Reason: For Magnesium 1.2 - 1.6 mg/dL Potassium Chloride (Kcl 20 Meq Premix Inj) 20 meq in 100 mls @ 50 mls/hr IV.SIG Q2H PRN PRN Reason: For Potassium 3.3 - 3.5 mEq/L Potassium Chloride (Kcl 40 Meq Premix Inj) 40 meq in 100 mls @ 25 mls/hr IV.SIG UNSCH PRN PRN Reason: For Potassium 3.3 - 3.5 mEq/L Potassium Chloride (Kcl 20 Meq Premix Inj) 20 meq in 100 mls @ 50 mls/hr IV.SIG Q2H PRN PRN Reason: For Potassium 2.8 - 3.2 mEq/L Potassium Phosphate 30 mmol/ (Sodium Chloride) 260 mls @ 42 mls/hr IV.SIG UNSCH PRN PRN Reason: SEE LABEL COMMENTS Sodium Phosphate 30 mmol/ (Sodium Chloride) 260 mls @ 42 mls/hr IV.SIG UNSCH PRN PRN Reason: For Phosphorus < 2.5 mg/dL Potassium Chloride (Kcl 40 Meq Premix Inj) 40 meq in 100 mls @ 25 mls/hr IV.SIG Q2H PRN PRN Reason: For Potassium 2.8 - 3.2 mEq/L Lacosamide (Vimpat) 200 mg PO BID [facility] Lorazepam (Ativan Inj) 2 mg IV.PUSH Q15M PRN PRN Reason: SEIZURES Magnesium Oxide (Mag-Ox) 800 mg PO UNSCH PRN PRN Reason: For Magnesium 1.2 - 1.6 mg/dL Potassium Bicarb/Potassium Chloride (K-Lyte Cl Eff) 50 meq PO UNSCH PRN PRN Reason: For Potassium 3.3 - 3.5 mEq/L Potassium Phosphate (K-Phos Original) 2,000 mg PO Q4H PRN PRN Reason: Phosphorus Less Than 2.5 mg/dL Potassium Phosphate (K-Phos Original) 2,000 mg PO UNSCH PRN PRN Reason: SEE LABEL COMMENTS Senna/Docusate Sodium (Hyacinth-Colace) 1 tab PO BID [facility] Last Admin: 01/09/18 08:32 Dose: 1 tab Sennosides (Senokot) 17.2 mg PO Q12H PRN PRN Reason: Moderate Constipation <Lachelle Mcclain - 01/09/18 11:42> Active Medications Hydrocodone Bitart/Acetaminophen (Rattan 5/325) 1 tab PO QID PRN PRN Reason: PAIN 1-10 Al Hydroxide/Mg Hydroxide (Milk Of Magnleon Liq) 30 ml PO Q12H PRN PRN Reason: Mild Constipation Carbamazepine (Tegretol) 200 mg PO BID [facility] Lacosamide (Vimpat) 200 mg PO BID [facility] Senna/Docusate Sodium (Hyacinth-Colace) 1 tab PO BID [facility] Sennosides (Senokot) 17.2 mg PO Q12H PRN PRN Reason: Moderate Constipation <Jarocho Mcgowan III - 01/08/18 13:26> Exam Vital signs: Vital Signs 01/08/18 12:12 01/08/18 13:10 01/08/18 16:31 Temperature Pulse Rate 75 106 H 77 Respiratory Rate 17 18 17 Blood Pressure 110/63 141/79 H 117/75 Pulse Oximetry 100 100 100 01/08/18 17:17 01/08/18 20:00 01/08/18 21:17 Temperature 100.1 F H 100.3 F H 100.3 F H Pulse Rate 65 66 66 Respiratory Rate 36 H 31 H 31 H Blood Pressure 134/80 119/58 L 119/58 L Pulse Oximetry 99 99 99 01/09/18 00:00 01/09/18 04:00 Temperature 99.0 F 98.9 F Pulse Rate 66 74 Respiratory Rate 31 H 27 H Blood Pressure 119/58 L 122/76 Pulse Oximetry 99 98 Intake & Output 01/08/18 01/09/18 01/09/18 18:59 06:59 18:59 Intake Total 1120 / 1120 1120 / 1120 Output Total 0 / 0 0 / 0 Balance 1120 / 1120 1120 / 1120 Weight 82 kg 83 kg Intake: IV 1120 / 1120 1120 / 1120 NS Inj 1,000 ML @ 100 mls/hr IV 1000 / 1000 .CONT .Q10H [facility] Rx#:[id number] Vimpat Inj 200 MG In NS Inj 100 120 / 120 120 / 120 ML @ 120 mls/hr IV.SIG Q12H [facility] Rx#:[id number] NS Inj 1,000 ML @ Wide Open IV. 1000 / 1000 SIG BOLUS ONE Rx#:[id number] Oral 0 / 0 0 / 0 Output: Urine 0 / 0 0 / 0 Other: Weight On Admission 82 kg <[place]ultonham[place]achelle cid M - 01/09/18 11:42> Vital Signs 01/08/18 07:31 01/08/18 08:33 01/08/18 10:25 Temperature 99.1 F Pulse Rate 97 H 94 H 85 Respiratory Rate 17 18 18 Blood Pressure 125/76 101/58 L 160/63 H Pulse Oximetry 100 100 100 01/08/18 12:12 01/08/18 13:10 Temperature Pulse Rate 75 106 H Respiratory Rate 17 18 Blood Pressure 110/63 141/79 H Pulse Oximetry 100 100 Intake & Output 01/07/18 01/08/18 01/08/18 18:59 06:59 18:59 Intake Total 1000 / 1000 Balance 1000 / 1000 Weight 68.039 kg Intake: IV 1000 / 1000 NS Inj 1,000 ML @ Wide Open IV. 1000 / 1000 SIG BOLUS ONE Rx#:[id number] <Jarocho Mcgowan III H - 01/08/18 13:26> Narrative: GENERAL: AAF appears her stated age lying in bed and somnolent, occasionally shivering. SKIN: Warm and dry. No rash or lesions. HEAD: Normocephalic. atraumatic. Tongue with no bite rush, but a tongue stud is in place. There is a .5 cm x .5 cm dark purple lesion on the inferior portion of tongue. EYES: No scleral icterus. No injection or drainage. NECK: Normal range of motion; however, tenderness/pain with movement; trachea midline. Tender right anterior cervical lymphadenopathy. CARDIOVASCULAR: Regular rate and rhythm without murmurs, gallops, or rubs. RESPIRATORY: Breath sounds equal bilaterally. No accessory muscle use. GASTROINTESTINAL: Abdomen soft, TTP below umbilicus, nondistended. +BS. No guarding. MUSCULOSKELETAL: No cyanosis, or edema. Moves all spontaneously. BACK: Nontender without obvious deformity. Neurological: CN II-XII grossly intact. <Jarocho Mcgowan III H - 01/08/18 17:20> Results - Labs Result diagrams: 01/09/18 05:54 01/09/18 05:54 <Lachelle Mcclain - 01/09/18 11:42> Abnormal lab results 01/08/18 01/09/18 01/09/18 Range/Units 13:52 05:54 05:54 WBC 13.0 H (4.0-11.0) th/mm3 RBC 3.96 L (4.00-5.30) mil/mm3 Neut % (Auto) 81.3 H (16.0-70.0) % Neut # (Auto) 10.5 H (1.8-7.7) th/mm3 ESR 22 H (0-20) mm/hr Potassium (3.5-5.1) meq/L Chloride (98-107) meq/L Lactic Acid 3.9 H (0.4-2.0) mmol/L Calcium (8.5-10.1) mg/dL Carbamazepine (4.0-12.0) mcg/mL 01/09/18 Range/Units 05:54 WBC (4.0-11.0) th/mm3 RBC (4.00-5.30) mil/mm3 Neut % (Auto) (16.0-70.0) % Neut # (Auto) (1.8-7.7) th/mm3 ESR (0-20) mm/hr Potassium 3.1 L D (3.5-5.1) meq/L Chloride 111 H (98-107) meq/L Lactic Acid (0.4-2.0) mmol/L Calcium 7.8 L D (8.5-10.1) mg/dL Carbamazepine 2.0 L (4.0-12.0) mcg/mL Short CBC 01/09/18 Range/Units 05:54 WBC 13.0 H (4.0-11.0) th/mm3 Hgb 12.5 (11.6-15.3) gm/dL Hct 37.3 (35.0-46.0) % Plt Count 173 (150-450) th/mm3 [facility] 01/09/18 05:54 Sodium 143 Potassium 3.1 L D Chloride 111 H Carbon Dioxide 22.5 BUN 8 Creatinine 0.87 Calcium 7.8 L D <Lachelle Mcclain Anastasia - 01/09/18 11:42> Abnormal lab results 01/08/18 01/08/18 Range/Units 07:45 07:45 WBC 13.2 H (4.0-11.0) th/mm3 Neut % (Auto) 90.1 H (16.0-70.0) % Lymph % (Auto) 5.1 L (9.0-44.0) % Neut # (Auto) 11.9 H (1.8-7.7) th/mm3 Lymph # (Auto) 0.7 L (1.0-4.8) th/mm3 Chloride 108 H (98-107) meq/L Carbon Dioxide 18.2 L (21.0-32.0) meq/L Creatinine 1.18 H (0.50-1.00) mg/dL Estimated GFR 66 L (>89) mL/min Random Glucose 112 H (74-106) mg/dL AST 8 L (15-37) U/L Short CBC 01/08/18 Range/Units 07:45 WBC 13.2 H (4.0-11.0) th/mm3 Hgb 14.1 (11.6-15.3) gm/dL Hct 42.3 (35.0-46.0) % Plt Count 190 (150-450) th/mm3 [facility] 01/08/18 07:45 Sodium 140 Potassium 4.0 Chloride 108 H Carbon Dioxide 18.2 L BUN 12 Creatinine 1.18 H Calcium 8.8 Cardiac Enzymes 01/08/18 Range/Units 07:45 Total Creatine Kinase 108 (26-192) U/L Liver Function 01/08/18 Range/Units 07:45 Total Bilirubin 0.2 (0.2-1.0) mg/dL AST 8 L (15-37) U/L ALT 15 (10-53) U/L Alkaline Phosphatase 60 (45-117) U/L Albumin 4.0 (3.4-5.0) g/dL <Jarocho Mcgowan III - 01/08/18 13:26> - Imaging Impressions Neck Ultrasound 01/08/18 00:00 CONCLUSION: 1. Minimal prominent right neck lymph node adjacent to the right carotid artery measuring 1.4 cm in greatest dimension which is nonspecific. 2. No evidence of mass or hematoma. Pelvis Ultrasound 01/08/18 00:00 CONCLUSION: 1. No evidence of ovarian torsion or adnexal mass. 2. Unremarkable uterus. 3. Tiny left ovarian follicular cysts. 4. No free fluid within the cul-de-sac. <Lachelle Mcclain - 01/09/18 11:42> Impressions Chest X-Ray 01/08/18 07:34 CONCLUSION: Nasogastric tube should be advanced. ET tube in good position. No focal lung disease. Head CT 01/08/18 07:34 CONCLUSION: Negative CT Head non contrast. Cervical Spine CT 01/08/18 09:45 CONCLUSION: No acute bony injury in the cervical spine. <Jarocho Mcgowan III - 01/08/18 13:26> Caprini VTE Risk Assessment Caprini VTE Risk Assessment: No/Low Risk (score <= 1) <Jarocho Mcgowan III - 17:20> Caprini Risk Assessment Model: Point Value = 1 Point Value = 2 Point Value = 3 Point Value = 5 Age 41-60 Minor surgery BMI > 25 kg/m2 Swollen legs Varicose veins or History of unexplained or recurrent spontaneous Oral contraceptives or hormone replacement Sepsis (< 1 month) Serious lung disease, including pneumonia (< 1 month) Abnormal pulmonary function Acute myocardial infarction Congestive heart failure (< 1 month) History of inflammatory bowel disease Medical patient at bed rest Age 61-74 Arthroscopic surgery Major open surgery (> 45 min) Laparoscopic surgery (> 45 min) Malignancy Confined to bed (> 72 hours) Immobilizing plaster cast Central venous access Age >= 75 History of VTE Family history of VTE Factor V Leiden Prothrombin 02019A Lupus anticoagulant Anticardiolipin antibodies Elevated serum homocysteine Heparin-induced thrombocytopenia Other congenital or acquired thrombophilia Stroke (< 1 month) Elective arthroplasty Hip, pelvis, or leg fracture Acute spinal cord injury (< 1 month) <Lachelle Mcclain - 01/09/18 11:42> Prophylaxis Regimen: Total Risk Factor Score Risk Level Prophylaxis Regimen 0-1 Low Early ambulation 2 Moderate Order ONE of the following: *Sequential Compression Device (SCD) *Heparin 5000 units SQ BID 3-4 Higher Order ONE of the following medications: *Heparin 5000 units SQ TID *Enoxaparin/Lovenox 40 mg SQ daily (WT < 150 kg, CrCl > 30 mL/min) *Enoxaparin/Lovenox 30 mg SQ daily (WT < 150 kg, CrCl > 10-29 mL/min) *Enoxaparin/Lovenox 30 mg SQ BID (WT < 150 kg, CrCl > 30 mL/min) AND/OR *Sequential Compression Device (SCD) 5 or more Highest Order ONE of the following medications: *Heparin 5000 units SQ TID (Preferred with Epidurals) *Enoxaparin/Lovenox 40 mg SQ daily (WT < 150 kg, CrCl > 30 mL/min) *Enoxaparin/Lovenox 30 mg SQ daily (WT < 150 kg, CrCl > 10-29 mL/min) *Enoxaparin/Lovenox 30 mg SQ BID (WT < 150 kg, CrCl > 30 mL/min) AND *Sequential Compression Device (SCD) <Lachelle Mcclain Anastasia - 01/09/18 11:42> SCDs <Jarocho Mcgowan III - 01/08/18 14:20> Assessment and Plan - Assessment (1) SIRS (systemic inflammatory response syndrome) Code(s): R65.10 - Systemic inflammatory response syndrome (SIRS) of non- infectious origin without acute organ dysfunction Status: Acute (2) Epileptic seizure Code(s): G40.909 - Epilepsy, unspecified, not intractable, without status epilepticus Status: Acute (3) Cannabis abuse Code(s): F12.10 - Cannabis abuse, uncomplicated Status: Acute (4) PAUL (acute kidney injury) Code(s): N17.9 - Acute kidney failure, unspecified Status: Acute <Lachelle Mcclain - 01/09/18 11:42> (1) SIRS (systemic inflammatory response syndrome) Code(s): R65.10 - Systemic inflammatory response syndrome (SIRS) of non- infectious origin without acute organ dysfunction Status: Acute (2) Epileptic seizure Code(s): G40.909 - Epilepsy, unspecified, not intractable, without status epilepticus Status: Acute (3) Cannabis abuse Code(s): F12.10 - Cannabis abuse, uncomplicated Status: Acute (4) PAUL (acute kidney injury) Code(s): N17.9 - Acute kidney failure, unspecified Status: Acute Plan: Cr 1.18 on admission <Juan M LANDERSJarocho - 01/08/18 17:16> - Assessment and Plan 27 YO AAF with known seizure disorder and cannabis use who presents to the ED after at least 2 witnessed seizures at home. Pt did not lose consciousness, bite tongue or lose continence at home, but after arrival a short (40 second) seizure occurred around 12:30PM where pt bit tongue and was with urinary incontinence and post-ictal. Pt complaining of neck pain, SUTTON, chills and tender right cervical lymphadenopathy and WBC 13.2. Consider medication noncompliance vs infectious or inflammatory process exacerbating seizure disorder. Pt meets SIRS criteria on admission with WBC 13.2 and tachycardia. Plan: -Ativan 2 mg IV q15m PRN seizures -Neurology consult--pt known to Dr Liu -Vimpat 200 mg IV q12h -Tegretol 200 mg chewable q12h -NPO until seizures controlled -[facility] transfer during increased care -Blood cx pending Impression: -Labs -CBC with WBC 13.2 with left shift -CMP w/ Cr 1.18 -Lactate pending -Imaging -CT head w/o contrast negative. -CXR showing NG tube and ET tube needing advancement. NO focal airspace disease. -CT cervical spine w/o acute bony injury. FEN/GI/PPx: Fluids: 1L bolus given in ED; followed by MIVF Electrolytes: wnl, will monitor and replete as necessary Nutrition: NPO as above GI: no ppx indicated PPx: SCDs bilaterally Tylenol 650 mg PO PRN fever >100.4 <Juan M LANDERSJarocho - 01/08/18 17:20> - Attending Attestation The exam, history, and the medical decision-making described in the above note were completed with the assistance of the resident physician. I reviewed and agree with the findings presented. I attest that I had a [id number] encounter with the patient on the same day, and personally performed and documented my assessment and findings in the medical record. I saw her in the emergency department. Unfortunately at the time this lady was post ictal and not able to answer any questions. I obtained history from her mother who accompanied her <Lachelle Mcclain - 01/09/18 11:42> <Jarocho Mcgowan III H - Last Filed: 01/08/18 17:16> (2) Epileptic seizure Qualifiers: Epilepsy type: unspecified Intractability: intractable Status epilepticus: with status epilepticus Qualified Code(s): G40.911 - Epilepsy, unspecified, intractable, with status epilepticus <Lachelle Mcclain M - Last Filed: 01/09/18 11:42> (2) Epileptic seizure Qualifiers: Epilepsy type: unspecified Intractability: intractable Status epilepticus: with status epilepticus Qualified Code(s): G40.911 - Epilepsy, unspecified, intractable, with status epilepticus <Jarocho Mcgowan III H - Last Filed: 01/08/18 17:16> (2) Epileptic seizure Qualifiers: Epilepsy type: unspecified Intractability: intractable Status epilepticus: with status epilepticus Qualified Code(s): G40.911 - Epilepsy, unspecified, intractable, with status epilepticus <Lachelle Mcclain - Last Filed: 01/09/18 11:42> (2) Epileptic seizure Qualifiers: Epilepsy type: unspecified Intractability: intractable Status epilepticus: with status epilepticus Qualified Code(s): G40.911 - Epilepsy, unspecified, intractable, with status epilepticus
[2018-01-08] MEDS: Lacosamide Inj 200 MG in Sodium Chlor 0.9% Inj 100 ML IV.SIG SCH (14:43)
[2018-01-08] MEDS: Sod Chloride 0.9% Inj 1,000 ML IV.CONT SCH (15:49)
--- NOTE | 2018-01-08 19:43 | US ---
EXAM DATE: 01/08/2018 7:35 PM EDT AGE/SEX: 27 years / Female INDICATIONS: Pelvic pain. CLINICAL DATA: This is the patient's initial encounter. Patient reports that signs and symptoms have been present for 1 week and indicates a pain score of 8/10. MEDICAL/SURGICAL HISTORY: Hypertension. Seizures. section. COMPARISON: No prior exams available for comparison. MEASUREMENTS: Uterus:__10.2 x 5.2 x 3.9 cm Endometrial Stripe:__4 mm Right Ovary:__ 2.5 x 1.6 x 2.0 cm Left Ovary:__ 4.8 x 2.8 x 1.7 cm FINDINGS: Uterus: The myometrium has homogeneous echotexture without mass. Endometrial Stripe: The endometrial stripe displays homogeneous echotexture. Right Ovary: Ovary contains no mass or significant cystic lesion. Left Ovary: Tiny follicular cysts are noted measuring 2.0 x 1.8 x 1.7 cm and 1.2 x 1.2 x 1.3 cm. Fluid: No free fluid. Other: None. CONCLUSION: 1. No evidence of ovarian torsion or adnexal mass. 2. Unremarkable uterus. 3. Tiny left ovarian follicular cysts. 4. No free fluid within the cul-de-sac. Electronically signed by: Kobe Toledo MD 01/08/2018 7:41 PM EDT
--- NOTE | 2018-01-08 19:52 | US ---
EXAM DATE: 01/08/2018 7:28 PM EDT AGE/SEX: 27 years / Female INDICATIONS: Palpable mass. CLINICAL DATA: This is the patient's initial encounter. Patient reports that signs and symptoms have been present for 3 days and indicates a pain score of 4/10. MEDICAL/SURGICAL HISTORY: Hypertension. Seizures. None. [place] [facility] [place]/08/2018. . FINDINGS: Multiple sonographic images of the right neck were performed in the expected region of the right taylor tid sheath. There is a minimally prominent lymph node adjacent to the right carotid artery measuring 1.4 cm in greatest dimension which is nonspecific. No mass or hematoma is noted. CONCLUSION: 1. Minimal prominent right neck lymph node adjacent to the right carotid artery measuring 1.4 cm in greatest dimension which is nonspecific. 2. No evidence of mass or hematoma. Electronically signed by: Kobe Toledo MD 01/08/2018 7:51 PM EDT
[2018-01-08] MEDS ORDERED: Acetaminophen 325 MG Tablet PO PRN (20:09)
--- NOTE | 2018-01-08 20:50 | MB ---
cc: Dominguez Liu MD DATE: 01/08/2018 This 27-year-old right-handed woman has been very healthy, but she is having seizures and has been seen in the past here for seizures, history of asthma, questionable sepsis in the past, seizure-like activity, multiple seizures, seen by Dr. Cheng in March 2017. She has had some questionable sharps on the right. Other EEGs have been negative. She was started on Keppra at that time, had been on Keppra, and then was subsequently about 3 months ago switched to Vimpat. She thinks 200 twice a day, although I am not quite sure if that is accurate, and she says she has about a seizure a month, but she has been driving her children to school, so she promises me now she will not drive her children to school. She will have someone else walk them to the bus stop, she tells me. I told her she cannot drive for 6 months after having a seizure, and she understands and is agreeable. In the past, her CBC has been normal. She has had a normal sedimentation rate. RPR has been negative. HIV has been negative in 2008. She had an LP done which showed 14 white cells, 465 red cells back in 12/2016. Lyme titer was negative, and CSF, glucose, and protein were normal, 92% polys. Meningitis screen was negative. UA has been negative in the past. Urine drug screen has been positive for marijuana primarily. BMP has been normal in the past. LFTs have been normal last year. Coags normal last year. CBC normal last year, ABG normal last year. She had a normal MRI of the brain done in 12/2016 with and without contrast. She does see a neurologist up in [place]. She had 2 seizures this morning, came in [place] to the ED, was unresponsive. She was in the past on Vimpat 200 b.i.d. and supposed to be on Tegretol 200 b.i.d., but she does not take that, she tells me. She had a seizure in the ER, myoclonic shaking, was given some Ativan. REVIEW OF SYSTEMS: She denies any history of hypertension, diabetes, hypercholesterolemia, [place], CABG, cardiac arrhythmia, renal, hepatic or pulmonary disease, thyroid disease, lupus, ulcer, cancer, or stroke. SOCIAL HISTORY: She is a smoker, occasionally has a drink. Lives with her children. Smokes some pot. No other drugs. Lives with her boyfriend. FAMILY HISTORY: Negative for cancer. Positive for seizure in uncle. Negative for stroke. CURRENT MEDICATIONS: She is on some p.r.n. [place], Tegretol 200 b.i.d., Vimpat 200 b.i.d. IV. PHYSICAL EXAMINATION: VITAL SIGNS: 100.1, 99.1 on admission. There were no carotid bruits. HEART: Regular rate and rhythm. I do not detect a murmur. GENERAL: She is awake and alert, may be still a little postictal but gives a fair history. NEUROLOGIC: Pupils are equal. Visual mireles are full. Face is symmetric. She has normal strength in upper and lower extremities bilaterally. Toes downgoing bilaterally. DTRs trace. Pinprick is intact throughout. She is awake and follow commands. Speech is fluent. She is not aphasic. LABORATORY DATA: White count is 13.2, otherwise normal. Basic metabolic profile was essentially normal. Glucose 112. LFTs normal. Blood cultures are pending. Cervical spine CAT scan negative. CAT scan of the brain normal without contrast. IMPRESSION: Recurrent seizures. She has told me she will not drive for 6 months after this last one. Certainly not driving her children as this puts them in danger. We will check an EEG on her. Continue her on the Tegretol and the Vimpat. It is possible she could have a little aspiration from the seizures causing the fever. Neck is supple. No evidence for meningitis. I will be following her with you in the hospital. I do note her CSF in December did not grow out any culture. MD LENNOX Duran/jesus , 08:24 PM , 08:34 PM
[2018-01-08] MEDS: carBAMazepine 100 MG Chewable Tablets PO SCH (21:37)
[2018-01-08] MEDS: Senna/Docusate Sodium 8.6/50 MG Tablet PO SCH (21:37)
--- NOTE | 2018-01-08 23:50 | ECG ---
Date Performed: 01/08/2018 Time Performed: 07:35:39 PTAGE: 27 years EKG: Sinus rhythm NORMAL ECG PREVIOUS TRACING : 03/11/2017 15.41 Since the previous tracing, no significant change noted DOCTOR: Tyler Aguila Interpretating Date/Time 01/08/2018 23:49:59
[2018-01-09] MEDS: Lacosamide Inj 200 MG in Sodium Chlor 0.9% Inj 100 ML IV.SIG SCH (02:59)
[2018-01-09] MEDS: Sod Chloride 0.9% Inj 1,000 ML IV.CONT SCH ×2 (03:00→14:00)
[2018-01-09 06:11] LABS: Baso # (Auto) 0.1 th/mm3 (0.0-0.2); Baso % (Auto) 0.5 % (0.0-2.0); Eos % (Auto) 0.2 % (0.0-4.0); Hematocrit 37.3 % (35.0-46.0); Hemoglobin 12.5 gm/dL (11.6-15.3); Lymph # (Auto) 1.4 th/mm3 (1.0-4.8); Mean Corpuscular HGB Conc 33.6 % (32.0-36.0); Mean Corpuscular Hemoglobin 31.6 pg (27.0-34.0); Mean Corpuscular Volume 94.2 fL (80.0-100.0); Mean Platelet Volume 8.6 fL (7.0-11.0); Mono # (Auto) 0.9 th/mm3 (0.0-0.9); Neut # (Auto) 10.5 th/mm3 (1.8-7.7); Neut % (Auto) 81.3 % (16.0-70.0); Platelet Count 173 th/mm3 (150-450); Red Blood Count 3.96 mil/mm3 (4.00-5.30); Red Cell Distribution Width 13.9 % (11.6-17.2)
[2018-01-09 07:09] LABS: Anion Gap 10 meq/L (5-15); Blood Urea Nitrogen 8 mg/dL (7-18); Calcium 7.8 mg/dL (8.5-10.1); Carbon Dioxide 22.5 meq/L (21.0-32.0); Chloride 111 meq/L (98-107); Glomerular Filtration Rate Greater Than 89 mL/min (>89); Glucose,Random 75 mg/dL (74-106); Potassium 3.1 meq/L (3.5-5.1); Sodium 143 meq/L (136-145); Vitamin B12 728 pg/mL (193-986)
--- NOTE | 2018-01-09 07:23 | P.PNNEU ---
Subjective Subjective Comments: no sz overnoc Active Medications: Active Medications Acetaminophen (Tylenol) 325 mg PO Q4H PRN PRN Reason: PAIN 1-10 OR TEMP > 100.4 F Last Admin: 01/08/18 21:37 Dose: 325 mg Al Hydroxide/Mg Hydroxide (Milk Of [place] Liq) 30 ml PO Q12H PRN PRN Reason: Mild Constipation Carbamazepine (Tegretol Chewable) [address] [facility] Last Admin: 01/08/18 21:37 Dose: 200 mg Lacosamide 200 mg/ Sodium (Chloride) 120 mls @ 120 mls/hr IV.SIG Q12H [facility] Last Admin: 01/09/18 02:59 Dose: 120 mls/hr Sodium Chloride (Ns Inj) 1,000 mls @ 100 mls/hr IV.CONT .Q10H [facility] Last Admin: 01/09/18 03:00 Dose: 100 mls/hr Lorazepam (Ativan Inj) 2 mg IV.PUSH Q15M PRN PRN Reason: SEIZURES Senna/Docusate Sodium (Hyacinth-Colace) [address] [facility] Last Admin: 01/08/18 21:37 Dose: 1 tab Sennosides (Senokot) 17.2 mg PO Q12H PRN PRN Reason: Moderate Constipation Allergies/Adverse Reactions: Allergies Allergy/AdvReac Type Severity Reaction Status Date / Time No Known Allergies Allergy Verified 12/09/17 10:13 Physical Exam Vital signs: Vital Signs 01/08/18 07:31 01/08/18 08:33 01/08/18 10:25 Temperature 99.1 F Pulse Rate 97 H 94 H 85 Respiratory Rate 17 18 18 Blood Pressure 125/76 101/58 L 160/63 H Pulse Oximetry 100 100 100 01/08/18 12:12 01/08/18 13:10 01/08/18 16:31 Temperature Pulse Rate 75 106 H 77 Respiratory Rate 17 18 17 Blood Pressure 110/63 141/79 H 117/75 Pulse Oximetry 100 100 100 01/08/18 17:17 01/08/18 20:00 01/08/18 21:17 Temperature 100.1 F H 100.3 F H 100.3 F H Pulse Rate 65 66 66 Respiratory Rate 36 H 31 H 31 H Blood Pressure 134/80 119/58 L 119/58 L Pulse Oximetry 99 99 99 01/09/18 00:00 01/09/18 04:00 Temperature 99.0 F 98.9 F Pulse Rate 66 74 Respiratory Rate 31 H 27 H Blood Pressure 119/58 L 122/76 Pulse Oximetry 99 98 Intake & Output 01/08/18 01/09/18 01/09/18 18:59 06:59 18:59 Intake Total 1120 / 1120 1000 / 1000 Output Total 0 / 0 0 / 0 Balance 1120 / 1120 1000 / 1000 Weight 82 kg 83 kg Intake: IV 1120 / 1120 1000 / 1000 NS Inj 1,000 ML @ 100 mls/hr IV 1000 / 1000 .CONT .Q10H [facility] Rx#:[id number] Vimpat Inj 200 MG In NS Inj 100 120 / 120 ML @ 120 mls/hr IV.SIG Q12H [facility] Rx#:[id number] NS Inj 1,000 ML @ Wide Open IV. 1000 / 1000 SIG BOLUS ONE Rx#:[id number] Oral 0 / 0 0 / 0 Output: Urine 0 / 0 0 / 0 Other: Weight On Admission 82 kg Narrative: awake alert moving well Objective Laboratory Results - last 24 hr 01/08/18 01/08/18 01/08/18 07:43 07:45 07:45 WBC 13.2 H RBC 4.46 Hgb 14.1 Hct 42.3 MCV 94.9 MCH 31.7 MCHC 33.4 RDW 14.0 Plt Count 190 MPV 9.1 Neut % (Auto) 90.1 H Lymph % (Auto) 5.1 L [place] % (Auto) 4.3 Eos % (Auto) 0.3 Baso % (Auto) 0.2 Neut # (Auto) 11.9 H Lymph # (Auto) 0.7 L [place] # (Auto) 0.6 Eos # (Auto) 0.0 Baso # (Auto) 0.0 WBC Differential . Differential Comment Auto diff final ESR Sodium 140 Potassium 4.0 Chloride 108 H Carbon Dioxide 18.2 L Anion Gap 14 BUN 12 Creatinine 1.18 H Estimated GFR 66 L POC Glucose 109 Random Glucose 112 H Lactic Acid Calcium 8.8 Total Bilirubin 0.2 AST 8 L ALT 15 Alkaline Phosphatase 60 Total Creatine Kinase 108 Total Protein 8.1 Albumin 4.0 Vitamin B12 Nasal Screen MRSA (PCR) Carbamazepine 01/08/18 01/08/18 01/09/18 13:52 17:00 05:54 WBC RBC Hgb Hct MCV MCH MCHC RDW Plt Count MPV Neut % (Auto) Lymph % (Auto) [place] % (Auto) Eos % (Auto) Baso % (Auto) Neut # (Auto) Lymph # (Auto) [place] # (Auto) Eos # (Auto) Baso # (Auto) WBC Differential Differential Comment ESR 22 H Sodium Potassium Chloride Carbon Dioxide Anion Gap BUN Creatinine Estimated GFR POC Glucose Random Glucose Lactic Acid 3.9 H Calcium Total Bilirubin AST ALT Alkaline Phosphatase Total Creatine Kinase Total Protein Albumin Vitamin B12 Nasal Screen MRSA (PCR) Not detected Carbamazepine 01/09/18 01/09/18 01/09/18 05:54 05:54 05:54 WBC 13.0 H RBC 3.96 L Hgb 12.5 Hct 37.3 MCV 94.2 MCH 31.6 MCHC 33.6 RDW 13.9 Plt Count 173 MPV 8.6 Neut % (Auto) 81.3 H Lymph % (Auto) 11.0 [place] % (Auto) 7.0 Eos % (Auto) 0.2 Baso % (Auto) 0.5 Neut # (Auto) 10.5 H Lymph # (Auto) 1.4 [place] # (Auto) 0.9 Eos # (Auto) 0.0 Baso # (Auto) 0.1 WBC Differential . Differential Comment Auto diff final ESR Sodium 143 Potassium 3.1 L D Chloride 111 H Carbon Dioxide 22.5 Anion Gap 10 BUN 8 Creatinine 0.87 Estimated GFR Greater than 89 POC Glucose Random Glucose 75 Lactic Acid 0.5 Calcium 7.8 L D Total Bilirubin AST ALT Alkaline Phosphatase Total Creatine Kinase Total Protein Albumin Vitamin B12 728 Nasal Screen MRSA (PCR) Carbamazepine 2.0 L Review/Management - Review/Management Plan: imp cbz 2.0 but onl y on one day plan is eeg and then can dc on vimpat 200 bid and tegretol [address] [facility] needs tegretol level ast alt cbc and bmp friday not to drive swim etc i explained to her and she agrees i would like her to get a urine drug screen and ua as ordered yesterday b4 dc
[2018-01-09] MEDS: Senna/Docusate Sodium 8.6/50 MG Tablet PO SCH ×2 (08:32→20:24)
[2018-01-09] MEDS: carBAMazepine 100 MG Chewable Tablets PO SCH ×2 (08:32→20:24)
[2018-01-09] MEDS ORDERED: Potassium Chlor 20 mEq Premix 20 MEQ/100 ML PIGGYBACK IV.SIG PRN ×2 (08:49)
[2018-01-09] MEDS ORDERED: Potassium Phosphate 500 MG Soluble Tablet PO PRN ×2 (08:49)
[2018-01-09] MEDS ORDERED: Magnesium Oxide 400 MG Tablet PO PRN (08:49)
[2018-01-09] MEDS ORDERED: Potassium Chlor 40 mEq Premix 40 MEQ/100 ML PIGGYBACK IV.SIG PRN ×2 (08:49)
[2018-01-09] MEDS ORDERED: Magnesium Sulfate Inj 4 GM in Sodium Chlor 0.9% Inj 92 ML IV.SIG PRN (08:49)
[2018-01-09] MEDS ORDERED: Sodium Phosphate Inj 30 MMOL in Sodium Chlor 0.9% Inj 250 ML IV.SIG PRN (08:49)
[2018-01-09] MEDS ORDERED: Magnesium Sulfate Inj 2 GM in Sodium Chlor 0.9% Inj 96 ML IV.SIG PRN (08:49)
[2018-01-09] MEDS ORDERED: Potassium Chloride 25 MEQ Effervescent Tablet PO PRN (08:49)
[2018-01-09] MEDS ORDERED: Potassium Phosphate Inj 30 MMOL in Sodium Chlor 0.9% Inj 250 ML IV.SIG PRN (08:49)
--- NOTE | 2018-01-09 09:00 | P.HPFP ---
History of Present Illness Primary Care Physician: Sreedhar Oneill MD Chief Complaint: seizures History of Present Illness: Ms Pugh is a 27 YO female with PMHx of epileptic seizure disorder with last known seizure approx 6 weeks ago who presented with 2 seizures at home. Pt was brought from [place] to the ED and was unresponsive with NG tube in place upon arrival. During the interview pt was somnolent but conversant and complained of neck pain, a headache, and chills. She tells us she walked her 7 and 4 year olds to the bus stop and when she came back to the house went to lie down and had the seizures which were witnessed by her boyfriend. She denied LOC , tongue biting and urinary or bowel incontinence. Pt stated she only takes Vimpat at home for seizure prevention. Records from her previous hospitalization indicate she was discharged on Tegretol 200 mg BID and Vimpat 200 mg BID. Pt has been non-complaint with medications in the past. She denies previous surgery, family hx, tobacco use, EtOH, but states she smokes marijuana often. Denies CP, SOB, N/V/D, vaginal discharge or bleeding, but does state she has lower abdominal pain; denies leg pain. Shortly after admission nursing reports pt had another seizure of approx 40 seconds with myoclonic shaking. Ativan IV was administered. Pt had some blood around her mouth and had bitten her tongue and had an episode of urinary incontinence. This morning she is alert awake and had her last seizure yesterday. She states she takes her seizure medications every day but sometimes takes them only. She said she sometimes forgets her nighttime dose of her Vimpat. I discussed using a pillbox or a reminder system. She feels back to normal this morning where she is hungry able to take good p.o. she has no remnant of her seizures are being post ictal. She reported that the neck pain upper back pain and even headache are an aura for her before she has her seizure. - Diagnosis (1) Epileptic seizure (2) SIRS (systemic inflammatory response syndrome) (3) Cannabis abuse (4) PAUL (acute kidney injury) Inpatient Certification: I certify that the inpatient services were ordered in accordance with Medicare regulations governing the order. This includes certification that hospital inpatient services are reasonable and necessary and in the case of services not specified as inpatient-only under 42 CFR 419.22(n), that they are appropriately provided as inpatient services in accordance to with the 2-midnight benchmark under 43 CFR 412.3(e) Plans for Post Hospital Care: Home Review of Systems Constitutional: Reports headache(s), Denies body ache(s), Denies daytime sleepiness, Denies fatigue, Denies increased appetite, Denies lack of energy Eyes: Denies loss of vision, Denies pain Ears, Nose, Mouth, and Throat: Reports mouth lesions, Reports mouth pain, Reports neck pain, Reports sore throat, Reports tongue swelling, Denies nasal congestion, Denies nasal discharge, Denies post nasal drip Cardiovascular: Denies chest pain, Denies fast heart rate, Denies generalized swelling, Denies irregular heart rhythm Respiratory: Denies chest congestion, Denies cough Gastrointestinal: Denies abdominal pain, Denies difficulty swallowing, Denies vomiting Genitourinary: Reports urinary incontinence, Denies urinary urgency Musculoskeletal: Denies abnormal walking, Denies decreased muscle mass, Denies muscle weakness Neurologic: Reports seizure-like activity, Denies abnormal hearing, Denies abnormal speech, Denies lack of coordination, Denies localized weakness, Denies tingling/numbness/burning sensations Psychiatric: Denies abnormal sleep pattern, Denies behavioral changes, Denies hearing things others do not hear Endocrine: Denies increased urination, Denies rapid, pounding, or irregular heartbeat Hematologic/Lymphatic: Denies easy bleeding PMFSH - History History Provided By: Patient - Medical / Surgical Hx Neg / Unobtainable Medical Problems Denied: Unable to Obtain (on admission) - Medical History Medical History: Medical History (Last Updated 12/08/17 @ 23:00 by Starla Rodriguez RN) Hypertension Seizure - Surgical History Surgical History: Surgical History (Last Updated 12/08/17 @ 23:00 by Starla Rodriguez RN) No history of previous surgery - Family History Family History: Family History (Last Updated 01/09/18 @ 11:50 by Lachelle Mcclain MD) Other Family history normal - Tobacco History Second Hand Smoke Exposure: Yes Smoking Status: Never smoker - Alcohol History How Often Do You Have a Drink Containing Alcohol: 4 or more times a week - Substance Use History Substance History: Active Abuse - Substance Use Type Marijuana Status: Active Route Used: Inhalation Reason for Use: Calm Down, Feels Good - Travel History Recent Travel in the [facility] Within the Last 8 Weeks: No Recent Travel Out of the Country Within the Last 8 Weeks: No - Immunization History Tetanus Immunization: Unsure Medications and Allergies Active Medications: Active Medications Acetaminophen (Tylenol) 325 mg PO Q4H PRN PRN Reason: PAIN 1-10 OR TEMP > 100.4 F Last Admin: 01/08/18 21:37 Dose: 325 mg Al Hydroxide/Mg Hydroxide (Milk Of Magnesia Liq) 30 ml PO Q12H PRN PRN Reason: Mild Constipation Carbamazepine (Tegretol Chewable) 200 mg PO BID FOR[facility]LY [facility], [facility]1983 Last Admin: 01/09/18 08:32 Dose: 200 mg Lacosamide 200 mg/ Sodium (Chloride) 120 mls @ 120 mls/hr IV.SIG Q12H FORMERLY [facility], [facility]1983 Last Infusion: 01/09/18 03:35 Dose: Infused Sodium Chloride (Ns Inj) 1,000 mls @ 100 mls/hr IV.CONT .Q10H FOR[facility]LY [facility], [facility]1983 Last Admin: 01/09/18 03:00 Dose: 100 mls/hr Magnesium Sulfate Inj 4 gm/ (Sodium Chloride) 100 mls @ 50 mls/hr IV.SIG UNSCH PRN PRN Reason: For Magnesium 0.9 - 1.1 mg/dL Magnesium Sulfate Inj 2 gm/ (Sodium Chloride) 100 mls @ 50 mls/hr IV.SIG UNSCH PRN PRN Reason: For Magnesium 1.2 - 1.6 mg/dL Potassium Chloride (Kcl 20 Meq Premix Inj) 20 meq in 100 mls @ 50 mls/hr IV.SIG Q2H PRN PRN Reason: For Potassium 3.3 - 3.5 mEq/L Potassium Chloride (Kcl 40 Meq Premix Inj) 40 meq in 100 mls @ 25 mls/hr IV.SIG UNSCH PRN PRN Reason: For Potassium 3.3 - 3.5 mEq/L Potassium Chloride (Kcl 20 Meq Premix Inj) 20 meq in 100 mls @ 50 mls/hr IV.SIG Q2H PRN PRN Reason: For Potassium 2.8 - 3.2 mEq/L Potassium Phosphate 30 mmol/ (Sodium Chloride) 260 mls @ 42 mls/hr IV.SIG UNSCH PRN PRN Reason: SEE LABEL COMMENTS Sodium Phosphate 30 mmol/ (Sodium Chloride) 260 mls @ 42 mls/hr IV.SIG UNSCH PRN PRN Reason: For Phosphorus < 2.5 mg/dL Potassium Chloride (Kcl 40 Meq Premix Inj) 40 meq in 100 mls @ 25 mls/hr IV.SIG Q2H PRN PRN Reason: For Potassium 2.8 - 3.2 mEq/L Lorazepam (Ativan Inj) 2 mg IV.PUSH Q15M PRN PRN Reason: SEIZURES Magnesium Oxide (Mag-Ox) 800 mg PO UNSCH PRN PRN Reason: For Magnesium 1.2 - 1.6 mg/dL Potassium Bicarb/Potassium Chloride (K-Lyte Cl Eff) 50 meq PO UNSCH PRN PRN Reason: For Potassium 3.3 - 3.5 mEq/L Potassium Phosphate (K-Phos Original) 2,000 mg PO Q4H PRN PRN Reason: Phosphorus Less Than 2.5 mg/dL Potassium Phosphate (K-Phos Original) 2,000 mg PO UNSCH PRN PRN Reason: SEE LABEL COMMENTS Senna/Docusate Sodium (Hyacinth-Colace) 1 tab PO BID [facility] Last Admin: 01/09/18 08:32 Dose: 1 tab Sennosides (Senokot) 17.2 mg PO Q12H PRN PRN Reason: Moderate Constipation Allergies Allergy/AdvReac Type Severity Reaction Status Date / Time No Known Allergies Allergy Verified 12/09/17 10:13 Home Medications Medication Instructions Recorded Confirmed Type lacosamide [Vimpat] 200 mg PO BID 11/12/17 01/08/18 History Exam Vital signs: Vital Signs 01/08/18 10:25 01/08/18 12:12 01/08/18 13:10 Temperature Pulse Rate 85 75 106 H Respiratory Rate 18 17 18 Blood Pressure 160/63 H 110/63 141/79 H Pulse Oximetry 100 100 100 01/08/18 16:31 01/08/18 17:17 01/08/18 20:00 Temperature 100.1 F H 100.3 F H Pulse Rate 77 65 66 Respiratory Rate 17 36 H 31 H Blood Pressure 117/75 134/80 119/58 L Pulse Oximetry 100 99 99 01/08/18 21:17 01/09/18 00:00 01/09/18 04:00 Temperature 100.3 F H 99.0 F 98.9 F Pulse Rate 66 66 74 Respiratory Rate 31 H 31 H 27 H Blood Pressure 119/58 L 119/58 L 122/76 Pulse Oximetry 99 99 98 Intake & Output 01/08/18 01/09/18 01/09/18 18:59 06:59 18:59 Intake Total 1120 / 1120 1120 / 1120 Output Total 0 / 0 0 / 0 Balance 1120 / 1120 1120 / 1120 Weight 82 kg 83 kg Intake: IV 1120 / 1120 1120 / 1120 NS Inj 1,000 ML @ 100 mls/hr IV 1000 / 1000 .CONT .Q10H [facility] Rx#:[id number] Vimpat Inj 200 MG In NS Inj 100 120 / 120 120 / 120 ML @ 120 mls/hr IV.SIG Q12H [facility] Rx#:[id number] NS Inj 1,000 ML @ Wide Open IV. 1000 / 1000 SIG BOLUS ONE Rx#:[id number] Oral 0 / 0 0 / 0 Output: Urine 0 / 0 0 / 0 Other: Weight On Admission 82 kg Narrative: GENERAL: alert, smiling this am, healthy appearing SKIN: Warm and dry. HEAD: Atraumatic. Normocephalic. EYES: Pupils equal and round. No scleral icterus. No injection or drainage. ENT: No nasal bleeding or discharge. Mucous membranes pink and moist. rush on undersurface of tongue as well as 3 tooth rush on dorsal left tongue NECK: Trachea midline. No JVD. CARDIOVASCULAR: Regular rate and rhythm. RESPIRATORY: No accessory muscle use. Clear to auscultation. Breath sounds equal bilaterally. GASTROINTESTINAL: Abdomen soft, non-tender, nondistended. Hepatic and splenic margins not palpable. MUSCULOSKELETAL: Extremities without clubbing, cyanosis, or edema. No obvious deformities. NEUROLOGICAL: Awake and alert. No obvious cranial nerve deficits. Motor grossly within normal limits. Five out of 5 muscle strength in the arms and legs. Normal speech. PSYCHIATRIC: Appropriate mood and affect; insight and judgment normal. Results - Labs Result diagrams: 01/09/18 05:54 01/09/18 05:54 Abnormal lab results 01/08/18 01/09/18 01/09/18 Range/Units 13:52 05:54 05:54 WBC 13.0 H (4.0-11.0) th/mm3 RBC 3.96 L (4.00-5.30) mil/mm3 Neut % (Auto) 81.3 H (16.0-70.0) % Neut # (Auto) 10.5 H (1.8-7.7) th/mm3 ESR 22 H (0-20) mm/hr Potassium (3.5-5.1) meq/L Chloride (98-107) meq/L Lactic Acid 3.9 H (0.4-2.0) mmol/L Calcium (8.5-10.1) mg/dL Carbamazepine (4.0-12.0) mcg/mL 01/09/18 Range/Units 05:54 WBC (4.0-11.0) th/mm3 RBC (4.00-5.30) mil/mm3 Neut % (Auto) (16.0-70.0) % Neut # (Auto) (1.8-7.7) th/mm3 ESR (0-20) mm/hr Potassium 3.1 L D (3.5-5.1) meq/L Chloride 111 H (98-107) meq/L Lactic Acid (0.4-2.0) mmol/L Calcium 7.8 L D (8.5-10.1) mg/dL Carbamazepine 2.0 L (4.0-12.0) mcg/mL Short CBC 01/09/18 Range/Units 05:54 WBC 13.0 H (4.0-11.0) th/mm3 Hgb 12.5 (11.6-15.3) gm/dL Hct 37.3 (35.0-46.0) % Plt Count 173 (150-450) th/mm3 BMP 01/09/18 05:54 Sodium 143 Potassium 3.1 L D Chloride 111 H Carbon Dioxide 22.5 BUN 8 Creatinine 0.87 Calcium 7.8 L D - Imaging Impressions Neck Ultrasound 01/08/18 00:00 CONCLUSION: 1. Minimal prominent right neck lymph node adjacent to the right carotid artery measuring 1.4 cm in greatest dimension which is nonspecific. 2. No evidence of mass or hematoma. Pelvis Ultrasound 01/08/18 00:00 CONCLUSION: 1. No evidence of ovarian torsion or adnexal mass. 2. Unremarkable uterus. 3. Tiny left ovarian follicular cysts. 4. No free fluid within the cul-de-sac. Cervical Spine CT 01/08/18 09:45 CONCLUSION: No acute bony injury in the cervical spine. Caprini VTE Risk Assessment Caprini VTE Risk Assessment: No/Low Risk (score <= 1) Caprini Risk Assessment Model: Point Value = 1 Point Value = 2 Point Value = 3 Point Value = 5 Age 41-60 Minor surgery BMI > 25 kg/m2 Swollen legs Varicose veins or History of unexplained or recurrent spontaneous Oral contraceptives or hormone replacement Sepsis (< 1 month) Serious lung disease, including pneumonia (< 1 month) Abnormal pulmonary function Acute myocardial infarction Congestive heart failure (< 1 month) History of inflammatory bowel disease Medical patient at bed rest Age 61-74 Arthroscopic surgery Major open surgery (> 45 min) Laparoscopic surgery (> 45 min) Malignancy Confined to bed (> 72 hours) Immobilizing plaster cast Central venous access Age >= 75 History of VTE Family history of VTE Factor V Leiden Prothrombin [id number] Lupus anticoagulant Anticardiolipin antibodies Elevated serum homocysteine Heparin-induced thrombocytopenia Other congenital or acquired thrombophilia Stroke (< 1 month) Elective arthroplasty Hip, pelvis, or leg fracture Acute spinal cord injury (< 1 month) Prophylaxis Regimen: Total Risk Factor Score Risk Level Prophylaxis Regimen 0-1 Low Early ambulation 2 Moderate Order ONE of the following: *Sequential Compression Device (SCD) *Heparin 5000 units SQ BID 3-4 Higher Order ONE of the following medications: *Heparin 5000 units SQ TID *Enoxaparin/Lovenox 40 mg SQ daily (WT < 150 kg, CrCl > 30 mL/min) *Enoxaparin/Lovenox 30 mg SQ daily (WT < 150 kg, CrCl > 10-29 mL/min) *Enoxaparin/Lovenox 30 mg SQ BID (WT < 150 kg, CrCl > 30 mL/min) AND/OR *Sequential Compression Device (SCD) 5 or more Highest Order ONE of the following medications: *Heparin 5000 units SQ TID (Preferred with Epidurals) *Enoxaparin/Lovenox 40 mg SQ daily (WT < 150 kg, CrCl > 30 mL/min) *Enoxaparin/Lovenox 30 mg SQ daily (WT < 150 kg, CrCl > 10-29 mL/min) *Enoxaparin/Lovenox 30 mg SQ BID (WT < 150 kg, CrCl > 30 mL/min) AND *Sequential Compression Device (SCD) Assessment and Plan - Assessment (1) Epileptic seizure Code(s): G40.909 - Epilepsy, unspecified, not intractable, without status epilepticus Status: Acute Plan: Consulted neurology, appreciate their help. She was given IV Vimpat as she was post ictal and had had multiple seizures and was not able to take p.o. Today she will be switched over to p.o. she was also to be given her p.o. Tegretol that was listed in her hospital chart from November. She does have a neurologist up in [place] and it is unclear exactly what medication she is taking at home she knows she was on 5 different pills will call her pharmacy [facility] and figure out exactly what medicines she has been taking. She can be transferred out of the [facility] as she has not had any further seizures since yesterday and is really feeling back to her baseline. (2) SIRS (systemic inflammatory response syndrome) Code(s): R65.10 - Systemic inflammatory response syndrome (SIRS) of non- infectious origin without acute organ dysfunction Status: Acute Plan: 27 YO female this was due to her seizure and her problems but she does not appear to have an infection at this time. (3) Cannabis abuse Code(s): F12.10 - Cannabis abuse, uncomplicated Status: Acute Plan: Her mother was very concerned about her cannabis abuse and she has addressed this with her daughter but our patient has not wanted to quit. It is unknown clear to me that this has led to or caused her seizures as there is not a direct link that I know of. (4) PAUL (acute kidney injury) Code(s): N17.9 - Acute kidney failure, unspecified Status: Acute Plan: Cr 1.18 on admission. Will continue fluids until she can take good p.o. her potassium was a little bit low as she was not eating will allow her to have regular diet today and recheck her electrolytes and make sure that she normalizes. - Assessment and Plan 27 YO AAF with known seizure disorder and cannabis use who presents to the ED after at least 2 witnessed seizures at home. Pt did not lose consciousness, bite tongue or lose continence at home, but after arrival a short (40 second) seizure occurred around 12:30PM where pt bit tongue and was with urinary incontinence and post-ictal. Pt complaining of neck pain, SUTTON, chills and tender right cervical lymphadenopathy and WBC 13.2. Consider medication noncompliance vs infectious or inflammatory process exacerbating seizure disorder. Pt meets SIRS criteria on admission with WBC 13.2 and tachycardia. Plan: -Ativan 2 mg IV q15m PRN seizures -Neurology consult--pt known to Dr Liu -Vimpat 200 mg IV q12h -Tegretol 200 mg chewable q12h -NPO until seizures controlled -[facility] transfer during increased care -Blood cx pending Impression: -Labs -CBC with WBC 13.2 with left shift -CMP w/ Cr 1.18 -Lactate pending -Imaging -CT head w/o contrast negative. -CXR showing NG tube and ET tube needing advancement. NO focal airspace disease. -CT cervical spine w/o acute bony injury. FEN/GI/PPx: Fluids: 1L bolus given in ED; followed by MIVF Electrolytes: wnl, will monitor and replete as necessary Nutrition: NPO as above GI: no ppx indicated PPx: SCDs bilaterally Tylenol 650 mg PO PRN fever >100.4 H&P: Quality - VTE Deep Vein Thrombosis/Pulmonary Embolism Present on Admission: No (1) Epileptic seizure Qualifiers: Epilepsy type: unspecified Intractability: intractable Status epilepticus: with status epilepticus Qualified Code(s): G40.911 - Epilepsy, unspecified, intractable, with status epilepticus
[2018-01-09] MEDS ORDERED: Acetaminophen 325 MG Tablet PO PRN (11:45)
[2018-01-09] MEDS: Lacosamide 100 MG Tablet PO SCH ×2 (17:25→20:24)
--- NOTE | 2018-01-09 17:32 | MG ---
cc: Chana Shankar MD, David J MD ELECTROENCEPHALOGRAM NUMBER: [id number] REFERRING PHYSICIAN: Dominguez Liu MD CLINICAL HISTORY: In room 519. Noted the patient will not stay awake to do hyperventilation. It was stopped at 1 minute 33 seconds into the hyperventilation only. Photic completed. Otherwise, the patient is asleep. CT negative. Last EEG, no report in chart. Possible seizure. Not cooperative. Not answering questions or following commands. History of seizures and hypertension. MEDICATIONS: 1. Tegretol. 2. Vimpat. DESCRIPTION OF RECORD: There is overall slowing of the background predominantly of 5-6 Hz and a lot of eye movement and muscle artifact. The patient is covering her head and then seems to be snoring. Not cooperative with the study. EKG is artifactual as well. Mild slowing seen throughout. Photic stimulation does elicit a normal driving response. Hyperventilation stopped, as stated, but I did not see any epileptiform features. IMPRESSION: Mild slowing of background consistent with encephalopathic process. No gross epileptiform features noted. Clinical correlation. MD ANAI German/wraren , 04:45 PM , 04:51 PM
[2018-01-09] MEDS ORDERED: Lacosamide 100 MG Tablet PO SCH (21:00)
[2018-01-09 23:07] LABS: Bilirubin,Urine Negative (Negative); Clarity,Urine Clear (Clear); Color,Urine Yellow (Yellw/Straw); Glucose,Urine (UA) Negative (Negative); Leukocyte Esterase,Urine Negative (Negative); Mucus,Urine Few /lpf (Occasional); Nitrite,Urine Negative (Negative); Specific Gravity,Urine 1.011 (1.002-1.035); Squamous Epithelial Cell,Urine 3 /hpf (0-5)
[2018-01-09 23:12] LABS: Amphetamine Screen,Urine Neg (Neg); Barbiturate Screen,Urine Neg (Neg); Cannabinoid Screen,Urine Pos (Neg); Cocaine Screen,Urine Neg (Neg)
[2018-01-09 23:54] LABS: Opiate Screen,Urine Neg (Neg)
[2018-01-10 06:13] LABS: Hematocrit 35.6 % (35.0-46.0); Hemoglobin 12.2 gm/dL (11.6-15.3); Mean Corpuscular HGB Conc 34.4 % (32.0-36.0); Mean Corpuscular Hemoglobin 31.9 pg (27.0-34.0); Mean Corpuscular Volume 92.7 fL (80.0-100.0); Mean Platelet Volume 9.1 fL (7.0-11.0); Platelet Count 170 th/mm3 (150-450); Red Blood Count 3.84 mil/mm3 (4.00-5.30); Red Cell Distribution Width 13.5 % (11.6-17.2); White Blood Count 8.4 th/mm3 (4.0-11.0)
[2018-01-10 06:37] LABS: Anion Gap 9 meq/L (5-15); Blood Urea Nitrogen 5 mg/dL (7-18); Calcium 8.2 mg/dL (8.5-10.1); Carbon Dioxide 25.2 meq/L (21.0-32.0); Chloride 108 meq/L (98-107); Glomerular Filtration Rate Greater Than 89 mL/min (>89); Glucose,Random 82 mg/dL (74-106); Potassium 3.4 meq/L (3.5-5.1); Sodium 142 meq/L (136-145)
[2018-01-10] MEDS: Lacosamide 100 MG Tablet PO SCH (08:11)
[2018-01-10] MEDS: Senna/Docusate Sodium 8.6/50 MG Tablet PO SCH (08:11)
[2018-01-10] MEDS: carBAMazepine 100 MG Chewable Tablets PO SCH (08:11)
--- NOTE | 2018-01-10 11:03 | P.PNFP ---
Subjective Interval history: Ms Pugh had no acute events overnight. She is tolerating her medications well, taking PO, voiding. Today her mother is in her room. We discussed her discharge medication regimen which will be Vimpat 200 mg BID and Tegretol 200 mg BID. We discussed that she should not take Ativan unless she feels the back and neck tightness that present prior to a seizure. She reports having an appt with her neurologist, Dr Becerril, this coming week and we advised that she should discuss this medication regimen with him at that time. Pt advised not to drive, swim or operate complex machinery until cleared by Dr Becerril. Pt also advised to get labs drawn on Friday and will be given lab slips on discharge for this. Denies CP, SOB, N/V/D, leg pain. <Jarocho Mcgowan III H - 01/10/18 11:03> Results - Labs Result diagrams: 01/10/18 05:39 01/10/18 05:39 <Lachelle Mcclain - 01/12/18 08:56> Abnormal lab results 01/09/18 01/09/18 01/10/18 Range/Units 20:00 20:00 05:39 RBC 3.84 L (4.00-5.30) mil/mm3 Potassium (3.5-5.1) meq/L Chloride (98-107) meq/L BUN (7-18) mg/dL Calcium (8.5-10.1) mg/dL Urine Mucus Few H (Occasional) /lpf U Cannabinoids Screen Pos H (Neg) 01/10/18 Range/Units 05:39 RBC (4.00-5.30) mil/mm3 Potassium 3.4 L (3.5-5.1) meq/L Chloride 108 H (98-107) meq/L BUN 5 L (7-18) mg/dL Calcium 8.2 L (8.5-10.1) mg/dL Urine Mucus (Occasional) /lpf U Cannabinoids Screen (Neg) Short CBC 01/10/18 Range/Units 05:39 WBC 8.4 (4.0-11.0) th/mm3 Hgb 12.2 (11.6-15.3) gm/dL Hct 35.6 (35.0-46.0) % Plt Count 170 (150-450) th/mm3 BMP 01/09/18 01/10/18 18:18 05:39 Sodium 142 Potassium 3.5 3.4 L Chloride 108 H Carbon Dioxide 25.2 BUN 5 L Creatinine 0.86 Calcium 8.2 L Urine 01/09/18 Range/Units 20:00 Urine Color Yellow (Yellw/Straw) Urine Clarity Clear (Clear) Urine pH 6.0 (5.0-8.5) Ur Specific [place] 1.011 (1.002-1.035) Urine Protein Negative (Neg-Trace) mg/dL Urine Glucose (UA) Negative (Negative) mg/dL <ClaudiaJarocho cazares III - 01/10/18 11:03> Physical Exam Vital signs: Vital Signs 01/09/18 12:00 01/09/18 16:00 01/09/18 20:00 Temperature 98.9 F 98.7 F 98.5 F Pulse Rate 60 61 66 Respiratory Rate 21 23 34 H Blood Pressure 132/88 136/82 Pulse Oximetry 98 98 100 01/10/18 00:00 01/10/18 04:00 Temperature 98.4 F Pulse Rate 61 61 Respiratory Rate 27 H 27 H Blood Pressure 163/81 H 141/72 H Pulse Oximetry 99 100 Intake & Output 01/09/18 01/10/18 01/10/18 18:59 06:59 18:59 Intake Total 1700 / 1700 240 / 240 Output Total 850 / 850 800 / 800 Balance 850 / 850 -560 / -560 Weight 82 kg Intake: IV 1100 / 1100 NS Inj 1,000 ML @ 100 mls/hr IV 1000 / 1000 .CONT .Q10H ELSA Rx#:[id number] KCl 20 mEq Premix Inj 20 meq In 100 / 100 100 ml @ 50 mls/hr IV.SIG Q2H PRN Rx#:[id number] Oral 600 / 600 240 / 240 Output: Urine 850 / 850 800 / 800 Other: # Bowel Movements 0 <Jarocho Mcgowan III - 01/10/18 11:03> Narrative: GENERAL: alert, smiling this am, healthy appearing. SKIN: Warm and dry. No lesions or rash. HEAD: Atraumatic. Normocephalic. EYES: Pupils equal and round. No scleral icterus. No injection or drainage. ENT: No nasal bleeding or discharge. Mucous membranes pink and moist. NECK: Trachea midline. CARDIOVASCULAR: Regular rate and rhythm. No murmur, rub or gallop. RESPIRATORY: No accessory muscle use. Clear to auscultation. Breath sounds equal bilaterally. GASTROINTESTINAL: Abdomen soft, non-tender, nondistended. MUSCULOSKELETAL: Extremities without clubbing, cyanosis, or edema. No obvious deformities. NEUROLOGICAL: Awake and alert. No obvious cranial nerve deficits. Motor grossly within normal limits. Five out of 5 muscle strength in the arms and legs. Normal speech. PSYCHIATRIC: Appropriate mood and affect; insight and judgment normal. <Juan M LANDERSJarocho Rowena - 01/10/18 11:03> Assessment and Plan - Assessment (1) Epileptic seizure Code(s): G40.909 - Epilepsy, unspecified, not intractable, without status epilepticus Status: Acute (2) SIRS (systemic inflammatory response syndrome) Code(s): R65.10 - Systemic inflammatory response syndrome (SIRS) of non- infectious origin without acute organ dysfunction Status: Acute (3) Cannabis abuse Code(s): F12.10 - Cannabis abuse, uncomplicated Status: Chronic (4) PAUL (acute kidney injury) Code(s): N17.9 - Acute kidney failure, unspecified Status: Acute <SarahiLachelle Anastasia - 01/12/18 08:56> (1) Epileptic seizure Code(s): G40.909 - Epilepsy, unspecified, not intractable, without status epilepticus Status: Acute Plan: 27 YO female with epileptic seizure disorder and cannabis use who presented after witnessed seizures at home on 01/08. She was brought in on evac with NG tube and was obtunded. After being interviewed in the ED pt had another seizure of approx 40 seconds treated with ativan, had tongue biting and urinary incontinence and was post-ictal. Pt was transferred to [facility] for further management but had no further seizures. Dr Liu, neurology was consulted and pt stable since then on Vimpat 200 mg BID and Carbamazepine 200 mg BID. Today pt active and alert with mother at bedside. Physical exam benign, AFVSS. -Neurology consulted; Dr Liu has signed off on pt discharge today -EEG showing mild slowing with encephalopathy -Carbamazepine level 7.0 -Tegretol 200 mg PO BID -Vimpat 200 mg PO BID -Ativan 1 mg PO PRN, if aura sxs of neck and back pain -UDS + cannabis -UA negative -CBC wnl -Blood cx NGTD x1 day -CMP with hypokalemia 3.4--PO KCl 40 meq once ordered -Pt cleared for DC today -Pt advised to get labs done Friday -Pt advised to see her neurologist, Dr Becerril, in [place] in 1 week Dispo: discharge today (2) SIRS (systemic inflammatory response syndrome) Code(s): R65.10 - Systemic inflammatory response syndrome (SIRS) of non- infectious origin without acute organ dysfunction Status: Acute Plan: 27 YO female this was due to her seizure and her problems but she does not appear to have an infection at this time. (3) Cannabis abuse Code(s): F12.10 - Cannabis abuse, uncomplicated Status: Chronic Plan: Her mother was very concerned about her cannabis abuse and she has addressed this with her daughter but our patient has not wanted to quit. It is unknown clear to me that this has led to or caused her seizures as there is not a direct link that I know of. -UDS+cannabis (4) PAUL (acute kidney injury) Code(s): N17.9 - Acute kidney failure, unspecified Status: Acute Plan: Cr 1.18 on admission resolved. 0.86 on discharge. <Juan M LANDERSJarocho - 01/10/18 10:37> - Assessment and Plan 27 YO AAF with known seizure disorder and cannabis use who presents to the ED after at least 2 witnessed seizures at home. Pt did not lose consciousness, bite tongue or lose continence at home, but after arrival a short (40 second) seizure occurred around 12:30PM where pt bit tongue and was with urinary incontinence and post-ictal. Pt complaining of neck pain, SUTTON, chills and tender right cervical lymphadenopathy and WBC 13.2. Consider medication noncompliance vs infectious or inflammatory process exacerbating seizure disorder. Pt met SIRS criteria on admission with WBC 13.2 and tachycardia; however, UA and other studies negative for signs of infection. Plan: as above Impression: -Labs -CBC with WBC 13.2 with left shift-->resolved 8.4 on 01/10 -CMP w/ Cr 1.18 --> resolved 0.86 on 01/10 day of discharge -Imaging -CT head w/o contrast negative -CXR showing NG tube and ET tube needing advancement. NO focal airspace disease -CT cervical spine w/o acute bony injury FEN/GI/PPx: Fluids: PO fluids Electrolytes: Repleting hypokalemia with PO KCl Nutrition: regular diet GI: no ppx indicated PPx: SCDs bilaterally Tylenol 650 mg PO PRN fever >100.4 <Juan M LANDERSJarocho - 01/10/18 11:03> - Attending Attestation The exam, history, and the medical decision-making described in the above note were completed with the assistance of the resident physician. I reviewed and agree with the findings presented. I attest that I had a [id number] encounter with the patient on the same day, and personally performed and documented my assessment and findings in the medical record. her mother will be dosing her meds so she doesn't miss doses. In the past she would quit her meds at times because of sedation. <Lachelle Mcclain - 01/12/18 08:56> <Juan M LANDERSJarocho - Last Filed: 01/10/18 10:37> (1) Epileptic seizure Qualifiers: Epilepsy type: unspecified Intractability: intractable Status epilepticus: with status epilepticus Qualified Code(s): G40.911 - Epilepsy, unspecified, intractable, with status epilepticus <Lachelle Mcclain M - Last Filed: 01/12/18 08:56> (1) Epileptic seizure Qualifiers: Epilepsy type: unspecified Intractability: intractable Status epilepticus: with status epilepticus Qualified Code(s): G40.911 - Epilepsy, unspecified, intractable, with status epilepticus <Jarocho Mcgowan III H - Last Filed: 01/10/18 10:37> (1) Epileptic seizure Qualifiers: Epilepsy type: unspecified Intractability: intractable Status epilepticus: with status epilepticus Qualified Code(s): G40.911 - Epilepsy, unspecified, intractable, with status epilepticus <Lachelle Mcclain M - Last Filed: 01/12/18 08:56> (1) Epileptic seizure Qualifiers: Epilepsy type: unspecified Intractability: intractable Status epilepticus: with status epilepticus Qualified Code(s): G40.911 - Epilepsy, unspecified, intractable, with status epilepticus
--- NOTE | 2018-01-10 12:13 | P.DS ---
Date of admission: 01/08/18 18:00 Primary care physician: Sreedhar Oneill MD Attending physician on discharge: Lachelle Mcclain Anticipated date of discharge: 01/10/18 Brief History from admission: Ms Pugh is a 27 YO female with PMHx of epileptic seizure disorder with last known seizure approx 6 weeks ago who presented with 2 seizures at home. Pt was brought from [place] to the ED and was unresponsive with NG tube in place upon arrival. During the interview pt was somnolent but conversant and complained of neck pain, a headache, and chills. She tells us she walked her 7 and 4 year olds to the bus stop and when she came back to the house went to lie down and had the seizures which were witnessed by her boyfriend. She denied LOC , tongue biting and urinary or bowel incontinence. Pt stated she only takes Vimpat at home for seizure prevention. Records from her previous hospitalization indicate she was discharged on Tegretol 200 mg BID and Vimpat 200 mg BID. Pt has been non-complaint with medications in the past. She denies previous surgery, family hx, tobacco use, EtOH, but states she smokes marijuana often. Denies CP, SOB, N/V/D, vaginal discharge or bleeding, but does state she has lower abdominal pain; denies leg pain. Shortly after admission nursing reports pt had another seizure of approx 40 seconds with myoclonic shaking. Ativan IV was administered. Pt had some blood around her mouth and had bitten her tongue and had an episode of urinary incontinence. This morning she is alert awake and had her last seizure yesterday. She states she takes her seizure medications every day but sometimes takes them only. She said she sometimes forgets her nighttime dose of her Vimpat. I discussed using a pillbox or a reminder system. She feels back to normal this morning where she is hungry able to take good p.o. she has no remnant of her seizures are being post ictal. She reported that the neck pain upper back pain and even headache are an aura for her before she has her seizure. Patient update on day of discharge: Pt stable on anti-seizure medications, AFVSS, physical exam benign DS: Diagnosis - Discharge Diagnosis (1) Epileptic seizure Status: Acute (2) SIRS (systemic inflammatory response syndrome) Status: Acute (3) Cannabis abuse Status: Chronic (4) PAUL (acute kidney injury) Status: Acute DS: Medications - Discharge Medications Prescriptions: carbamazepine 200 mg PO BID #30 tab potassium chloride 20 meq PO DAILY 7 Days each DS: Summary Hospital Course: 27 YO female with epileptic seizure disorder and cannabis use who presented after witnessed seizures at home on 01/08. She was brought in on evac with NG tube and was obtunded. During interview pt complained of neck and abdominal pain as well as headache. After being interviewed in the ED pt had another seizure of approx 40 seconds treated with ativan, had tongue biting and urinary incontinence and was post-ictal. Initially it was thought pt might also have an infectious process, but it soon became clear pt was likely post-ictal instead. CT head and neck were negative for acute process. US of pelvis negative for acute process; US of neck revealed a reactive pymph node measuring 1.4 cm. Possibility of meningitis was ruled out during evaluation. Pt was transferred to [facility] for further management but had no further seizures. Dr Liu, neurology was consulted and pt stablized on Vimpat 200 mg BID and Carbamazepine 200 mg BID. Ostensibly, this is same regimen pt had been discharged on during last hospitalization in November; however, pt states she never got Rx for Carbamazepine. Her UDS+ for cannabis and not known whether this could have contributed to her seizures. Pt did say that sometimes she misses doses of medication or takes medication at different hours. We discussed with pt on day of discharge the importance to taking medication at set hours to reduce incidence of seizures. Pt states she will have her mother administer medication so that she doesn't forget. Pt advised not to drive or swim. Pt to get labs drawn on 01/11 and follow up with Dr Becerril, her neurologist, in 1 week. Today pt active and alert with mother at bedside. Physical exam benign, AFVSS. - Time Spent with Patient Total time spent providing and/or coordinating discharge services: Greater than 30 minutes - Quality: VTE Deep Vein Thrombosis/Pulmonary Embolism Present on Admission: No Exam Vital signs: Vital Signs 01/09/18 12:00 01/09/18 16:00 01/09/18 20:00 Temperature 98.9 F 98.7 F 98.5 F Pulse Rate 60 61 66 Respiratory Rate 21 23 34 H Blood Pressure 132/88 136/82 Pulse Oximetry 98 98 100 01/10/18 00:00 01/10/18 04:00 01/10/18 08:00 Temperature 98.4 F Pulse Rate 61 61 61 Respiratory Rate 27 H 27 H 17 Blood Pressure 163/81 H 141/72 H 122/78 Pulse Oximetry 99 100 100 Intake & Output 01/09/18 01/10/18 01/10/18 18:59 06:59 18:59 Intake Total 1700 / 1700 240 / 240 Output Total 850 / 850 800 / 800 Balance 850 / 850 -560 / -560 Weight 82 kg Intake: IV 1100 / 1100 NS Inj 1,000 ML @ 100 mls/hr IV 1000 / 1000 .CONT .Q10H ELSA Rx#:[id number] KCl 20 mEq Premix Inj 20 meq In 100 / 100 100 ml @ 50 mls/hr IV.SIG Q2H PRN Rx#:[id number] Oral 600 / 600 240 / 240 Output: Urine 850 / 850 800 / 800 Other: # Bowel Movements 0 Narrative: GENERAL: alert, smiling this am, healthy appearing. SKIN: Warm and dry. No lesions or rash. HEAD: Atraumatic. Normocephalic. EYES: Pupils equal and round. No scleral icterus. No injection or drainage. ENT: No nasal bleeding or discharge. Mucous membranes pink and moist. NECK: Trachea midline. CARDIOVASCULAR: Regular rate and rhythm. No murmur, rub or gallop. RESPIRATORY: No accessory muscle use. Clear to auscultation. Breath sounds equal bilaterally. GASTROINTESTINAL: Abdomen soft, non-tender, nondistended. MUSCULOSKELETAL: Extremities without clubbing, cyanosis, or edema. No obvious deformities. NEUROLOGICAL: Awake and alert. No obvious cranial nerve deficits. Motor grossly within normal limits. Five out of 5 muscle strength in the arms and legs. Normal speech. PSYCHIATRIC: Appropriate mood and affect; insight and judgment normal. Results Procedures completed during hospitalization: ELECTROENCEPHALOGRAM NUMBER: [id number] REFERRING PHYSICIAN: Dominguez Liu MD CLINICAL HISTORY: In room 519. Noted the patient will not stay awake to do hyperventilation. It was stopped at 1 minute 33 seconds into the hyperventilation only. Photic completed. Otherwise, the patient is asleep. CT negative. Last EEG, no report in chart. Possible seizure. Not cooperative. Not answering questions or following commands. History of seizures and hypertension. MEDICATIONS: 1. Tegretol. 2. Vimpat. DESCRIPTION OF RECORD: There is overall slowing of the background predominantly of 5-6 Hz and a lot of eye movement and muscle artifact. The patient is covering her head and then seems to be snoring. Not cooperative with the study. EKG is artifactual as well. Mild slowing seen throughout. Photic stimulation does elicit a normal driving response. Hyperventilation stopped, as stated, but I did not see any epileptiform features. IMPRESSION: Mild slowing of background consistent with encephalopathic process. No gross epileptiform features noted. Clinical correlation. Completed studies during hospitalization: Neck Ultrasound 01/08/18 00:00 CONCLUSION: 1. Minimal prominent right neck lymph node adjacent to the right carotid artery measuring 1.4 cm in greatest dimension which is nonspecific. 2. No evidence of mass or hematoma. Pelvis Ultrasound 01/08/18 00:00 CONCLUSION: 1. No evidence of ovarian torsion or adnexal mass. 2. Unremarkable uterus. 3. Tiny left ovarian follicular cysts. 4. No free fluid within the cul-de-sac. Chest X-Ray 01/08/18 07:34 CONCLUSION: Nasogastric tube should be advanced. ET tube in good position. No focal lung disease. Head CT 01/08/18 07:34 CONCLUSION: Negative CT Head non contrast. Cervical Spine CT 01/08/18 09:45 CONCLUSION: No acute bony injury in the cervical spine. Labs on day of discharge: Labs from last 24 hours 01/10/18 01/10/18 01/09/18 05:39 05:39 20:00 WBC 8.4 RBC 3.84 L Hgb 12.2 Hct 35.6 MCV 92.7 MCH 31.9 MCHC 34.4 RDW 13.5 Plt Count 170 MPV 9.1 Sodium 142 Potassium 3.4 L Chloride 108 H Carbon Dioxide 25.2 Anion Gap 9 BUN 5 L Creatinine 0.86 Estimated GFR Greater than 89 POC Glucose Random Glucose 82 Calcium 8.2 L Urine Color Urine Clarity Urine pH Ur Specific Given Urine Protein Urine Glucose (UA) Urine Ketones Urine Occult Blood Urine Nitrate Urine Bilirubin Urine Urobilinogen Ur Leukocyte Esterase Urine RBC Urine WBC Ur Squamous Epith Cells Urine Mucus Micro UA Comment Ur Microscopic Review Urine Culture Comments Urine Opiates Screen Neg Ur Barbiturates Screen Neg Carbamazepine 7.0 Ur Amphetamines Screen Neg U Benzodiazepines Scrn Neg Urine Cocaine Screen Neg U Cannabinoids Screen Pos H ANTHONY Screen 01/09/18 01/09/18 01/09/18 20:00 18:18 17:57 WBC RBC Hgb Hct MCV MCH MCHC RDW Plt Count MPV Sodium Potassium 3.5 Chloride Carbon Dioxide Anion Gap BUN Creatinine Estimated GFR POC Glucose 77 Random Glucose Calcium Urine Color Yellow Urine Clarity Clear Urine pH 6.0 Ur Specific Given 1.011 Urine Protein Negative Urine Glucose (UA) Negative Urine Ketones 20 Urine Occult Blood Negative Urine Nitrate Negative Urine Bilirubin Negative Urine Urobilinogen Less than 2 Ur Leukocyte Esterase Negative Urine RBC 1 Urine WBC 4 Ur Squamous Epith Cells 3 Urine Mucus Few H Micro UA Comment Culture not ind Ur Microscopic Review Not Reportable Urine Culture Comments Culture not ind Urine Opiates Screen Ur Barbiturates Screen Carbamazepine Ur Amphetamines Screen U Benzodiazepines Scrn Urine Cocaine Screen U Cannabinoids Screen ANTHONY Screen 01/09/18 05:54 WBC RBC Hgb Hct MCV MCH MCHC RDW Plt Count MPV Sodium Potassium Chloride Carbon Dioxide Anion Gap BUN Creatinine Estimated GFR POC Glucose Random Glucose Calcium Urine Color Urine Clarity Urine pH Ur Specific Given Urine Protein Urine Glucose (UA) Urine Ketones Urine Occult Blood Urine Nitrate Urine Bilirubin Urine Urobilinogen Ur Leukocyte Esterase Urine RBC Urine WBC Ur Squamous Epith Cells Urine Mucus Micro UA Comment Ur Microscopic Review Urine Culture Comments Urine Opiates Screen Ur Barbiturates Screen Carbamazepine Ur Amphetamines Screen U Benzodiazepines Scrn Urine Cocaine Screen U Cannabinoids Screen ANTHONY Screen Neg Preliminary micro results at discharge 01/08/18 13:00 Aerobic Blood Culture - Preliminary Blood - Peripheral No growth in 2 days Anaerobic Blood Culture - Preliminary No growth in 2 days 01/08/18 12:50 Aerobic Blood Culture - Preliminary Blood - Peripheral No growth in 2 days Anaerobic Blood Culture - Preliminary No growth in 2 days - Impressions ITS Impressions Neck Ultrasound 01/08/18 00:00 CONCLUSION: 1. Minimal prominent right neck lymph node adjacent to the right carotid artery measuring 1.4 cm in greatest dimension which is nonspecific. 2. No evidence of mass or hematoma. Pelvis Ultrasound 01/08/18 00:00 CONCLUSION: 1. No evidence of ovarian torsion or adnexal mass. 2. Unremarkable uterus. 3. Tiny left ovarian follicular cysts. 4. No free fluid within the cul-de-sac. Chest X-Ray 01/08/18 07:34 CONCLUSION: Nasogastric tube should be advanced. ET tube in good position. No focal lung disease. Head CT 01/08/18 07:34 CONCLUSION: Negative CT Head non contrast. Cervical Spine CT 01/08/18 09:45 CONCLUSION: No acute bony injury in the cervical spine. Discharge Plan - Discharge Disposition Patient Disposition: 01 Discharge Home - Discharge Condition Condition: Stable - Discharge Order Discharge Orders: Discharge Order (Routine); Ordered 01/10/18 Ordered By: Jarocho Mcgowan III - Discharge Details Anticipated Discharge Date: 01/10/18 Discharge Comment: Pt to see her neurologist, Dr Becerril this coming week. - Physicians Team Primary Care Provider: Sreedhar Oneill Attending Provider: Lachelle Mcclain Other Providers: Dominguez Liu MD
== END 2018-01-10 12:30 | disposition home or self-care (01) ==
LOC: NEPC 07:24 → NEDA 07:24 → HIMC 17:00 → NEDA 17:09
PROVIDERS: ADMIT Family Medicine; ATTEND Family Medicine

== ENCOUNTER 2018-04-11 15:30 | Inpatient (IN) ==
[2018-04-11] MEDS ORDERED: Morphine Sulfate Inj 8 MG/ML Vial IV.PUSH ONE (16:56)
[2018-04-11] MEDS ORDERED: Sod Chloride 0.9% Inj 1,000 ML IV.SIG ONE (16:56)
[2018-04-11] MEDS ORDERED: Ketorolac Inj 30 MG/ML (IVP) Vial IV.PUSH ONE ×2 (16:56→19:07)
--- NOTE | 2018-04-11 17:20 | ED ---
HPI General Chief complaint: Urogenital-Female Stated complaint: kidney complaint Time Seen by Provider: 04/11/18 16:48 Source: patient Mode of arrival: ambulatory Limitations: no limitations History of Present Illness HPI Narrative: Ms Pugh is a 27 year old female who presents to the ED for evaluation of increasing right flank pain. She was seen in the ED this morning for the same complaint and was diagnosed with pyelonephritis. She was given a dose of Lortab in the ED and a prescription antibiotic before discharge. She returns this evening because the pain is increasing and she describes it as a 10 /10 sharp pain. She denies urinary urgency, frequency, or hematuria, syncope, lightheadedness, nausea, or vomiting. Her PMH is significant for epilepsy and her last seizure was 1 week ago. She states she is starting to experience a headache across her forehead that typically precedes her seizures. She denies tobacco, alcohol, or drug use. Her LMP was 03/24/2018 and she is sexually active. Denies any fevers, chills or sweats. No other medical issues. Related Data Home Medications Medication Instructions Recorded Confirmed lorazepam [Ativan] 1 mg PO BID 04/04/18 04/11/18 Previous Rx's Medication Instructions Recorded carbamazepine 200 mg PO BID #60 tab 03/26/18 lacosamide [Vimpat] 200 mg PO BID #60 tab 03/26/18 Allergies Allergy/AdvReac Type Severity Reaction Status Date / Time No Known Allergies Allergy Verified 04/11/18 15:52 Review of Systems ROS: all other systems reviewed are negative [facility] Medical History Medical History Seizure (Acute) Surgical History Surgical History No history of previous surgery (Acute) Family History Family History Other Family history normal Social History Social History Substance History: No History of Abuse Second Hand Smoke Exposure: No Smoking Status: Never smoker Tobacco Type: Cigarettes How Often Do You Have a Drink Containing Alcohol: 2 to 4 times a month Recent Travel in [facility] within the Last 8 Weeks: No Recent Out of Country Travel within the Last 8 Weeks: No Substance Abuse Detail Marijuana: Substance Use Status: Active Route Used Substance Abuse: Inhalation Last Used: occu 1 week ago Reason for Use: Calm Down Immunization History Tetanus Immunization: <5 Years Exam Narrative Exam Narrative: GENERAL: Patient is a well developed well nourished female in severe distress. She is crying and writhes on the stretcher in discomfort. SKIN: Warm and diaphoretic. HEAD: Atraumatic. Normocephalic. EYES: Pupils equal and round. No scleral icterus. No injection or drainage. ENT: No nasal bleeding or discharge. Mucous membranes pink and moist. NECK: Trachea midline. No JVD. CARDIOVASCULAR: Regular rate and rhythm. No murmurs rubs or gallops. RESPIRATORY: No accessory muscle use. Clear to auscultation. Breath sounds equal bilaterally. GASTROINTESTINAL: Abdomen soft and nondistended. CVA tenderness on the right. Pain with palpation of the right flank and RLQ. Hepatic and splenic margins not palpable. MUSCULOSKELETAL: Extremities without clubbing, cyanosis, or edema. No obvious deformities. Full ROm of the upper and lower extremities. 2+ pulses in the upper and lower extremities bilaterally. NEUROLOGICAL: Awake and alert. No obvious cranial nerve deficits. Motor grossly within normal limits. Five out of 5 muscle strength in the arms and legs. Normal speech. PSYCHIATRIC: Appropriate mood and affect; insight and judgment normal. Course Initial Documented Vital Signs Temperature 101.6 F H 04/11/18 15:49 Pulse Rate 106 H 04/11/18 15:49 Respiratory Rate 16 04/11/18 15:49 Blood Pressure 133/85 04/11/18 15:49 Pulse Oximetry 100 04/11/18 15:49 Last Documented Vital Signs Temperature 101.6 F H 04/11/18 15:49 Pulse Rate 87 04/11/18 20:00 Respiratory Rate 18 04/11/18 20:00 Blood Pressure 135/87 04/11/18 20:00 Pulse Oximetry 100 04/11/18 20:00 Medical Decision Making MEMO Attestation MEMO supervised visit: Yes Attestation: I, Dr. Mayfield, have reviewed the advance practice practitioner's documentation and am in agreement, met with the patient face to face, made the diagnosis, and the medical decision making was done by me. See his note for further details. This is a 27-year-old female who is here for evaluation of right flank pain for 2 days. She was seen in the emergency department earlier today and was diagnosed with a UTI/pyelonephritis, and was discharged home with a prescription for Levaquin. She returns stating that her pain is not getting any better. On arrival her triage vital signs show slight tachycardia and a fever of 101.6 degrees Fahrenheit. Labs are remarkable for a leukocyte of 18, 000. UA is suspicious for UTI. CT abdomen pelvis was performed and does not show any acute intra-abdominal pathology, however does show possible right lung abscess with surrounding effusion. The patient does report that she has had a cough for the last week that has been nonproductive. She denies hemoptysis. Her right flank pain started 2 days ago. She denies illicit drug use/IV drug use. On exam she is sitting in her stretcher in no acute distress. Slight movements cause severe right flank pain despite receiving Toradol and morphine. She does have clear and equal lung sounds bilaterally, and her O2 saturation is 100% on room air. She has significant right flank and right lower/posterior chest wall tenderness. She was started on IV vancomycin and IV Zosyn, CT chest will be performed, and the patient will be admitted for further treatment and evaluation of right lung abscess. [facility] Narrative Medical decision making narrative: 27-year-old female that presents to the ED for evaluation of right flank pain. Patient was properly examined and was found to have signs and symptoms which appear to be very consistent with possible pyelonephritis. She was seen here earlier today. She does have a lot of pain on the CVA area of the right side. She only had a urine and was given pain medication by mouth as well as antibiotic by mouth here. Labs and imaging were ordered as patient does appear to have a fever and tachycardic and is very hard to assess secondary to her discomfort. Labs and imaging did show white blood cell count. CT scan did not reveal pyelonephritis but did reveal what appears to be a possible developing abscess on her right lower lung. CT with contrast was ordered. Urine did show signs of UTI. CT chest did show probably D of abscesses on the right lower lung. Case was discussed to maintain Dr. Barron who agrees with plan. Patient will need to [facility]. Patient was started on Zosyn and vancomycin for now. Patient was given pain medications IV. Given fluids. Admitted to Dr. Mazal who agrees to admission plan. Medical Screen Exam Complete: Yes Emergency Medical Condition: Yes Differential Diagnosis Differential Diagnosis: Pneumonia versus abscess versus pylonephritis versus UTI versus sepsis Medical Records Medical records reviewed: Yes I reviewed the patient's medical records. Lab Data Lab results reviewed: Yes I reviewed the patient's lab results. Result diagrams: 04/11/18 18:20 04/11/18 18:20 POC Results POC Urine Results Negative Lab Results 04/11/18 04/11/18 04/11/18 Range/Units 18:20 18:20 18:20 WBC 18.4 H (4.0-11.0) th/mm3 RBC 3.82 L (4.00-5.30) mil/mm3 Hgb 12.3 (11.6-15.3) gm/dL Hct 35.3 (35.0-46.0) % MCV 92.5 (80.0-100.0) fL MCH 32.3 (27.0-34.0) pg MCHC 35.0 (32.0-36.0) % RDW 13.6 (11.6-17.2) % Plt Count 357 (150-450) th/mm3 MPV 7.5 (7.0-11.0) fL Neut % (Auto) 85.9 H (16.0-70.0) % Lymph % (Auto) 7.2 L (9.0-44.0) % Lea % (Auto) 6.8 (0.0-8.0) % Eos % (Auto) 0.0 (0.0-4.0) % Baso % (Auto) 0.1 (0.0-2.0) % Neut # (Auto) 15.8 H (1.8-7.7) th/mm3 Lymph # (Auto) 1.3 (1.0-4.8) th/mm3 Lea # (Auto) 1.2 H (0.0-0.9) th/mm3 Eos # (Auto) 0.0 (0.0-0.4) th/mm3 Baso # (Auto) 0.0 (0.0-0.2) th/mm3 WBC Differential . Differential Comment Auto diff final Sodium 132 L (136-145) meq/L Potassium 3.4 L (3.5-5.1) meq/L Chloride 99 (98-107) meq/L Carbon Dioxide 25.2 (21.0-32.0) meq/L Anion Gap 8 (5-15) meq/L BUN 6 L (7-18) mg/dL Creatinine 0.86 (0.50-1.00) mg/dL Estimated GFR Greater than 89 (>89) mL/min Random Glucose 80 (74-106) mg/dL Lactic Acid 1.0 (0.4-2.0) mmol/L Calcium 9.1 (8.5-10.1) mg/dL Magnesium 1.9 (1.5-2.5) mg/dL Total Bilirubin 0.4 (0.2-1.0) mg/dL AST 9 L (15-37) U/L ALT 21 (10-53) U/L Alkaline Phosphatase 73 (45-117) U/L Total Protein 9.4 H (6.4-8.2) g/dL Albumin 3.2 L (3.4-5.0) g/dL Urine Color (Yellw/Straw) Urine Clarity (Clear) Urine pH (5.0-8.5) Ur Specific [place] (1.002-1.035) Urine Protein (Neg-Trace) mg/dL Urine Glucose (UA) (Negative) mg/dL Urine Ketones (Negative) mg/dL Urine Occult Blood (Negative) Urine Nitrate (Negative) Urine Bilirubin (Negative) Urine Urobilinogen (Less than 2) mg/dL Ur Leukocyte Esterase (Negative) Urine RBC (0-3) /hpf Urine WBC (0-5) /hpf Ur Squamous Epith Cells (0-5) /hpf Urine Bacteria (None) /hpf Urine Mucus (Occasional) /lpf Micro UA Comment Ur Microscopic Review Urine Culture Comments 04/11/18 Range/Units 18:20 WBC (4.0-11.0) th/mm3 RBC (4.00-5.30) mil/mm3 Hgb (11.6-15.3) gm/dL Hct (35.0-46.0) % MCV (80.0-100.0) fL MCH (27.0-34.0) pg MCHC (32.0-36.0) % RDW (11.6-17.2) % Plt Count (150-450) th/mm3 MPV (7.0-11.0) fL Neut % (Auto) (16.0-70.0) % Lymph % (Auto) (9.0-44.0) % Lea % (Auto) (0.0-8.0) % Eos % (Auto) (0.0-4.0) % Baso % (Auto) (0.0-2.0) % Neut # (Auto) (1.8-7.7) th/mm3 Lymph # (Auto) (1.0-4.8) th/mm3 Lea # (Auto) (0.0-0.9) th/mm3 Eos # (Auto) (0.0-0.4) th/mm3 Baso # (Auto) (0.0-0.2) th/mm3 WBC Differential Differential Comment Sodium (136-145) meq/L Potassium (3.5-5.1) meq/L Chloride (98-107) meq/L Carbon Dioxide (21.0-32.0) meq/L Anion Gap (5-15) meq/L BUN (7-18) mg/dL Creatinine (0.50-1.00) mg/dL Estimated GFR (>89) mL/min Random Glucose (74-106) mg/dL Lactic Acid (0.4-2.0) mmol/L Calcium (8.5-10.1) mg/dL Magnesium (1.5-2.5) mg/dL Total Bilirubin (0.2-1.0) mg/dL AST (15-37) U/L ALT (10-53) U/L Alkaline Phosphatase (45-117) U/L Total Protein (6.4-8.2) g/dL Albumin (3.4-5.0) g/dL Urine Color Michelle (Yellw/Straw) Urine Clarity Cloudy H (Clear) Urine pH 6.0 (5.0-8.5) Ur Specific [place] 1.024 (1.002-1.035) Urine Protein 100 H (Neg-Trace) mg/dL Urine Glucose (UA) Negative (Negative) mg/dL Urine Ketones 80 or greater H (Negative) mg/dL Urine Occult Blood Negative (Negative) Urine Nitrate Negative (Negative) Urine Bilirubin Negative (Negative) Urine Urobilinogen 4 or greater (Less than 2) mg/dL Ur Leukocyte Esterase Trace H (Negative) Urine RBC 2 (0-3) /hpf Urine WBC 30 H (0-5) /hpf Ur Squamous Epith Cells 21 (0-5) /hpf Urine Bacteria Rare H (None) /hpf Urine Mucus Moderate H (Occasional) /lpf Micro UA Comment Culture indicated Ur Microscopic Review Not Reportable Urine Culture Comments Culture indicated Imaging Data Attestation: I personally reviewed and interpreted this imaging study as follows : Radiologist's impression: Abdomen/Pelvis CT 04/11/18 16:56 CONCLUSION: 1. Dense consolidation in the right lower lung with 2 oval areas of fluid and air raising the possibility of abscesses in the lung. There is a mild right pleural effusion. 2. No definite acute abnormality is seen within the abdomen and pelvis. Chest CT 04/11/18 19:57 CONCLUSION: 1. Dense consolidation in the right lower lung with 2 apparent fluid collections within the right lower lung consolidation. There is air within these collections. This raises the possibility of abscesses. 2. Adenopathy in the right hilar and right tracheobronchial region. 3. Mild effusion. Discharge Plan Discharge Disposition Patient Disposition: ED Admit(ED Internal Use Only) Discharge Order Discharge Orders: ED Use Only Admit Order (Routine); Ordered 04/11/18 Ordered By: Gabino Wilkins Discharge Details Diagnosis: Abscess of lung without pneumonia, Sepsis Physicians Team ED Provider: Kiko Mayfield ED Midlevel Provider: Gabino Wilkins Primary Care Provider: Primary Care Liz Hankins Attending Provider: Lakisha Isaac Rxs /Orders / Referrals /Forms Prescriptions: No Action lorazepam [Ativan] 1 mg Tablet 1 mg PO BID RF: 0 carbamazepine 200 mg Tablet 200 mg PO BID Qty: 60 RF: 0 lacosamide [Vimpat] 200 mg Tablet 200 mg PO BID Qty: 60 RF: 0 Discharge Interventions Interventions: Vital Signs Last Done: 04/11/18 20:00 Status ED Status: Admitted Patient
[2018-04-11 18:58] LABS: Baso % (Auto) 0.1 % (0.0-2.0); Hematocrit 35.3 % (35.0-46.0); Hemoglobin 12.3 gm/dL (11.6-15.3); Lymph # (Auto) 1.3 th/mm3 (1.0-4.8); Lymph % (Auto) 7.2 % (9.0-44.0); Mean Corpuscular Hemoglobin 32.3 pg (27.0-34.0); Mean Corpuscular Volume 92.5 fL (80.0-100.0); Mean Platelet Volume 7.5 fL (7.0-11.0); Mono # (Auto) 1.2 th/mm3 (0.0-0.9); Mono % (Auto) 6.8 % (0.0-8.0); Neut # (Auto) 15.8 th/mm3 (1.8-7.7); Neut % (Auto) 85.9 % (16.0-70.0); Platelet Count 357 th/mm3 (150-450); Red Blood Count 3.82 mil/mm3 (4.00-5.30); Red Cell Distribution Width 13.6 % (11.6-17.2); White Blood Count 18.4 th/mm3 (4.0-11.0)
[2018-04-11 19:01] LABS: Bacteria,Urine Rare /hpf; Bilirubin,Urine Negative (Negative); Clarity,Urine Cloudy (Clear); Color,Urine Amber (Yellw/Straw); Glucose,Urine (UA) Negative (Negative); Leukocyte Esterase,Urine Trace (Negative); Mucus,Urine Moderate /lpf (Occasional); Nitrite,Urine Negative (Negative); Specific Gravity,Urine 1.024 (1.002-1.035); Squamous Epithelial Cell,Urine 21 /hpf (0-5); Urobilinogen,Urine 4 or Greater mg/dL (Less than 2)
[2018-04-11 19:15] LABS: Albumin 3.2 g/dL (3.4-5.0); Anion Gap 8 meq/L (5-15); Aspartate Aminotransferase 9 U/L (15-37); Blood Urea Nitrogen 6 mg/dL (7-18); Calcium 9.1 mg/dL (8.5-10.1); Carbon Dioxide 25.2 meq/L (21.0-32.0); Chloride 99 meq/L (98-107); Glomerular Filtration Rate Greater Than 89 mL/min (>89); Glucose,Random 80 mg/dL (74-106); Magnesium 1.9 mg/dL (1.5-2.5); Potassium 3.4 meq/L (3.5-5.1); Sodium 132 meq/L (136-145)
[2018-04-11 19:16] LABS: Alanine Aminotransferase 21 U/L (10-53)
[2018-04-11 19:18] LABS: Alkaline Phosphatase 73 U/L (45-117); Total Protein 9.4 g/dL (6.4-8.2)
--- NOTE | 2018-04-11 19:53 | CT ---
EXAM DATE: 04/11/2018 7:45 PM EST AGE/SEX: 27 years / Female INDICATIONS: Right flank pain. CLINICAL DATA: This is the patient's initial encounter. Patient reports that signs and symptoms have been present for 1 day and indicates a pain score of 7/10. MEDICAL/SURGICAL HISTORY: Seizures. None. RADIATION DOSE: 11.16 CTDI (mGy) [place] [facility] [place]. . TECHNIQUE: Multiple contiguous axial images were obtained through the abdomen. Images were obtained using multiple row detector helical technique. Using automated exposure control and adjustment of the mA and/or kV according to patient size, radiation dose was kept as low as reasonably achievable to o btain optimal diagnostic quality images. DICOM format image data is available electronically for rev iew and comparison. FINDINGS: Lower Lungs: There is a mild right pleural effusion. This increased density at the right base with ai r bronchograms likely related to consolidation. Some degree of a lung abscess could be considered. R2 oval areas of fluid and air seen in the left lower lobe measuring up to 2.9 cm in greatest dimension . Liver: The liver has a homogeneous density without space-occupying lesion. There is no dilation of th e biliary tree. Spleen: Homogeneous density without enlargement. Pancreas: Unremarkable without mass or calcification. Kidneys: Normal in size and shape. No evidence of mass or hydronephrosis. Adrenal Glands: Unremarkable. Aorta: The aorta and proximal iliac vessels are grossly unremarkable without aneurysmal dilation. Bowel/Mesentery: The bowel loops are grossly unremarkable. The cecum and sigmoid colon have a normal configuration. Abdominal Wall: Intact. Retroperitoneum: No evidence of adenopathy in the retrocrural, para-aortic, or deep pelvic regions. Bladder: Contours are smooth. Reproductive Organs: No abnormal masses or calcifications seen. Inguinal: The inguinal region is unremarkable without evidence of adenopathy. Bony Structures: Unremarkable. CONCLUSION: 1. Dense consolidation in the right lower lung with 2 oval areas of fluid and air raising the possib ility of abscesses in the lung. There is a mild right pleural effusion. 2. No definite acute abnormality is seen within the abdomen and pelvis. Electronically signed by: Jamil Shen MD 04/11/2018 7:52 PM EST
[2018-04-11] MEDS ORDERED: Vancomycin Inj 1,000 MG in Sodium Chlor 0.9% Inj 250 ML IV.SIG ONE (19:57)
[2018-04-11] MEDS ORDERED: Piperacil/Tazo 4.5 GM Premix 4.5 GM/100 ML BAG IV.SIG ONE (19:57)
[2018-04-11] MEDS ORDERED: Acetaminophen 325 MG Tablet PO ONE (20:07)
--- NOTE | 2018-04-11 20:36 | CT ---
EXAM DATE: 04/11/2018 8:30 PM EST AGE/SEX: 27 years / Female INDICATIONS: Abnormal CT abdomen. CLINICAL DATA: This is the patient's initial encounter. Patient reports that signs and symptoms have been present for 1 day and indicates a pain score of 0/10. MEDICAL/SURGICAL HISTORY: None. None. RADIATION DOSE: 7.89 CTDI (mGy) COMPARISON: No prior exams available for comparison. TECHNIQUE: Multiple contiguous axial images were obtained through the chest during bolus infusion of 71 ml Omnipaque 350 (iohexol) nonionic water-soluble contrast as a single exam dose. Images were obtained in suspended respiration using multiple row detector helical technique. Using automated exp osure control and adjustment of the mA and/or kV according to patient size, radiation dose was kept a s low as reasonably achievable to obtain optimal diagnostic quality images. DICOM format image data is available electronically for review and comparison. FINDINGS: Lungs: Again noted is dense consolidation seen in the posterior right lower lung. There are 2 oval a reas of fluid and air within this region measuring 3.1 x 1.6 x 2.3 cm and 2.5 x 1.0 x 1.8 cm. The rem aining aspects the lungs are clear. Mediastinum: There is an enlarged 1.6 cm right tracheobronchial lymph node and in 1.3 cm right hilar lymph node. Pleurae: There is a mild right pleural effusion. Axillae: Unremarkable. Bony Structures: Unremarkable. Miscellaneous: The examination was extended to include the upper abdomen, and both adrenal glands ar e normal in size and configuration. CONCLUSION: 1. Dense consolidation in the right lower lung with 2 apparent fluid collections within the right lo wer lung consolidation. There is air within these collections. This raises the possibility of abscess es. 2. Adenopathy in the right hilar and right tracheobronchial region. 3. Mild effusion. Electronically signed by: Jamil Shen MD 04/11/2018 8:34 PM EST
[2018-04-11] MEDS ORDERED: Vancomycin Consult Pharmacy OTHER PRN (20:48)
[2018-04-11] MEDS ORDERED: Acetaminophen 325 MG Tablet PO PRN (20:49)
[2018-04-11] MEDS ORDERED: Bisacodyl 10 MG Supp RECTAL PRN (20:49)
--- NOTE | 2018-04-11 20:55 | P.HPIM ---
History of Present Illness Primary Care Physician: No Primary Care Physician History of Present Illness: This is a 27-year-old female with a PMH of Seizure Disorder who presents the ER with complaints of right-sided flank pain x2-3 days. Seen in ER on 04/11/18 for similar complaints, noted to have UTI and d/c'd on Levaquin 750mg x5 days. Returns now w/ ongoing complaints, also notes non-productive cough and generalized malaise. On arrival, BP 133/85, HR 106, O2 sat 100% on RA, Temp 101.6. WBC 18.4. Chemistry essentially unremarkable. Lactic acid 1.0. UA with persistent UTI. CT Abdomen/Pelvis no abnormality in the abdomen or pelvis , dense consolidation right lower lung with 2 oval areas of fluid possibly abscess. S/p Vanc/Zosyn in ER. - Diagnosis (1) Sepsis (2) UTI (urinary tract infection) (3) PNA (pneumonia) (4) Lung abscess (5) Seizure disorder Inpatient Certification: I certify that the inpatient services were ordered in accordance with Medicare regulations governing the order. This includes certification that hospital inpatient services are reasonable and necessary and in the case of services not specified as inpatient-only under 42 CFR 419.22(n), that they are appropriately provided as inpatient services in accordance to with the 2-midnight benchmark under 43 CFR 412.3(e) Estimated Total Length of Stay (Days): 2 Plans for Post Hospital Care: Not yet determined Review of Systems PAST FAMILY HISTORY: Reviewed. No h/o DM or CAD All other systems reviewed negative except as stated in HPI PMFSH - History History Provided By: Patient - Medical History Medical History: Medical History (Last Reviewed 04/11/18 @ 20:45 by MICK Cagle) Seizure - Surgical History Surgical History: Surgical History (Last Reviewed 04/11/18 @ 20:45 by MICK Cagle) No history of previous surgery - Family History Family History: Family History (Last Reviewed 04/11/18 @ 20:45 by MICK Cagle) Other Family history normal - Tobacco History Second Hand Smoke Exposure: No Smoking Status: Never smoker Tobacco Type: Cigarettes - Alcohol History How Often Do You Have a Drink Containing Alcohol: 2 to 4 times a month - Substance Use History Substance History: No History of Abuse - Substance Use Type Marijuana Status: Active Route Used: Inhalation Last Used: occu 1 week ago Reason for Use: Calm Down - Travel History Recent Travel in the [place] Within the Last 8 Weeks: No Recent Travel Out of the Country Within the Last 8 Weeks: No - Immunization History Tetanus Immunization: <5 Years Medications and Allergies Active Medications: Active Medications Acetaminophen (Tylenol) 650 mg PO Q4H PRN PRN Reason: Temp > 100.4 Al Hydroxide/Mg Hydroxide (Milk Of Magnesia Liq) 30 ml PO Q12H PRN PRN Reason: Mild Constipation Albuterol (Duoneb Neb (Prn)) 1 ampul NEB Q4HR NEB PRN PRN Reason: SOB/WHEEZING Bisacodyl (Dulcolax Supp) 10 mg RECTAL DAILY PRN PRN Reason: SEVERE CONSITIPATION Carbamazepine (Tegretol) 200 mg PO BID [facility]SA Vancomycin HCl 1,000 mg/ (Sodium Chloride) 250 mls @ 250 mls/hr IV.SIG ONCE ONE Stop: 04/11/18 20:56 Last Admin: 04/11/18 20:45 Dose: 250 mls/hr Vancomycin HCl 1,000 mg/ (Sodium Chloride) 250 mls @ 250 mls/hr IV.SIG [employer] ELSA Ampicillin Sodium/Sulbactam (Sodium 3 gm/ Sodium Chloride) 100 mls @ 200 mls/ hr IV.SIG Q6H ELSA Sodium Chloride (Ns Inj) 1,000 mls @ 100 mls/hr IV.CONT .Q10H ELSA Lactulose (Lactulose Liq) 30 ml PO DAILY PRN PRN Reason: SEVERE CONSITIPATION Lorazepam (Ativan) 1 mg PO BID [facility] Non-Formulary Medication (Lacosamide [Vimpat]) 200 mg PO BID ELSA Ondansetron HCl (Zofran Inj) 4 mg IV.PUSH Q6H PRN PRN Reason: NAUSEA OR VOMITING Pharmacy Profile Note (Vancomycin Consult Pharmacy) 1 each OTHER UNSCH PRN PRN Reason: Pharmacy to dose Senna/Docusate Sodium (Hyacinth-Colace) 1 tab PO BID [facility] Sennosides (Senokot) 17.2 mg PO Q12H PRN PRN Reason: Moderate Constipation Sodium Chloride (Ns Flush) 2 ml IV.FLUSH BID ELSA Sodium Chloride (Ns Flush) 2 ml IV.FLUSH PRN PRN PRN Reason: FLUSH AFTER USING IV ACCESS Allergies Allergy/AdvReac Type Severity Reaction Status Date / Time No Known Allergies Allergy Verified 04/11/18 15:52 Home Medications Medication Instructions Recorded Confirmed Type lorazepam [Ativan] 1 mg PO BID 04/04/18 04/11/18 History Exam Vital signs: Vital Signs 04/11/18 15:49 04/11/18 16:51 04/11/18 20:00 Temperature 101.6 F H Pulse Rate 106 H 104 H 87 Respiratory Rate Blood Pressure 133/85 135/87 Pulse Oximetry 100 100 100 Intake & Output 04/11/18 04/11/18 04/12/18 06:59 18:59 06:59 Intake Total 1100 / 1100 Balance 1100 / 1100 Weight 79.379 kg Intake: IV 1100 / 1100 Zosyn 4.5 GM Premix 4.5 gm In 100 / 100 100 ml @ 200 mls/hr IV.SIG ONCE ONE Rx#:[id number] NS Inj 1,000 ML @ Wide Open IV. 1000 / 1000 SIG BOLUS ONE Rx#:[id number] Narrative: PE: GENERAL: Young black female in no acute distress, +cough, appears weak/tired. SKIN: Focused skin assessment warm and dry. HEENT: PERRLA, EOMI. No scleral icterus or conjunctival pallor. No lid lag or facial droop. CARDIOVASCULAR: Regular rate and rhythm. No obvious murmurs to auscultation. No chest tenderness to palpation. RESPIRATORY: No obvious rhonchi or wheezing. Clear to auscultation. Breath sounds equal bilaterally. GASTROINTESTINAL: Abdomen soft, non-tender, nondistended. BS normal. MUSCULOSKELETAL: Extremities without clubbing, cyanosis, or edema. No obvious deformities. NEUROLOGICAL: Awake, alert and oriented x4. No focal neurologic deficits. Moving both upper and lower extremities spontaneously. PSYCHIATRIC: Appropriate mood and affect. Insight and judgment normal. Results - Labs CBC & Chem 7: 04/11/18 18:20 04/11/18 18:20 Labs: Short CBC 04/11/18 Range/Units 18:20 WBC 18.4 H (4.0-11.0) th/mm3 Hgb 12.3 (11.6-15.3) gm/dL Hct 35.3 (35.0-46.0) % Plt Count 357 (150-450) th/mm3 BMP 04/11/18 18:20 Sodium 132 L Potassium 3.4 L Chloride 99 Carbon Dioxide 25.2 BUN 6 L Creatinine 0.86 Calcium 9.1 Liver Function 04/11/18 Range/Units 18:20 Total Bilirubin 0.4 (0.2-1.0) mg/dL AST 9 L (15-37) U/L ALT 21 (10-53) U/L Alkaline Phosphatase 73 (45-117) U/L Albumin 3.2 L (3.4-5.0) g/dL Urine 04/11/18 Range/Units 18:20 Urine Color Michelle (Yellw/Straw) Urine Clarity Cloudy H (Clear) Urine pH 6.0 (5.0-8.5) Ur Specific [place] 1.024 (1.002-1.035) Urine Protein 100 H (Neg-Trace) mg/dL Urine Glucose (UA) Negative (Negative) mg/dL - Imaging Impressions Abdomen/Pelvis CT 04/11/18 16:56 CONCLUSION: 1. Dense consolidation in the right lower lung with 2 oval areas of fluid and air raising the possibility of abscesses in the lung. There is a mild right pleural effusion. 2. No definite acute abnormality is seen within the abdomen and pelvis. Chest CT 04/11/18 19:57 CONCLUSION: 1. Dense consolidation in the right lower lung with 2 apparent fluid collections within the right lower lung consolidation. There is air within these collections. This raises the possibility of abscesses. 2. Adenopathy in the right hilar and right tracheobronchial region. 3. Mild effusion. Caprini VTE Risk Assessment Caprini VTE Risk Assessment: No/Low Risk (score <= 1) Caprini Risk Assessment Model: Point Value = 1 Point Value = 2 Point Value = 3 Point Value = 5 Age 41-60 Minor surgery BMI > 25 kg/m2 Swollen legs Varicose veins or History of unexplained or recurrent spontaneous Oral contraceptives or hormone replacement Sepsis (< 1 month) Serious lung disease, including pneumonia (< 1 month) Abnormal pulmonary function Acute myocardial infarction Congestive heart failure (< 1 month) History of inflammatory bowel disease Medical patient at bed rest Age 61-74 Arthroscopic surgery Major open surgery (> 45 min) Laparoscopic surgery (> 45 min) Malignancy Confined to bed (> 72 hours) Immobilizing plaster cast Central venous access Age >= 75 History of VTE Family history of VTE Factor V Leiden Prothrombin [id number] Lupus anticoagulant Anticardiolipin antibodies Elevated serum homocysteine Heparin-induced thrombocytopenia Other congenital or acquired thrombophilia Stroke (< 1 month) Elective arthroplasty Hip, pelvis, or leg fracture Acute spinal cord injury (< 1 month) Prophylaxis Regimen: Total Risk Factor Score Risk Level Prophylaxis Regimen 0-1 Low Early ambulation 2 Moderate Order ONE of the following: *Sequential Compression Device (SCD) *Heparin 5000 units SQ BID 3-4 Higher Order ONE of the following medications: *Heparin 5000 units SQ TID *Enoxaparin/Lovenox 40 mg SQ daily (WT < 150 kg, CrCl > 30 mL/min) *Enoxaparin/Lovenox 30 mg SQ daily (WT < 150 kg, CrCl > 10-29 mL/min) *Enoxaparin/Lovenox 30 mg SQ BID (WT < 150 kg, CrCl > 30 mL/min) AND/OR *Sequential Compression Device (SCD) 5 or more Highest Order ONE of the following medications: *Heparin 5000 units SQ TID (Preferred with Epidurals) *Enoxaparin/Lovenox 40 mg SQ daily (WT < 150 kg, CrCl > 30 mL/min) *Enoxaparin/Lovenox 30 mg SQ daily (WT < 150 kg, CrCl > 10-29 mL/min) *Enoxaparin/Lovenox 30 mg SQ BID (WT < 150 kg, CrCl > 30 mL/min) AND *Sequential Compression Device (SCD) Assessment and Plan - Assessment (1) Sepsis Code(s): A41.9 - Sepsis, unspecified organism Status: Acute (2) UTI (urinary tract infection) Code(s): N39.0 - Urinary tract infection, site not specified Status: Acute (3) PNA (pneumonia) Code(s): J18.9 - Pneumonia, unspecified organism Status: Acute (4) Lung abscess Code(s): J85.2 - Abscess of lung without pneumonia Status: Acute (5) Seizure disorder Code(s): G40.909 - Epilepsy, unspecified, not intractable, without status epilepticus Status: Acute - Plan A/P: 1. Sepsis: Temp 101.6, HR 106, WBC 18.4, Source-UTI/PNA/Lung Abscess, S/p Vanc/Zosyn in ER, will check Blood Cultures, continue w/ IV Abx, IVF for hydration. 2. UTI: Persistent. U/a w/ UTI, seen in ER on 04/11/18 for same complaints, + UTI, s/p Levaquin 750mg x5 days, will continue w/ IV Abx, follow up cultures, IVF, monitor I/O. CT Abd/Pelvis w/ no acute intra-abdominal findings. 3. PNA/Lung Abscess: CT Chest w/ dense consolidation RLL and 2 fluid collections, possibly abscess. Pt denies IVDU. Does have h/o seizure, non- compliant w/ medications w/ recent admission for breakthrough seizure-? due to aspiration. Vanc/Unasyn, Blood Cultures, check Sputum Cultures, DuoNeb prn. Consult ID and Pulmonology for further eval, possible bronch. 4. Seizure Disorder: w/ recent breakthrough seizure due to non-compliance, s/ p eval by Dr. Liu at that time, on Vimpat 200mg bid and Tegretol 200mg bid , will resume. Seizure precautions as needed. 5. DVT Prophylaxis: SCD/Teds 6. Social work for d/c planning as needed. 7. Case discussed w/ ER physician at length, labs/records/imaging reviewed by me (1) Sepsis Qualifiers: Sepsis type: sepsis due to unspecified organism Qualified Code(s): A41.9 - Sepsis, unspecified organism
[2018-04-11] MEDS ORDERED: Vancomycin Inj 1,000 MG in Sodium Chlor 0.9% Inj 250 ML IV.SIG SCH (21:00)
[2018-04-11 21:26] LABS: Amphetamine Screen,Urine Neg (Neg); Barbiturate Screen,Urine Neg (Neg); Cannabinoid Screen,Urine Pos (Neg); Cocaine Screen,Urine Pos (Neg)
[2018-04-11 21:29] LABS: Opiate Screen,Urine Pos (Neg)
[2018-04-11] MEDS ORDERED: Vancomycin Inj 2,000 MG in Sodium Chlor 0.9% Inj 500 ML IV.SIG ONE (22:00)
[2018-04-11] MEDS: LORazepam 1 MG Tablet PO SCH (23:15)
[2018-04-11] MEDS: carBAMazepine 200 MG Tablet PO SCH (23:15)
[2018-04-11] MEDS: Lacosamide 100 MG Tablet PO SCH (23:15)
[2018-04-11] MEDS: Sod Chloride 0.9% Inj 1,000 ML IV.CONT SCH (23:16)
[2018-04-11] MEDS: Senna/Docusate Sodium 8.6/50 MG Tablet PO SCH (23:16)
[2018-04-12] MEDS: Morphine Sulfate Inj 2 MG/ML Vial IV.PUSH PRN ×5 (04:01→20:59)
[2018-04-12] MEDS: Ampicillin/Sulbactam Inj 3 GM in Sodium Chloride 0.9% Inj 100 ML IV.SIG SCH ×4 (04:04→20:46)
[2018-04-12 07:57] LABS: Baso % (Auto) 0.2 % (0.0-2.0); Eos % (Auto) 0.3 % (0.0-4.0); Hematocrit 30.8 % (35.0-46.0); Hemoglobin 10.6 gm/dL (11.6-15.3); Lymph # (Auto) 0.9 th/mm3 (1.0-4.8); Lymph % (Auto) 5.8 % (9.0-44.0); Mean Corpuscular HGB Conc 34.4 % (32.0-36.0); Mean Corpuscular Hemoglobin 31.6 pg (27.0-34.0); Mean Corpuscular Volume 91.8 fL (80.0-100.0); Mean Platelet Volume 7.6 fL (7.0-11.0); Mono # (Auto) 1.3 th/mm3 (0.0-0.9); Mono % (Auto) 8.7 % (0.0-8.0); Neut # (Auto) 12.6 th/mm3 (1.8-7.7); Platelet Count 317 th/mm3 (150-450); Red Blood Count 3.35 mil/mm3 (4.00-5.30); White Blood Count 14.8 th/mm3 (4.0-11.0)
[2018-04-12] MEDS: Sod Chloride 0.9% Inj 1,000 ML IV.CONT SCH ×2 (08:09→16:10)
[2018-04-12] MEDS: carBAMazepine 200 MG Tablet PO SCH ×2 (08:14→20:47)
[2018-04-12] MEDS: Senna/Docusate Sodium 8.6/50 MG Tablet PO SCH ×3 (08:14→20:47)
[2018-04-12] MEDS: LORazepam 1 MG Tablet PO SCH ×2 (08:14→20:47)
[2018-04-12] MEDS: Lacosamide 100 MG Tablet PO SCH ×2 (08:14→20:47)
[2018-04-12] MEDS: guaiFENesin 600 MG ER Tablet PO SCH ×2 (08:15→20:47)
--- NOTE | 2018-04-12 09:21 | P.PNIM ---
Subjective Interval history: f/u; lung abscess in no acute distress. still has some pain to the right chest. T max 101.6. Physical Exam Vital signs: Vital Signs 04/11/18 15:49 04/11/18 16:51 04/11/18 20:00 Temperature 101.6 F H Pulse Rate 106 H 104 H 87 Respiratory Rate 16 18 18 Blood Pressure 133/85 135/87 Pulse Oximetry 100 100 100 04/12/18 00:00 04/12/18 03:49 04/12/18 08:00 Temperature 98.0 F 98.9 F 99.9 F H Pulse Rate 77 95 H 118 H Respiratory Rate 18 18 17 Blood Pressure 122/77 137/92 H 120/72 Pulse Oximetry 96 98 100 Intake & Output 04/11/18 04/12/18 04/12/18 18:59 06:59 18:59 Intake Total 1720 / 1720 250 / 250 Balance 1720 / 1720 250 / 250 Weight 79.379 kg 77.5 kg Intake: IV 1720 / 1720 250 / 250 Unasyn Inj 3 GM In NS Inj 100 100 / 100 ML @ 200 mls/hr IV.SIG Q6H ELSA Rx#:[id number] Zosyn 4.5 GM Premix 4.5 gm In 100 / 100 100 ml @ 200 mls/hr IV.SIG ONCE ONE Rx#:[id number] NS Inj 1,000 ML @ Wide Open IV. 1000 / 1000 SIG BOLUS ONE Rx#:[id number] Vancomycin Inj 1,000 MG In NS 250 / 250 Inj 250 ML @ 250 mls/hr IV.SIG ONCE ONE Rx#:[id number] Vancomycin Inj 2,000 MG In NS 520 / 520 Inj 500 ML @ 250 mls/hr IV.SIG ONCE ONE Rx#:[id number] Oral 0 / 0 Other: # Voids 1 Date of Last Bowel Movement 04/10/18 - Constitutional no acute distress - Routine Respiratory Exam Present: diminished air movement (on the right base.) - Routine Cardiovascular Exam Present: tachycardia - Routine Abdominal Exam Present: soft - Routine Extremities Exam Comments: no pedal edema. - Routine Neurological Exam Present: alert, oriented X3 Results - Labs CBC & Chem 7: 04/12/18 07:18 04/11/18 18:20 Laboratory Results - last 24 hr 04/11/18 04/11/18 04/11/18 18:20 18:20 18:20 WBC 18.4 H RBC 3.82 L Hgb 12.3 Hct 35.3 MCV 92.5 MCH 32.3 MCHC 35.0 RDW 13.6 Plt Count 357 MPV 7.5 Neut % (Auto) 85.9 H Lymph % (Auto) 7.2 L [place] % (Auto) 6.8 Eos % (Auto) 0.0 Baso % (Auto) 0.1 Neut # (Auto) 15.8 H Lymph # (Auto) 1.3 [place] # (Auto) 1.2 H Eos # (Auto) 0.0 Baso # (Auto) 0.0 WBC Differential . Differential Comment Auto diff final Sodium 132 L Potassium 3.4 L Chloride 99 Carbon Dioxide 25.2 Anion Gap 8 BUN 6 L Creatinine 0.86 Estimated GFR Greater than 89 Random Glucose 80 Lactic Acid 1.0 Calcium 9.1 Magnesium 1.9 Total Bilirubin 0.4 AST 9 L ALT 21 Alkaline Phosphatase 73 Total Protein 9.4 H Albumin 3.2 L Urine Color Urine Clarity Urine pH Ur Specific [place] Urine Protein Urine Glucose (UA) Urine Ketones Urine Occult Blood Urine Nitrate Urine Bilirubin Urine Urobilinogen Ur Leukocyte Esterase Urine RBC Urine WBC Ur Squamous Epith Cells Urine Bacteria Urine Mucus Micro UA Comment Ur Microscopic Review Urine Culture Comments Urine Opiates Screen Ur Barbiturates Screen Ur Amphetamines Screen U Benzodiazepines Scrn Urine Cocaine Screen U Cannabinoids Screen 04/11/18 04/11/18 04/12/18 18:20 18:20 07:18 WBC 14.8 H RBC 3.35 L Hgb 10.6 L Hct 30.8 L MCV 91.8 MCH 31.6 MCHC 34.4 RDW 14.0 Plt Count 317 MPV 7.6 Neut % (Auto) 85.0 H Lymph % (Auto) 5.8 L [place] % (Auto) 8.7 H Eos % (Auto) 0.3 Baso % (Auto) 0.2 Neut # (Auto) 12.6 H Lymph # (Auto) 0.9 L [place] # (Auto) 1.3 H Eos # (Auto) 0.0 Baso # (Auto) 0.0 WBC Differential . Differential Comment Auto diff final Sodium Potassium Chloride Carbon Dioxide Anion Gap BUN Creatinine Estimated GFR Random Glucose Lactic Acid Calcium Magnesium Total Bilirubin AST ALT Alkaline Phosphatase Total Protein Albumin Urine Color Michelle Urine Clarity Cloudy H Urine pH 6.0 Ur Specific [place] 1.024 Urine Protein 100 H Urine Glucose (UA) Negative Urine Ketones 80 or greater H Urine Occult Blood Negative Urine Nitrate Negative Urine Bilirubin Negative Urine Urobilinogen 4 or greater Ur Leukocyte Esterase Trace H Urine RBC 2 Urine WBC 30 H Ur Squamous Epith Cells 21 Urine Bacteria Rare H Urine Mucus Moderate H Micro UA Comment Culture indicated Ur Microscopic Review Not Reportable Urine Culture Comments Culture indicated Urine Opiates Screen Pos H Ur Barbiturates Screen Neg Ur Amphetamines Screen Neg U Benzodiazepines Scrn Neg Urine Cocaine Screen Pos H U Cannabinoids Screen Pos H - Imaging Impressions Abdomen/Pelvis CT 04/11/18 16:56 CONCLUSION: 1. Dense consolidation in the right lower lung with 2 oval areas of fluid and air raising the possibility of abscesses in the lung. There is a mild right pleural effusion. 2. No definite acute abnormality is seen within the abdomen and pelvis. Chest CT 04/11/18 19:57 CONCLUSION: 1. Dense consolidation in the right lower lung with 2 apparent fluid collections within the right lower lung consolidation. There is air within these collections. This raises the possibility of abscesses. 2. Adenopathy in the right hilar and right tracheobronchial region. 3. Mild effusion. Assessment and Plan - Assessment (1) Sepsis Code(s): A41.9 - Sepsis, unspecified organism Status: Acute (2) UTI (urinary tract infection) Code(s): N39.0 - Urinary tract infection, site not specified Status: Acute (3) PNA (pneumonia) Code(s): J18.9 - Pneumonia, unspecified organism Status: Acute (4) Lung abscess Code(s): J85.2 - Abscess of lung without pneumonia Status: Acute (5) Seizure disorder Code(s): G40.909 - Epilepsy, unspecified, not intractable, without status epilepticus Status: Acute - Plan 1. Sepsis: Temp 101.6, HR 106, WBC 18.4, Source-UTI/PNA/Lung Abscess, S/p Vanc/Zosyn in ER, will check Blood Cultures, continue w/ IV Abx, IVF for hydration. 2. UTI: Persistent. U/a w/ UTI, seen in ER on 04/11/18 for same complaints, + UTI, s/p Levaquin 750mg x5 days, will continue w/ IV Abx, follow up cultures, IVF, monitor I/O. CT Abd/Pelvis w/ no acute intra-abdominal findings. 3. PNA/Lung Abscess: CT Chest w/ dense consolidation RLL and 2 fluid collections, possibly abscess. Pt denies IVDU. Does have h/o seizure, non- compliant w/ medications w/ recent admission for breakthrough seizure-? due to aspiration. Vanc/Unasyn, Blood Cultures, check Sputum Cultures, DuoNeb prn. Consulted ID and Pulmonology for further eval, possible bronch. 4. Seizure Disorder: w/ recent breakthrough seizure due to non-compliance, s/ p eval by Dr. Liu at that time, on Vimpat 200mg bid and Tegretol 200mg bid , resumed. Seizure precautions as needed. 5. DVT Prophylaxis: SCD/Teds Discharge Planning: home when stable. (1) Sepsis Qualifiers: Sepsis type: sepsis due to unspecified organism Qualified Code(s): A41.9 - Sepsis, unspecified organism
[2018-04-12] MEDS: Vancomycin Inj 1,500 MG in Sodium Chlor 0.9% Inj 500 ML IV.SIG SCH ×2 (09:56→22:43)
--- NOTE | 2018-04-12 13:51 | P.CONID ---
History of Present Illness Service: Infectious Disease Consult date: 04/12/18 Requesting Physician: Lakisha Isaac Reason for Consult: Evaluation and Mment of Lung abscess Primary Care Provider: No Primary Care Physician History of Present Illness: is a 27 y/o -N[place]alese female with past medical history significant for seizure disorder with breakthrough seizures her last seizure being approximately 1 week prior to admission. She reports that she has had breakthrough seizures several times in the past. Patient admits to using marijuana cocaine and her drug screen was also positive for opiates. Patient reports right-sided flank pain and initially presented to the ER on 04/11/2018 for similar complaints and was thought to have a UTI and was discharged on Levaquin 750 mg for 5 days. Patient now returns with ongoing complaints of nonproductive cough, generalized malaise as well as right-sided flank pain. On arrival patient's blood pressure was 133/85, heart rate 106, O2 sats 100% on room air with a temperature of 101.6. Patient also had a WBC count of 18.4 and lactic acid of 1.0 essentially meeting criteria for urinary tract infection. Patient had a CT of the abdomen pelvis which showed a dense consolidation on the right lower lung with 2 oval areas of possible fluid possibly abscess. Patient was started on Vanco and Zosyn in the ER. Infectious diseases consulted for evaluation and management of sepsis and right lung abscess. Pertinent positives and negatives: No history of incarceration No history of positive PPD or known tuberculosis. No other contact for tuberculosis. Denies any intravenous drug abuse but admits to oral as well as sniffing of different street drugs. Review of Systems All other systems reviewed negative except as stated in HPI PMFSH - History History Provided By: Patient - Medical History Medical History: Medical History (Last Reviewed 04/11/18 @ 20:45 by MICK Cagle) Seizure - Surgical History Surgical History: Surgical History (Last Reviewed 04/11/18 @ 20:45 by MICK Cagle) No history of previous surgery - Family History Family History: Family History (Last Reviewed 04/11/18 @ 20:45 by MICK Cagle) Other Family history normal - Tobacco History Second Hand Smoke Exposure: No Smoking Status: Current every day smoker (Last use 1 week prior to admission.) Tobacco Type: Cigarettes - Alcohol History How Often Do You Have a Drink Containing Alcohol: 2 to 4 times a month - Substance Use History Substance History: No History of Abuse - Substance Use Type Marijuana Status: Active Route Used: Inhalation Last Used: occu 1 week ago Reason for Use: Calm Down - Travel History Recent Travel in the [place] Within the Last 8 Weeks: No Recent Travel Out of the Country Within the Last 8 Weeks: No - Immunization History Tetanus Immunization: <5 Years Medications and Allergies Active Medications: Active Medications Acetaminophen (Tylenol) 650 mg PO Q4H PRN PRN Reason: Temp > 100.4 Hydrocodone Bitart/Acetaminophen ([place] 5/325) 1 tab PO Q4H PRN PRN Reason: PAIN 3-5 Hydrocodone Bitart/Acetaminophen ([place] 10/325) 1 tab PO Q4H PRN PRN Reason: PAIN 6-10 Last Admin: 04/12/18 10:34 Dose: 1 tab Al Hydroxide/Mg Hydroxide (Milk Of Magnesia Liq) 30 ml PO Q12H PRN PRN Reason: Mild Constipation Albuterol (Duoneb Neb (Prn)) 1 ampul NEB Q4HR NEB PRN PRN Reason: SOB/WHEEZING Bisacodyl (Dulcolax Supp) 10 mg RECTAL DAILY PRN PRN Reason: SEVERE CONSITIPATION Carbamazepine (Tegretol) 200 mg PO BID [facility] Last Admin: 04/12/18 08:14 Dose: 200 mg Guaifenesin (Mucinex Er) 600 mg PO BID [facility] Last Admin: 04/12/18 08:15 Dose: 600 mg Ampicillin Sodium/Sulbactam (Sodium 3 gm/ Sodium Chloride) 100 mls @ 200 mls/ hr IV.SIG Q6H [facility] Last Admin: 04/12/18 13:42 Dose: 200 mls/hr Sodium Chloride (Ns Inj) 1,000 mls @ 100 mls/hr IV.CONT .Q10H [facility] Last Infusion: 04/12/18 10:36 Dose: 100 mls/hr Vancomycin HCl 1,500 mg/ (Sodium Chloride) 515 mls @ 250 mls/hr IV.SIG Q12H [facility] Last Infusion: 04/12/18 13:05 Dose: Infused Lacosamide (Vimpat) 200 mg PO BID [facility] Last Admin: 04/12/18 08:14 Dose: 200 mg Lactulose (Lactulose Liq) 30 ml PO DAILY PRN PRN Reason: SEVERE CONSITIPATION Lorazepam (Ativan) 1 mg PO BID [facility] Last Admin: 04/12/18 08:14 Dose: 1 mg Miscellaneous Information ([facility] Ordered Lab Info) 1 each OTHER ONCE ONE Stop: 04/13/18 09:46 Morphine Sulfate (Morphine Inj) 2 mg IV.PUSH Q3H PRN PRN Reason: BREAKTHROUGH PAIN Last Admin: 04/12/18 11:51 Dose: 2 mg Ondansetron HCl (Zofran Inj) 4 mg IV.PUSH Q6H PRN PRN Reason: NAUSEA OR VOMITING Pharmacy Profile Note (Vancomycin Consult Pharmacy) 1 each OTHER UNSCH PRN PRN Reason: Pharmacy to dose Senna/Docusate Sodium (Hyacinth-Colace) 1 tab PO BID [facility] Last Admin: 04/12/18 08:18 Dose: Not Given Sennosides (Senokot) 17.2 mg PO Q12H PRN PRN Reason: Moderate Constipation Sodium Chloride (Ns Flush) 2 ml IV.FLUSH BID [facility] Last Admin: 04/12/18 08:15 Dose: Not Given Sodium Chloride (Ns Flush) 2 ml IV.FLUSH PRN PRN PRN Reason: FLUSH AFTER USING IV ACCESS Allergies Allergy/AdvReac Type Severity Reaction Status Date / Time No Known Allergies Allergy Verified 04/11/18 15:52 Home Medications Medication Instructions Recorded Confirmed Type lorazepam [Ativan] 1 mg PO BID 04/04/18 04/11/18 History Exam Vital signs: Vital Signs 04/11/18 15:49 04/11/18 16:51 04/11/18 20:00 Temperature 101.6 F H Pulse Rate 106 H 104 H 87 Respiratory Rate 16 18 18 Blood Pressure 133/85 135/87 Pulse Oximetry 100 100 100 04/12/18 00:00 04/12/18 03:49 04/12/18 08:00 Temperature 98.0 F 98.9 F 99.9 F H Pulse Rate 77 95 H 118 H Respiratory Rate 18 18 17 Blood Pressure 122/77 137/92 H 120/72 Pulse Oximetry 96 98 100 04/12/18 12:00 Temperature 100.0 F H Pulse Rate 119 H Respiratory Rate 17 Blood Pressure 127/78 Pulse Oximetry 100 Intake & Output 04/11/18 04/12/18 04/12/18 18:59 06:59 18:59 Intake Total 1720 / 1720 1615 / 1615 Balance 1720 / 1720 1615 / 1615 Weight 79.379 kg 77.5 kg Intake: IV 1720 / 1720 1615 / 1615 NS Inj 1,000 ML @ 100 mls/hr IV 750 / 750 .CONT .Q10H [facility] Rx#:[id number] Unasyn Inj 3 GM In NS Inj 100 100 / 100 100 / 100 ML @ 200 mls/hr IV.SIG Q6H [facility] Rx#:[id number] Zosyn 4.5 GM Premix 4.5 gm In 100 / 100 100 ml @ 200 mls/hr IV.SIG ONCE ONE Rx#:[id number] NS Inj 1,000 ML @ Wide Open IV. 1000 / 1000 SIG BOLUS ONE Rx#:[id number] Vancomycin Inj 1,000 MG In NS 250 / 250 Inj 250 ML @ 250 mls/hr IV.SIG ONCE ONE Rx#:[id number] Vancomycin Inj 1,500 MG In NS 520 / 520 515 / 515 Inj 500 ML @ 250 mls/hr IV.SIG Q12H [facility] Rx#:[id number] Oral 0 / 0 Other: # Voids 1 Date of Last Bowel Movement 04/10/18 Narrative: GENERAL: Well-nourished well-developed, not in acute distress SKIN: Cool and dry, no generalized rash HEAD: Atraumatic. Normocephalic. No temporal or scalp tenderness. EYES: Pupils equal round and reactive. Scleral icterus. No injection or drainage. No petechia ENT: Nothing abnormal detected NECK: Trachea midline. Supple, nontender, no meningeal signs. CARDIOVASCULAR: HS audible. RESPIRATORY: Decreased air entry on the right side. No other adventitious sounds. GASTROINTESTINAL: Abdomen soft nontender. MUSCULOSKELETAL: Extremities without clubbing, cyanosis. NEUROLOGICAL: Alert oriented 3. Nonfocal. Psych cooperative IV line sites ok. Results - Labs CBC & Chem 7: 04/12/18 07:18 04/11/18 18:20 Labs: Laboratory Results - last 24 hr 04/11/18 04/11/18 12 18:20 18:20 18:20 WBC 18.4 H RBC 3.82 L Hgb 12.3 Hct 35.3 MCV 92.5 MCH 32.3 MCHC 35.0 RDW 13.6 Plt Count 357 MPV 7.5 Neut % (Auto) 85.9 H Lymph % (Auto) 7.2 L Josephine % (Auto) 6.8 Eos % (Auto) 0.0 Baso % (Auto) 0.1 Neut # (Auto) 15.8 H Lymph # (Auto) 1.3 Josephine # (Auto) 1.2 H Eos # (Auto) 0.0 Baso # (Auto) 0.0 WBC Differential . Differential Comment Auto diff final Sodium 132 L Potassium 3.4 L Chloride 99 Carbon Dioxide 25.2 Anion Gap 8 BUN 6 L Creatinine 0.86 Estimated GFR Greater than 89 Random Glucose 80 Lactic Acid 1.0 Calcium 9.1 Magnesium 1.9 Total Bilirubin 0.4 AST 9 L ALT 21 Alkaline Phosphatase 73 Total Protein 9.4 H Albumin 3.2 L Urine Color Urine Clarity Urine pH Ur Specific [place] Urine Protein Urine Glucose (UA) Urine Ketones Urine Occult Blood Urine Nitrate Urine Bilirubin Urine Urobilinogen Ur Leukocyte Esterase Urine RBC Urine WBC Ur Squamous Epith Cells Urine Bacteria Urine Mucus Micro UA Comment Ur Microscopic Review Urine Culture Comments Urine Opiates Screen Ur Barbiturates Screen Ur Amphetamines Screen U Benzodiazepines Scrn Urine Cocaine Screen U Cannabinoids Screen 04/11/18 04/11/18 04/12/18 18:20 18:20 07:18 WBC 14.8 H RBC 3.35 L Hgb 10.6 L Hct 30.8 L MCV 91.8 MCH 31.6 MCHC 34.4 RDW 14.0 Plt Count 317 MPV 7.6 Neut % (Auto) 85.0 H Lymph % (Auto) 5.8 L Josephine % (Auto) 8.7 H Eos % (Auto) 0.3 Baso % (Auto) 0.2 Neut # (Auto) 12.6 H Lymph # (Auto) 0.9 L Josephine # (Auto) 1.3 H Eos # (Auto) 0.0 Baso # (Auto) 0.0 WBC Differential . Differential Comment Auto diff final Sodium Potassium Chloride Carbon Dioxide Anion Gap BUN Creatinine Estimated GFR Random Glucose Lactic Acid Calcium Magnesium Total Bilirubin AST ALT Alkaline Phosphatase Total Protein Albumin Urine Color Michelle Urine Clarity Cloudy H Urine pH 6.0 Ur Specific [place] 1.024 Urine Protein 100 H Urine Glucose (UA) Negative Urine Ketones 80 or greater H Urine Occult Blood Negative Urine Nitrate Negative Urine Bilirubin Negative Urine Urobilinogen 4 or greater Ur Leukocyte Esterase Trace H Urine RBC 2 Urine WBC 30 H Ur Squamous Epith Cells 21 Urine Bacteria Rare H Urine Mucus Moderate H Micro UA Comment Culture indicated Ur Microscopic Review Not Reportable Urine Culture Comments Culture indicated Urine Opiates Screen Pos H Ur Barbiturates Screen Neg Ur Amphetamines Screen Neg U Benzodiazepines Scrn Neg Urine Cocaine Screen Pos H U Cannabinoids Screen Pos H - Imaging Impressions Abdomen/Pelvis CT 04/11/18 16:56 CONCLUSION: 1. Dense consolidation in the right lower lung with 2 oval areas of fluid and air raising the possibility of abscesses in the lung. There is a mild right pleural effusion. 2. No definite acute abnormality is seen within the abdomen and pelvis. Chest CT 04/11/18 19:57 CONCLUSION: 1. Dense consolidation in the right lower lung with 2 apparent fluid collections within the right lower lung consolidation. There is air within these collections. This raises the possibility of abscesses. 2. Adenopathy in the right hilar and right tracheobronchial region. 3. Mild effusion. Assessment and Plan - Plan Sepsis present on admission Right lung abscess differential diagnosis possible aspiration during episode of seizure versus septic emboli from endocarditis. Recent antibiotic use for possible UTI Right flank pain: Appears to be related to her right lung abscess. CT abdomen with no evidence of pyelonephritis or other abdominal processes. Rule out endocarditis Recommendations Continue Unasyn IV Continue vancomycin IV target trough 15-20 Follow blood cultures Discussed with as well as the patient: Bronchoscopy for diagnostic and therapeutic purposes(patient could have aspirated food content) Follow clinical course Discussed with YASEMIN
--- NOTE | 2018-04-12 14:54 | MB ---
cc: Blair Mcdonald MD DATE: 04/12/2018 REQUESTING PHYSICIAN: Lakisha Isaac MD REASON FOR CONSULTATION: Lung abscess. HISTORY OF PRESENT ILLNESS: Ms. Pugh is a 27-year-old female with history of seizure disorder. She came to the hospital with right-sided flank pain going on for 3-4 days. She also had fever up to 101. She has frequency of urination, but no dysuria. No nausea or vomiting. With these symptoms, she came to the hospital. She had a workup done. Her CT scan of the chest shows she has right lung dense consolidation with right lower lobe, two apparent fluid collections, possible developing abscess. Her CBC shows WBC count 14.8, hemoglobin 10.6, hematocrit 30.8, MCV 91.8, platelet count 317. Sodium 132, potassium 3.4, chloride 99, CO2 25, BUN 6, creatinine 0.86. Her toxicology screen is positive for opioids, cocaine and cannabis. PAST MEDICAL HISTORY: Significant for history of seizure disorder. MEDICATIONS: She is currently takin. Tylenol. 2. [place] for pain. 3. DuoNeb nebulizer treatment. 4. Antibiotic Unasyn. 5. Carbamazepine 200 mg twice a day. 6. Mucinex 600 mg twice a day. 7. Vimpat 200 mg twice a day. 8. Lorazepam 1 mg twice a day. 9. Morphine for pain. ALLERGIES: NO KNOWN DRUG ALLERGIES. SOCIAL HISTORY: She is single. She lives with her children. She has 2 children. 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 She has no history of smoking. Does use marijuana. Denies any IV drug use. FAMILY HISTORY: Noncontributory. REVIEW OF SYSTEMS: Normally she is up and active. She has history of seizure. No stroke. No DVT or pulmonary embolism. PHYSICAL EXAMINATION: GENERAL: Well-developed, well-nourished female, not in any acute distress. VITAL SIGNS: Blood pressure 127/78, heart rate 100, respirations 17, temperature 100. HEENT: Pupils are equal and reactive to light. Oral mucosa and nasal mucosa normal. NECK: Supple. CHEST: Bronchus assessment is normal. ABDOMEN: Benign. IMPRESSION: 1. Right lung dense infiltrate with possible developing abscess. Possibility of aspiration. 2. Seizure disorder. 3. Anxiety. PLAN: I discussed with the patient she will need bronchoscopy. I will discuss with Dr. Margaux Werner. I explained to her the procedure and the complications, including complication of anesthesia, pneumothorax requiring chest tube, complications due to the blood loss, lungs, nerves, arrhythmia, hypoxia, which she understands and willing to proceed with it. She will be scheduled for bronchoscopy at 3 p.[address]. tomorrow. Thank you Dr. Isaac, for this consult. MD GINNY Felix/jim/danish , 02:15 PM , 02:23 PM ZACHERY
[2018-04-13] MEDS ORDERED: Chlorhexidine Gluconate 2% 1 Pack (2 Cloths) TOPICAL ONE (00:53)
[2018-04-13] MEDS ORDERED: Metoprolol Tartrate 25 MG Tablet PO SCH (00:53)
[2018-04-13] MEDS ORDERED: Sodium Chloride 0.9% 2 ML Flush PRN IV.FLUSH (00:56)
[2018-04-13] MEDS ORDERED: Sodium Chlor 0.9% Inj 500 ML IV.SIG SCH (01:00)
[2018-04-13] MEDS: Ampicillin/Sulbactam Inj 3 GM in Sodium Chloride 0.9% Inj 100 ML IV.SIG SCH ×4 (01:33→20:31)
[2018-04-13] MEDS: Morphine Sulfate Inj 2 MG/ML Vial IV.PUSH PRN ×2 (02:28→08:39)
[2018-04-13] MEDS: Sod Chloride 0.9% Inj 1,000 ML IV.CONT SCH ×3 (02:39→17:45)
[2018-04-13 07:27] LABS: Baso # (Auto) 0.1 th/mm3 (0.0-0.2); Baso % (Auto) 0.5 % (0.0-2.0); Eos # (Auto) 0.1 th/mm3 (0.0-0.4); Eos % (Auto) 0.3 % (0.0-4.0); Hematocrit 31.6 % (35.0-46.0); Hemoglobin 10.9 gm/dL (11.6-15.3); Lymph # (Auto) 1.2 th/mm3 (1.0-4.8); Lymph % (Auto) 7.9 % (9.0-44.0); Mean Corpuscular HGB Conc 34.4 % (32.0-36.0); Mean Corpuscular Hemoglobin 31.2 pg (27.0-34.0); Mean Corpuscular Volume 90.7 fL (80.0-100.0); Mean Platelet Volume 7.9 fL (7.0-11.0); Mono # (Auto) 1.3 th/mm3 (0.0-0.9); Mono % (Auto) 8.6 % (0.0-8.0); Neut # (Auto) 12.7 th/mm3 (1.8-7.7); Neut % (Auto) 82.7 % (16.0-70.0); Platelet Count 320 th/mm3 (150-450); Red Blood Count 3.49 mil/mm3 (4.00-5.30); Red Cell Distribution Width 13.7 % (11.6-17.2); White Blood Count 15.3 th/mm3 (4.0-11.0)
--- NOTE | 2018-04-13 08:28 | P.PNIM ---
Subjective Interval history: f/u; lung abscess in no acute distress. still has some pain to the right chest. Tmax 102.4. Physical Exam Vital signs: Vital Signs 04/12/18 12:00 04/12/18 16:00 04/12/18 20:00 Temperature 100.0 F H 102.4 F H 98.2 F Pulse Rate 119 H 107 H 91 H Respiratory Rate 17 17 16 Blood Pressure 127/78 155/89 H 142/96 H Pulse Oximetry 100 100 96 04/13/18 00:00 04/13/18 04:00 04/13/18 08:00 Temperature 98.8 F 100.7 F H 99.3 F Pulse Rate 103 H 104 H 105 H Respiratory Rate 18 16 18 Blood Pressure 134/94 H 137/94 H 131/79 Pulse Oximetry 100 100 100 Intake & Output 04/12/18 04/13/18 04/13/18 18:59 06:59 18:59 Intake Total 3515 / 3515 2315 / 2315 Balance 3515 / 3515 2315 / 2315 Intake: IV 2715 / 2715 1715 / 1715 NS Inj 1,000 ML @ 100 mls/hr IV 1750 / 1750 1000 / 1000 .CONT .Q10H [facility] Rx#:[id number] Unasyn Inj 3 GM In NS Inj 100 200 / 200 200 / 200 ML @ 200 mls/hr IV.SIG Q6H [facility] Rx#:[id number] Vancomycin Inj 1,000 MG In NS 250 / 250 Inj 250 ML @ 250 mls/hr IV.SIG ONCE ONE Rx#:[id number] Vancomycin Inj 1,500 MG In NS 515 / 515 515 / 515 Inj 500 ML @ 250 mls/hr IV.SIG Q12H [facility] Rx#:[id number] Oral 800 / 800 600 / 600 Other: # Voids 3 5 - Constitutional no acute distress - Routine Respiratory Exam Present: diminished air movement (right base.) - Routine Cardiovascular Exam Present: RRR - Routine Abdominal Exam Present: soft - Routine Extremities Exam Comments: no pedal edema. - Routine Neurological Exam Present: alert, oriented X3 Results - Labs CBC & Chem 7: 04/13/18 06:17 12 18:20 Laboratory Results - last 24 hr 04/13/18 06:17 WBC 15.3 H RBC 3.49 L Hgb 10.9 L Hct 31.6 L MCV 90.7 MCH 31.2 MCHC 34.4 RDW 13.7 Plt Count 320 MPV 7.9 Neut % (Auto) 82.7 H Lymph % (Auto) 7.9 L [place] % (Auto) 8.6 H Eos % (Auto) 0.3 Baso % (Auto) 0.5 Neut # (Auto) 12.7 H Lymph # (Auto) 1.2 [place] # (Auto) 1.3 H Eos # (Auto) 0.1 Baso # (Auto) 0.1 WBC Differential . Differential Comment Auto diff final Microbiology 04/11/18 18:20 Clean Catch Urine Urine Culture - Preliminary No growth. 04/11/18 21:10 Blood - Peripheral Aerobic Blood Culture - Preliminary No growth in 1 day 04/11/18 21:10 Blood - Peripheral Anaerobic Blood Culture - Preliminary No growth in 1 day 04/11/18 21:12 Blood - Peripheral Aerobic Blood Culture - Preliminary No growth in 1 day 04/11/18 21:12 Blood - Peripheral Anaerobic Blood Culture - Preliminary No growth in 1 day Assessment and Plan - Assessment (1) Sepsis Code(s): A41.9 - Sepsis, unspecified organism Status: Acute (2) UTI (urinary tract infection) Code(s): N39.0 - Urinary tract infection, site not specified Status: Acute (3) PNA (pneumonia) Code(s): J18.9 - Pneumonia, unspecified organism Status: Acute (4) Lung abscess Code(s): J85.2 - Abscess of lung without pneumonia Status: Acute (5) Seizure disorder Code(s): G40.909 - Epilepsy, unspecified, not intractable, without status epilepticus Status: Acute - Plan 1. Sepsis: Source-UTI/PNA/Lung Abscess, continue w/ IV Abx, IVF for hydration. follow the blood cultures. 2. UTI: Persistent. U/a w/ UTI, seen in ER on 04/11/18 for same complaints, + UTI, s/p Levaquin 750mg x5 days, will continue w/ IV Abx, follow up cultures, IVF, monitor I/O. CT Abd/Pelvis w/ no acute intra-abdominal findings. 3. PNA/Lung Abscess: CT Chest w/ dense consolidation RLL and 2 fluid collections, possibly abscess. Pt denies IVDU. Does have h/o seizure, non- compliant w/ medications w/ recent admission for breakthrough seizure-? due to aspiration. continue Vanc/Unasyn, Blood Cultures. ID and pulmonary consults appreciated; plan for bronchoscopy today. 4. Seizure Disorder: w/ recent breakthrough seizure due to non-compliance, s/ p eval by Dr. Liu at that time, on Vimpat 200mg bid and Tegretol 200mg bid , resumed. Seizure precautions as needed. 5. DVT Prophylaxis: SCD/Teds Discharge Planning: home when stable-for bronchoscopy today. (1) Sepsis Qualifiers: Sepsis type: sepsis due to unspecified organism Qualified Code(s): A41.9 - Sepsis, unspecified organism
[2018-04-13] MEDS: carBAMazepine 200 MG Tablet PO SCH ×2 (08:41→20:28)
[2018-04-13] MEDS: Senna/Docusate Sodium 8.6/50 MG Tablet PO SCH ×2 (08:41→20:29)
[2018-04-13] MEDS: LORazepam 1 MG Tablet PO SCH ×2 (08:41→20:29)
[2018-04-13] MEDS: guaiFENesin 600 MG ER Tablet PO SCH ×2 (08:41→20:28)
[2018-04-13] MEDS: Lacosamide 100 MG Tablet PO SCH ×2 (08:42→20:28)
[2018-04-13] MEDS ORDERED: Pharmacy Ordered Lab Info OTHER ONE (09:45)
[2018-04-13] MEDS: Sodium Chloride 0.9% 2 ML Flush BID IV.FLUSH SCH ×2 (10:13→20:31)
[2018-04-13] MEDS: Vancomycin Inj 1,500 MG in Sodium Chlor 0.9% Inj 500 ML IV.SIG SCH ×2 (11:07→18:20)
[2018-04-13 11:44] LABS: Anion Gap 9 meq/L (5-15); Calcium 7.9 mg/dL (8.5-10.1); Carbon Dioxide 27.5 meq/L (21.0-32.0); Chloride 105 meq/L (98-107); Glomerular Filtration Rate Greater Than 89 mL/min (>89); Glucose,Random 119 mg/dL (74-106); Potassium 3.4 meq/L (3.5-5.1); Sodium 141 meq/L (136-145); Vancomycin,Trough 7.4 mcg/mL (5.0-10.0)
--- NOTE | 2018-04-13 12:46 | P.PNID ---
Subjective Remarks: is a 27 y/o -[place] female with past medical history significant for seizure disorder with breakthrough seizures her last seizure being approximately 1 week prior to admission. She reports that she has had breakthrough seizures several times in the past. Patient admits to using marijuana cocaine and her drug screen was also positive for opiates. Patient reports right-sided flank pain and initially presented to the ER on 04/11/2018 for similar complaints and was thought to have a UTI and was discharged on Levaquin 750 mg for 5 days. Patient now returns with ongoing complaints of nonproductive cough, generalized malaise as well as right-sided flank pain. On arrival patient's blood pressure was 133/85, heart rate 106, O2 sats 100% on room air with a temperature of 101.6. Patient also had a WBC count of 18.4 and lactic acid of 1.0 essentially meeting criteria for urinary tract infection. Patient had a CT of the abdomen pelvis which showed a dense consolidation on the right lower lung with 2 oval areas of possible fluid possibly abscess. Patient was started on Vanco and Zosyn in the ER. Infectious diseases consulted for evaluation and management of sepsis and right lung abscess. Pertinent positives and negatives: No history of incarceration No history of positive PPD or known tuberculosis. No other contact for tuberculosis. Denies any intravenous drug abuse but admits to oral as well as sniffing of different street drugs. Overnight events reviewed Low grade fevers No rash No diarrhea Still complains of Right side posterior chest pain. Antibiotics: Unasyn IV Vanco IV Lines: Lines ok Past Medical History: reviewed Allergies/Adverse Reactions: Allergies No Known Allergies Allergy (Verified 04/11/18 15:52) Objective Vital Signs 04/12/18 16:00 04/12/18 20:00 04/13/18 00:00 Temperature 102.4 F H 98.2 F 98.8 F Pulse Rate 107 H 91 H 103 H Respiratory Rate 17 16 18 Blood Pressure 155/89 H 142/96 H 134/94 H Pulse Oximetry 100 96 100 04/13/18 04:00 04/13/18 08:00 04/13/18 11:23 Temperature 100.7 F H 99.3 F Pulse Rate 104 H 105 H 100 H Respiratory Rate 16 18 18 Blood Pressure 137/94 H 131/79 Pulse Oximetry 100 100 04/13/18 12:26 Temperature 98.8 F Pulse Rate 95 H Respiratory Rate 18 Blood Pressure 140/82 Pulse Oximetry 100 Intake & Output 04/12/18 04/13/18 04/13/18 18:59 06:59 18:59 Intake Total 3515 / 3515 2315 / 2315 100 / 100 Balance 3515 / 3515 2315 / 2315 100 / 100 Intake: IV 2715 / 2715 1715 / 1715 100 / 100 NS Inj 1,000 ML @ 100 mls/hr IV 1750 / 1750 1000 / 1000 .CONT .Q10H [facility] Rx#:[id number] Unasyn Inj 3 GM In NS Inj 100 200 / 200 200 / 200 100 / 100 ML @ 200 mls/hr IV.SIG Q6H [facility] Rx#:[id number] Vancomycin Inj 1,000 MG In NS 250 / 250 Inj 250 ML @ 250 mls/hr IV.SIG ONCE ONE Rx#:[id number] Vancomycin Inj 1,500 MG In NS 515 / 515 515 / 515 Inj 500 ML @ 250 mls/hr IV.SIG Q12H [facility] Rx#:[id number] Oral 800 / 800 600 / 600 Other: # Voids 3 5 04/11/18 18:20 Clean Catch Urine Urine Culture - Final Gardnerella vaginalis 04/11/18 21:10 Blood - Peripheral Aerobic Blood Culture - Preliminary No growth in 2 days 04/11/18 21:10 Blood - Peripheral Anaerobic Blood Culture - Preliminary No growth in 2 days 04/11/18 21:12 Blood - Peripheral Aerobic Blood Culture - Preliminary No growth in 2 days 04/11/18 21:12 Blood - Peripheral Anaerobic Blood Culture - Preliminary No growth in 2 days Lab - Hematology Results 04/11/18 04/12/18 04/13/18 18:20 07:18 06:17 WBC 18.4 H 14.8 H 15.3 H RBC 3.82 L 3.35 L 3.49 L Hgb 12.3 10.6 L 10.9 L Hct 35.3 30.8 L 31.6 L MCV 92.5 91.8 90.7 MCH 32.3 31.6 31.2 MCHC 35.0 34.4 34.4 RDW 13.6 14.0 13.7 Plt Count 357 317 320 MPV 7.5 7.6 7.9 Neut % (Auto) 85.9 H 85.0 H 82.7 H Lymph % (Auto) 7.2 L 5.8 L 7.9 L Norman % (Auto) 6.8 8.7 H 8.6 H Eos % (Auto) 0.0 0.3 0.3 Baso % (Auto) 0.1 0.2 0.5 Neut # (Auto) 15.8 H 12.6 H 12.7 H Lymph # (Auto) 1.3 0.9 L 1.2 Norman # (Auto) 1.2 H 1.3 H 1.3 H Eos # (Auto) 0.0 0.0 0.1 Baso # (Auto) 0.0 0.0 0.1 WBC Differential . . . Differential Comment Auto diff final Auto diff final Auto diff final Lab - Chemistry Results 04/11/18 04/11/18 04/13/18 18:20 18:20 09:50 Sodium 132 L 141 Potassium 3.4 L 3.4 L Chloride 99 105 Carbon Dioxide 25.2 27.5 Anion Gap 8 9 BUN 6 L Less than 1 L Creatinine 0.86 0.67 Estimated GFR Greater than 89 Greater than 89 Random Glucose 80 119 H Lactic Acid 1.0 Calcium 9.1 7.9 L D Magnesium 1.9 Total Bilirubin 0.4 AST 9 L ALT 21 Alkaline Phosphatase 73 Total Protein 9.4 H Albumin 3.2 L Imaging: ITS Impressions Abdomen/Pelvis CT 04/11/18 16:56 CONCLUSION: 1. Dense consolidation in the right lower lung with 2 oval areas of fluid and air raising the possibility of abscesses in the lung. There is a mild right pleural effusion. 2. No definite acute abnormality is seen within the abdomen and pelvis. Chest CT 04/11/18 19:57 CONCLUSION: 1. Dense consolidation in the right lower lung with 2 apparent fluid collections within the right lower lung consolidation. There is air within these collections. This raises the possibility of abscesses. 2. Adenopathy in the right hilar and right tracheobronchial region. 3. Mild effusion. Physical Exam: GENERAL: Well-nourished well-developed, not in acute distress SKIN: Cool and dry, no generalized rash HEAD: Atraumatic. Normocephalic. No temporal or scalp tenderness. EYES: Pupils equal round and reactive. Scleral icterus. No injection or drainage. No petechia ENT: Nothing abnormal detected NECK: Trachea midline. Supple, nontender, no meningeal signs. CARDIOVASCULAR: HS audible. RESPIRATORY: Decreased air entry on the right side. No other adventitious sounds. GASTROINTESTINAL: Abdomen soft nontender. MUSCULOSKELETAL: Extremities without clubbing, cyanosis. NEUROLOGICAL: Alert oriented 3. Nonfocal. Psych cooperative IV line sites ok. Assessment and Plan - Plan Sepsis present on admission Right lung abscess differential diagnosis possible aspiration during episode of seizure versus septic emboli from endocarditis. Recent antibiotic use for possible UTI Gardnerella vaginalis infection Right flank pain: Appears to be related to her right lung abscess. CT abdomen with no evidence of pyelonephritis or other abdominal processes. Rule out endocarditis Seizure disorder: reports occ non compliance with medications. Recommendations Continue Unasyn IV Continue vancomycin IV target trough 15-20 Follow 2D ECHO. Follow blood cultures Discussed with and Tamara as well as the patient: Bronchoscopy for diagnostic and therapeutic purposes(patient could have aspirated food content) Follow clinical course Discussed with YASEMIN maguire patient about Gardnerella Vaginalis. She consents to testing for all other STDs including HIV. andrez Mascorro: test for AED levels and nutrition counselor patients. Watch for seizures in hospital. I will be OOT from 04/14/2018 to 04/19/2018. Other ID MDs to cover for me.
[2018-04-13 14:50] LABS: Hepatitits B Surface Antigen Nonreactive (Nonreactive)
[2018-04-13 15:33] LABS: Hepatitis A IgM Antibody Nonreactive (Nonreactive)
[2018-04-13] MEDS ORDERED: *Meperidine Inj 25 MG/ML Vial PERIprocedural Use ONLY ONE (16:33)
--- NOTE | 2018-04-13 16:37 | P.PNPL ---
Subjective Interval history: 27 YOAA female with Sz, rt CP CT chest rt lung abscess had Bronch Small amount of thick mucous suctioned No Endobronchial obst Physical Exam Vital signs: Vital Signs 04/12/18 20:00 04/13/18 00:00 04/13/18 04:00 Temperature 98.2 F 98.8 F 100.7 F H Pulse Rate 91 H 103 H 104 H Respiratory Rate 16 18 16 Blood Pressure 142/96 H 134/94 H 137/94 H Pulse Oximetry 96 100 100 04/13/18 08:00 04/13/18 11:23 04/13/18 12:26 Temperature 99.3 F 98.8 F Pulse Rate 105 H 100 H 95 H Respiratory Rate 18 18 18 Blood Pressure 131/79 140/82 Pulse Oximetry 100 100 04/13/18 16:00 Temperature 98.7 F Pulse Rate 110 H Respiratory Rate 16 Blood Pressure 139/88 Pulse Oximetry 100 Intake & Output 04/12/18 04/13/18 04/13/18 18:59 06:59 18:59 Intake Total 3515 / 3515 2315 / 2315 1315 / 1315 Balance 3515 / 3515 2315 / 2315 1315 / 1315 Intake: IV 2715 / 2715 1715 / 1715 1315 / 1315 NS Inj 1,000 ML @ 100 mls/hr IV 1750 / 1750 1000 / 1000 700 / 700 .CONT .Q10H [facility] Rx#:[id number] Unasyn Inj 3 GM In NS Inj 100 200 / 200 200 / 200 100 / 100 ML @ 200 mls/hr IV.SIG Q6H [facility] Rx#:[id number] Vancomycin Inj 1,000 MG In NS 250 / 250 Inj 250 ML @ 250 mls/hr IV.SIG ONCE ONE Rx#:[id number] Vancomycin Inj 1,500 MG In NS 515 / 515 515 / 515 515 / 515 Inj 500 ML @ 250 mls/hr IV.SIG Q12H [facility] Rx#:[id number] Oral 800 / 800 600 / 600 Other: # Voids 3 5 Date of Last Bowel Movement 04/10/18 GENERAL: WBWN NAD SKIN: Warm and dry. HEAD: Normocephalic. EYES: No scleral icterus. No injection or drainage. NECK: Supple, trachea midline. No JVD or lymphadenopathy. CARDIOVASCULAR: Regular rate and rhythm without murmurs, gallops, or rubs. RESPIRATORY: Breath sounds equal bilaterally. No accessory muscle use. GASTROINTESTINAL: Abdomen soft, non-tender, nondistended. MUSCULOSKELETAL: No cyanosis, or edema. BACK: Nontender without obvious deformity. No CVA tenderness. Assessment and Plan - Plan IMPRESSION: 1. Right lung dense infiltrate with possible developing abscess. Possibility of aspiration. 2. Seizure disorder. 3. Anxiety. PLAN: Cont Abx Check BAL results DW pt and her mother
--- NOTE | 2018-04-13 16:37 | XR ---
EXAM DATE: 04/13/2018 4:29 PM EST AGE/SEX: 27 years / Female INDICATIONS: Coughing and short of breath post bronchoscopy, evaluate for pneumothorax CLINICAL DATA: This is the patient's subsequent encounter. Patient reports that signs and symptoms h ave been present for 1 day and indicates a pain score of Nonresponsive. MEDICAL/SURGICAL HISTORY: Non-responsive. Non-responsive. COMPARISON: [facility] [place] 1V SINGLE AP, 03/26/2018. . FINDINGS: There is interval development of bilateral consolidation and a moderate right effusion. There is volu me loss bilaterally. Cardiomegaly. Osseous structures are intact. I do not see a pneumothorax. CONCLUSION: Bilateral consolidation and right effusion. Electronically signed by: Javier Arvizu MD 04/13/2018 4:36 PM EST
[2018-04-13] MEDS: metroNIDAZOLE 500 MG Tablet PO SCH ×3 (17:27→22:32)
--- NOTE | 2018-04-13 19:36 | MP ---
cc: Blair Mcdonald MD DATE OF OPERATION: 04/13/2018 DATE OF PROCEDURE: 04/13/2018 PROCEDURE PERFORMED: Bronchoscopy. PREOPERATIVE DIAGNOSIS: Right lung infiltrate and aspiration. POSTOPERATIVE DIAGNOSIS: Thick mucus suctioned from the right lung. No endobronchial lesion. DESCRIPTION OF PROCEDURE: Informed consent was obtained from the patient. Procedure and complications, including complications of anesthesia, pneumothorax requiring chest tube, bleeding complications, injury to the blood vessels, lungs, nerves, arrhythmia, hypoxia were explained to the patient and her mother at the bedside. They agreed for the procedure. The patient was brought to endoscopy suite. Under general anesthesia, LMA tube was placed by anesthesiologist. Bronchoscopy done through LMA tube. Vocal cords were normal, 2% 2 mL of lidocaine was infiltrated on the vocal cords to minimize cough. Bronchoscope advanced to the trachea. Trachea is normal. Main boogie is sharp. Bronchus were down to the right lung. Right upper, middle, and lower lobe were visualized. A small amount of thick mucus was suctioned from the right lower lobe area. After suctioning all subsegments were clear. Then, bronchoscope was withdrawn to the left lung. Left upper lingular and lower lobe visualized. No endobronchial mucosal lesion was seen. Bronchial washings were sent for routine culture, AFB, fungal culture and cytology. Postprocedure chest x-ray ordered to rule out pneumothorax. MD GINNY Felix/nikia , 03:46 PM , 03:52 PM
[2018-04-14] MEDS: Sod Chloride 0.9% Inj 1,000 ML IV.CONT SCH ×4 (00:47→18:46)
[2018-04-14] MEDS: Vancomycin Inj 1,500 MG in Sodium Chlor 0.9% Inj 500 ML IV.SIG SCH ×3 (01:00→23:59)
[2018-04-14] MEDS: Ampicillin/Sulbactam Inj 3 GM in Sodium Chloride 0.9% Inj 100 ML IV.SIG SCH ×4 (01:00→20:57)
[2018-04-14] MEDS: metroNIDAZOLE 500 MG Tablet PO SCH ×4 (06:05→22:57)
[2018-04-14 06:17] LABS: Baso % (Auto) 0.3 % (0.0-2.0); Hematocrit 28.7 % (35.0-46.0); Hemoglobin 9.7 gm/dL (11.6-15.3); Lymph # (Auto) 1.6 th/mm3 (1.0-4.8); Lymph % (Auto) 11.1 % (9.0-44.0); Mean Corpuscular HGB Conc 33.9 % (32.0-36.0); Mean Corpuscular Hemoglobin 31.5 pg (27.0-34.0); Mean Corpuscular Volume 92.8 fL (80.0-100.0); Mean Platelet Volume 7.7 fL (7.0-11.0); Mono % (Auto) 6.9 % (0.0-8.0); Neut # (Auto) 11.5 th/mm3 (1.8-7.7); Neut % (Auto) 81.7 % (16.0-70.0); Platelet Count 315 th/mm3 (150-450); Red Blood Count 3.09 mil/mm3 (4.00-5.30); Red Cell Distribution Width 13.9 % (11.6-17.2); White Blood Count 14.1 th/mm3 (4.0-11.0)
[2018-04-14 06:37] LABS: Anion Gap 6 meq/L (5-15); Calcium 7.9 mg/dL (8.5-10.1); Carbon Dioxide 29.3 meq/L (21.0-32.0); Chloride 106 meq/L (98-107); Glomerular Filtration Rate Greater Than 89 mL/min (>89); Glucose,Random 100 mg/dL (74-106); Potassium 3.1 meq/L (3.5-5.1); Sodium 141 meq/L (136-145)
[2018-04-14] MEDS: guaiFENesin 600 MG ER Tablet PO SCH ×2 (10:08→20:57)
[2018-04-14] MEDS: Senna/Docusate Sodium 8.6/50 MG Tablet PO SCH ×2 (10:08→21:02)
[2018-04-14] MEDS: LORazepam 1 MG Tablet PO SCH ×2 (10:08→20:57)
[2018-04-14] MEDS: carBAMazepine 200 MG Tablet PO SCH ×2 (10:08→20:57)
[2018-04-14] MEDS: Sodium Chloride 0.9% 2 ML Flush BID IV.FLUSH SCH ×2 (10:08→21:02)
[2018-04-14 10:12] LABS: RPR Screen For Reflex FTA Nonreactive (Nonreactive)
[2018-04-14] MEDS: Lacosamide 100 MG Tablet PO SCH ×3 (10:17→20:57)
--- NOTE | 2018-04-14 10:17 | P.PNIM ---
Subjective Interval history: f/u; lung abscess in no acute distress. looks and feels better and more comfortable. no fever. Physical Exam Vital signs: Last Vital Signs Temp 97.7 F 04/14/18 08:00 Pulse 98 H 04/14/18 08:00 Resp 19 04/14/18 08:00 BP 139/91 H 04/14/18 08:00 Pulse Ox 99 04/14/18 08:00 Intake & Output 04/12/18 04/13/18 04/14/18 04/15/18 06:59 06:59 06:59 06:59 Intake Total 1720 / 1720 5830 / 5830 4495 / 4495 Balance 1720 / 1720 5830 / 5830 4495 / 4495 Weight 77.5 kg 77.9 kg Constitutional no acute distress Routine Respiratory Exam Present CTA bilaterally Comments: better air entry right base. Routine Cardiovascular Exam Present RRR Routine Abdominal Exam Present soft Routine Extremities Exam Comments: no pedal edema. Routine Neurological Exam Present alert and oriented X3 Results Labs CBC & Chem 7: 04/14/18 05:02 04/14/18 05:02 Labs: Microbiology 04/13/18 15:30 Bronchial - Bronchial Gram Stain - Final 04/11/18 18:20 Clean Catch Urine Urine Culture - Final Gardnerella vaginalis 04/11/18 21:10 Blood - Peripheral Aerobic Blood Culture - Preliminary No growth in 2 days 04/11/18 21:10 Blood - Peripheral Anaerobic Blood Culture - Preliminary No growth in 2 days 04/11/18 21:12 Blood - Peripheral Aerobic Blood Culture - Preliminary No growth in 2 days 04/11/18 21:12 Blood - Peripheral Anaerobic Blood Culture - Preliminary No growth in 2 days Imaging Imaging: Impressions Chest X-Ray 04/13/18 15:44 CONCLUSION: Bilateral consolidation and right effusion. Assessment and Plan Plan 1. Sepsis: Source-UTI/PNA/Lung Abscess, continue w/ IV Abx, IVF for hydration. follow the blood cultures. 2. UTI: Persistent. U/a w/ UTI, seen in ER on 04/11/18 for same complaints, + UTI, s/p Levaquin 750mg x5 days, will continue w/ IV Abx, follow up cultures, IVF, monitor I/O. CT Abd/Pelvis w/ no acute intra-abdominal findings. 3. PNA/Lung Abscess: CT Chest w/ dense consolidation RLL and 2 fluid collections, possibly abscess. Pt denies IVDU. Does have h/o seizure, non- compliant w/ medications w/ recent admission for breakthrough seizure-? due to aspiration. continue Vanc/Unasyn. s/p bronchoscopy- will follow the cultures and echo. ID and pulmonary following. 4. Seizure Disorder: w/ recent breakthrough seizure due to non-compliance, s/ p eval by Dr. Liu at that time, on Vimpat 200mg bid and Tegretol 200mg bid , resumed. Seizure precautions as needed. 5. Gardnerella Vaginalis infection; started on Flagyl. HIV testing negative. 6. Hypoaklemia; will replace and monitor. 7. DVT Prophylaxis: SCD/Teds Discharge Planning: home when stable-for bronchoscopy today.
[2018-04-14] MEDS ORDERED: Pharmacy Ordered Lab Info OTHER ONE (10:45)
[2018-04-14] MEDS: Morphine Sulfate Inj 2 MG/ML Vial IV.PUSH PRN (17:52)
--- NOTE | 2018-04-14 18:52 | P.PNPL ---
Subjective Interval history: 27 YOAA female with Sz, rt CP CT chest rt lung abscess had Bronch Small amount of thick mucous suctioned No Endobronchial obst Breathing betetr Physical Exam Vital signs: Vital Signs 04/13/18 20:00 04/14/18 00:00 04/14/18 01:15 Temperature 98.2 F 98.0 F Pulse Rate 102 H 85 Respiratory Rate 19 19 20 Blood Pressure 139/90 139/94 H Pulse Oximetry 98 100 04/14/18 04:00 04/14/18 06:17 04/14/18 07:26 Temperature 97.7 F Pulse Rate 89 91 H Respiratory Rate 19 17 Blood Pressure 158/102 H 150/88 H Pulse Oximetry 98 04/14/18 08:00 04/14/18 12:00 04/14/18 16:00 Temperature 97.7 F 97.7 F 98.3 F Pulse Rate 98 H 79 94 H Respiratory Rate 19 19 19 Blood Pressure 139/91 H 150/95 H 138/92 H Pulse Oximetry 99 99 99 04/14/18 16:48 Temperature Pulse Rate 102 H Respiratory Rate 18 Blood Pressure Pulse Oximetry Intake & Output 04/13/18 04/14/18 04/14/18 18:59 06:59 18:59 Intake Total 2565 / 2565 1930 / 1930 2315 / 2315 Balance 2565 / 2565 1930 / 1930 2315 / 2315 Weight 77.9 kg Intake: IV 1665 / 1665 1230 / 1230 715 / 715 NS Inj 1,000 ML @ 100 mls/hr IV 700 / 700 .CONT .Q10H [facility] Rx#:[id number] Unasyn Inj 3 GM In NS Inj 100 200 / 200 200 / 200 200 / 200 ML @ 200 mls/hr IV.SIG Q6H [facility] Rx#:[id number] LR 1000 mL Inj 1,000 ML @ 30 250 / 250 mls/hr IV.SIG .Q24H [facility] Rx#: [id number] Vancomycin Inj 1,500 MG In NS 515 / 515 1030 / 1030 515 / 515 Inj 500 ML @ 250 mls/hr IV.SIG Q8H [facility] Rx#:[id number] Oral 900 / 900 700 / 700 1600 / 1600 Other: # Voids 3 2 3 Date of Last Bowel Movement 04/10/18 04/13/18 # Bowel Movements 0 0 GENERAL: WBWn NAD SKIN: Warm and dry. HEAD: Normocephalic. EYES: No scleral icterus. No injection or drainage. NECK: Supple, trachea midline. No JVD or lymphadenopathy. CARDIOVASCULAR: Regular rate and rhythm without murmurs, gallops, or rubs. RESPIRATORY: Breath sounds equal bilaterally. No accessory muscle use. GASTROINTESTINAL: Abdomen soft, non-tender, nondistended. MUSCULOSKELETAL: No cyanosis, or edema. BACK: Nontender without obvious deformity. No CVA tenderness. Assessment and Plan - Plan IMPRESSION: 1. Right lung dense infiltrate with possible developing abscess. Possibility of aspiration. 2. Seizure disorder. 3. Anxiety. PLAN: Cont Abx Check BAL results DW pt and her mother Stable on RA
--- NOTE | 2018-04-14 21:05 | ECHRPT ---
Indication: SEPSIS POSS ENDOCARDITIS CONCLUSIONS Normal left ventricular size. Wall thickness is normal. The left ventricular systolic function is normal with an estimated ejection fraction in the range of 55-60%. Trace mitral valve regurgitation. There is mild tricuspid valve regurgitation. The estimated pulmonary arterial pressure is 33 mmHg. BP: / HR: Rhythm: Sinus MEASUREMENTS (Male / Female) Normal Values Technical Quality:Fair 2D ECHO LV Diastolic Diameter PLAX 5.2 cm 4.2 - 5.9 / 3.9 - 5.3 cm LV Systolic Diameter PLAX 3.6 cm IVS Diastolic Thickness 0.8 cm 0.6 - 1.0 / 0.6 - 0.9 cm LVPW Diastolic Thickness 0.8 cm 0.6 - 1.0 / 0.6 - 0.9 cm LV Relative Wall Thickness 0.3 RV Internal Dim ED PLAX 2.8 cm LVOT Diameter 1.8 cm Aortic Root Diameter 2.5 cm LA Systolic Diameter LX 2.8 cm 3.0 - 4.0 / 2.7 - 3.8 cm DOPPLER AV Peak Velocity 168.0 cm/s AV Peak Gradient 11.3 mmHg LVOT Peak Velocity 106.0 cm/s LVOT Peak Gradient 4.5 mmHg AV Area Cont Eq pk 1.6 cm MV Peak Velocity 154.0 cm/s MV Peak Gradient 9.5 mmHg MV Mean Velocity 95.9 cm/s MV Mean Gradient 4.0 mmHg Mitral E Point Velocity 153.0 cm/s Mitral A Point Velocity 88.4 cm/s Mitral E to A Ratio 1.7 LV E' Lateral Velocity 14.1 cm/s Mitral E to LV E' Lateral Ratio 10.9 LV E' Septal Velocity 6.3 cm/s Mitral E to LV E' Septal Ratio 24.1 TR Peak Velocity 238.0 cm/s TR Peak Gradient 22.7 mmHg Right Atrial Pressure 10.0 mmHg Pulmonary Artery Systolic Pressu 32.7 mmHg Right Ventricular Systolic Press 32.7 mmHg PV Peak Velocity 89.3 cm/s PV Peak Gradient 3.2 mmHg FINDINGS LEFT VENTRICLE Normal left ventricular size. Wall thickness is normal. The left ventricular systolic function is normal with an estimated ejection fraction in the range of 55-60%. RIGHT VENTRICLE Normal right ventricular size and systolic function. LEFT ATRIUM The left atrial size is normal. RIGHT ATRIUM The right atrial size is normal. ATRIAL SEPTUM Normal atrial septal thickness without atrial level shunting by limited color doppler interrogation. AORTA The aortic root and proximal ascending aorta are normal in size on limited imaging. MITRAL VALVE Trace mitral valve regurgitation. AORTIC VALVE Trileaflet aortic valve. No aortic valve stenosis or regurgitation. TRICUSPID VALVE There is mild tricuspid valve regurgitation. The estimated pulmonary arterial pressure is 33 mmHg. PULMONARY VALVE Trace pulmonary valve regurgitation. VESSELS The inferior vena cava is normal in size. PERICARDIUM No pericardial effusion. Addi Mejia MD, FACC (Electronically Signed) Final Date:14 April 2018 21:04
[2018-04-15] MEDS: Ampicillin/Sulbactam Inj 3 GM in Sodium Chloride 0.9% Inj 100 ML IV.SIG SCH ×4 (02:35→21:06)
[2018-04-15] MEDS: Morphine Sulfate Inj 2 MG/ML Vial IV.PUSH PRN ×2 (02:36→10:13)
[2018-04-15] MEDS: metroNIDAZOLE 500 MG Tablet PO SCH ×3 (05:14→21:07)
[2018-04-15] MEDS: Sod Chloride 0.9% Inj 1,000 ML IV.CONT SCH ×3 (05:15→15:36)
[2018-04-15 06:44] LABS: Anion Gap 8 meq/L (5-15); Calcium 7.8 mg/dL (8.5-10.1); Carbon Dioxide 28.8 meq/L (21.0-32.0); Chloride 105 meq/L (98-107); Glomerular Filtration Rate Greater Than 89 mL/min (>89); Glucose,Random 107 mg/dL (74-106); Sodium 142 meq/L (136-145)
[2018-04-15 06:49] LABS: Potassium 2.8 meq/L (3.5-5.1)
[2018-04-15] MEDS: LORazepam 1 MG Tablet PO SCH ×2 (08:51→21:08)
[2018-04-15] MEDS: guaiFENesin 600 MG ER Tablet PO SCH ×2 (08:51→21:09)
[2018-04-15] MEDS: carBAMazepine 200 MG Tablet PO SCH ×2 (08:51→21:09)
[2018-04-15] MEDS: Lacosamide 100 MG Tablet PO SCH ×2 (08:51→21:09)
[2018-04-15] MEDS: Senna/Docusate Sodium 8.6/50 MG Tablet PO SCH ×2 (08:52→21:09)
[2018-04-15] MEDS: Sodium Chloride 0.9% 2 ML Flush BID IV.FLUSH SCH ×2 (08:52→21:09)
--- NOTE | 2018-04-15 10:04 | P.PNIM ---
Subjective Interval history: f/u; lung abscess in no acute distress. looks and feels better today. no fever. pain has subsided. Physical Exam Vital signs: Last Vital Signs Temp 98.2 F 04/15/18 08:00 Pulse 87 04/15/18 09:29 Resp 18 04/15/18 09:29 BP 157/98 H 04/15/18 08:00 Pulse Ox 97 04/15/18 08:00 Intake & Output 04/13/18 04/14/18 04/15/18 04/16/18 06:59 06:59 06:59 06:59 Intake Total 5830 / 5830 4495 / 4495 5030 / 5030 200 / 200 Balance 5830 / 5830 4495 / 4495 5030 / 5030 200 / 200 Weight 77.9 kg 77.9 kg Constitutional no acute distress Routine Respiratory Exam Present CTA bilaterally Routine Cardiovascular Exam Present RRR Routine Abdominal Exam Present soft Routine Extremities Exam Comments: no pedal edema. Routine Neurological Exam Present alert and oriented X3 Results Labs CBC & Chem 7: 04/14/18 05:02 04/15/18 03:53 Labs: Microbiology 04/13/18 15:30 Bronchial - Bronchial Gram Stain - Final 04/13/18 15:30 Bronchial - Bronchial Bronchial Culture - Preliminary Immature growth - reincubate 04/11/18 21:10 Blood - Peripheral Aerobic Blood Culture - Preliminary No growth in 3 days 04/11/18 21:10 Blood - Peripheral Anaerobic Blood Culture - Preliminary No growth in 3 days 04/11/18 21:12 Blood - Peripheral Aerobic Blood Culture - Preliminary No growth in 3 days 04/11/18 21:12 Blood - Peripheral Anaerobic Blood Culture - Preliminary No growth in 3 days Assessment and Plan Plan 1. Sepsis: Source-UTI/PNA/Lung Abscess, continue w/ IV Abx, IVF for hydration. follow the blood cultures. 2. UTI: Persistent. U/a w/ UTI, seen in ER on 04/11/18 for same complaints, + UTI, s/p Levaquin 750mg x5 days, will continue w/ IV Abx, UC with gardneralla vaginalis. CT Abd/Pelvis w/ no acute intra-abdominal findings. 3. PNA/Lung Abscess: CT Chest w/ dense consolidation RLL and 2 fluid collections, possibly abscess. Pt denies IVDU. Does have h/o seizure, non- compliant w/ medications w/ recent admission for breakthrough seizure-? due to aspiration. continue Vanc/Unasyn. s/p bronchoscopy- will follow the cultures . echo with EF 55% and no evidence of vegetation. ID and pulmonary following. 4. Seizure Disorder: w/ recent breakthrough seizure due to non-compliance, s/ p eval by Dr. Liu at that time, on Vimpat 200mg bid and Tegretol 200mg bid , resumed. Seizure precautions as needed. 5. Gardnerella Vaginalis infection; started on Flagyl. HIV testing negative. 6. Hypokalemia; reportedly refused the doses yesterday-will replace and monitor. 7. DVT Prophylaxis: SCD/Teds Discharge Planning: home when cleared by ID and pulmonary/ awaiting the sputum culture.
[2018-04-15] MEDS ORDERED: Pharmacy Ordered Lab Info OTHER ONE (11:45)
[2018-04-15] MEDS: Vancomycin Inj 1,500 MG in Sodium Chlor 0.9% Inj 500 ML IV.SIG SCH ×5 (13:35→21:20)
--- NOTE | 2018-04-15 15:45 | P.PNID ---
Subjective Remarks: ID coverage. Patient having coughing spells. Status post bronchoscopy. Bronchoscopy cultures pending. States that the chest pain that she is having now is much less than previous. The pain is located in the right chest. Afebrile. Blood cell count remain elevated. is a 27 y/o -[place] female with past medical history significant for seizure disorder with breakthrough seizures her last seizure being approximately 1 week prior to admission. She reports that she has had breakthrough seizures several times in the past. Patient admits to using marijuana cocaine and her drug screen was also positive for opiates. Patient reports right-sided flank pain and initially presented to the ER on 04/11/2018 for similar complaints and was thought to have a UTI and was discharged on Levaquin 750 mg for 5 days. Patient now returns with ongoing complaints of nonproductive cough, generalized malaise as well as right-sided flank pain. Infectious diseases consulted for evaluation and management of sepsis and right lung abscess. Pertinent positives and negatives: No history of incarceration No history of positive PPD or known tuberculosis. No other contact for tuberculosis. Denies any intravenous drug abuse but admits to oral as well as sniffing of different street drugs. Antibiotics: Unasyn IV Vancomycin IV Lines: Lines ok Past Medical History: reviewed Allergies/Adverse Reactions: Allergies No Known Allergies Allergy (Verified 04/11/18 15:52) Objective Vital Signs 04/14/18 16:00 04/14/18 16:48 04/14/18 20:00 Temperature 98.3 F 98.5 F Pulse Rate 94 H 102 H 112 H Respiratory Rate 19 18 18 Blood Pressure 138/92 H 135/75 Pulse Oximetry 99 98 04/15/18 00:00 04/15/18 01:20 04/15/18 02:52 Temperature 97.9 F Pulse Rate 96 H 93 H Respiratory Rate 18 18 22 Blood Pressure 146/95 H Pulse Oximetry 100 04/15/18 04:00 04/15/18 08:00 04/15/18 09:29 Temperature 97.9 F 98.2 F Pulse Rate 96 H 89 87 Respiratory Rate 18 21 18 Blood Pressure 143/97 H 157/98 H Pulse Oximetry 96 97 04/15/18 12:00 04/15/18 14:33 Temperature 97.8 F Pulse Rate 97 H 80 Respiratory Rate 20 18 Blood Pressure 140/84 Pulse Oximetry 100 Intake & Output 04/14/18 04/15/18 04/15/18 18:59 06:59 18:59 Intake Total 2315 / 2315 2715 / 2715 400 / 400 Balance 2315 / 2315 2715 / 2715 400 / 400 Weight 77.9 kg Intake: IV 715 / 715 1715 / 1715 400 / 400 NS Inj 1,000 ML @ 100 mls/hr IV 1000 / 1000 200 / 200 .CONT .Q10H ELSA Rx#:[id number] Unasyn Inj 3 GM In NS Inj 100 200 / 200 200 / 200 200 / 200 ML @ 200 mls/hr IV.SIG Q6H ELSA Rx#:[id number] Vancomycin Inj 1,500 MG In NS 515 / 515 515 / 515 Inj 500 ML @ 257.5 mls/hr IV. SIG Q12H ELSA Rx#:[id number] Oral 1600 / 1600 1000 / 1000 Other: # Voids 3 6 Date of Last Bowel Movement 04/14/18 # Bowel Movements 0 04/13/18 15:30 Bronchial Washings - Bronchial Acid Fast Bacilli Smear - Final No acid fast bacilli seen 04/13/18 15:30 Bronchial Washings - Bronchial Mycobacterial Culture - Pending 04/13/18 15:30 Bronchial - Bronchial Gram Stain - Final 04/13/18 15:30 Bronchial - Bronchial Bronchial Culture - Final Light growth normal respiratory estevan 04/13/18 15:30 Bronchial Washings - Bronchial Fungal Smear - Final No fungal elements seen 04/13/18 15:30 Bronchial Washings - Bronchial Fungal Culture - Pending 04/11/18 21:10 Blood - Peripheral Aerobic Blood Culture - Preliminary No growth in 4 days 04/11/18 21:10 Blood - Peripheral Anaerobic Blood Culture - Preliminary No growth in 4 days 04/11/18 21:12 Blood - Peripheral Aerobic Blood Culture - Preliminary No growth in 4 days 04/11/18 21:12 Blood - Peripheral Anaerobic Blood Culture - Preliminary No growth in 4 days 04/11/18 18:20 Clean Catch Urine Urine Culture - Final Gardnerella vaginalis Lab - Hematology Results 04/14/18 05:02 WBC 14.1 H RBC 3.09 L Hgb 9.7 L Hct 28.7 L MCV 92.8 MCH 31.5 MCHC 33.9 RDW 13.9 Plt Count 315 MPV 7.7 Neut % (Auto) 81.7 H Lymph % (Auto) 11.1 [place] % (Auto) 6.9 Eos % (Auto) 0.0 Baso % (Auto) 0.3 Neut # (Auto) 11.5 H Lymph # (Auto) 1.6 [place] # (Auto) 1.0 H Eos # (Auto) 0.0 Baso # (Auto) 0.0 WBC Differential . Differential Comment Auto diff final Lab - Chemistry Results 04/14/18 04/15/18 05:02 03:53 Sodium 141 142 Potassium 3.1 L 2.8 L* Chloride 106 105 Carbon Dioxide 29.3 28.8 Anion Gap 6 8 BUN Less than 1 L Less than 1 L Creatinine 0.57 0.73 Estimated GFR Greater than 89 Greater than 89 Random Glucose 100 107 H Calcium 7.9 L 7.8 L Imaging: ITS Impressions Abdomen/Pelvis CT 04/11/18 16:56 CONCLUSION: 1. Dense consolidation in the right lower lung with 2 oval areas of fluid and air raising the possibility of abscesses in the lung. There is a mild right pleural effusion. 2. No definite acute abnormality is seen within the abdomen and pelvis. Chest CT 04/11/18 19:57 CONCLUSION: 1. Dense consolidation in the right lower lung with 2 apparent fluid collections within the right lower lung consolidation. There is air within these collections. This raises the possibility of abscesses. 2. Adenopathy in the right hilar and right tracheobronchial region. 3. Mild effusion. Chest X-Ray 04/13/18 15:44 CONCLUSION: Bilateral consolidation and right effusion. Physical Exam: GENERAL: Well-nourished well-developed, no acute distress SKIN: Cool and dry, no generalized rash HEENT: Atraumatic. Normocephalic. No temporal or scalp tenderness. Pupils equal round and reactive. Scleral icterus. No injection or drainage. No petechia NECK: Trachea midline. Supple, nontender. CARDIOVASCULAR: Normal S1 and S2 RESPIRATORY: Decreased air entry on the right side. GASTROINTESTINAL: Abdomen soft nontender. MUSCULOSKELETAL: Extremities without clubbing, cyanosis. NEUROLOGICAL: Alert oriented 3. Nonfocal. PSYCH: Calm and cooperative IV line sites ok. Assessment and Plan - Plan Sepsis present on admission Right lung abscess differential diagnosis possible aspiration during episode of seizure versus septic emboli from endocarditis. Recent antibiotic use for possible UTI Gardnerella vaginalis infection Right flank pain: Appears to be related to her right lung abscess. CT abdomen with no evidence of pyelonephritis or other abdominal processes. Rule out endocarditis Seizure disorder: reports occ non compliance with medications. Recommendations Continue Unasyn IV Continue vancomycin IV target trough 15-20 Monitor bronch cultures Monitor clinical status. Discussed with YASEMIN
--- NOTE | 2018-04-15 19:29 | P.PNPL ---
Subjective Interval history: 27 YOAA female with Sz, rt CP CT chest rt lung abscess had Bronch Small amount of thick mucous suctioned No Endobronchial obst No Fever Physical Exam Vital signs: Vital Signs 04/14/18 20:00 04/15/18 00:00 04/15/18 01:20 Temperature 98.5 F 97.9 F Pulse Rate 112 H 96 H Respiratory Rate 18 18 18 Blood Pressure 135/75 146/95 H Pulse Oximetry 98 100 04/15/18 02:52 04/15/18 04:00 04/15/18 08:00 Temperature 97.9 F 98.2 F Pulse Rate 93 H 96 H 86 Respiratory Rate 22 18 21 Blood Pressure 143/97 H 157/98 H Pulse Oximetry 96 97 04/15/18 09:29 04/15/18 12:00 04/15/18 14:33 Temperature 97.8 F Pulse Rate 87 97 H 80 Respiratory Rate 18 20 18 Blood Pressure 140/84 Pulse Oximetry 100 04/15/18 16:00 Temperature 97.8 F Pulse Rate 100 H Respiratory Rate 20 Blood Pressure 134/92 H Pulse Oximetry 981 H Intake & Output 04/15/18 04/15/18 04/16/18 06:59 18:59 06:59 Intake Total 2715 / 2715 1360 / 1360 Balance 2715 / 2715 1360 / 1360 Weight 77.9 kg Intake: IV 1715 / 1715 400 / 400 NS Inj 1,000 ML @ 100 mls/hr IV 1000 / 1000 200 / 200 .CONT .Q10H ELSA Rx#:[id number] Unasyn Inj 3 GM In NS Inj 100 200 / 200 200 / 200 ML @ 200 mls/hr IV.SIG Q6H ELSA Rx#:[id number] Vancomycin Inj 1,500 MG In NS 515 / 515 Inj 500 ML @ 257.5 mls/hr IV. SIG Q12H ELSA Rx#:[id number] Oral 1000 / 1000 960 / 960 Other: # Voids 6 4 Date of Last Bowel Movement 04/14/18 04/14/18 GENERAL: WBWn NAD SKIN: Warm and dry. HEAD: Normocephalic. EYES: No scleral icterus. No injection or drainage. NECK: Supple, trachea midline. No JVD or lymphadenopathy. CARDIOVASCULAR: Regular rate and rhythm without murmurs, gallops, or rubs. RESPIRATORY: Breath sounds equal bilaterally. No accessory muscle use. GASTROINTESTINAL: Abdomen soft, non-tender, nondistended. MUSCULOSKELETAL: No cyanosis, or edema. BACK: Nontender without obvious deformity. No CVA tenderness. Assessment and Plan - Plan IMPRESSION: 1. Right lung dense infiltrate with possible developing abscess. Possibility of aspiration. 2. Seizure disorder. 3. Anxiety. PLAN: Cont Abx per ID Check BAL results Stable on RA
[2018-04-16] MEDS: Sod Chloride 0.9% Inj 1,000 ML IV.CONT SCH ×2 (00:27→13:11)
[2018-04-16] MEDS: Morphine Sulfate Inj 2 MG/ML Vial IV.PUSH PRN ×2 (00:28→20:46)
[2018-04-16] MEDS: Ampicillin/Sulbactam Inj 3 GM in Sodium Chloride 0.9% Inj 100 ML IV.SIG SCH ×4 (02:35→20:40)
[2018-04-16] MEDS: metroNIDAZOLE 500 MG Tablet PO SCH ×2 (06:06→13:32)
[2018-04-16] MEDS: Vancomycin Inj 1,500 MG in Sodium Chlor 0.9% Inj 500 ML IV.SIG SCH ×2 (06:06→13:33)
[2018-04-16] MEDS: carBAMazepine 200 MG Tablet PO SCH ×2 (08:32→20:40)
[2018-04-16] MEDS: LORazepam 1 MG Tablet PO SCH ×2 (08:32→20:40)
[2018-04-16] MEDS: Senna/Docusate Sodium 8.6/50 MG Tablet PO SCH ×2 (08:33→20:42)
[2018-04-16] MEDS: Lacosamide 100 MG Tablet PO SCH ×2 (08:33→20:40)
[2018-04-16] MEDS: guaiFENesin 600 MG ER Tablet PO SCH ×2 (08:34→20:40)
[2018-04-16] MEDS: Sodium Chloride 0.9% 2 ML Flush BID IV.FLUSH SCH ×2 (10:03→20:42)
--- NOTE | 2018-04-16 10:03 | P.PNIM ---
Subjective Interval history: f/u; pneumonia in no acute distress. feels much better today. pain has almost resolved and remains afebrile. no new complaints. Physical Exam Vital signs: Last Vital Signs Temp 98.4 F 04/16/18 04:00 Pulse 82 04/16/18 04:00 Resp 18 04/16/18 04:00 BP 142/75 H 04/16/18 04:00 Pulse Ox 96 04/16/18 04:00 Intake & Output 04/14/18 04/15/18 04/16/18 04/17/18 06:59 06:59 06:59 06:59 Intake Total 4495 / 4495 5030 / 5030 3790 / 3790 Output Total 900 / 900 Balance 4495 / 4495 5030 / 5030 2890 / 2890 Weight 77.9 kg 77.9 kg 77.9 kg Constitutional no acute distress Routine Respiratory Exam Present CTA bilaterally Routine Cardiovascular Exam Present RRR Routine Abdominal Exam Present soft Routine Extremities Exam Comments: no pedal edema. Routine Neurological Exam Present alert and oriented X3 Results Labs CBC & Chem 7: 04/14/18 05:02 04/16/18 05:07 Labs: Microbiology 04/13/18 15:30 Bronchial Washings - Bronchial Acid Fast Bacilli Smear - Final No acid fast bacilli seen 04/13/18 15:30 Bronchial - Bronchial Gram Stain - Final 04/13/18 15:30 Bronchial - Bronchial Bronchial Culture - Final Light growth normal respiratory estevan 04/13/18 15:30 Bronchial Washings - Bronchial Fungal Smear - Final No fungal elements seen 04/11/18 21:10 Blood - Peripheral Aerobic Blood Culture - Preliminary No growth in 4 days 04/11/18 21:10 Blood - Peripheral Anaerobic Blood Culture - Preliminary No growth in 4 days 04/11/18 21:12 Blood - Peripheral Aerobic Blood Culture - Preliminary No growth in 4 days 04/11/18 21:12 Blood - Peripheral Anaerobic Blood Culture - Preliminary No growth in 4 days Assessment and Plan Plan 1. Sepsis: Source-UTI/PNA/Lung Abscess, continue w/ IV Abx, IVF for hydration.resolved. 2. UTI: Persistent. U/a w/ UTI, seen in ER on 04/11/18 for same complaints, + UTI, s/p Levaquin 750mg x5 days, UC with gardneralla vaginalis. started on Flagyl. CT Abd/Pelvis w/ no acute intra-abdominal findings. 3. PNA: CT Chest w/ dense consolidation RLL and 2 fluid collections, possibly abscess. Pt denies IVDU. Does have h/o seizure, non-compliant w/ medications w / recent admission for breakthrough seizure-? due to aspiration. continue Vanc/ Unasyn. s/p bronchoscopy- culture with normal respiratory estevan. echo with EF 55% and no evidence of vegetation. ID and pulmonary following. 4. Seizure Disorder: w/ recent breakthrough seizure due to non-compliance, s/ p eval by Dr. Liu at that time, on Vimpat 200mg bid and Tegretol 200mg bid , resumed. Seizure precautions as needed. 5. Gardnerella Vaginalis infection; started on Flagyl. HIV testing negative. 6. Hypokalemia; resolved. 7. DVT Prophylaxis: SCD/Teds Discharge Planning: home when cleared by ID and pulmonary.
--- NOTE | 2018-04-16 14:40 | XR ---
EXAM DATE: 04/16/2018 2:30 PM EST AGE/SEX: 27 years / Female INDICATIONS: Pneumonia. CLINICAL DATA: This is the patient's initial encounter. Patient reports that signs and symptoms have been present for 3 days and indicates a pain score of 0/10. MEDICAL/SURGICAL HISTORY: . pt states abscess in her lung. . bronchoscopy. COMPARISON: [facility] – [place], CHEST 1V SINGLE AP, 04/13/2018. . FINDINGS: The cardiac silhouette is enlarged in transverse diameter. A moderate size right sided effusion is pr esent. There is right lower lobe atelectasis versus pneumonia. CONCLUSION: Continued right basilar pneumonia and right-sided effusion. The findings are improved when compared w ith the prior exam. Electronically signed by: Dominguez Camarena MD Board Certified Radiologist 04/16/2018 2:38 PM EST
[2018-04-16 16:48] LABS: Baso # (Auto) 0.1 th/mm3 (0.0-0.2); Baso % (Auto) 0.7 % (0.0-2.0); Eos # (Auto) 0.2 th/mm3 (0.0-0.4); Eos % (Auto) 1.7 % (0.0-4.0); Hematocrit 31.7 % (35.0-46.0); Hemoglobin 10.9 gm/dL (11.6-15.3); Lymph # (Auto) 2.3 th/mm3 (1.0-4.8); Lymph % (Auto) 23.2 % (9.0-44.0); Mean Corpuscular HGB Conc 34.3 % (32.0-36.0); Mean Corpuscular Hemoglobin 31.8 pg (27.0-34.0); Mean Corpuscular Volume 92.7 fL (80.0-100.0); Mono # (Auto) 0.8 th/mm3 (0.0-0.9); Mono % (Auto) 8.7 % (0.0-8.0); Neut # (Auto) 6.4 th/mm3 (1.8-7.7); Neut % (Auto) 65.7 % (16.0-70.0); Platelet Count 387 th/mm3 (150-450); Red Blood Count 3.42 mil/mm3 (4.00-5.30); Red Cell Distribution Width 14.1 % (11.6-17.2); White Blood Count 9.7 th/mm3 (4.0-11.0)
--- NOTE | 2018-04-16 17:36 | P.PNPL ---
Subjective Interval history: 27 YOAA female with Sz, rt CP CT chest rt lung abscess had Bronch Small amount of thick mucous suctioned No Fever Physical Exam Vital signs: Vital Signs 04/15/18 20:00 04/15/18 23:58 04/16/18 00:00 Temperature 98.3 F 98.2 F Pulse Rate 80 105 H 101 H Respiratory Rate 18 28 H 18 Blood Pressure 148/88 H 143/99 H Pulse Oximetry 100 100 04/16/18 02:33 04/16/18 03:46 04/16/18 04:00 Temperature 98.4 F Pulse Rate 82 Respiratory Rate 17 20 18 Blood Pressure 142/75 H Pulse Oximetry 96 04/16/18 08:00 04/16/18 12:00 04/16/18 14:35 Temperature 97.7 F 97.8 F Pulse Rate 81 85 76 Respiratory Rate 16 17 18 Blood Pressure 138/94 H 148/95 H Pulse Oximetry 99 96 Intake & Output 04/15/18 04/16/18 04/16/18 18:59 06:59 18:59 Intake Total 2360 / 2360 1430 / 1430 1715 / 1715 Output Total 900 / 900 Balance 2360 / 2360 530 / 530 1715 / 1715 Weight 77.9 kg Intake: IV 1400 / 1400 1230 / 1230 1715 / 1715 NS Inj 1,000 ML @ 100 mls/hr IV 1200 / 1200 1000 / 1000 .CONT .Q10H ELSA Rx#:[id number] Unasyn Inj 3 GM In NS Inj 100 200 / 200 200 / 200 200 / 200 ML @ 200 mls/hr IV.SIG Q6H ELSA Rx#:[id number] Vancomycin Inj 1,500 MG In NS 1030 / 1030 515 / 515 Inj 500 ML @ 257.5 mls/hr IV. SIG Q8H ELSA Rx#:[id number] Oral 960 / 960 200 / 200 Output: Urine 900 / 900 Other: # Voids 4 Date of Last Bowel Movement 04/14/18 Weight On Admission 77.9 kg GENERAL: WBWn NAD SKIN: Warm and dry. HEAD: Normocephalic. EYES: No scleral icterus. No injection or drainage. NECK: Supple, trachea midline. No JVD or lymphadenopathy. CARDIOVASCULAR: Regular rate and rhythm without murmurs, gallops, or rubs. RESPIRATORY: Breath sounds equal bilaterally. No accessory muscle use. GASTROINTESTINAL: Abdomen soft, non-tender, nondistended. MUSCULOSKELETAL: No cyanosis, or edema. BACK: Nontender without obvious deformity. No CVA tenderness. Assessment and Plan - Plan IMPRESSION: 1. Right lung dense infiltrate with possible developing abscess. Possibility of aspiration. 2. Seizure disorder. 3. Anxiety. PLAN: Cont Abx per ID Check BAL results Stable on RA Rpt CT chest to assess lung abcess
[2018-04-17] MEDS: metroNIDAZOLE 500 MG Tablet PO SCH ×4 (00:25→21:26)
[2018-04-17] MEDS: Vancomycin Inj 1,500 MG in Sodium Chlor 0.9% Inj 500 ML IV.SIG SCH ×2 (00:25→06:29)
[2018-04-17] MEDS: Sod Chloride 0.9% Inj 1,000 ML IV.CONT SCH ×2 (00:25→08:00)
[2018-04-17] MEDS: Ampicillin/Sulbactam Inj 3 GM in Sodium Chloride 0.9% Inj 100 ML IV.SIG SCH ×2 (04:01→09:15)
[2018-04-17] MEDS ORDERED: Pharmacy Ordered Lab Info OTHER ONE (05:45)
[2018-04-17 06:11] LABS: Glomerular Filtration Rate Greater Than 89 mL/min (>89); Vancomycin,Trough 20.6 mcg/mL (5.0-10.0)
[2018-04-17] MEDS: Senna/Docusate Sodium 8.6/50 MG Tablet PO SCH ×2 (09:16→21:26)
[2018-04-17] MEDS: guaiFENesin 600 MG ER Tablet PO SCH ×2 (09:16→21:27)
[2018-04-17] MEDS: LORazepam 1 MG Tablet PO SCH ×2 (09:16→21:27)
[2018-04-17] MEDS: Sodium Chloride 0.9% 2 ML Flush BID IV.FLUSH SCH ×2 (09:17→21:31)
[2018-04-17] MEDS: carBAMazepine 200 MG Tablet PO SCH ×2 (09:17→21:26)
[2018-04-17] MEDS: Lacosamide 100 MG Tablet PO SCH ×2 (09:17→21:25)
--- NOTE | 2018-04-17 09:17 | P.PNPL ---
Subjective Interval history: 27 YOAA female with Sz, rt CP CT chest rt lung abscess Small amount of thick mucous suctioned No Fever Breathing better Denies sob CP improved Physical Exam Vital signs: Vital Signs 04/16/18 12:00 04/16/18 14:35 04/16/18 20:00 Temperature 97.8 F 98.7 F Pulse Rate 85 76 73 Respiratory Rate 17 18 18 Blood Pressure 148/95 H 155/96 H Pulse Oximetry 96 100 04/17/18 00:48 04/17/18 04:00 04/17/18 05:15 Temperature 98.5 F 98.5 F Pulse Rate 68 71 80 Respiratory Rate 18 18 18 Blood Pressure 153/96 H 152/93 H Pulse Oximetry 97 100 Intake & Output 04/16/18 04/17/18 04/17/18 18:59 06:59 18:59 Intake Total 2230 / 2230 1955 / 1955 Output Total 800 / 800 Balance 2230 / 2230 1155 / 1155 Weight 77.9 kg Intake: IV 2230 / 2230 1715 / 1715 NS Inj 1,000 ML @ 100 mls/hr IV 1000 / 1000 1000 / 1000 .CONT .Q10H ELSA Rx#:[id number] Unasyn Inj 3 GM In NS Inj 100 200 / 200 200 / 200 ML @ 200 mls/hr IV.SIG Q6H ELSA Rx#:[id number] Vancomycin Inj 1,500 MG In NS 1030 / 1030 515 / 515 Inj 500 ML @ 257.5 mls/hr IV. SIG Q8H ELSA Rx#:[id number] Oral 240 / 240 Output: Urine 800 / 800 GENERAL: WBWN NAD SKIN: Warm and dry. HEAD: Normocephalic. EYES: No scleral icterus. No injection or drainage. NECK: Supple, trachea midline. No JVD or lymphadenopathy. CARDIOVASCULAR: Regular rate and rhythm without murmurs, gallops, or rubs. RESPIRATORY: Breath sounds equal bilaterally. No accessory muscle use. GASTROINTESTINAL: Abdomen soft, non-tender, nondistended. MUSCULOSKELETAL: No cyanosis, or edema. BACK: Nontender without obvious deformity. No CVA tenderness. Assessment and Plan - Plan IMPRESSION: 1. Right lung dense infiltrate with possible developing abscess. Possibility of aspiration. 2. Seizure disorder. 3. Anxiety. PLAN: Cont Abx per ID Stable on RA CT chest to assess lung abcess Mucinex 600 mg bid
--- NOTE | 2018-04-17 10:26 | P.PN ---
Subjective Interval history: Patient was seen earlier today. Is waiting for CT and hopes she is going to go home soon. Patient says she feels much better. No fever or chills overnight. No tachycardia. No nausea or vomiting. She is n.p.o. Did not eat anything. I discussed with pierre marcus the results, patient is upset and she was crying, also asking me to talk with her mother by phone, spoke with her mother and updated her at patient request. Patient /mother agrees to plan for CT chest tube. Physical Exam Vital signs: Vital Signs 04/16/18 12:00 04/16/18 14:35 04/16/18 20:00 Temperature 97.8 F 98.7 F Pulse Rate 85 76 73 Respiratory Rate 17 18 18 Blood Pressure 148/95 H 155/96 H Pulse Oximetry 96 100 04/17/18 00:48 04/17/18 04:00 04/17/18 05:15 Temperature 98.5 F 98.5 F Pulse Rate 68 71 80 Respiratory Rate 18 18 18 Blood Pressure 153/96 H 152/93 H Pulse Oximetry 97 100 04/17/18 08:00 Temperature 97.6 F Pulse Rate 91 H Respiratory Rate 15 Blood Pressure 142/99 H Pulse Oximetry 98 Intake & Output 04/16/18 04/17/18 04/17/18 18:59 06:59 18:59 Intake Total 2230 / 2230 1955 / 1955 Output Total 800 / 800 Balance 2230 / 2230 1155 / 1155 Weight 77.9 kg Intake: IV 2230 / 2230 1715 / 1715 NS Inj 1,000 ML @ 100 mls/hr IV 1000 / 1000 1000 / 1000 .CONT .Q10H ELSA Rx#:[id number] Unasyn Inj 3 GM In NS Inj 100 200 / 200 200 / 200 ML @ 200 mls/hr IV.SIG Q6H ELSA Rx#:[id number] Vancomycin Inj 1,500 MG In NS 1030 / 1030 515 / 515 Inj 500 ML @ 257.5 mls/hr IV. SIG Q8H ELSA Rx#:[id number] Oral 240 / 240 Output: Urine 800 / 800 Narrative: GENERAL: Young female, not in acute distress. CARDIOVASCULAR: Normal s1 and s2. RRR RESPIRATORY: Decreased air entry on the right side. No accessory muscle use. GASTROINTESTINAL: Abdomen soft nontender. MUSCULOSKELETAL: Extremities without clubbing, cyanosis. NEUROLOGICAL: Alert oriented 3. Nonfocal. PSYCHIATRIC: cooperative Results - Labs CBC & Chem 7: 04/16/18 15:59 04/17/18 05:45 Laboratory Results - last 24 hr 04/16/18 04/17/18 15:59 05:45 WBC 9.7 RBC 3.42 L Hgb 10.9 L Hct 31.7 L MCV 92.7 MCH 31.8 MCHC 34.3 RDW 14.1 Plt Count 387 MPV 7.0 Neut % (Auto) 65.7 Lymph % (Auto) 23.2 [place] % (Auto) 8.7 H Eos % (Auto) 1.7 Baso % (Auto) 0.7 Neut # (Auto) 6.4 Lymph # (Auto) 2.3 [place] # (Auto) 0.8 Eos # (Auto) 0.2 Baso # (Auto) 0.1 WBC Differential . Differential Comment Auto diff final Creatinine 0.64 Estimated GFR Greater than 89 Vancomycin Trough 20.6 H Microbiology 04/11/18 21:10 Blood - Peripheral Aerobic Blood Culture - Final No growth in 5 days 04/11/18 21:10 Blood - Peripheral Anaerobic Blood Culture - Final No growth in 5 days 04/11/18 21:12 Blood - Peripheral Aerobic Blood Culture - Final No growth in 5 days 04/11/18 21:12 Blood - Peripheral Anaerobic Blood Culture - Final No growth in 5 days - Imaging Impressions Chest X-Ray 04/16/18 00:00 CONCLUSION: Continued right basilar pneumonia and right-sided effusion. The findings are improved when compared with the prior exam. - Procedures S/P CT right Chest Tube Non-Tunneled Placement by IR on 04/17/18 Assessment and Plan - Assessment (1) Sepsis Code(s): A41.9 - Sepsis, unspecified organism Status: Acute (2) UTI (urinary tract infection) Code(s): N39.0 - Urinary tract infection, site not specified Status: Acute (3) PNA (pneumonia) Code(s): J18.9 - Pneumonia, unspecified organism Status: Acute (4) Lung abscess Code(s): J85.2 - Abscess of lung without pneumonia Status: Acute (5) Seizure disorder Code(s): G40.909 - Epilepsy, unspecified, not intractable, without status epilepticus Status: Acute - Plan 1. Sepsis: Source-UTI/PNA/Lung Abscess, continue w/ IV Abx, IVF for hydration.resolved. 2. UTI: Persistent. U/a w/ UTI, seen in ER on 04/11/18 for same complaints, + UTI, s/p Levaquin 750mg x5 days, UC with gardneralla vaginalis. started on Flagyl. CT Abd/Pelvis w/ no acute intra-abdominal findings. 3. PNA: CT Chest w/ dense consolidation RLL and 2 fluid collections, possibly abscess. Pt denies IVDU. Does have h/o seizure, non-compliant w/ medications w / recent admission for breakthrough seizure-? due to aspiration. continue Vanc/ Unasyn. s/p bronchoscopy- culture with normal respiratory estevan. echo with EF 55% and no evidence of vegetation. ID and pulmonary following. repeat CT 04/17/18 Right lung abscess differential diagnosis possible aspiration during episode of seizure versus septic emboli from endocarditis. Worse on repeat CT scan. Spoke with Dr Faiza BLAKE, consult IR for CT placement Order stat PTT/INR The patient is kept NPO and was instructed not to eat Imaging results and also plan was discussed with the patient , patient's mother at patient request. Plan for CT right Chest Tube Non-Tunneled Placement by IR on 03/18/18 4. Seizure Disorder: w/ recent breakthrough seizure due to non-compliance, s/ p eval by Dr. Liu at that time, on Vimpat 200mg bid and Tegretol 200mg bid , resumed. Seizure precautions as needed. 5. Gardnerella Vaginalis infection; started on Flagyl. HIV testing negative. 6. Hypokalemia; resolved. 7. DVT Prophylaxis: SCD/Teds DC plan when cleared by pulm and ID specialist Plan for CT right Chest Tube Non-Tunneled Placement by IR on 04/17/18 (1) Sepsis Qualifiers: Sepsis type: sepsis due to unspecified organism Qualified Code(s): A41.9 - Sepsis, unspecified organism
--- NOTE | 2018-04-17 13:09 | CT ---
EXAM DATE: 04/17/2018 1:01 PM EST AGE/SEX: 27 years / Female INDICATIONS: Cough, lung abscess. CLINICAL DATA: This is the patient's initial encounter. Patient reports that signs and symptoms have been present for 1 day and indicates a pain score of 2/10. MEDICAL/SURGICAL HISTORY: Seizures. polynephritis None. RADIATION DOSE: 6.87 CTDI (mGy) COMPARISON: [facility] – [place], CT CHEST W CONTRAST, 04/11/2018. . TECHNIQUE: Multiple contiguous axial images were obtained through the chest during bolus infusion of 60 ml Omnipaque 350 (iohexol) nonionic water-soluble contrast as a single exam dose. Images were obtained in suspended respiration using multiple row detector helical technique. Using automated exp osure control and adjustment of the mA and/or kV according to patient size, radiation dose was kept a s low as reasonably achievable to obtain optimal diagnostic quality images. DICOM format image data is available electronically for review and comparison. FINDINGS: Lungs: Dense consolidation is now noted in the right lung base. The previously noted fluid and air c ollections are less distinct with ill-defined low density noted centrally. The left lung remains chandler r except for mild atelectasis in the anterior lung base. Mediastinum: There is good visualization of the great vessels of the middle mediastinum. No evidenc e of mediastinal or hilar adenopathy/mass. Pleurae: There is a new moderate to large right pleural effusion extending into the lung apex. Axillae: Unremarkable. Bony Structures: Unremarkable. Miscellaneous: The examination was extended to include the upper abdomen, and both adrenal glands ar e normal in size and configuration. CONCLUSION: 1. New moderate to large right pleural effusion. 2. Dense consolidation is again noted in the right lower lobe. The previously noted cystic and gas collections are less distinct but remains characteristic of a lung abscess. Electronically signed by: Carlos Haddad MD Board Certified Radiologist 04/17/2018 1:08 PM EST
[2018-04-17] MEDS: Vancomycin Inj 1,250 MG in Sodium Chlor 0.9% Inj 250 ML IV.SIG SCH ×2 (14:25→21:31)
--- NOTE | 2018-04-17 15:48 | P.PNID ---
Subjective Remarks: ID coverage. Patient says she feels okay. Bronchoscopy cultures are negative. Repeat CT scan of the chest shows new large right effusion and dense consolidation. Bronchoscopy cultures as no growth. States that the chest pain that she is having now is much less than previous. Afebrile. Blood cell count is decreased is a 27 y/o -[place] female with past medical history significant for seizure disorder with breakthrough seizures her last seizure being approximately 1 week prior to admission. She reports that she has had breakthrough seizures several times in the past. Patient admits to using marijuana cocaine and her drug screen was also positive for opiates. Patient reports right-sided flank pain and initially presented to the ER on 04/11/2018 for similar complaints and was thought to have a UTI and was discharged on Levaquin 750 mg for 5 days. Patient now returns with ongoing complaints of nonproductive cough, generalized malaise as well as right-sided flank pain. Infectious diseases consulted for evaluation and management of sepsis and right lung abscess. Pertinent positives and negatives: No history of incarceration No history of positive PPD or known tuberculosis. No other contact for tuberculosis. Denies any intravenous drug abuse but admits to oral as well as sniffing of different street drugs. Antibiotics: Unasyn IV Vancomycin IV Lines: Lines ok Past Medical History: reviewed Allergies/Adverse Reactions: Allergies No Known Allergies Allergy (Verified 04/11/18 15:52) Objective Vital Signs 04/16/18 20:00 04/17/18 00:48 04/17/18 04:00 Temperature 98.7 F 98.5 F 98.5 F Pulse Rate 73 68 71 Respiratory Rate 18 18 18 Blood Pressure 155/96 H 153/96 H 152/93 H Pulse Oximetry 100 97 100 04/17/18 05:15 04/17/18 08:00 04/17/18 12:00 Temperature 97.6 F 97.9 F Pulse Rate 80 80 106 H Respiratory Rate 18 15 16 Blood Pressure 142/99 H 146/94 H Pulse Oximetry 98 100 04/17/18 13:21 Temperature Pulse Rate 101 H Respiratory Rate 18 Blood Pressure Pulse Oximetry Intake & Output 04/16/18 04/17/18 04/17/18 18:59 06:59 18:59 Intake Total 2230 / 2230 1955 / 1955 Output Total 800 / 800 Balance 2230 / 2230 1155 / 1155 Weight 77.9 kg Intake: IV 2230 / 2230 1715 / 1715 NS Inj 1,000 ML @ 100 mls/hr IV 1000 / 1000 1000 / 1000 .CONT .Q10H [facility] Rx#:[id number] Unasyn Inj 3 GM In NS Inj 100 200 / 200 200 / 200 ML @ 200 mls/hr IV.SIG Q6H [facility] Rx#:[id number] Vancomycin Inj 1,500 MG In NS 1030 / 1030 515 / 515 Inj 500 ML @ 257.5 mls/hr IV. SIG Q8H [facility] Rx#:[id number] Oral 240 / 240 Output: Urine 800 / 800 04/11/18 21:10 Blood - Peripheral Aerobic Blood Culture - Final No growth in 5 days 04/11/18 21:10 Blood - Peripheral Anaerobic Blood Culture - Final No growth in 5 days 04/11/18 21:12 Blood - Peripheral Aerobic Blood Culture - Final No growth in 5 days 04/11/18 21:12 Blood - Peripheral Anaerobic Blood Culture - Final No growth in 5 days 04/13/18 15:30 Bronchial Washings - Bronchial Acid Fast Bacilli Smear - Final No acid fast bacilli seen 04/13/18 15:30 Bronchial Washings - Bronchial Mycobacterial Culture - Pending 04/13/18 15:30 Bronchial - Bronchial Gram Stain - Final 04/13/18 15:30 Bronchial - Bronchial Bronchial Culture - Final Light growth normal respiratory estevan 04/13/18 15:30 Bronchial Washings - Bronchial Fungal Smear - Final No fungal elements seen 04/13/18 15:30 Bronchial Washings - Bronchial Fungal Culture - Pending Lab - Hematology Results 04/16/18 15:59 WBC 9.7 RBC 3.42 L Hgb 10.9 L Hct 31.7 L MCV 92.7 MCH 31.8 MCHC 34.3 RDW 14.1 Plt Count 387 MPV 7.0 Neut % (Auto) 65.7 Lymph % (Auto) 23.2 [place] % (Auto) 8.7 H Eos % (Auto) 1.7 Baso % (Auto) 0.7 Neut # (Auto) 6.4 Lymph # (Auto) 2.3 [place] # (Auto) 0.8 Eos # (Auto) 0.2 Baso # (Auto) 0.1 WBC Differential . Differential Comment Auto diff final Lab - Chemistry Results 04/16/18 04/17/18 05:07 05:45 Potassium 3.5 Creatinine 0.64 Estimated GFR Greater than 89 Imaging: ITS Impressions Abdomen/Pelvis CT 04/11/18 16:56 CONCLUSION: 1. Dense consolidation in the right lower lung with 2 oval areas of fluid and air raising the possibility of abscesses in the lung. There is a mild right pleural effusion. 2. No definite acute abnormality is seen within the abdomen and pelvis. Chest X-Ray 04/16/18 00:00 CONCLUSION: Continued right basilar pneumonia and right-sided effusion. The findings are improved when compared with the prior exam. Chest CT 04/17/18 17:34 CONCLUSION: 1. New moderate to large right pleural effusion. 2. Dense consolidation is again noted in the right lower lobe. The previously noted cystic and gas collections are less distinct but remains characteristic of a lung abscess. Physical Exam: GENERAL: Well-nourished well-developed, no acute distress SKIN: Cool and dry, no generalized rash HEENT: Atraumatic. Normocephalic. No temporal or scalp tenderness. Pupils equal round and reactive. Scleral icterus. No injection or drainage. No petechia NECK: Trachea midline. Supple, nontender. CARDIOVASCULAR: Normal S1 and S2 RESPIRATORY: Markedly decreased air entry on the right side. GASTROINTESTINAL: Abdomen soft nontender. MUSCULOSKELETAL: Extremities without clubbing, cyanosis. NEUROLOGICAL: Alert oriented 3. Nonfocal. PSYCH: Calm and cooperative IV line sites ok. Assessment and Plan - Plan Sepsis present on admission Right lung abscess differential diagnosis possible aspiration during episode of seizure versus septic emboli from endocarditis. Worse on repeat CT scan. Recent antibiotic use for possible UTI Gardnerella vaginalis infection Right flank pain: Appears to be related to her right lung abscess. CT abdomen with no evidence of pyelonephritis or other abdominal processes. Rule out endocarditis Seizure disorder: reports occ non compliance with medications. Recommendations Continue Unasyn IV Continue vancomycin IV target trough 15-[address] Alonzo. Radiology to assess for drainage of lung abscess. Monitor clinical status. Need to continue antibiotics in the hospital for the next few days.
[2018-04-17] MEDS ORDERED: fentaNYL Citrate Inj 250 MCG/5 ML Ampul ONE (16:02)
[2018-04-17] MEDS ORDERED: Lidocaine 1%/Epinephrine 1:100,000 Inj 50 ML Vial ONE (16:04)
--- NOTE | 2018-04-17 17:10 | P.RAD ---
Post CT Procedure Prog Note - Pre Procedure Diagnosis (1) Lung abscess - Post Procedure Diagnosis (1) Lung abscess - Procedure Information Procedure Date: 04/17/18 Supervising Radiologist: MICK Melo Assisting Physician: Dominguez Camarena Estimated blood loss (mL): 0 Anesthesia: Local, Conscious Sedation - Plan of Activity Patient to Unit: Nursing Unit Patient condition: Good See PACS Report for procedural detail/treatment. Drainage Procedure CT right Chest Tube Non-Tunneled Placement Drainage: Pleurovac Fluid Description: Yellow
--- NOTE | 2018-04-17 17:27 | XR ---
EXAM DATE: 04/17/2018 5:24 PM EST AGE/SEX: 27 years / Female INDICATIONS: Post chest tube placement. CLINICAL DATA: This is the patient's subsequent encounter. Patient reports that signs and symptoms h ave been present for 1 day and indicates a pain score of 10/10. MEDICAL/SURGICAL HISTORY: . Seizures. polynephritis. None. COMPARISON: [facility], CHEST 1V SINGLE AP, 04/16/2018. . FINDINGS: Status post placement of a small pigtail catheter in the right lower hemithorax. Catheter appears to be in good position. There is no pneumothorax. Continues to be a parenchymal infiltrate in the right lower lung. The left lung is grossly clear. The heart size is stable. CONCLUSION: Small pigtail catheter within the right lower hemithorax. No evidence of pneumothorax. Electronically signed by: Que Parker MD Board Certified Radiologist 04/17/2018 5:25 PM EST
[2018-04-17] MEDS: Morphine Sulfate Inj 2 MG/ML Vial IV.PUSH PRN ×2 (19:06→23:52)
[2018-04-17 20:25] LABS: Baso # (Auto) 0.1 th/mm3 (0.0-0.2); Baso % (Auto) 0.6 % (0.0-2.0); Eos # (Auto) 0.1 th/mm3 (0.0-0.4); Eos % (Auto) 1.4 % (0.0-4.0); Hematocrit 33.3 % (35.0-46.0); Hemoglobin 11.5 gm/dL (11.6-15.3); Lymph # (Auto) 2.2 th/mm3 (1.0-4.8); Lymph % (Auto) 21.4 % (9.0-44.0); Mean Corpuscular HGB Conc 34.5 % (32.0-36.0); Mean Corpuscular Hemoglobin 31.4 pg (27.0-34.0); Mono # (Auto) 0.9 th/mm3 (0.0-0.9); Mono % (Auto) 8.5 % (0.0-8.0); Neut # (Auto) 6.9 th/mm3 (1.8-7.7); Neut % (Auto) 68.1 % (16.0-70.0); Platelet Count 401 th/mm3 (150-450); Red Blood Count 3.66 mil/mm3 (4.00-5.30); Red Cell Distribution Width 13.9 % (11.6-17.2); White Blood Count 10.2 th/mm3 (4.0-11.0)
[2018-04-17 20:39] LABS: INR 1.1 Ratio; Prothrombin Time 11.1 sec (9.8-11.6)
[2018-04-18] MEDS: Ampicillin/Sulbactam Inj 3 GM in Sodium Chloride 0.9% Inj 100 ML IV.SIG SCH ×6 (02:45→21:23)
[2018-04-18] MEDS: Sod Chloride 0.9% Inj 1,000 ML IV.CONT SCH ×4 (02:48→22:02)
[2018-04-18] MEDS: Morphine Sulfate Inj 2 MG/ML Vial IV.PUSH PRN ×2 (05:13→18:17)
[2018-04-18] MEDS: metroNIDAZOLE 500 MG Tablet PO SCH ×3 (05:14→21:23)
[2018-04-18] MEDS: Vancomycin Inj 1,250 MG in Sodium Chlor 0.9% Inj 250 ML IV.SIG SCH ×3 (05:14→21:36)
--- NOTE | 2018-04-18 05:52 | XR ---
EXAM DATE: 04/18/2018 5:16 AM EST AGE/SEX: 27 years / Female INDICATIONS: Infiltrate. CLINICAL DATA: This is the patient's subsequent encounter. Patient reports that signs and symptoms h ave been present for 4 - 6 days and indicates a pain score of 7/10. MEDICAL/SURGICAL HISTORY: . Hypertension. Polynephritis. Seizures. None. COMPARISON: [facility] [place], CHEST EXPIRATION ONLY, 04/17/2018. . FINDINGS: There is a right-sided chest tube in place. A pneumothorax is not seen. The heart size is normal. The re is increased density at the right base. The left lung is grossly clear. CONCLUSION: Right chest tube without evidence of pneumothorax. Consolidation or atelectasis at the right base which appears to be improving. Electronically signed by: Jamil Shen MD Board Certified Radiologist 04/18/2018 5:50 AM EST
[2018-04-18 07:45] LABS: Baso % (Auto) 0.4 % (0.0-2.0); Eos # (Auto) 0.2 th/mm3 (0.0-0.4); Hematocrit 33.1 % (35.0-46.0); Hemoglobin 11.1 gm/dL (11.6-15.3); Lymph # (Auto) 1.8 th/mm3 (1.0-4.8); Lymph % (Auto) 22.4 % (9.0-44.0); Mean Corpuscular HGB Conc 33.4 % (32.0-36.0); Mean Corpuscular Hemoglobin 30.8 pg (27.0-34.0); Mean Platelet Volume 6.9 fL (7.0-11.0); Mono # (Auto) 0.8 th/mm3 (0.0-0.9); Mono % (Auto) 9.9 % (0.0-8.0); Neut # (Auto) 5.3 th/mm3 (1.8-7.7); Neut % (Auto) 65.3 % (16.0-70.0); Platelet Count 393 th/mm3 (150-450); Red Cell Distribution Width 14.2 % (11.6-17.2); White Blood Count 8.1 th/mm3 (4.0-11.0)
--- NOTE | 2018-04-18 09:23 | P.PNID ---
Subjective Remarks: ID coverage. is a 27 y/o -[place] female with past medical history significant for seizure disorder with breakthrough seizures her last seizure being approximately 1 week prior to admission. She reports that she has had breakthrough seizures several times in the past. Patient admits to using marijuana cocaine and her drug screen was also positive for opiates. Patient reports right-sided flank pain and initially presented to the ER on 04/11/2018 for similar complaints and was thought to have a UTI and was discharged on Levaquin 750 mg for 5 days. Patient now returns with ongoing complaints of nonproductive cough, generalized malaise as well as right-sided flank pain. Infectious diseases consulted for evaluation and management of sepsis and right lung abscess. Pertinent positives and negatives: No history of incarceration No history of positive PPD or known tuberculosis. No other contact for tuberculosis. Denies any intravenous drug abuse but admits to oral as well as sniffing of different street drugs. Notes reviewed Temps ok Has CT on R side - fluid currently looks serous G/S C/S pending WBC normal Bronchoscopy cultures are negative. Antibiotics: Unasyn IV Vancomycin IV Lines: Lines ok Past Medical History: reviewed Allergies/Adverse Reactions: Allergies No Known Allergies Allergy (Verified 04/11/18 15:52) Objective Vital Signs 04/17/18 12:00 04/17/18 13:21 04/17/18 20:00 Temperature 97.9 F 98.6 F Pulse Rate 106 H 101 H 79 Respiratory Rate 16 18 16 Blood Pressure 146/94 H 166/109 H Pulse Oximetry 100 96 04/18/18 00:00 04/18/18 04:00 Temperature 97.9 F 98.3 F Pulse Rate 77 80 Respiratory Rate 16 17 Blood Pressure 148/89 H 132/87 Pulse Oximetry 96 96 Intake & Output 04/17/18 04/18/18 04/18/18 18:59 06:59 18:59 Intake Total 1877.5 / 1877.5 1105.0 / 1105.0 Output Total 1842 / 1842 Balance 1857.5 / 1857.5 -737.0 / -737.0 Weight 78 kg Intake: IV 1877.5 / 1877.5 625.0 / 625.0 NS Inj 1,000 ML @ 100 mls/hr IV 1000 / 1000 .CONT .Q10H [facility] Rx#:[id number] Unasyn Inj 3 GM In NS Inj 100 100 / 100 100 / 100 ML @ 200 mls/hr IV.SIG Q6H [facility] Rx#:[id number] Vancomycin Inj 1,250 MG In NS 262.5 / 262.5 525.0 / 525.0 Inj 250 ML @ 250 mls/hr IV.SIG Q8H [facility] Rx#:[id number] Vancomycin Inj 1,500 MG In NS 515 / 515 Inj 500 ML @ 257.5 mls/hr IV. SIG Q8H [facility] Rx#:[id number] Oral 480 / 480 Output: Urine 1800 / 1800 Chest Tube Drainage RIGHT POSTERIOR CHEST 42 04/17/18 17:00 Fluid - Other Gram Stain - Pending 04/17/18 17:00 Fluid - Other Body Fluid Culture - Pending 04/11/18 21:10 Blood - Peripheral Aerobic Blood Culture - Final No growth in 5 days 04/11/18 21:10 Blood - Peripheral Anaerobic Blood Culture - Final No growth in 5 days 04/11/18 21:12 Blood - Peripheral Aerobic Blood Culture - Final No growth in 5 days 04/11/18 21:12 Blood - Peripheral Anaerobic Blood Culture - Final No growth in 5 days 04/13/18 15:30 Bronchial Washings - Bronchial Acid Fast Bacilli Smear - Final No acid fast bacilli seen 04/13/18 15:30 Bronchial Washings - Bronchial Mycobacterial Culture - Pending 04/13/18 15:30 Bronchial - Bronchial Gram Stain - Final 04/13/18 15:30 Bronchial - Bronchial Bronchial Culture - Final Light growth normal respiratory estevan 04/13/18 15:30 Bronchial Washings - Bronchial Fungal Smear - Final No fungal elements seen 04/13/18 15:30 Bronchial Washings - Bronchial Fungal Culture - Pending Lab - Hematology Results 04/16/18 04/17/18 04/18/18 15:59 19:46 06:50 WBC 9.7 10.2 8.1 RBC 3.42 L 3.66 L 3.60 L Hgb 10.9 L 11.5 L 11.1 L Hct 31.7 L 33.3 L 33.1 L MCV 92.7 91.0 92.0 MCH 31.8 31.4 30.8 MCHC 34.3 34.5 33.4 RDW 14.1 13.9 14.2 Plt Count 387 401 393 MPV 7.0 7.0 6.9 L Neut % (Auto) 65.7 68.1 65.3 Lymph % (Auto) 23.2 21.4 22.4 [place] % (Auto) 8.7 H 8.5 H 9.9 H Eos % (Auto) 1.7 1.4 2.0 Baso % (Auto) 0.7 0.6 0.4 Neut # (Auto) 6.4 6.9 5.3 Lymph # (Auto) 2.3 2.2 1.8 [place] # (Auto) 0.8 0.9 0.8 Eos # (Auto) 0.2 0.1 0.2 Baso # (Auto) 0.1 0.1 0.0 WBC Differential . . . Differential Comment Auto diff final Auto diff final Auto diff final Lab - Chemistry Results 04/17/18 05:45 Creatinine 0.64 Estimated GFR Greater than 89 Imaging: ITS Impressions Abdomen/Pelvis CT 04/11/18 16:56 CONCLUSION: 1. Dense consolidation in the right lower lung with 2 oval areas of fluid and air raising the possibility of abscesses in the lung. There is a mild right pleural effusion. 2. No definite acute abnormality is seen within the abdomen and pelvis. Chest CT 04/17/18 17:34 CONCLUSION: 1. New moderate to large right pleural effusion. 2. Dense consolidation is again noted in the right lower lobe. The previously noted cystic and gas collections are less distinct but remains characteristic of a lung abscess. Chest X-Ray 04/18/18 17:06 CONCLUSION: Right chest tube without evidence of pneumothorax. Consolidation or atelectasis at the right base which appears to be improving. Physical Exam: GENERAL: awakens easily, NAD SKIN: Cool and dry, no generalized rash HEENT: [place] conjunctiva, no injection or drainage. No petechia. Moist mucosa NECK: Trachea midline. Supple, nontender. CARDIOVASCULAR: Normal S1 and S2 RESPIRATORY: Markedly decreased air entry on the right side. CT in place on R GASTROINTESTINAL: Abdomen soft nontender. MUSCULOSKELETAL: Extremities without clubbing, cyanosis. NEUROLOGICAL: Alert oriented 3. Nonfocal. PSYCH: Calm and cooperative IV line sites ok. Assessment and Plan - Plan Sepsis present on admission Right lung abscess differential diagnosis possible aspiration during episode of seizure versus septic emboli from endocarditis. New large pleural effusion - has CT now Recent antibiotic use for possible UTI Gardnerella vaginalis infection Right flank pain: Appears to be related to her right lung abscess. CT abdomen with no evidence of pyelonephritis or other abdominal processes. Rule out endocarditis Seizure disorder: reports occ non compliance with medications. Recommendations Continue Unasyn IV Continue vancomycin IV target trough 15-20 Follow new C/S Monitor clinical status.
[2018-04-18] MEDS: LORazepam 1 MG Tablet PO SCH ×2 (09:35→21:23)
[2018-04-18] MEDS: Lacosamide 100 MG Tablet PO SCH ×2 (09:35→21:23)
[2018-04-18] MEDS: guaiFENesin 600 MG ER Tablet PO SCH ×2 (09:35→21:23)
[2018-04-18] MEDS: carBAMazepine 200 MG Tablet PO SCH ×2 (09:35→21:36)
[2018-04-18] MEDS: Senna/Docusate Sodium 8.6/50 MG Tablet PO SCH ×2 (09:35→21:23)
[2018-04-18] MEDS: Sodium Chloride 0.9% 2 ML Flush BID IV.FLUSH SCH ×2 (09:36→21:37)
[2018-04-18] MEDS ORDERED: Pharmacy Ordered Lab Info OTHER ONE (13:45)
[2018-04-18 14:47] LABS: Anion Gap 5 meq/L (5-15); Calcium 8.3 mg/dL (8.5-10.1); Chloride 104 meq/L (98-107); Glomerular Filtration Rate Greater Than 89 mL/min (>89); Glucose,Random 106 mg/dL (74-106); Potassium 3.6 meq/L (3.5-5.1); Sodium 138 meq/L (136-145)
[2018-04-18 14:48] LABS: Vancomycin,Trough 19.4 mcg/mL (5.0-10.0)
--- NOTE | 2018-04-18 15:00 | P.PN ---
Subjective Interval history: The patient is in bed and says she did pulled CT by mistake. She is however not in pain at this time. She si sattign wellon room air. No fever or chills.No n/v/ d/c. Physical Exam Vital signs: Vital Signs 04/17/18 20:00 04/18/18 00:00 04/18/18 04:00 Temperature 98.6 F 97.9 F 98.3 F Pulse Rate 79 77 80 Respiratory Rate 16 16 17 Blood Pressure 166/109 H 148/89 H 132/87 Pulse Oximetry 96 96 96 04/18/18 08:00 04/18/18 12:00 Temperature 97.6 F 97.6 F Pulse Rate 97 H 67 Respiratory Rate 18 19 Blood Pressure 143/95 H 136/89 Pulse Oximetry 99 100 Intake & Output 04/17/18 04/18/18 04/18/18 18:59 06:59 18:59 Intake Total 1877.5 / 1877.5 1105.0 / 1105.0 100 / 100 Output Total 1842 / 1842 Balance 1857.5 / 1857.5 -737.0 / -737.0 100 / 100 Weight 78 kg Intake: IV 1877.5 / 1877.5 625.0 / 625.0 100 / 100 NS Inj 1,000 ML @ 100 mls/hr IV 1000 / 1000 .CONT .Q10H [facility] Rx#:[id number] Unasyn Inj 3 GM In NS Inj 100 100 / 100 100 / 100 100 / 100 ML @ 200 mls/hr IV.SIG Q6H [facility] Rx#:[id number] Vancomycin Inj 1,250 MG In NS 262.5 / 262.5 525.0 / 525.0 Inj 250 ML @ 250 mls/hr IV.SIG Q8H [facility] Rx#:[id number] Vancomycin Inj 1,500 MG In NS 515 / 515 Inj 500 ML @ 257.5 mls/hr IV. SIG Q8H [facility] Rx#:[id number] Oral 480 / 480 Output: Urine 1800 / 1800 Chest Tube Drainage 42 RIGHT POSTERIOR CHEST Narrative: GENERAL: Young female, not in acute distress. CARDIOVASCULAR: Normal s1 and s2. RRR RESPIRATORY: Decreased air entry on the right side. No accessory muscle use. Chest tube in place, dresing is off. GASTROINTESTINAL: Abdomen soft nontender. MUSCULOSKELETAL: Extremities without clubbing, cyanosis. NEUROLOGICAL: Alert oriented 3. Nonfocal. PSYCHIATRIC: cooperative Results - Labs CBC & Chem 7: 04/18/18 06:50 04/18/18 13:25 Laboratory Results - last 24 hr 04/17/18 04/17/18 04/17/18 19:46 19:46 19:46 WBC 10.2 RBC 3.66 L Hgb 11.5 L Hct 33.3 L MCV 91.0 MCH 31.4 MCHC 34.5 RDW 13.9 Plt Count 401 MPV 7.0 Neut % (Auto) 68.1 Lymph % (Auto) 21.4 [place] % (Auto) 8.5 H Eos % (Auto) 1.4 Baso % (Auto) 0.6 Neut # (Auto) 6.9 Lymph # (Auto) 2.2 [place] # (Auto) 0.9 Eos # (Auto) 0.1 Baso # (Auto) 0.1 WBC Differential . Differential Comment Auto diff final PT 11.1 INR 1.1 APTT 30.2 Sodium Potassium Chloride Carbon Dioxide Anion Gap BUN Creatinine Estimated GFR Random Glucose Calcium Vancomycin Trough 04/18/18 04/18/18 06:50 13:25 WBC 8.1 RBC 3.60 L Hgb 11.1 L Hct 33.1 L MCV 92.0 MCH 30.8 MCHC 33.4 RDW 14.2 Plt Count 393 MPV 6.9 L Neut % (Auto) 65.3 Lymph % (Auto) 22.4 [place] % (Auto) 9.9 H Eos % (Auto) 2.0 Baso % (Auto) 0.4 Neut # (Auto) 5.3 Lymph # (Auto) 1.8 [place] # (Auto) 0.8 Eos # (Auto) 0.2 Baso # (Auto) 0.0 WBC Differential . Differential Comment Auto diff final PT INR APTT Sodium 138 Potassium 3.6 Chloride 104 Carbon Dioxide 29.0 Anion Gap 5 BUN Less than 1 L Creatinine 0.62 Estimated GFR Greater than 89 Random Glucose 106 Calcium 8.3 L Vancomycin Trough 19.4 H Microbiology 04/17/18 17:00 Fluid - Other Gram Stain - Final 04/17/18 17:00 Fluid - Other Body Fluid Culture - Preliminary No growth in 24 hours - Imaging Impressions Chest X-Ray 04/17/18 17:06 CONCLUSION: Small pigtail catheter within the right lower hemithorax. No evidence of pneumothorax. Chest X-Ray 04/18/18 17:06 CONCLUSION: Right chest tube without evidence of pneumothorax. Consolidation or atelectasis at the right base which appears to be improving. - Procedures S/P CT right Chest Tube Non-Tunneled Placement by IR on 04/17/18 Assessment and Plan - Assessment (1) Sepsis Code(s): A41.9 - Sepsis, unspecified organism Status: Acute (2) UTI (urinary tract infection) Code(s): N39.0 - Urinary tract infection, site not specified Status: Acute (3) PNA (pneumonia) Code(s): J18.9 - Pneumonia, unspecified organism Status: Acute (4) Lung abscess Code(s): J85.2 - Abscess of lung without pneumonia Status: Acute (5) Seizure disorder Code(s): G40.909 - Epilepsy, unspecified, not intractable, without status epilepticus Status: Acute - Plan 1. Sepsis: Source-UTI/PNA/Lung Abscess, continue w/ IV Abx, IVF for hydration.resolved. 2. UTI: Persistent. U/a w/ UTI, seen in ER on 04/11/18 for same complaints, + UTI, s/p Levaquin 750mg x5 days, UC with gardneralla vaginalis. started on Flagyl. CT Abd/Pelvis w/ no acute intra-abdominal findings. 3. PNA: CT Chest w/ dense consolidation RLL and 2 fluid collections, possibly abscess. Pt denies IVDU. Does have h/o seizure, non-compliant w/ medications w / recent admission for breakthrough seizure-? due to aspiration. continue Vanc/ Unasyn. s/p bronchoscopy- culture with normal respiratory estevan. echo with EF 55% and no evidence of vegetation. ID and pulmonary following. repeat CT 04/17/18 Right lung abscess differential diagnosis possible aspiration during episode of seizure versus septic emboli from endocarditis. Worse on repeat CT scan. Spoke with Dr Kendall ID, consult IR for CT placement Order stat PTT/INR The patient is kept NPO and was instructed not to eat Imaging results and also plan was discussed with the patient , patient's mother at patient request. S/p CT right Chest Tube Non-Tunneled Placement by IR on 03/18/18 04/18/18 CT appears dislodged. CXR stat. Called IR for further evaluation . Patient is satting well at this time. 4. Seizure Disorder: w/ recent breakthrough seizure due to non-compliance, s/ p eval by Dr. Liu at that time, on Vimpat 200mg bid and Tegretol 200mg bid , resumed. Seizure precautions as needed. 5. Gardnerella Vaginalis infection; started on Flagyl. HIV testing negative. 6. Hypokalemia; resolved. 7. DVT Prophylaxis: SCD/Teds DC plan when cleared by pulm and ID specialist S/p CT right Chest Tube Non-Tunneled Placement by IR on 04/17/1804/18 CT patient says pulled CT by mistake, dressing is off. IR evaluated the patient and CT appears in place. (1) Sepsis Qualifiers: Sepsis type: sepsis due to unspecified organism Qualified Code(s): A41.9 - Sepsis, unspecified organism
--- NOTE | 2018-04-18 15:12 | CT ---
EXAM DATE: 04/17/2018 6:18 PM EST AGE/SEX: 27 years / Female INDICATIONS: Right pleural effusion. CLINICAL DATA: This is the patient's initial encounter. Patient reports that signs and symptoms have been present for 1 day and indicates a pain score of 0/10. MEDICAL/SURGICAL HISTORY: None. None. MEDICATION(S): 150mcg fentanyl (Sublimaze) IV 2mg lorazepam (Ativan) IV DEVICE(S): 10 Fr [place] . . COMPARISON: [facility] [place], CHEST EXPIRATION ONLY, 04/18/2018. . PROCEDURE : CT guided right chest tube placement. The risks, benefits and alternatives to the procedure were explained and verbal and written consent w as obtained. The site was prepped in sterile fashion. Full sterile technique was used, including ca p, mask, sterile gloves and gown and a large sterile sheet. Hand hygiene and 2% chlorhexidine and/or betadine/alcohol prep was utilized per protocol for cutaneous antisepsis. The skin and subcutaneous tissues were infiltrated with local anesthetic solution. Using automated exposure control and adjus tment of the mA and/or kV according to patient size, radiation dose was kept as low as reasonably ach ievable to obtain optimal diagnostic quality images. DICOM format image data is available electronic ally for review and comparison. With CT guidance the chest was punctured and the prescribed catheter was placed in the right base of the lung. Wall suction was applied. Post procedure images demonstrate satisfactory position of the t ube. The catheter was sutured in place and a Percu-Stay was applied. The patient tolerated the procedure well and there were no complications. The patient was sent to pos t anesthesia recovery in stable condition. FINDINGS: The fluid was localized in the right base and a chest tube was placed without difficulty. CONCLUSION: 1. Uncomplicated chest tube placement as above. Electronically signed by: Dominguez Camarena MD Board Certified Radiologist 04/18/2018 3:11 PM EST
[2018-04-19] MEDS: Morphine Sulfate Inj 2 MG/ML Vial IV.PUSH PRN (00:02)
[2018-04-19] MEDS: Ampicillin/Sulbactam Inj 3 GM in Sodium Chloride 0.9% Inj 100 ML IV.SIG SCH ×4 (02:39→21:06)
[2018-04-19] MEDS: Vancomycin Inj 1,250 MG in Sodium Chlor 0.9% Inj 250 ML IV.SIG SCH ×3 (06:10→22:44)
[2018-04-19] MEDS: LORazepam 1 MG Tablet PO SCH ×2 (08:51→21:05)
[2018-04-19] MEDS: guaiFENesin 600 MG ER Tablet PO SCH ×2 (08:52→21:05)
[2018-04-19] MEDS: Lacosamide 100 MG Tablet PO SCH ×2 (08:52→21:05)
[2018-04-19] MEDS: Senna/Docusate Sodium 8.6/50 MG Tablet PO SCH ×2 (08:52→21:05)
[2018-04-19] MEDS: carBAMazepine 200 MG Tablet PO SCH ×2 (08:52→21:05)
[2018-04-19] MEDS: Sodium Chloride 0.9% 2 ML Flush BID IV.FLUSH SCH ×2 (08:53→21:08)
[2018-04-19 09:49] LABS: Anion Gap 7 meq/L (5-15); Blood Urea Nitrogen 3 mg/dL (7-18); Calcium 9.2 mg/dL (8.5-10.1); Carbon Dioxide 22.1 meq/L (21.0-32.0); Chloride 106 meq/L (98-107); Glomerular Filtration Rate Greater Than 89 mL/min (>89); Glucose,Random 96 mg/dL (74-106)
[2018-04-19 09:53] LABS: Potassium 4.6 meq/L (3.5-5.1); Sodium 135 meq/L (136-145)
--- NOTE | 2018-04-19 10:38 | P.PN ---
Subjective Interval history: The patient is in bed she is upset that she is still in the hospital. Chest tube is in place. Has no pain at this time. Says she wants to go home she has kids at home. No fever or chills. No chest pain. She is not coughing. Says she feels much better today. Physical Exam Vital signs: Vital Signs 04/18/18 12:00 04/18/18 16:00 04/18/18 20:00 Temperature 97.6 F 98.2 F 97.8 F Pulse Rate 67 79 91 H Respiratory Rate 19 18 19 Blood Pressure 136/89 131/79 143/97 H Pulse Oximetry 100 100 96 04/19/18 00:00 04/19/18 00:05 04/19/18 04:00 Temperature 97.9 F 97.9 F Pulse Rate 69 74 Respiratory Rate 17 22 16 Blood Pressure 141/78 H 142/85 H Pulse Oximetry 100 100 04/19/18 08:00 Temperature 98.2 F Pulse Rate 73 Respiratory Rate 18 Blood Pressure 128/78 Pulse Oximetry 99 Intake & Output 04/18/18 04/19/18 04/19/18 18:59 06:59 18:59 Intake Total 1462.5 / 1462.5 462.5 / 462.5 262.5 / 262.5 Output Total 30 / 30 0 / 0 Balance 1432.5 / 1432.5 462.5 / 462.5 262.5 / 262.5 Weight 1200 kg Intake: IV 1462.5 / 1462.5 462.5 / 462.5 262.5 / 262.5 NS Inj 1,000 ML @ 100 mls/hr IV 1000 / 1000 .CONT .Q10H ELSA Rx#:[id number] Unasyn Inj 3 GM In NS Inj 100 200 / 200 200 / 200 ML @ 200 mls/hr IV.SIG Q6H [facility]SA Rx#:[id number] Vancomycin Inj 1,250 MG In NS 262.5 / 262.5 262.5 / 262.5 262.5 / 262.5 Inj 250 ML @ 250 mls/hr IV.SIG Q8H ELSA Rx#:[id number] Output: Chest Tube Drainage 30 / 30 0 / 0 RIGHT POSTERIOR CHEST 30 / 30 0 / 0 Other: # Voids 6 Narrative: GENERAL: Young female, not in acute distress. CARDIOVASCULAR: Normal s1 and s2. RRR RESPIRATORY: Decreased air entry on the right side. No accessory muscle use. Chest tube in place, dresing is off. GASTROINTESTINAL: Abdomen soft nontender. MUSCULOSKELETAL: Extremities without clubbing, cyanosis. NEUROLOGICAL: Alert oriented 3. Nonfocal. PSYCHIATRIC: cooperative Results - Labs CBC & Chem 7: 04/18/18 06:50 04/19/18 09:03 Laboratory Results - last 24 hr 04/18/18 04/19/18 13:25 09:03 Sodium 138 135 L Potassium 3.6 4.6 D Chloride 104 106 Carbon Dioxide 29.0 22.1 Anion Gap 5 7 BUN Less than 1 L 3 L Creatinine 0.62 0.81 Estimated GFR Greater than 89 Greater than 89 Random Glucose 106 96 Calcium 8.3 L 9.2 D Vancomycin Trough 19.4 H Microbiology 04/17/18 17:00 Fluid - Other Gram Stain - Final 04/17/18 17:00 Fluid - Other Body Fluid Culture - Preliminary No growth in 48 hours - Imaging Impressions Chest Tube Insertion 04/17/18 15:13 CONCLUSION: 1. Uncomplicated chest tube placement as above. - Procedures S/P CT right Chest Tube Non-Tunneled Placement by IR on 04/17/18 Assessment and Plan - Assessment (1) Sepsis Code(s): A41.9 - Sepsis, unspecified organism Status: Acute (2) UTI (urinary tract infection) Code(s): N39.0 - Urinary tract infection, site not specified Status: Acute (3) PNA (pneumonia) Code(s): J18.9 - Pneumonia, unspecified organism Status: Acute (4) Lung abscess Code(s): J85.2 - Abscess of lung without pneumonia Status: Acute (5) Seizure disorder Code(s): G40.909 - Epilepsy, unspecified, not intractable, without status epilepticus Status: Acute - Plan 1. Sepsis: Source-UTI/PNA/Lung Abscess, continue w/ IV Abx, IVF for hydration.resolved. 2. UTI: Persistent. U/a w/ UTI, seen in ER on 04/11/18 for same complaints, + UTI, s/p Levaquin 750mg x5 days, UC with gardneralla vaginalis. started on Flagyl. CT Abd/Pelvis w/ no acute intra-abdominal findings. 3. PNA: CT Chest w/ dense consolidation RLL and 2 fluid collections, possibly abscess. Pt denies IVDU. Does have h/o seizure, non-compliant w/ medications w / recent admission for breakthrough seizure-? due to aspiration. continue Vanc/ Unasyn. s/p bronchoscopy- culture with normal respiratory estevan. echo with EF 55% and no evidence of vegetation. ID and pulmonary following. repeat CT 04/17/18 Right lung abscess differential diagnosis possible aspiration during episode of seizure versus septic emboli from endocarditis. Worse on repeat CT scan. Spoke with Dr Faiza BLAKE, consult IR for CT placement Order stat PTT/INR The patient is kept NPO and was instructed not to eat Imaging results and also plan was discussed with the patient , patient's mother at patient request. S/p CT right Chest Tube Non-Tunneled Placement by IR on 03/18/18 04/18/18 CT appears dislodged. CXR stat. Called IR for further evaluation . Patient is satting well at this time. 4. Seizure Disorder: w/ recent breakthrough seizure due to non-compliance, s/ p eval by Dr. Liu at that time, on Vimpat 200mg bid and Tegretol 200mg bid , resumed. Seizure precautions as needed. 5. Gardnerella Vaginalis infection; started on Flagyl. HIV testing negative. 6. Hypokalemia; resolved. 7. DVT Prophylaxis: SCD/Teds DC plan when cleared by pulm and ID specialist S/p CT right Chest Tube Non-Tunneled Placement by IR on 04/17/1804/18 CT patient says pulled CT by mistake, dressing is off. IR evaluated the patient and CT appears in place. (1) Sepsis Qualifiers: Sepsis type: sepsis due to unspecified organism Qualified Code(s): A41.9 - Sepsis, unspecified organism
--- NOTE | 2018-04-19 11:30 | P.PNID ---
Subjective Remarks: ID coverage. is a 27 y/o -[place] female with past medical history significant for seizure disorder with breakthrough seizures her last seizure being approximately 1 week prior to admission. She reports that she has had breakthrough seizures several times in the past. Patient admits to using marijuana cocaine and her drug screen was also positive for opiates. Patient reports right-sided flank pain and initially presented to the ER on 04/11/2018 for similar complaints and was thought to have a UTI and was discharged on Levaquin 750 mg for 5 days. Patient now returns with ongoing complaints of nonproductive cough, generalized malaise as well as right-sided flank pain. Infectious diseases consulted for evaluation and management of sepsis and right lung abscess. Pertinent positives and negatives: No history of incarceration No history of positive PPD or known tuberculosis. No other contact for tuberculosis. Denies any intravenous drug abuse but admits to oral as well as sniffing of different street drugs. Notes reviewed Temps ok Wants to know when she can go home Has CT on R side - fluid currently looks serous C/S negative so far WBC normal Bronchoscopy cultures are negative. Antibiotics: Unasyn IV Vancomycin IV Lines: Lines ok Past Medical History: reviewed Allergies/Adverse Reactions: Allergies No Known Allergies Allergy (Verified 04/11/18 15:52) Objective Vital Signs 04/18/18 12:00 04/18/18 16:00 04/18/18 20:00 Temperature 97.6 F 98.2 F 97.8 F Pulse Rate 67 79 91 H Respiratory Rate 19 18 19 Blood Pressure 136/89 131/79 143/97 H Pulse Oximetry 100 100 96 04/19/18 00:00 04/19/18 00:05 04/19/18 04:00 Temperature 97.9 F 97.9 F Pulse Rate 69 74 Respiratory Rate 17 22 16 Blood Pressure 141/78 H 142/85 H Pulse Oximetry 100 100 04/19/18 08:00 Temperature 98.2 F Pulse Rate 73 Respiratory Rate 18 Blood Pressure 128/78 Pulse Oximetry 99 Intake & Output 04/18/18 04/19/18 04/19/18 18:59 06:59 18:59 Intake Total 1462.5 / 1462.5 462.5 / 462.5 262.5 / 262.5 Output Total 30 / 30 0 / 0 Balance 1432.5 / 1432.5 462.5 / 462.5 262.5 / 262.5 Weight 1200 kg Intake: IV 1462.5 / 1462.5 462.5 / 462.5 262.5 / 262.5 NS Inj 1,000 ML @ 100 mls/hr IV 1000 / 1000 .CONT .Q10H [facility] Rx#:[id number] Unasyn Inj 3 GM In NS Inj 100 200 / 200 200 / 200 ML @ 200 mls/hr IV.SIG Q6H [facility] Rx#:[id number] Vancomycin Inj 1,250 MG In NS 262.5 / 262.5 262.5 / 262.5 262.5 / 262.5 Inj 250 ML @ 250 mls/hr IV.SIG Q8H [facility] Rx#:[id number] Output: Chest Tube Drainage 0 / 0 RIGHT POSTERIOR CHEST 0 / 0 Other: # Voids 6 04/17/18 17:00 Fluid - Other Gram Stain - Final 04/17/18 17:00 Fluid - Other Body Fluid Culture - Preliminary No growth in 48 hours 04/11/18 21:10 Blood - Peripheral Aerobic Blood Culture - Final No growth in 5 days 04/11/18 21:10 Blood - Peripheral Anaerobic Blood Culture - Final No growth in 5 days 04/11/18 21:12 Blood - Peripheral Aerobic Blood Culture - Final No growth in 5 days 04/11/18 21:12 Blood - Peripheral Anaerobic Blood Culture - Final No growth in 5 days Lab - Hematology Results 04/17/18 04/18/18 19:46 06:50 WBC 10.2 8.1 RBC 3.66 L 3.60 L Hgb 11.5 L 11.1 L Hct 33.3 L 33.1 L MCV 91.0 92.0 MCH 31.4 30.8 MCHC 34.5 33.4 RDW 13.9 14.2 Plt Count 401 393 MPV 7.0 6.9 L Neut % (Auto) 68.1 65.3 Lymph % (Auto) 21.4 22.4 [place] % (Auto) 8.5 H 9.9 H Eos % (Auto) 1.4 2.0 Baso % (Auto) 0.6 0.4 Neut # (Auto) 6.9 5.3 Lymph # (Auto) 2.2 1.8 [place] # (Auto) 0.9 0.8 Eos # (Auto) 0.1 0.2 Baso # (Auto) 0.1 0.0 WBC Differential . . Differential Comment Auto diff final Auto diff final Lab - Chemistry Results 04/18/18 04/19/18 13:25 09:03 Sodium 138 135 L Potassium 3.6 4.6 D Chloride 104 106 Carbon Dioxide 29.0 22.1 Anion Gap 5 7 BUN Less than 1 L 3 L Creatinine 0.62 0.81 Estimated GFR Greater than 89 Greater than 89 Random Glucose 106 96 Calcium 8.3 L 9.2 D Imaging: ITS Impressions Abdomen/Pelvis CT 04/11/18 16:56 CONCLUSION: 1. Dense consolidation in the right lower lung with 2 oval areas of fluid and air raising the possibility of abscesses in the lung. There is a mild right pleural effusion. 2. No definite acute abnormality is seen within the abdomen and pelvis. Chest Tube Insertion 04/17/18 15:13 CONCLUSION: 1. Uncomplicated chest tube placement as above. Chest CT 04/17/18 17:34 CONCLUSION: 1. New moderate to large right pleural effusion. 2. Dense consolidation is again noted in the right lower lobe. The previously noted cystic and gas collections are less distinct but remains characteristic of a lung abscess. Chest X-Ray 04/18/18 17:06 CONCLUSION: Right chest tube without evidence of pneumothorax. Consolidation or atelectasis at the right base which appears to be improving. Physical Exam: GENERAL: awake and alert, NAD SKIN: Cool and dry, no generalized rash HEENT: [place] conjunctiva, no injection or drainage. No petechia. Moist mucosa NECK: Trachea midline. Supple, nontender. CARDIOVASCULAR: Normal S1 and S2 RESPIRATORY: Markedly decreased air entry on the right side. CT in place on R GASTROINTESTINAL: Abdomen soft nontender. MUSCULOSKELETAL: Extremities without clubbing, cyanosis. NEUROLOGICAL: Alert oriented 3. Nonfocal. PSYCH: Calm and cooperative IV line sites ok. Assessment and Plan - Plan Sepsis present on admission, resolved Right lung abscess differential diagnosis possible aspiration during episode of seizure versus septic emboli from endocarditis. New large pleural effusion - has CT now Recent antibiotic use for possible UTI Gardnerella vaginalis infection Right flank pain: Appears to be related to her right lung abscess. CT abdomen with no evidence of pyelonephritis or other abdominal processes. Rule out endocarditis Seizure disorder: reports occ non compliance with medications. Recommendations Continue Unasyn IV Continue vancomycin IV target trough 15-20 Follow new C/S - fluid nC/S negative so far Monitor progress
[2018-04-19] MEDS: Sod Chloride 0.9% Inj 1,000 ML IV.CONT SCH ×2 (12:23→21:07)
[2018-04-19 17:55] LABS: Baso % (Auto) 0.5 % (0.0-2.0); Eos # (Auto) 0.2 th/mm3 (0.0-0.4); Eos % (Auto) 2.2 % (0.0-4.0); Hemoglobin 11.7 gm/dL (11.6-15.3); Lymph # (Auto) 2.3 th/mm3 (1.0-4.8); Lymph % (Auto) 26.4 % (9.0-44.0); Mean Corpuscular HGB Conc 34.4 % (32.0-36.0); Mean Corpuscular Hemoglobin 31.7 pg (27.0-34.0); Mean Corpuscular Volume 92.3 fL (80.0-100.0); Mean Platelet Volume 6.5 fL (7.0-11.0); Mono # (Auto) 0.7 th/mm3 (0.0-0.9); Mono % (Auto) 8.7 % (0.0-8.0); Neut # (Auto) 5.3 th/mm3 (1.8-7.7); Neut % (Auto) 62.2 % (16.0-70.0); Platelet Count 447 th/mm3 (150-450); Red Blood Count 3.68 mil/mm3 (4.00-5.30); White Blood Count 8.6 th/mm3 (4.0-11.0)
[2018-04-20] MEDS: Morphine Sulfate Inj 2 MG/ML Vial IV.PUSH PRN (03:20)
[2018-04-20] MEDS: Ampicillin/Sulbactam Inj 3 GM in Sodium Chloride 0.9% Inj 100 ML IV.SIG SCH ×4 (03:21→19:30)
[2018-04-20] MEDS: Sod Chloride 0.9% Inj 1,000 ML IV.CONT SCH ×2 (05:30→14:15)
[2018-04-20] MEDS: Vancomycin Inj 1,250 MG in Sodium Chlor 0.9% Inj 250 ML IV.SIG SCH (05:30)
[2018-04-20] MEDS ORDERED: Pharmacy Ordered Lab Info OTHER ONE (05:45)
[2018-04-20 06:15] LABS: Baso % (Auto) 0.4 % (0.0-2.0); Eos # (Auto) 0.2 th/mm3 (0.0-0.4); Eos % (Auto) 2.3 % (0.0-4.0); Hematocrit 32.9 % (35.0-46.0); Hemoglobin 11.3 gm/dL (11.6-15.3); Lymph # (Auto) 2.2 th/mm3 (1.0-4.8); Lymph % (Auto) 29.1 % (9.0-44.0); Mean Corpuscular HGB Conc 34.5 % (32.0-36.0); Mean Corpuscular Hemoglobin 31.7 pg (27.0-34.0); Mean Corpuscular Volume 92.1 fL (80.0-100.0); Mean Platelet Volume 6.8 fL (7.0-11.0); Mono # (Auto) 0.6 th/mm3 (0.0-0.9); Mono % (Auto) 8.6 % (0.0-8.0); Neut # (Auto) 4.4 th/mm3 (1.8-7.7); Neut % (Auto) 59.6 % (16.0-70.0); Platelet Count 418 th/mm3 (150-450); Red Blood Count 3.57 mil/mm3 (4.00-5.30); Red Cell Distribution Width 14.4 % (11.6-17.2); White Blood Count 7.4 th/mm3 (4.0-11.0)
[2018-04-20 06:40] LABS: Anion Gap 5 meq/L (5-15); Blood Urea Nitrogen 6 mg/dL (7-18); Calcium 8.1 mg/dL (8.5-10.1); Carbon Dioxide 27.7 meq/L (21.0-32.0); Chloride 106 meq/L (98-107); Glomerular Filtration Rate Greater Than 89 mL/min (>89); Glucose,Random 88 mg/dL (74-106); Potassium 3.8 meq/L (3.5-5.1); Sodium 139 meq/L (136-145); Vancomycin,Trough 23.3 mcg/mL (5.0-10.0)
[2018-04-20] MEDS: carBAMazepine 200 MG Tablet PO SCH ×2 (08:28→20:45)
[2018-04-20] MEDS: Lacosamide 100 MG Tablet PO SCH ×2 (08:28→20:45)
[2018-04-20] MEDS: Senna/Docusate Sodium 8.6/50 MG Tablet PO SCH ×2 (08:29→20:45)
[2018-04-20] MEDS: guaiFENesin 600 MG ER Tablet PO SCH ×2 (08:29→20:45)
[2018-04-20] MEDS: LORazepam 1 MG Tablet PO SCH ×2 (08:33→20:45)
[2018-04-20] MEDS: Sodium Chloride 0.9% 2 ML Flush BID IV.FLUSH SCH ×2 (08:33→20:45)
--- NOTE | 2018-04-20 08:59 | P.PN ---
Subjective Interval history: Chest tube in place. Patient says feels pain. No fever or chills overnight. No nausea vomiting diarrhea constipation. Physical Exam Vital signs: Vital Signs 04/19/18 16:00 04/19/18 20:00 04/20/18 00:00 Temperature 97.9 F 97.3 F L 97.8 F Pulse Rate 76 82 73 Respiratory Rate 18 20 16 Blood Pressure 153/92 H 150/88 H Pulse Oximetry 97 100 100 04/20/18 04:00 Temperature 97.9 F Pulse Rate 77 Respiratory Rate 17 Blood Pressure 138/84 Pulse Oximetry 97 Intake & Output 04/19/18 04/20/18 04/20/18 18:59 06:59 18:59 Intake Total 1725.0 / 1725.0 2182.5 / 2182.5 262.5 / 262.5 Output Total 0 / 0 Balance 1725.0 / 1725.0 2182.5 / 2182.5 262.5 / 262.5 Weight 76.204 kg 75.7 kg Intake: IV 1725.0 / 1725.0 1462.5 / 1462.5 262.5 / 262.5 NS Inj 1,000 ML @ 100 mls/hr IV 1000 / 1000 1000 / 1000 .CONT .Q10H ELSA Rx#:[id number] Unasyn Inj 3 GM In NS Inj 100 200 / 200 200 / 200 ML @ 200 mls/hr IV.SIG Q6H ELSA Rx#:[id number] Vancomycin Inj 1,250 MG In NS 525.0 / 525.0 262.5 / 262.5 262.5 / 262.5 Inj 250 ML @ 250 mls/hr IV.SIG Q8H ELSA Rx#:[id number] Oral 720 / 720 Output: Chest Tube Drainage 0 / 0 RIGHT POSTERIOR CHEST 0 / 0 Other: # Voids 4 Narrative: GENERAL: Young female, not in acute distress. CARDIOVASCULAR: Normal s1 and s2. RRR RESPIRATORY: Decreased air entry on the right side. No accessory muscle use. Chest tube in place. GASTROINTESTINAL: Abdomen soft nontender. MUSCULOSKELETAL: Extremities without clubbing, cyanosis. NEUROLOGICAL: Alert oriented 3. Nonfocal. PSYCHIATRIC: cooperative Results - Labs CBC & Chem 7: 04/20/18 04:10 04/20/18 04:10 Laboratory Results - last 24 hr 04/19/18 04/19/18 04/20/18 09:03 17:09 04:10 WBC 8.6 7.4 RBC 3.68 L 3.57 L Hgb 11.7 11.3 L Hct 34.0 L 32.9 L MCV 92.3 92.1 MCH 31.7 31.7 MCHC 34.4 34.5 RDW 14.0 14.4 Plt Count 447 418 MPV 6.5 L 6.8 L Neut % (Auto) 62.2 59.6 Lymph % (Auto) 26.4 29.1 [place] % (Auto) 8.7 H 8.6 H Eos % (Auto) 2.2 2.3 Baso % (Auto) 0.5 0.4 Neut # (Auto) 5.3 4.4 Lymph # (Auto) 2.3 2.2 [place] # (Auto) 0.7 0.6 Eos # (Auto) 0.2 0.2 Baso # (Auto) 0.0 0.0 WBC Differential . . Differential Comment Auto diff final Auto diff final Sodium 135 L Potassium 4.6 D Chloride 106 Carbon Dioxide 22.1 Anion Gap 7 BUN 3 L Creatinine 0.81 Estimated GFR Greater than 89 Random Glucose 96 Calcium 9.2 D Vancomycin Trough 04/20/18 04:10 WBC RBC Hgb Hct MCV MCH MCHC RDW Plt Count MPV Neut % (Auto) Lymph % (Auto) [place] % (Auto) Eos % (Auto) Baso % (Auto) Neut # (Auto) Lymph # (Auto) [place] # (Auto) Eos # (Auto) Baso # (Auto) WBC Differential Differential Comment Sodium 139 Potassium 3.8 D Chloride 106 Carbon Dioxide 27.7 Anion Gap 5 BUN 6 L Creatinine 0.68 Estimated GFR Greater than 89 Random Glucose 88 Calcium 8.1 L D Vancomycin Trough 23.3 H Microbiology 04/17/18 17:00 Fluid - Other Gram Stain - Final 04/17/18 17:00 Fluid - Other Body Fluid Culture - Final No growth in 72 hours (aerobically and anaerobically ) - Procedures S/P CT right Chest Tube Non-Tunneled Placement by IR on 04/17/18 Assessment and Plan - Assessment (1) Sepsis Code(s): A41.9 - Sepsis, unspecified organism Status: Acute (2) UTI (urinary tract infection) Code(s): N39.0 - Urinary tract infection, site not specified Status: Acute (3) PNA (pneumonia) Code(s): J18.9 - Pneumonia, unspecified organism Status: Acute (4) Lung abscess Code(s): J85.2 - Abscess of lung without pneumonia Status: Acute (5) Seizure disorder Code(s): G40.909 - Epilepsy, unspecified, not intractable, without status epilepticus Status: Acute - Plan 1. Sepsis: Source-UTI/PNA/Lung Abscess, continue w/ IV Abx, IVF for hydration.resolved. 2. UTI: Persistent. U/a w/ UTI, seen in ER on 04/11/18 for same complaints, + UTI, s/p Levaquin 750mg x5 days, UC with gardneralla vaginalis. started on Flagyl. CT Abd/Pelvis w/ no acute intra-abdominal findings. 3. PNA: CT Chest w/ dense consolidation RLL and 2 fluid collections, possibly abscess. Pt denies IVDU. Does have h/o seizure, non-compliant w/ medications w / recent admission for breakthrough seizure-? due to aspiration. continue Vanc/ Unasyn. s/p bronchoscopy- culture with normal respiratory estevan. echo with EF 55% and no evidence of vegetation. ID and pulmonary following. repeat CT 04/17/18 Right lung abscess differential diagnosis possible aspiration during episode of seizure versus septic emboli from endocarditis. Worse on repeat CT scan. Spoke with Dr Kendall ID, consult IR for CT placement Order stat PTT/INR The patient is kept NPO and was instructed not to eat Imaging results and also plan was discussed with the patient , patient's mother at patient request. S/p CT right Chest Tube Non-Tunneled Placement by IR on 03/18/18 04/18/18 CT appears dislodged. CXR stat. Called IR for further evaluation . CT is in place evaluated by IR 04/20 Repeat CXR with significant improvement , CT removal by IR Patient is satting well at this time. DC on PO antibiotic augmentin for 3 weeks 4. Seizure Disorder: w/ recent breakthrough seizure due to non-compliance, s/ p eval by Dr. iLu at that time, on Vimpat 200mg bid and Tegretol 200mg bid , resumed. Seizure precautions as needed. 5. Gardnerella Vaginalis infection; started on Flagyl. HIV testing negative. 6. Hypokalemia; resolved. 7. DVT Prophylaxis: SCD/Teds DC plan when cleared by pulm and ID specialist S/p CT right Chest Tube Non-Tunneled Placement by IR on 04/17/1804/18 CT patient says pulled CT by mistake, dressing is off. IR evaluated the patient and CT appears in place. poss DC CT , IR is following. Poss DC tomorrow if cleared by consultants (1) Sepsis Qualifiers: Sepsis type: sepsis due to unspecified organism Qualified Code(s): A41.9 - Sepsis, unspecified organism
--- NOTE | 2018-04-20 13:56 | XR ---
EXAM DATE: 04/20/2018 1:51 PM EST AGE/SEX: 27 years / Female INDICATIONS: Status post chest tube placement. CLINICAL DATA: This is the patient's subsequent encounter. Patient reports that signs and symptoms h ave been present for 4 - 6 days and indicates a pain score of 3/10. MEDICAL/SURGICAL HISTORY: . Hypertension. Polynephritis. Seizures. None. COMPARISON: [facility] – [place], CT CHEST W CONTRAST, 04/17/2018. . FINDINGS: Small bore chest tube in place on the right. There is no pneumothorax. Trace right pleural effusion i s noted. Lungs are under aerated. Nipple rings are evident. CONCLUSION: Right chest tube in good position without pneumothorax Electronically signed by: Kaleb Quinn MD Board Certified Radiologist 04/20/2018 1:55 PM EST
--- NOTE | 2018-04-20 15:31 | P.PNID ---
Subjective Remarks: is a 27 y/o -[place] female with past medical history significant for seizure disorder with breakthrough seizures her last seizure being approximately 1 week prior to admission. She reports that she has had breakthrough seizures several times in the past. Patient admits to using marijuana cocaine and her drug screen was also positive for opiates. Patient reports right-sided flank pain and initially presented to the ER on 04/11/2018 for similar complaints and was thought to have a UTI and was discharged on Levaquin 750 mg for 5 days. Patient now returns with ongoing complaints of nonproductive cough, generalized malaise as well as right-sided flank pain. Infectious diseases consulted for evaluation and management of sepsis and right lung abscess. Pertinent positives and negatives: No history of incarceration No history of positive PPD or known tuberculosis. No other contact for tuberculosis. Denies any intravenous drug abuse but admits to oral as well as sniffing of different street drugs. Notes reviewed Temps [place] Wants to know when she can go home Has CT on R side - fluid currently looks serous C/S negative so far at 72 hours. WBC normal Bronchoscopy cultures are negative. Antibiotics: Unasyn IV Vancomycin IV Lines: Lines ok Past Medical History: reviewed Allergies/Adverse Reactions: Allergies No Known Allergies Allergy (Verified 04/11/18 15:52) Objective Vital Signs 04/19/18 16:00 04/19/18 20:00 04/20/18 00:00 Temperature 97.9 F 97.3 F L 97.8 F Pulse Rate 76 82 73 Respiratory Rate 18 20 16 Blood Pressure 153/92 H 150/88 H Pulse Oximetry 97 100 100 04/20/18 04:00 04/20/18 08:00 04/20/18 12:00 Temperature 97.9 F 97.9 F 97.6 F Pulse Rate 77 83 61 Respiratory Rate 17 19 18 Blood Pressure 138/84 148/90 H 142/87 H Pulse Oximetry 97 100 100 Intake & Output 04/19/18 04/20/18 04/20/18 18:59 06:59 18:59 Intake Total 1725.0 / 1725.0 2182.5 / 2182.5 1362.5 / 1362.5 Output Total 0 / 0 Balance 1725.0 / 1725.0 2182.5 / 2182.5 1362.5 / 1362.5 Weight 76.204 kg 75.7 kg Intake: IV 1725.0 / 1725.0 1462.5 / 1462.5 1362.5 / 1362.5 NS Inj 1,000 ML @ 100 mls/hr IV 1000 / 1000 1000 / 1000 1000 / 1000 .CONT .Q10H ELSA Rx#:[id number] Unasyn Inj 3 GM In NS Inj 100 200 / 200 200 / 200 100 / 100 ML @ 200 mls/hr IV.SIG Q6H ELSA Rx#:[id number] Vancomycin Inj 1,250 MG In NS 525.0 / 525.0 262.5 / 262.5 262.5 / 262.5 Inj 250 ML @ 250 mls/hr IV.SIG Q8H ELSA Rx#:[id number] Oral 720 / 720 Output: Chest Tube Drainage 0 / 0 RIGHT POSTERIOR CHEST 0 / 0 Other: # Voids 4 Date of Last Bowel Movement 04/18/18 04/13/18 15:30 Bronchial Washings - Bronchial Acid Fast Bacilli Smear - Final No acid fast bacilli seen 04/13/18 15:30 Bronchial Washings - Bronchial Mycobacterial Culture - Preliminary No growth in 1 week 04/13/18 15:30 Bronchial Washings - Bronchial Fungal Smear - Final No fungal elements seen 04/13/18 15:30 Bronchial Washings - Bronchial Fungal Culture - Preliminary No growth in 1 week 04/17/18 17:00 Fluid - Other Gram Stain - Final 04/17/18 17:00 Fluid - Other Body Fluid Culture - Final No growth in 72 hours (aerobically and anaerobically ) Lab - Hematology Results 04/19/18 04/20/18 17:09 04:10 WBC 8.6 7.4 RBC 3.68 L 3.57 L Hgb 11.7 11.3 L Hct 34.0 L 32.9 L MCV 92.3 92.1 MCH 31.7 31.7 MCHC 34.4 34.5 RDW 14.0 14.4 Plt Count 447 418 MPV 6.5 L 6.8 L Neut % (Auto) 62.2 59.6 Lymph % (Auto) 26.4 29.1 [place] % (Auto) 8.7 H 8.6 H Eos % (Auto) 2.2 2.3 Baso % (Auto) 0.5 0.4 Neut # (Auto) 5.3 4.4 Lymph # (Auto) 2.3 2.2 [place] # (Auto) 0.7 0.6 Eos # (Auto) 0.2 0.2 Baso # (Auto) 0.0 0.0 WBC Differential . . Differential Comment Auto diff final Auto diff final Lab - Chemistry Results 04/19/18 04/20/18 09:03 04:10 Sodium 135 L 139 Potassium 4.6 D 3.8 D Chloride 106 106 Carbon Dioxide 22.1 27.7 Anion Gap 7 5 BUN 3 L 6 L Creatinine 0.81 0.68 Estimated GFR Greater than 89 Greater than 89 Random Glucose 96 88 Calcium 9.2 D 8.1 L D Imaging: ITS Impressions Abdomen/Pelvis CT 04/11/18 16:56 CONCLUSION: 1. Dense consolidation in the right lower lung with 2 oval areas of fluid and air raising the possibility of abscesses in the lung. There is a mild right pleural effusion. 2. No definite acute abnormality is seen within the abdomen and pelvis. Chest Tube Insertion 04/17/18 15:13 CONCLUSION: 1. Uncomplicated chest tube placement as above. Chest CT 04/17/18 17:34 CONCLUSION: 1. New moderate to large right pleural effusion. 2. Dense consolidation is again noted in the right lower lobe. The previously noted cystic and gas collections are less distinct but remains characteristic of a lung abscess. Chest X-Ray 04/20/18 13:13 CONCLUSION: Right chest tube in good position without pneumothorax Physical Exam: GENERAL: awake and alert, NAD SKIN: Cool and dry, no generalized rash HEENT: [place] conjunctiva, no injection or drainage. No petechia. Moist mucosa NECK: Trachea midline. Supple, nontender. CARDIOVASCULAR: Normal S1 and S2 RESPIRATORY: Markedly decreased air entry on the right side. CT in place on R GASTROINTESTINAL: Abdomen soft nontender. MUSCULOSKELETAL: Extremities without clubbing, cyanosis. NEUROLOGICAL: Alert oriented 3. Nonfocal. PSYCH: Calm and cooperative IV line sites ok. Assessment and Plan - Plan Sepsis present on admission, resolved Right lung abscess differential diagnosis possible aspiration during episode of seizure versus septic emboli from endocarditis. New large pleural effusion - has CT now Recent antibiotic use for possible UTI Gardnerella vaginalis infection Right flank pain: Appears to be related to her right lung abscess. CT abdomen with no evidence of pyelonephritis or other abdominal processes. Rule out endocarditis Seizure disorder: reports occ non compliance with medications. Recommendations Continue Unasyn IV DC vancomycin IV Follow new C/S - fluid C/S negative so far Monitor progress Have IR follow up on CT. andrez Montanez/[place]/
--- NOTE | 2018-04-20 17:10 | P.PNPL ---
Subjective Interval history: 27 YOAA female with Sz, rt CP CT chest rt lung abscess Small amount of thick mucous suctioned No Fever Breathing better Denies sob had Chest cathetor placed by IR on 04/17, removed today jeff Gibson'tarik Physical Exam Vital signs: Vital Signs 04/19/18 20:00 04/20/18 00:00 04/20/18 04:00 Temperature 97.3 F L 97.8 F 97.9 F Pulse Rate 82 73 77 Respiratory Rate 20 16 17 Blood Pressure 153/92 H 150/88 H 138/84 Pulse Oximetry 100 100 97 04/20/18 08:00 04/20/18 12:00 Temperature 97.9 F 97.6 F Pulse Rate 83 61 Respiratory Rate 19 18 Blood Pressure 148/90 H 142/87 H Pulse Oximetry 100 100 Intake & Output 04/19/18 04/20/18 04/20/18 18:59 06:59 18:59 Intake Total 1725.0 / 1725.0 2182.5 / 2182.5 1462.5 / 1462.5 Output Total 0 / 0 Balance 1725.0 / 1725.0 2182.5 / 2182.5 1462.5 / 1462.5 Weight 76.204 kg 75.7 kg Intake: IV 1725.0 / 1725.0 1462.5 / 1462.5 1462.5 / 1462.5 NS Inj 1,000 ML @ 100 mls/hr IV 1000 / 1000 1000 / 1000 1000 / 1000 .CONT .Q10H [facility] Rx#:[id number] Unasyn Inj 3 GM In NS Inj 100 200 / 200 200 / 200 200 / 200 ML @ 200 mls/hr IV.SIG Q6H [facility] Rx#:[id number] Vancomycin Inj 1,250 MG In NS 525.0 / 525.0 262.5 / 262.5 262.5 / 262.5 Inj 250 ML @ 250 mls/hr IV.SIG Q8H [facility] Rx#:[id number] Oral 720 / 720 Output: Chest Tube Drainage 0 / 0 RIGHT POSTERIOR CHEST 0 / 0 Other: # Voids 4 Date of Last Bowel Movement 04/18/18 GENERAL: WBWn NAD SKIN: Warm and dry. HEAD: Normocephalic. EYES: No scleral icterus. No injection or drainage. NECK: Supple, trachea midline. No JVD or lymphadenopathy. CARDIOVASCULAR: Regular rate and rhythm without murmurs, gallops, or rubs. RESPIRATORY: Breath sounds equal bilaterally. No accessory muscle use. GASTROINTESTINAL: Abdomen soft, non-tender, nondistended. MUSCULOSKELETAL: No cyanosis, or edema. BACK: Nontender without obvious deformity. No CVA tenderness. Assessment and Plan - Plan IMPRESSION: 1. Right lung dense infiltrate with possible developing abscess. Possibility of aspiration. 2. Seizure disorder. 3. Anxiety. PLAN: Cont Abx per ID, Unasyn Stable on RA Mucinex 600 mg bid DC plans underway
--- NOTE | 2018-04-20 17:20 | P.DS ---
Date of admission: 04/11/18 20:44 Primary care physician: No Primary Care Physician Brief History from admission: This is a 27-year-old female with a PMH of Seizure Disorder who presents the ER with complaints of right-sided flank pain x2-3 days. Seen in ER on 04/11/18 for similar complaints, noted to have UTI and d/c'd on Levaquin 750mg x5 days. Returns now w/ ongoing complaints, also notes non-productive cough and generalized malaise. On arrival, BP 133/85, HR 106, O2 sat 100% on RA, Temp 101.6. WBC 18.4. Chemistry essentially unremarkable. Lactic acid 1.0. UA with persistent UTI. CT Abdomen/Pelvis no abnormality in the abdomen or pelvis , dense consolidation right lower lung with 2 oval areas of fluid possibly abscess. S/p Vanc/Zosyn in ER. Patient update on day of discharge: Satting well on room air Afebrile No events overnight DS: Diagnosis - Discharge Diagnosis (1) Sepsis Status: Acute (2) UTI (urinary tract infection) Status: Acute (3) PNA (pneumonia) Status: Acute (4) Lung abscess Status: Acute (5) Seizure disorder Status: Acute DS: Medications - Discharge Medications Prescriptions: amoxicillin-pot clavulanate [Augmentin] 1 tab PO BID 21 Days #42 tab guaifenesin [Mucinex] 600 mg PO BID #7 tab Lactobacillus acidoph-L.bulgar [Lactinex] 1 tab PO DAILY #30 tab DS: Summary Hospital Course: 1. Sepsis: Source-UTI/PNA/Lung Abscess, continue w/ IV Abx, IVF for hydration.resolved. 2. UTI: Persistent. U/a w/ UTI, seen in ER on 04/11/18 for same complaints, + UTI, s/p Levaquin 750mg x5 days, UC with gardneralla vaginalis. started on Flagyl. CT Abd/Pelvis w/ no acute intra-abdominal findings. 3. PNA: CT Chest w/ dense consolidation RLL and 2 fluid collections, possibly abscess. Pt denies IVDU. Does have h/o seizure, non-compliant w/ medications w / recent admission for breakthrough seizure-? due to aspiration. continue Vanc/ Unasyn. s/p bronchoscopy- culture with normal respiratory estevan. echo with EF 55% and no evidence of vegetation. ID and pulmonary following. repeat CT 04/17/18 Right lung abscess differential diagnosis possible aspiration during episode of seizure versus septic emboli from endocarditis. Worse on repeat CT scan. Spoke with Dr Faiza BLAKE, consult IR for CT placement Order stat PTT/INR The patient is kept NPO and was instructed not to eat Imaging results and also plan was discussed with the patient , patient's mother at patient request. S/p CT right Chest Tube Non-Tunneled Placement by IR on 03/18/18 04/18/18 CT appears dislodged. CXR stat. Called IR for further evaluation . CT is in place evaluated by IR 04/20 Repeat CXR with significant improvement , CT removal by IR Patient is satting well at this time. DC on PO antibiotic augmentin for 3 weeks, discussed with Dr Debbi BLAKE, appreciate recommendations. 4. Seizure Disorder: w/ recent breakthrough seizure due to non-compliance, s/ p eval by Dr. Liu at that time, on Vimpat 200mg bid and Tegretol 200mg bid , resumed. Seizure precautions as needed. 5. Gardnerella Vaginalis infection; started on Flagyl. HIV testing negative. 6. Hypokalemia; resolved. 7. DVT Prophylaxis: SCD/Teds S/p CT right Chest Tube Non-Tunneled Placement by IR on 04/17/18. Repeat CXR with significant improvement. CT removed by IR on 04/20/18 Improved. DC home in stable condition to follow up as OP with PCP and consultants. - Time Spent with Patient Total time spent providing and/or coordinating discharge services: Greater than 30 minutes Exam Vital signs: Vital Signs 04/19/18 20:00 04/20/18 00:00 04/20/18 04:00 Temperature 97.3 F L 97.8 F 97.9 F Pulse Rate 82 73 77 Respiratory Rate 20 16 17 Blood Pressure 153/92 H 150/88 H 138/84 Pulse Oximetry 100 100 97 04/20/18 08:00 04/20/18 12:00 Temperature 97.9 F 97.6 F Pulse Rate 83 61 Respiratory Rate 19 18 Blood Pressure 148/90 H 142/87 H Pulse Oximetry 100 100 Intake & Output 04/19/18 04/20/18 04/20/18 18:59 06:59 18:59 Intake Total 1725.0 / 1725.0 2182.5 / 2182.5 1462.5 / 1462.5 Output Total 0 / 0 Balance 1725.0 / 1725.0 2182.5 / 2182.5 1462.5 / 1462.5 Weight 76.204 kg 75.7 kg Intake: IV 1725.0 / 1725.0 1462.5 / 1462.5 1462.5 / 1462.5 NS Inj 1,000 ML @ 100 mls/hr IV 1000 / 1000 1000 / 1000 1000 / 1000 .CONT .Q10H [facility] Rx#:[id number] Unasyn Inj 3 GM In NS Inj 100 200 / 200 200 / 200 200 / 200 ML @ 200 mls/hr IV.SIG Q6H [facility] Rx#:[id number] Vancomycin Inj 1,250 MG In NS 525.0 / 525.0 262.5 / 262.5 262.5 / 262.5 Inj 250 ML @ 250 mls/hr IV.SIG Q8H [facility] Rx#:[id number] Oral 720 / 720 Output: Chest Tube Drainage 0 / 0 RIGHT POSTERIOR CHEST 0 / 0 Other: # Voids 4 Date of Last Bowel Movement 04/18/18 Narrative: GENERAL: Young female, not in acute distress. CARDIOVASCULAR: Normal s1 and s2. RRR RESPIRATORY: Decreased air entry on the right side. No accessory muscle use. GASTROINTESTINAL: Abdomen soft nontender. MUSCULOSKELETAL: Extremities without clubbing, cyanosis. NEUROLOGICAL: Alert oriented 3. Nonfocal. PSYCHIATRIC: cooperative Results Procedures completed during hospitalization: S/P CT right Chest Tube Non-Tunneled Placement by IR on 04/17/[address] on 04/20/18 Labs on day of discharge: Labs from last 24 hours 04/20/18 04/20/18 04/19/18 04:10 04:10 17:09 WBC 7.4 8.6 RBC 3.57 L 3.68 L Hgb 11.3 L 11.7 Hct 32.9 L 34.0 L MCV 92.1 92.3 MCH 31.7 31.7 MCHC 34.5 34.4 RDW 14.4 14.0 Plt Count 418 447 MPV 6.8 L 6.5 L Neut % (Auto) 59.6 62.2 Lymph % (Auto) 29.1 26.4 [place] % (Auto) 8.6 H 8.7 H Eos % (Auto) 2.3 2.2 Baso % (Auto) 0.4 0.5 Neut # (Auto) 4.4 5.3 Lymph # (Auto) 2.2 2.3 [place] # (Auto) 0.6 0.7 Eos # (Auto) 0.2 0.2 Baso # (Auto) 0.0 0.0 WBC Differential . . Differential Comment Auto diff final Auto diff final Sodium 139 Potassium 3.8 D Chloride 106 Carbon Dioxide 27.7 Anion Gap 5 BUN 6 L Creatinine 0.68 Estimated GFR Greater than 89 Random Glucose 88 Calcium 8.1 L D Vancomycin Trough 23.3 H Preliminary micro results at discharge 04/13/18 15:30 Mycobacterial Culture - Preliminary Bronchial Washings - Bronchial No growth in 1 week 04/13/18 15:30 Fungal Culture - Preliminary Bronchial Washings - Bronchial No growth in 1 week - Impressions ITS Impressions Abdomen/Pelvis CT 04/11/18 16:56 CONCLUSION: 1. Dense consolidation in the right lower lung with 2 oval areas of fluid and air raising the possibility of abscesses in the lung. There is a mild right pleural effusion. 2. No definite acute abnormality is seen within the abdomen and pelvis. Chest Tube Insertion 04/17/18 15:13 CONCLUSION: 1. Uncomplicated chest tube placement as above. Chest CT 04/17/18 17:34 CONCLUSION: 1. New moderate to large right pleural effusion. 2. Dense consolidation is again noted in the right lower lobe. The previously noted cystic and gas collections are less distinct but remains characteristic of a lung abscess. Chest X-Ray 04/20/18 13:13 CONCLUSION: Right chest tube in good position without pneumothorax Discharge Plan - Discharge Disposition Patient Disposition: 01 Discharge Home - Discharge Condition Condition: Stable - Discharge Order Discharge Orders: Discharge Order (Routine); Ordered 04/21/18 Ordered By: Lakisha Alonzo - Discharge Details Anticipated Discharge Date: 04/21/18 - Physicians Team Primary Care Provider: Primary Care Cr,Liz Attending Provider: Lakisha Alonzo Other Providers: Margaux Werner MD ; Blair Mcdonald MD
[2018-04-20] MEDS ORDERED: Vancomycin Inj 1,500 MG in Sodium Chlor 0.9% Inj 500 ML IV.SIG SCH (18:00)
[2018-04-21] MEDS: Sod Chloride 0.9% Inj 1,000 ML IV.CONT SCH (00:15)
[2018-04-21] MEDS: Ampicillin/Sulbactam Inj 3 GM in Sodium Chloride 0.9% Inj 100 ML IV.SIG SCH ×2 (01:40→08:44)
[2018-04-21 07:01] LABS: Baso % (Auto) 0.6 % (0.0-2.0); Eos # (Auto) 0.2 th/mm3 (0.0-0.4); Eos % (Auto) 2.5 % (0.0-4.0); Hematocrit 32.8 % (35.0-46.0); Hemoglobin 11.1 gm/dL (11.6-15.3); Lymph # (Auto) 2.1 th/mm3 (1.0-4.8); Lymph % (Auto) 29.5 % (9.0-44.0); Mean Corpuscular HGB Conc 33.7 % (32.0-36.0); Mean Corpuscular Hemoglobin 31.1 pg (27.0-34.0); Mean Corpuscular Volume 92.4 fL (80.0-100.0); Mean Platelet Volume 6.7 fL (7.0-11.0); Mono # (Auto) 0.6 th/mm3 (0.0-0.9); Mono % (Auto) 8.9 % (0.0-8.0); Neut # (Auto) 4.2 th/mm3 (1.8-7.7); Neut % (Auto) 58.5 % (16.0-70.0); Platelet Count 388 th/mm3 (150-450); Red Blood Count 3.55 mil/mm3 (4.00-5.30); Red Cell Distribution Width 14.2 % (11.6-17.2); White Blood Count 7.3 th/mm3 (4.0-11.0)
[2018-04-21 07:20] LABS: Anion Gap 6 meq/L (5-15); Blood Urea Nitrogen 10 mg/dL (7-18); Calcium 8.4 mg/dL (8.5-10.1); Carbon Dioxide 26.8 meq/L (21.0-32.0); Chloride 106 meq/L (98-107); Glomerular Filtration Rate Greater Than 89 mL/min (>89); Glucose,Random 75 mg/dL (74-106); Potassium 3.9 meq/L (3.5-5.1); Sodium 139 meq/L (136-145)
[2018-04-21] MEDS: LORazepam 1 MG Tablet PO SCH (08:45)
[2018-04-21] MEDS: guaiFENesin 600 MG ER Tablet PO SCH (08:45)
[2018-04-21] MEDS: Lacosamide 100 MG Tablet PO SCH (08:45)
[2018-04-21] MEDS: Sodium Chloride 0.9% 2 ML Flush BID IV.FLUSH SCH (08:46)
[2018-04-21] MEDS: Senna/Docusate Sodium 8.6/50 MG Tablet PO SCH (08:46)
[2018-04-21] MEDS: carBAMazepine 200 MG Tablet PO SCH (08:49)
--- NOTE | 2018-04-21 09:35 | IR ---
EXAM DATE: 04/20/2018 4:51 PM EST AGE/SEX: 27 years / Female INDICATIONS: Right chest tube removal ordered; cxr stated trace fluid remains and pleural fluid cult ures negative after 72 hours. COMPARISON: [facility] [place], CHEST EXPIRATION ONLY, 04/20/2018. . DEVICE(S): Vaseline occlusive dressing silk tape PROCEDURE: 1. Chest tube removal. Using aseptic technique the previously placed chest tube was easily removed in one piece and Vaseline gauze and sterile dressing was applied. Chest radiograph is to be obtained. CONCLUSION: 1. Uncomplicated chest tube removal. Electronically signed by: Vince Alonso MD Board Certified Radiologist 04/21/2018 9:34 AM ANDREY T
--- NOTE | 2018-04-21 10:27 | P.PNPL ---
Subjective Interval history: 27 YOAA female with Sz, rt CP CT chest rt lung abscess Small amount of thick mucous suctioned No Fever Breathing better Denies sob Weaned to RA Anxious to go home Physical Exam Vital signs: Vital Signs 04/20/18 12:00 04/20/18 16:00 04/20/18 20:00 Temperature 97.6 F 98.2 F 98.7 F Pulse Rate 61 87 81 Respiratory Rate 18 18 18 Blood Pressure 142/87 H 141/93 H 130/86 Pulse Oximetry 100 100 97 04/20/18 20:07 04/21/18 00:00 04/21/18 00:19 Temperature 98.7 F Pulse Rate 79 71 66 Respiratory Rate 16 Blood Pressure 153/94 H Pulse Oximetry 94 L 04/21/18 02:47 04/21/18 03:17 04/21/18 04:00 Temperature 97.6 F Pulse Rate 68 Respiratory Rate 18 18 16 Blood Pressure 128/81 Pulse Oximetry 97 04/21/18 04:01 04/21/18 08:00 Temperature 97.9 F Pulse Rate 87 83 Respiratory Rate 18 Blood Pressure 145/97 H Pulse Oximetry 100 Intake & Output 04/20/18 04/21/18 04/21/18 18:59 06:59 18:59 Intake Total 1462.5 / 1462.5 1880 / 1880 100 / 100 Balance 1462.5 / 1462.5 1880 / 1880 100 / 100 Weight 76 kg Intake: IV 1462.5 / 1462.5 1200 / 1200 100 / 100 NS Inj 1,000 ML @ 100 mls/hr IV 1000 / 1000 1000 / 1000 .CONT .Q10H [facility]SA Rx#:[id number] Unasyn Inj 3 GM In NS Inj 100 200 / 200 200 / 200 100 / 100 ML @ 200 mls/hr IV.SIG Q6H [facility]SA Rx#:[id number] Vancomycin Inj 1,250 MG In NS 262.5 / 262.5 Inj 250 ML @ 250 mls/hr IV.SIG Q8H ELSA Rx#:[id number] Oral 680 / 680 Other: # Voids 3 Date of Last Bowel Movement 04/18/18 04/20/18 GENERAL: WBWn NAD SKIN: Warm and dry. HEAD: Normocephalic. EYES: No scleral icterus. No injection or drainage. NECK: Supple, trachea midline. No JVD or lymphadenopathy. CARDIOVASCULAR: Regular rate and rhythm without murmurs, gallops, or rubs. RESPIRATORY: Breath sounds equal bilaterally. No accessory muscle use. GASTROINTESTINAL: Abdomen soft, non-tender, nondistended. MUSCULOSKELETAL: No cyanosis, or edema. BACK: Nontender without obvious deformity. No CVA tenderness. Assessment and Plan - Plan IMPRESSION: 1. Right lung dense infiltrate with possible developing abscess. Possibility of aspiration. 2. Seizure disorder. 3. Anxiety. PLAN: Cont Abx per ID, Stable on RA Mucinex 600 mg bid DC plans underway Stable from Pulm standpoint.
[2018-04-22] MEDS ORDERED: Pharmacy Ordered Lab Info OTHER ONE (05:45)
== END 2018-04-21 10:27 | disposition home or self-care (01) ==
LOC: NEPD 15:30 → NEDA 20:44 → N07 22:00
PROVIDERS: ADMIT Hospitalist; ATTEND Hospitalist